=== PATIENT | female | born 1965 | race Caucasian/White ===

== ENCOUNTER → 2017-10-30 14:04 | Day surgery (SDC) | payer OTHER, SELFPAY ==
[2017-10-26] MEDS: SODIUM CHLORIDE 0.9% 1,000 ML 200 ML IV (16:00)
[2017-10-30] VITALS (7 sets, daily range): BP systolic 129–139; BP diastolic 72–90; PULSE 74–87; RESP 2–20; TEMP 35.9–36.3; O2SAT 10–99; BMI 50.0
--- NOTE | 2017-10-30 | PATH_ITS ---
[facility] Accession Number: [id number] . 01 Material submitted: . PART A: SMALL BOWEL BIOPSY PART B: TRANSVERSE COLON POLYP PART C: SIGMOID COLON POLYP . 02 Diagnosis: A. Small Bowel, Biopsy: Small bowel mucosa with no diagnostic abnormality. Negative for active inflammation, granulomata, dysplasia or malignancy. . B. Transverse Colon Polyp: Sessile serrated adenoma. . C. Sigmoid Colon Polyp: Hyperplastic polyp. MRV/11/01/2017 . 02 Electronically signed: . Gonzalez Kaur MD, PhD, Pathologist NPI- [id number] . 01 Gross description: . (A) Received in formalin, labeled small bowel biopsy, are two fragments of alvares tissue (0.5 x 0.1 x 0.1 cm and 0.3 x 0.2 x 0.1 cm). Entirely submitted in cassette A1. (B) Received in formalin, labeled transverse colon polyp, are multiple fragments of rice-white tissue (1.7 x 0.7 x 0.1 cm in aggregate). Filtered and entirely submitted in cassette B1. (C) Received in formalin, labeled sigmoid colon polyp, is a fragment of rice-white tissue (0.3 x 0.2 x 0.1 cm). Entirely submitted in cassette C1. ([id number]) /[facility] . 02 Pathologist provided ICD-10: D12.3, K63.5 . 02 CPT . 601141, 295923, 170817 Performed at: 01 [facility] [address], [place], [place] [id number] MD Cabrera Montelongo MD Phone: [phone] Performed at: 02 [facility] [address] [place] [id number] MD Hardik Lopes MD Phone: [phone]
--- NOTE | 2017-10-30 16:19 | PM.OP.ENDO ---
Operative Date/Time/Diagnoses Date of procedure: 10/30/17 Time of procedure: 16:19 Pre-op diagnosis: See indications Post-op diagnosis: same Procedure & Clinicians Study performed: EGD/enteroscopy and colonoscopy Same procedure as scheduled: Yes Indications: Iron deficiency anemia with right upper quadrant pain. Also need for colorectal cancer screening. Surgeon: Kishan Wilcox Procedure Notes Procedure in detail: After informed consent was obtained patient was placed in left lateral decubitus position. The video colonoscope was introduced to the oropharynx and under direct visualization passed through the esophagus. The esophagus gastric remnant and jejunum were carefully examined. On withdrawal retroflexed view the GE junction was performed. Scope was removed patient tolerated procedure well Patient was then turned and the scope inserted in the rectum. This was easily passed the cecum. Preparation was good. On slow withdrawal mucosa was carefully examined. Scope was removed patient tolerated procedure well Blood loss none Complications none Sedation general per anesthesia EGD 1. Normal esophagus 2. Moderate sized gastric remnant approximately 4-5 cm in length. No anastomotic ulcerations seen 3. Site and the anastomosis was small bowel. The blind loop was an additional 4 cm long. 4. The jejunum was normal to 60-70 cm past the anastomosis. The Lin anastomosis was never found. Small bowel biopsies were taken. Colonoscopy 1. 6 mm polyp in the transverse colon which was snared and removed. This was placed in the same bottle as a couple of random biopsies 2. 3 mm polyp in the sigmoid colon cold biopsied and removed completely 3. Otherwise negative colonoscopy to cecum with no evidence for lesion that might be causing iron deficiency anemia The patient will eventually need to follow up in the office to help pull things together. She may need a capsule endoscopy depending on how her anemia responds.
--- NOTE | 2017-10-30 16:25 | P.HP_ITS ---
History of Present Illness Chief complaint: colonoscopy egd [id number] Patient History Medical History Anxiety (Chronic Unknown) Chronic headaches (Chronic Unknown) Hypothyroidism (Chronic Unknown) Iron deficiency (Chronic ~2000) Bursitis (Resolved ~12/2011) Surgical History History of cataract removal with insertion of prosthetic lens History of gastric bypass (2000) Status post dilation and curettage Status post dilation and curettage (11/23/16) Status post tonsillectomy and adenoidectomy Family & Social History Social History: household members family Tobacco & Substance use: Smoking Status Never smoker Meds Home Medications Medication Instructions Recorded Confirmed Type diphenhydramine HCl 50 mg PO HSP PRN #0 07/02/16 10/30/17 History b complex 1 tab PO DAILY 07/02/17 10/30/17 History calcium citrate 500 mg PO BID 07/02/17 10/30/17 History coq10 200 mg PO DAILY 07/02/17 10/30/17 History magnesium citrate 300 mg PO BID 07/02/17 10/30/17 History milk thistle 1,000 mg PO DAILY 07/02/17 10/30/17 History multivitamin 1 tab PO DAILY 07/02/17 10/30/17 History selenium 200 mg PO DAILY 07/02/17 10/30/17 History vitamin c 1,000 mg PO DAILY 07/02/17 10/30/17 History vitamin a 10,000 units PO DAILY 07/02/17 10/30/17 History vitamin d See Label Instructions .ROUTE 07/02/17 10/30/17 History .COMPLEX vitamin e See Label Instructions .ROUTE 07/02/17 10/30/17 History .COMPLEX zinc 50 mg PO DAILY 07/02/17 10/30/17 History diclofenac sodium 75 mg 75 mg PO BID #60 ect 07/10/17 10/30/17 Rx tablet,delayed release liothyronine 5 mcg tablet 5 mcg PO BID #60 tab 08/05/17 10/30/17 Rx losartan 50 mg tablet 50 mg PO QDAY #30 tab 08/05/17 10/30/17 Rx tizanidine 2 mg tablet 2 mg PO QHS #30 tab 10/23/17 10/30/17 Rx escitalopram oxalate [Lexapro] 10 mg PO QDAY 10/30/17 10/30/17 History ferrous gluconate 100 mg PO DAILY 10/30/17 10/30/17 History levothyroxine [Synthroid] 75 mcg PO/SL QDAY 10/30/17 10/30/17 History Allergies Allergy/AdvReac Type Severity Reaction Status Date / Time pregabalin [PREGABALIN] Allergy Severe facial and Verified 10/30/17 14:48 throat swelling hydrocodone [HYDROCODONE] AdvReac Severe nausea, Unverified 07/02/17 16:19 syncopal episode Exam Vital Signs (past 8 hours): - 10/30/17 14:33 10/30/17 16:16 10/30/17 16:19 Temperature 96.7 F L 97.4 F L Pulse Rate 76 80 78 Respiratory Rate 20 10 L 10 L Blood Pressure 138/85 129/88 139/87 Pulse Oximetry 99 95 10 L Oxygen Delivery Method Room Air Oxygen Flow Rate 2 Narrative Exam Narrative: Chest: Clear to auscultation percussion Cardiac exam: No S3 or murmur Oropharynx: Free of lesions Assessment & Plan Plan: Assessment/Plan Narrative: Iron deficiency anemia with right upper quadrant pain. Need for upper endoscopy to rule out anastomotic ulcer or esophagitis. Also need for small- bowel biopsies. Colonoscopy needed for colorectal cancer screening.
== END | disposition home or self-care (01) ==
PROVIDERS: Family Provider Family Medicine; PCP Family Medicine; Visit Provider Internal Medicine Gastroenterology
PROC: 0DJ08ZZ Inspection of Upper Intestinal Tract, Via Natural or Artificial Opening Endoscopic (ICD-10-PCS; CPT 43235; principal; 2017-10-30 15:00)
PROC: 0DJD8ZZ Inspection of Lower Intestinal Tract, Via Natural or Artificial Opening Endoscopic (ICD-10-PCS; CPT 45378; 2017-10-30 15:00)
DX: Z12.11 Encounter for screening for malignant neoplasm of colon (principal); D12.3 Benign neoplasm of transverse colon; K63.5 Polyp of colon; D50.9 Iron deficiency anemia, unspecified; R10.11 Right upper quadrant pain; E66.9 Obesity, unspecified; I10 Essential (primary) hypertension; Z68.43 Body mass index [BMI] 50.0-59.9, adult; E03.9 Hypothyroidism, unspecified; Z98.84 Bariatric surgery status; Z85.820 Personal history of malignant melanoma of skin; Z79.899 Other long term (current) drug therapy
CPT/HCPCS: 45385; 45380; 43239; J0330; J1100; J2405; J2704; J3010

== ENCOUNTER → 2018-01-29 16:09 | Outpatient (CLI) | payer OTHER, SELFPAY ==
--- NOTE | 2018-01-29 16:10 | DI.MRI.S_ITS ---
PROCEDURE: MR ABDOMEN WO/W CON INDICATIONS: Pancreatic mass TECHNIQUE: Coronal HASTE, axial 2D FLASH in- and [id number]; axial breath-hold T2 FSE with fat saturation from the hepatic dome to the iliac crests. Oblique coronal thin-slice and radial thick slab HASTE through the biliary system. Dynamic axial VIBE during administration of contrast. Post-contrast coronal VIBE or 2D FLASH with fat saturation from the hepatic dome to the iliac crests. Optional diffusion weighted imaging and ADC may be performed. COMPARISON: [facility], CT, ABDOMEN WITH CONTRAST, 10/11/2015, 9:45. Outside Facility, , MRI ABDOMEN W/W/O CONTRAST, 02/09/2016, 9:27. FINDINGS: Image quality: Excellent. Pancreas and biliary system: No biliary distention is seen. No cystic or solid mass lesion involving the pancreatic parenchyma is found. Solid organs: Liver is normal in size and enhancement. Again noted is a stable appearing small right anterior hepatic segment cyst measuring only approximately 9 mm transverse and 6 mm AP. Gallbladder has been previously resected. Spleen is normal in size and enhancement. No adrenal nodules. Kidneys are normal in size and enhancement, without hydronephrosis. Nodes and vessels: No retroperitoneal or mesenteric adenopathy by size criteria. Aorta and inferior vena cava are normal in size. Bowel and peritoneum: Unenhanced bowel loops are normal in caliber throughout. No free fluid. Stable appearance of a small fluid signal rounded cystic structure at the margin of the gastric reduction surgery, previously identified also in January of 2016. A small postoperative lymphocele is the likely cause. Lung bases: No basal pleural effusions. Heart size is normal. Bones and soft tissues: No ventral hernias. Bone marrow is normal in overall signal. IMPRESSION: 1. No evidence of underlying malignancy. 2. Stable appearance of a small postoperative cyst abutting the gastric reduction surgery margin, most likely a small lymphocele as the underlying cause. No followup recommended. 3. Again noted is a small hepatic cyst measuring 6 x 9 mm right anterior hepatic segment at the mid liver level. No specific followup of this particular finding is recommended. 4. Prior cholecystectomy. Dictated by: Candido Arias M.D. on 01/31/2018 at 15:56 Approved by: Candido Arias M.D. on 01/31/2018 at 16:06
== END ==
PROVIDERS: Family Provider Internal Medicine Gastroenterology; PCP Family Medicine; Visit Provider Family Medicine
DX: K86.9 Disease of pancreas, unspecified (principal); K76.89 Other specified diseases of liver; Z90.49 Acquired absence of other specified parts of digestive tract
CPT/HCPCS: 74183; A9579

== ENCOUNTER → 2018-03-07 07:46 | Outpatient (CLI) | payer OTHER, SELFPAY ==
--- NOTE | 2018-03-07 07:47 | DI.MG.S_ITS ---
BILATERAL DIGITAL SCREENING MAMMOGRAM 3D/2D WITH CAD: 03/07/2018 CLINICAL: Routine screening. Family history of breast cancer. Comparison is made to exams dated: 01/26/2017 mammogram, 02/09/2015 mammogram, and 08/20/2012 mammogram - [facility]. There are scattered fibroglandular elements in both breasts. Current study was also evaluated with a Computer Aided Detection (CAD) system. No significant masses, calcifications, or other findings are seen in either breast. There has been no significant interval change. IMPRESSION: NEGATIVE There is no mammographic evidence of malignancy. A 1 year screening mammogram is recommended. This exam was interpreted at Station ID: [id number]. NOTE: For mammograms, a report in lay terms will be sent to the patient. Approximately 15% of breast malignancies will not be visualized mammographically. In the management of a palpable breast mass, a negative mammogram must not discourage biopsy of a clinically suspicious lesion. Electronically Signed By: Ludy paul/yves:03/07/2018 11:20:11 letter sent: Normal Exam ACR BI-RADS Category 1: Negative [id number]
== END ==
PROVIDERS: Family Provider Internal Medicine Gastroenterology; PCP Family Medicine; Visit Provider Family Medicine
DX: Z12.31 Encounter for screening mammogram for malignant neoplasm of breast (principal); Z80.3 Family history of malignant neoplasm of breast
CPT/HCPCS: 77063; 77067

== ENCOUNTER → 2018-05-23 08:59 | Outpatient (CLI) | payer OTHER, SELFPAY ==
[2018-05-23 09:55] LABS: Add Manual Diff / Slide Review NO; Basophils Absolute Auto 0 /uL (0-100); Basophils Percent Auto 0.4 % (0-2); Eosinophils Absolute Auto 100 /uL (0-450); Eosinophils Percent Auto 3.3 % (2-4); Hematocrit 41.6 % (36-46); Hemoglobin 14.1 g/dL (12.0-16.0); Lymphocytes Absolute Auto 900 /uL (1100-4500); Lymphocytes Percent Auto 22.2 % (25-40); Mean Corpuscular Hemoglobin 31.1 PG (26-34); Mean Corpuscular Volume 91.5 fL (80-100); Monocytes Absolute Auto 200 /uL (0-900); Monocytes Percent Auto 4.8 % (3-14); Neutrophils Absolute Auto 2800 /uL (1500-7000); Neutrophils Percent Auto 69.3 % (50-75); Platelet Count 260 X10^3/uL (150-400); Red Blood Cell Count 4.55 X10^6/uL (4.0-5.2); Red Cell Distribution Width 12.4 % (11.6-14.8); White Blood Cell Count 4.1 X10^3/uL (4.5-11.0)
--- NOTE | 2018-05-23 09:57 | DI.CT.S_ITS ---
PROCEDURE: CT LUMBAR SPINE WO CON INDICATIONS: STRAIN OF LOWER BACK. Lower back pain. Sciatica. TECHNIQUE: Noncontrast 3 mm thick sections acquired from the T12 level to the sacrum. Sagittal and coronal reformats were constructed. For radiation dose reduction, the following was used: automated exposure control. COMPARISON: [facility], CR, XR LUMBAR SPINE 2 OR 3 VIEWS, 05/19/2018, 9:27. [facility], MR, L-SPINE W&WO CONTRAST, 03/15/2015, 19:38. FINDINGS: Image quality: Excellent. Bones: There is normal bony alignment. No acute vertebral body compression fractures. No suspicious lytic or blastic bony lesions. Central spinal caliber is of normal overall caliber. No pars defects. Remote posterior lateral johanne and pedicle screw fixation involving the left pedicles of L2-L5. There is no evidence of hardware failure or loosening. There is interbody cage material present at these levels. T12-L1: No canal stenosis or foraminal stenosis. L1-L2: Since the prior MRI, there has been a destructive process that has occurred involving the disc space. The disc space is obliterated with indistinctness of the inferior endplate of L1 and the superior endplate of L2 with interdigitation of the end plates of the vertebral bodies. There is subjacent sclerosis in the vertebral bodies. Findings most likely represent a long time degenerative process. However, cannot exclude discitis/osteomyelitis. No canal stenosis or foraminal stenosis. Unremarkable facet joints. L2-L3: Left posterior lateral fusion and interbody fusion no canal stenosis or foraminal stenosis. Unremarkable facet joints. L3-L4: Left posterior lateral fusion and interbody fusion. No canal stenosis or foraminal stenosis. L4-L5: Left posterior lateral fusion and interbody fusion. Borderline canal stenosis. Mild facet and ligament hypertrophy. L5-S1: A somewhat similar process has occurred at L5-S1 as occurred at L1-L2. There is no severe disc height loss. There is indistinctness of the endplates of L5 and S1 with subcortical cyst formation and sclerosis. No canal stenosis. Mild bilateral foraminal stenosis. Soft tissues: No retroperitoneal masses or hematomas. Visualized aorta is normal in caliber. IMPRESSION: 1. Left posterior lateral fusion and interbody fusion spanning L2-L3 through L5-S1 with no evidence of hardware failure or loosening. 2. A destructive process has occurred at the L1-L2 disc level. This is most likely degenerative in nature. However, cannot exclude L1-L2 discitis/osteomyelitis. Recommend correlation with laboratory values for infection and inflammation. 3. Borderline canal stenosis at L4-L5. Dictated by: Rick Garcia M.D. on 05/23/2018 at 10:35 Approved by: Rick Garcia M.D. on 05/23/2018 at 11:04
[2018-05-23 11:44] LABS: Alanine Aminotransferase 53 IU/L (9-52); Albumin 4.4 g/dL (3.5-5.0); Alkaline Phosphatase 109 U/L (38-126); Aspartate Aminotransferase 41 IU/L (14-36); BUN Creatinine Ratio 21.1 (6-22); Bilirubin Total 0.8 mg/dL (0.2-1.3); Blood Urea Nitrogen 19 mg/dL (7-17); Calcium 9.4 mg/dL (8.4-10.2); Carbon Dioxide 28 mmol/L (22-32); Chloride 102 mmol/L (98-107); Cholesterol 145 mg/dL (140-199); Estimated Glomerular Filt Rate > 60.0 mL/min (>60); Globulin 2.2 g/dL (1.7-4.1); Glucose 97 mg/dL (70-100); HDL Cholesterol 43 mg/dL (40-60); HEMOLYSIS < 15 (0-50); LDL Cholesterol Calculated 71 mg/dL (<100); Sodium 140 mmol/L (137-145); Total Protein 6.6 g/dL (6.3-8.2); Triglycerides 154 mg/dL (35-150)
[2018-05-23 11:55] LABS: Free T3, Triiodothyronine Free 3.52 pg/mL (2.77-5.27); Free T4, Direct Thyroxine 1.27 ng/dL (0.78-2.19)
[2018-05-23 12:08] LABS: Thyroid Stimulating Hormone 0.91 uIU/mL (0.47-4.68)
== END ==
PROVIDERS: Family Provider Internal Medicine Gastroenterology; PCP Family Medicine; Visit Provider Orthopaedic Surgery
DX: S39.012D Strain of muscle, fascia and tendon of lower back, subsequent encounter (principal); E03.9 Hypothyroidism, unspecified; R51 Headache; Z51.81 Encounter for therapeutic drug level monitoring
CPT/HCPCS: 36415; 72131; 80053; 80061; 84439; 84443; 84481; 85025

== ENCOUNTER → 2018-07-29 06:59 | Outpatient (CLI) | payer OTHER, SELFPAY ==
[2018-07-29 08:19] LABS: Add Manual Diff / Slide Review NO; Basophils Absolute Auto 0 /uL (0-100); Basophils Percent Auto 0.4 % (0-2); Eosinophils Absolute Auto 200 /uL (0-450); Eosinophils Percent Auto 3.7 % (2-4); Hematocrit 44.1 % (36-46); Hemoglobin 14.8 g/dL (12.0-16.0); Lymphocytes Absolute Auto 1200 /uL (1100-4500); Lymphocytes Percent Auto 23.6 % (25-40); Mean Corpuscular HGB Conc 33.7 % (30-36); Mean Corpuscular Hemoglobin 30.7 PG (26-34); Mean Corpuscular Volume 91.2 fL (80-100); Monocytes Absolute Auto 300 /uL (0-900); Neutrophils Absolute Auto 3400 /uL (1500-7000); Neutrophils Percent Auto 66.3 % (50-75); Platelet Count 257 X10^3/uL (150-400); Red Blood Cell Count 4.83 X10^6/uL (4.0-5.2); Red Cell Distribution Width 12.5 % (11.6-14.8); White Blood Cell Count 5.1 X10^3/uL (4.5-11.0)
[2018-07-29 08:34] LABS: Alanine Aminotransferase 39 IU/L (9-52); Albumin 4.2 g/dL (3.5-5.0); Albumin Globulin Ratio 1.7 (1.0-2.8); Alkaline Phosphatase 122 U/L (38-126); Aspartate Aminotransferase 38 IU/L (14-36); BUN Creatinine Ratio 18.6 (6-22); Bilirubin Total 0.7 mg/dL (0.2-1.3); Blood Urea Nitrogen 13 mg/dL (7-17); Calcium 9.8 mg/dL (8.4-10.2); Carbon Dioxide 28 mmol/L (22-32); Chloride 104 mmol/L (98-107); Estimated Glomerular Filt Rate > 60.0 mL/min (>60); Globulin 2.5 g/dL (1.7-4.1); Glucose 85 mg/dL (70-100); HEMOLYSIS < 15 (0-50); Potassium 4.6 mmol/L (3.4-5.1); Sodium 141 mmol/L (137-145); Total Protein 6.7 g/dL (6.3-8.2)
== END ==
PROVIDERS: Family Provider Internal Medicine Gastroenterology; PCP Family Medicine; Visit Provider Family Medicine
DX: E03.9 Hypothyroidism, unspecified (principal); E66.9 Obesity, unspecified; I10 Essential (primary) hypertension
CPT/HCPCS: 36415; 80053; 85025

== ENCOUNTER 2018-08-19 06:09 | Day surgery (SDC) | payer OTHER, SELFPAY ==
[2018-08-08 07:58] VITALS: BMI 49.5
[2018-08-19] VITALS (11 sets, daily range): BP systolic 128–159; BP diastolic 65–91; PULSE 64–80; RESP 9–18; TEMP 36.1–36.8; O2SAT 97–100; BMI 49.5
--- NOTE | 2018-08-19 | DI.RAD.S_ITS ---
PROCEDURE: XR LUMBAR SPINE 2-3V INDICATIONS: L5-S1 LAMINECTOMY TECHNIQUE: 2 intraoperative fluoroscopic views of the lumbar spine were acquired. COMPARISON: [facility], , L-SPINE 2-3 VIEWS, 06/23/2013, 16:37. FINDINGS: Intraoperative fluoroscopic images of lower lumbar spine shows prior fusion of lumbar spine a surgical instrument posteriorly at L5-S1 level. IMPRESSION: Fluoroscopy guidance was provided intraoperatively for laminectomy at L5-S1 level. Dictated by: Ted Wilson M.D. on 08/19/2018 at 12:53 Approved by: Ted Wilson M.D. on 08/19/2018 at 12:54
[2018-08-19] MEDS: LACTATED RINGERS 1,000 ML 42 ML IV ×3 (07:16→11:22)
--- NOTE | 2018-08-19 07:22 | PM.PREOP ---
Pre-operative Note Interval Note History & Physical reviewed/Exam performed by Physician: Yes Changes to H&P: No
--- NOTE | 2018-08-19 07:24 | PM.OP.1 ---
Operative Date/Time/Diagnoses Date of procedure: 08/19/18 Time of procedure: 10:11 Pre-op diagnosis: lumbar stenosis with radiculopathy history of lumbar fusion morbid obesity Post-op diagnosis: same Procedure & Clinicians Procedure: L5-S1 laminectomy with left foraminotomy Use of microscope Placement of epidural catheter Same procedure as scheduled: Yes Indications: [age] year old female with intractable pain from stenosis. She had failed conservative management and requested operative intervention. Risks and benefits of surgery were discussed and appropriate consents were obtained. Surgeon: David Alarcon Anesthesia Type: General Operative Notes Findings: none Closure Type: primary Specimen(s): none sent Blood products transfused: none Procedure in detail: Patient was brought to the operating room and intubated on the table. A time-out was performed. There were rolled over the well-padded prone position on the Dinesh table. The back was prepped and draped in standard sterile fashion. Preoperative antibiotics were given. Using fluoroscopy, a 3 cm incision was made to the well-marked left of the midline at the L5-S1 level. We used Bovie to come down to and split the fascia. We then used the Sellaround MaXcess dilators with fluoroscopy and then opened our retractors. We were limited by the previous L5 screw and the tip of the johanne limiting our opening of the retractor. We cleared off more of the scar from her last surgery and went medial to this. However we did not have enough exposure. I want up doing a more shallow blade on the cephalad level so that it could go over the screw head and the remainder of our retractor was deep. The soft tissue was cleared off with Bovie, a marker was placed, an x-ray was taken to confirm positioning. We had the L5-S1 facet, the lateral edge of the lamina, and the screw in the tip of the johanne exposed. Due to the patient's scar tissue and hardware as well as her morbid obesity, this took over an hour to get our exposure. We were having to use 110 mm blades which greatly limited our mobility inside the retractor. This considerably increased the complexity and time of this surgery. We then brought in the microscope. A combination of high-speed bur and Kerrison were used to perform a left-sided laminotomy and facetectomy. We worked out far laterally along the facet joint to remove the overlying bone and opened up the L5 foramen. There was still a thin lateral wall of facet intact underneath the johanne, but we used the curved Kerrisons to undermine this to make sure the foramen was wide open. We could trace the ball probe from the central canal along the pedicle and out laterally and the nerve was freed up. Once everything was adequately decompressed, the wound was copiously irrigated. An epidural catheter was filled with 100 mcg of fentanyl and 8 mL of 0.25% Marcaine. The dura was carefully depressed under the laminotomy site and the catheter was advanced only 2 cm cephalad. We could not advance it further but it seemed to be into the canal. The retractor was removed and the fascia was closed. The epidural catheter was then injected without resistance and removed. Superficial and skin were closed. Sterile dressing was placed. The patient was then rolled over, transferred to the stretcher, and brought to recovery room without complications. Complications: none Condition: stable Disposition: PACU Plan for aftercare: Outpatient. May start physical therapy in 2 weeks
[2018-08-19] MEDS: CEFAZOLIN VIAL 3 GM in SODIUM CHLORIDE 0.9% 100 ML 200 ML IV (07:55)
--- NOTE | 2018-08-19 08:14 | SUR.OPER ---
Prone on spine table, head in foam head support, padded chest and pelvic supports, gel pad at knees, lower legs supported by pillows; nipples, genitalia and toes free of pressure, arms secured on foam padded arm boards at <90 degrees abduction. Tape over blanket at thigh secured to table.
[2018-08-19] MEDS: THROMBIN (RECOMBINANT) 5,000 UNIT VIAL 5000 UNIT TOP (08:30)
[2018-08-19] MEDS: BUPIVACAINE 0.25% (PF) VIAL 30 ML INJ (08:31)
[2018-08-19] MEDS: VANCOMYCIN 1,000 MG VIAL 1000 MG TOP (08:53)
[2018-08-19] MEDS: fentaNYL 100 MCG/2 ML INJ IV ×3 (09:43→10:46)
[2018-08-19] MEDS: SODIUM CHLORIDE 0.9% 1,000 ML, GENTAMICIN 80 MG IRR (09:46)
[2018-08-19] MEDS: BACITRACIN 28 GM OINT 1 APPLIC TOP (10:15)
--- NOTE | 2018-08-19 10:31 | SUR.PHASEI ---
pt has a reddened broken down area under right petty Claire RN from OR stated it happened when pt was transferred from table. Alethea Cruz RN placed bacitracin ointment on it. This RN will monitor the area while in PACU.
[2018-08-19] MEDS: HYDROMORPHONE 2 MG INJ 0.5 MG IV ×2 (11:14→11:23)
--- NOTE | 2018-08-19 11:26 | SUR.PHASEI ---
Report given to Kavitha Blake RN
--- NOTE | 2018-08-19 11:38 | SUR.PHASEI ---
Assumed patient from Lizzeth Begum RN; asked to transfer to OPD. Verbalizes tolerating pain, denies nausea. Skin warm and dry, no grimace, appears comfortable, resp unlabored.
--- NOTE | 2018-08-19 11:53 | SUR.PHASEII ---
Report given to Farooq Rueda RN; pts mother at bedside.
[2018-08-19] MEDS: OXYCODONE/ACETAMINOPHEN 5/325 TABLET 1 TAB PO (12:01)
--- NOTE | 2018-08-19 12:43 | SUR.PHASEII ---
OOB with walker to BR, stable on her feet. Family member assisted with dressing. Escorted to ED entrance by volunteer via [facility]. Pt in stable condition upon D/C to home
== END 2018-08-19 12:43 | disposition home or self-care (01) ==
PROVIDERS: Family Provider Internal Medicine Gastroenterology; PCP Family Medicine; Visit Provider Orthopaedic Surgery
PROC: (CPT 63047; principal; 2018-08-19 07:45)
DX: M48.061 Spinal stenosis, lumbar region without neurogenic claudication (principal); M54.16 Radiculopathy, lumbar region; Z98.1 Arthrodesis status; E66.01 Morbid (severe) obesity due to excess calories; Z68.43 Body mass index [BMI] 50.0-59.9, adult
CPT/HCPCS: 63047; 72100; 76000; C9290; J0690; J1100; J1170; J2405; J2704; J3010

== ENCOUNTER → 2018-10-15 07:14 | Outpatient (CLI) | payer OTHER, SELFPAY ==
--- NOTE | 2018-10-15 07:25 | DI.CT.S_ITS ---
PROCEDURE: CT LUMBAR SPINE WO CON INDICATIONS: Radiculopathy, lumbar region TECHNIQUE: Noncontrast 3 mm thick sections acquired from the T12 level to the sacrum. Sagittal and coronal reformats were constructed. For radiation dose reduction, the following was used: automated exposure control. COMPARISON: [facility], CT, CT LUMBAR SPINE WO CON, 05/23/2018, 9:47. FINDINGS: Image quality: Excellent. Bones: Posterior left fusion with intervertebral spacers is present from L2-L5. There is trace retrolisthesis of L1 on L2, L2 on L3, unchanged. Hardware is intact without visualized patricia are or periprosthetic loosening. There is severe reactive and destructive changes along the inferior endplate of L1, unchanged. There is severe disc space narrowing at L1-L2. Sclerotic reactive endplate changes are also present at L2 as well as L5-S1. They appear slightly more prominent at L5-S1. Minimal disc bulge is present at L1-L2, posterior osteophyte at L3-4. Minimal stenosis at L3-4 mild L4-5, unchanged. Minimal right foraminal narrowing at L1-L2, mild left foraminal narrowing L4-5, moderate bilateral L5-S1, all unchanged. Soft tissues: There is a left posterior subcutaneous fluid collection at the level of L4 measuring 64 mm AP by 41 mm transverse. This is new compared to prior exam.. Visualized aorta is normal in caliber. IMPRESSION: 1. L2-L5 posterior fusion as above. 2. Stable appearance of minimal spinal stenosis at L3-4 and L4-5. 3. Multilevel foraminal narrowing most notable at L5-S1, unchanged. 4. New left posterior subcutaneous fluid collection as above. Recommend correlation to recent surgery or trauma. This could represents seroma. No significant surrounding inflammatory change to suggest abscess. However, this is of concern, contrast study is recommended for further evaluation. Dictated by: Rae Coon M.D. on 10/15/2018 at 11:31 Approved by: Rae Coon M.D. on 10/15/2018 at 11:48
== END ==
PROVIDERS: PCP Family Medicine; Visit Provider Orthopaedic Surgery
DX: M54.16 Radiculopathy, lumbar region (principal); M48.07 Spinal stenosis, lumbosacral region; Z98.1 Arthrodesis status
CPT/HCPCS: 72131

== ENCOUNTER → 2018-11-18 06:55 | Outpatient (CLI) | payer OTHER, SELFPAY ==
[2018-11-18 08:02] LABS: Add Manual Diff / Slide Review NO; Basophils Absolute Auto 0 /uL (0-100); Basophils Percent Auto 0.7 % (0-2); Eosinophils Absolute Auto 200 /uL (0-450); Eosinophils Percent Auto 4.1 % (2-4); Hematocrit 42.9 % (36-46); Hemoglobin 14.4 g/dL (12.0-16.0); Lymphocytes Absolute Auto 1300 /uL (1100-4500); Lymphocytes Percent Auto 25.9 % (25-40); Mean Corpuscular HGB Conc 33.5 % (30-36); Mean Corpuscular Hemoglobin 30.6 PG (26-34); Mean Corpuscular Volume 91.1 fL (80-100); Monocytes Absolute Auto 300 /uL (0-900); Monocytes Percent Auto 5.3 % (3-14); Neutrophils Absolute Auto 3100 /uL (1500-7000); Platelet Count 254 X10^3/uL (150-400); Red Blood Cell Count 4.71 X10^6/uL (4.0-5.2); Red Cell Distribution Width 12.4 % (11.6-14.8); White Blood Cell Count 4.8 X10^3/uL (4.5-11.0)
[2018-11-18 08:11] LABS: BUN Creatinine Ratio 22.5 (6-22); Blood Urea Nitrogen 18 mg/dL (7-17); Calcium 9.8 mg/dL (8.4-10.2); Carbon Dioxide 27 mmol/L (22-32); Chloride 105 mmol/L (98-107); Estimated Glomerular Filt Rate > 60.0 mL/min (>60); Glucose 93 mg/dL (70-100); HEMOLYSIS < 15 (0-50); Sodium 141 mmol/L (137-145)
== END ==
PROVIDERS: Orthopaedic Surgery; PCP Family Medicine; Visit Provider Family Medicine
DX: Z01.818 Encounter for other preprocedural examination (principal); E03.9 Hypothyroidism, unspecified; Z51.81 Encounter for therapeutic drug level monitoring
CPT/HCPCS: 36415; 80048; 85025

== ENCOUNTER → 2018-12-03 06:53 | Outpatient (CLI) | payer OTHER, SELFPAY ==
[2018-12-03 08:32] LABS: Add Manual Diff / Slide Review NO; Basophils Absolute Auto 0 /uL (0-100); Basophils Percent Auto 0.4 % (0-2); Eosinophils Absolute Auto 200 /uL (0-450); Eosinophils Percent Auto 3.3 % (2-4); Hemoglobin 14.6 g/dL (12.0-16.0); Lymphocytes Absolute Auto 1200 /uL (1100-4500); Lymphocytes Percent Auto 23.5 % (25-40); Mean Corpuscular HGB Conc 33.9 % (30-36); Mean Corpuscular Hemoglobin 30.9 PG (26-34); Mean Corpuscular Volume 91.1 fL (80-100); Monocytes Absolute Auto 200 /uL (0-900); Monocytes Percent Auto 4.7 % (3-14); Neutrophils Absolute Auto 3500 /uL (1500-7000); Neutrophils Percent Auto 68.1 % (50-75); Platelet Count 244 X10^3/uL (150-400); Red Blood Cell Count 4.72 X10^6/uL (4.0-5.2); Red Cell Distribution Width 12.5 % (11.6-14.8); White Blood Cell Count 5.1 X10^3/uL (4.5-11.0)
[2018-12-03 08:50] LABS: Cholesterol 175 mg/dL (140-199); HDL Cholesterol 44 mg/dL (40-60); LDL Cholesterol Calculated 95 mg/dL (<100); Triglycerides 180 mg/dL (35-150)
[2018-12-03 08:59] LABS: Iron 107 ug/dL (37-170)
[2018-12-03 09:17] LABS: Free T3, Triiodothyronine Free 2.84 pg/mL (2.77-5.27); Free T4, Direct Thyroxine 1.16 ng/dL (0.78-2.19)
[2018-12-03 09:30] LABS: Thyroid Stimulating Hormone 1.85 uIU/mL (0.47-4.68)
[2018-12-03 17:33] LABS: Bacteria Urine None Seen; RBC Urine None Seen (0-5/HPF)
[2018-12-03 17:44] LABS: Appearance Urine UA CLEAR; Bilirubin Urine UA NEGATIVE (NEGATIVE); Color Urine UA YELLOW; Glucose Urine UA NEGATIVE (Negative); Ketones Urine UA NEGATIVE (NEGATIVE); Leukocyte Esterase Urine UA TRACE (NEGATIVE); Nitrite Urine UA NEGATIVE (Negative); Occult Blood Urine UA NEGATIVE (Negative); Protein Urine UA NEGATIVE (Negative); Specific Gravity Urine UA <=1.005 (1.000-1.035); Urobilinogen Urine UA 0.2 E.U./dL (0.2)
[2018-12-03 18:00] LABS: Squamous Epithelial Cell Urine 5-10 /HPF (0-5/HPF)
[2018-12-03 18:01] LABS: pH Urine UA 5.5 (4.5-8.0)
[2018-12-03 18:02] LABS: WBC Urine 5-10/HPF (0-5/HPF)
[2018-12-03 18:03] LABS: Culture Indicated Urine Specimen Cultured
== END ==
PROVIDERS: PCP Family Medicine; Visit Provider Family Medicine
DX: E03.9 Hypothyroidism, unspecified (principal); E61.1 Iron deficiency; I10 Essential (primary) hypertension
CPT/HCPCS: 36415; 80061; 81001; 83540; 84439; 84443; 84481; 85025; 87077; 87086; 87186

== ENCOUNTER 2018-12-12 06:08 | Day surgery (SDC) | payer OTHER, SELFPAY ==
[2018-12-11 13:56] VITALS: BMI 49.5
[2018-12-12] VITALS (11 sets, daily range): BP systolic 114–144; BP diastolic 63–86; PULSE 71–89; RESP 12–24; TEMP 36.2–36.6; O2SAT 94–100; BMI 49.0
--- NOTE | 2018-12-12 | DI.RAD.S_ITS ---
PROCEDURE: XR LUMBAR SPINE 2-3V INDICATIONS: HARDWARE REMOVAL, LAMINECTOMY AT L5-S1 TECHNIQUE: 2 views of the lumbar spine were acquired. COMPARISON: [facility], , XR LUMBAR SPINE 2-3V, 08/19/2018, 8:13. FINDINGS: Spot fluoroscopic intraoperative images demonstrating removal of previous spinal fixation hardware. On one image, a surgical probe is seen with the tip seen at the level of L5-S1 disc space. Dictated by: Rafael Monsivais M.D. on 12/12/2018 at 15:58 Approved by: Rafael Monsivais M.D. on 12/12/2018 at 15:59
--- NOTE | 2018-12-12 07:28 | PM.PREOP ---
Pre-operative Note Interval Note History & Physical reviewed/Exam performed by Physician: Yes Changes to H&P: Yes H&P completed within 30 days and has changed as indicated here:: will plan on full HWR in back
--- NOTE | 2018-12-12 07:39 | P.OP_ITS ---
Operative Date/Time/Diagnoses Date of procedure: 12/12/18 Time of procedure: 10:37 Pre-op diagnosis: Lumbar stenosis with radiculopathy History of lumbar fusion morbid obesity BMI 49 Post-op diagnosis: same Procedure & Clinicians Procedure: Hardware removal posterior lumbar instrumentation L2 through 5 Revision left-sided laminotomy L5-S1 Same procedure as scheduled: Yes Indications: [age] year old female with intractable pain from lumbar stenosis. They had failed conservative management and requested operative intervention. Risks and benefits of surgery were discussed and appropriate consents were obtained. Surgeon: David Alarcon Advertising Project Manager: Keiko Hager Anesthesia Type: General Operative Notes Findings: None Closure Type: primary Specimen(s): none sent Prosthetic devices, grafts, tissues, transplants, or devices: removed NuVasive Precept screws Estimated Blood Loss (mL): 20 Procedure in detail: Patient was brought to the operating room and intubated on the table. A time-out was performed. There were rolled over the well-padded prone position on the Dinesh table. The back was prepped and draped in standard sterile fashion. Preoperative antibiotics were given. Using fluoroscopy for localization, we revised her old incision on the well- marked left side, we opened this up and split down through the fascia to we came down to the lower screws. There was a 4 cm pocket of seroma fluid collection that was released in the middle of her adipose tissue but nothing tract deeper than that. I realized that we would need to cut above the L4 screw to get adequate access and since we had this cleared above I decided to go ahead and remove all of the old hardware since we were there. The set screws, johanne and pedicle screws from L2 through 5 were all removed. she had extreme amounts of scar tissue around the lower aspect from her previous surgery. We knew we were safe below the point where the old johanne had been as well as out lateral to that. We used Bovie to come down and excised the scar tissue until we came down to the facet we used the L4-5 facet as our guide for depth. We then began having to remove all of the old scar dorsal to the facet with Bovie and curette and pituitary. I realized that she was so deep and scarred in that we would never be able to use the retractors to adequately open. The soft tissue was cleared off with Bovie and a curette medially, being very careful around the junction from her previous surgery. A marker was placed, an x-ray was taken to confirm positioning. We then brought in the microscope. A combination of high-speed bur and Kerrison were used to perform a revision left- sided facetectomy and foraminotomy at L5-S1. We carefully cleared away the scar tissue until we could expose the dura as well as the exiting L5 nerve root. This was traced out all the way through the foramen and we made sure there was no residual bony compression at all. there was scar medially towards the dura but we got rid of all of the bony stenosis and even undermine part of the L5 pedicle and the top of the sacrum to expand the size of the foramen. Once everything was adequately decompressed, the wound was copiously irrigated. An epidural catheter was filled with 100 mcg of fentanyl and 8 mL of 0.25% Marcaine. We were able to run the ball probe up along the L5 nerve root to the canal above and then slid the epidural catheter along this. When an approximately 4 cm. The retractor was removed and the fascia was closed in layers. The epidural catheter was then injected without resistance and removed. We closed some of her deep adipose tissue in layers. Vancomycin powder was placed in the wound. Superficial and skin were closed. Sterile dressing was placed. The patient was then rolled over, transferred to the stretcher, and brought to recovery room without complications. Please note the patient was morbidly obese. We were almost 14 cm deep from her skin in our working area. This was extremely complex and greatly limited amount of mobility that we could use in the deep tissue as well as the maneuverability of our instruments. This greatly increased the time as well as complexity of the case. Complications: none Post-operative Condition: stable Disposition: PACU Plan for aftercare: Outpatient. May begin activity as tolerated in therapy after her sutures are removed.
[2018-12-12] MEDS: CEFAZOLIN 2 GM/100 ML FROZ.PIGGY IV (07:51)
[2018-12-12] MEDS: VANCOMYCIN 1,000 MG VIAL 1000 MG TOP (08:25)
[2018-12-12] MEDS: SODIUM CHLORIDE 0.9% 1,000 ML, GENTAMICIN 80 MG IRR (08:26)
[2018-12-12] MEDS: THROMBIN (RECOMBINANT) 5,000 UNIT VIAL 5000 UNIT TOP (08:26)
[2018-12-12] MEDS: BUPIVACAINE 0.25% (PF) 8 ML, fentaNYL 100 MCG INJ (08:27)
[2018-12-12] MEDS: LACTATED RINGERS 1,000 ML 42 ML IV (09:35)
[2018-12-12] MEDS: MEPERIDINE 50 MG/ML INJ 25 MG IV (11:22)
[2018-12-12] MEDS: hydrOXYzine 50 MG/ML INJ 25 MG IM (11:35)
[2018-12-12] MEDS: fentaNYL 100 MCG/2 ML INJ 50 MCG IV (11:45)
--- NOTE | 2018-12-12 12:49 | SUR.PHASEI ---
Late entry: Pt arrived from OR c/o 8-10/21 pain, Dr. Smith at bedside and gave pt Dilaudid I gave pt fentanyl and vistaril. Pt 's pain after some time came down to 7/10. Pt in between care would be resting comfortably, respirations = and non labored. When awakened and asked about pain it was 8/10. Order for po pain med obtained from Dr. Smith. Pt moved to Phase 2, reported to Anastasiya
[2018-12-12] MEDS: OXYCODONE IR 5 MG TABLET PO (13:01)
--- NOTE | 2018-12-12 13:44 | SUR.PHASEII ---
Patient dressed with assistance from her mother after requesting to discharge. Patient denied tingling or numbness to BLE
--- NOTE | 2018-12-12 13:46 | SUR.PHASEII ---
Green light flashing on jessenia drain
== END 2018-12-12 13:44 | disposition home or self-care (01) ==
PROVIDERS: PCP Family Medicine; Visit Provider Orthopaedic Surgery
PROC: (CPT 63042; principal; 2018-12-12 07:45)
DX: M48.062 Spinal stenosis, lumbar region with neurogenic claudication (principal); E66.01 Morbid (severe) obesity due to excess calories; Z98.1 Arthrodesis status; S39.012D Strain of muscle, fascia and tendon of lower back, subsequent encounter; Z68.42 Body mass index [BMI] 45.0-49.9, adult
CPT/HCPCS: 63042; 22850; 72100; 76000; J0330; J0690; J1100; J1170; J2175; J2250; J2405; J2704; J3010; J3410

== ENCOUNTER → 2019-03-24 16:58 | Outpatient (CLI) | payer OTHER, SELFPAY ==
--- NOTE | 2019-03-24 | DI.MG.S_ITS ---
BILATERAL DIGITAL SCREENING MAMMOGRAM 3D/2D WITH CAD: 03/24/2019 CLINICAL: Routine screening. Family history of breast cancer. Comparison is made to exams dated: 03/07/2018 mammogram, 01/26/2017 mammogram, and 02/09/2015 mammogram - [facility]. There are scattered fibroglandular elements in both breasts. Current study was also evaluated with a Computer Aided Detection (CAD) system. No significant masses, calcifications, or other findings are seen in either breast. There has been no significant interval change. IMPRESSION: NEGATIVE There is no mammographic evidence of malignancy. A 1 year screening mammogram is recommended. This exam was interpreted at Station ID: [id number]. NOTE: For mammograms, a report in lay terms will be sent to the patient. Approximately 15% of breast malignancies will not be visualized mammographically. In the management of a palpable breast mass, a negative mammogram must not discourage biopsy of a clinically suspicious lesion. Electronically Signed By: Ludy paul/yves:03/25/2019 07:16:16 letter sent: Normal Exam ACR BI-RADS Category 1: Negative 3341F
== END ==
PROVIDERS: PCP Family Medicine; Referring Provider Family Medicine; Visit Provider Family Medicine
DX: Z12.31 Encounter for screening mammogram for malignant neoplasm of breast (principal); Z80.3 Family history of malignant neoplasm of breast
CPT/HCPCS: 77063; 77067

== ENCOUNTER → 2019-04-28 14:55 | Outpatient (CLI) | payer OTHER, SELFPAY | PROVIDERS: PCP Family Medicine; Referring Provider Family Medicine Sports Medicine; Visit Provider Family Medicine Sports Medicine | DX: M85.851 Other specified disorders of bone density and structure, right thigh (principal); E21.3 Hyperparathyroidism, unspecified; E07.9 Disorder of thyroid, unspecified | CPT/HCPCS: 77080; 77081 ==

== ENCOUNTER → 2019-08-17 07:12 | Outpatient (CLI) | payer OTHER, SELFPAY ==
--- NOTE | 2019-08-17 | DI.US.S_ITS ---
PROCEDURE: US SOFT TISSUE HEAD AND NECK INDICATIONS: RIGHT NECK LUMP TECHNIQUE: Real-time scanning was performed of the neck region of interest, with image documentation. COMPARISON: None. FINDINGS: In the area of current clinical concern a small benign appearing lymph node measuring 3 x 4 x 7 mm is identified. IMPRESSION: Benign-appearing small lymph node is located at the area of current clinical concern. Dictated by: Candido Arias M.D. on 08/17/2019 at 10:26 Approved by: Candido Arias M.D. on 08/17/2019 at 10:27
== END ==
PROVIDERS: PCP Family Medicine; Referring Provider Family Medicine Sports Medicine; Visit Provider Family Medicine Sports Medicine
DX: R22.1 Localized swelling, mass and lump, neck (principal)
CPT/HCPCS: 76536

== ENCOUNTER → 2020-03-29 17:14 | Outpatient (CLI) | payer OTHER, SELFPAY ==
--- NOTE | 2020-03-29 17:17 | DI.MG.S_ITS ---
BILATERAL DIGITAL SCREENING MAMMOGRAM 3D/2D WITH CAD: 03/29/2020 CLINICAL: Routine screening. Family history of breast cancer. Comparison is made to exams dated: 03/24/2019 mammogram, 03/07/2018 mammogram, 01/26/2017 mammogram, and 02/09/2015 mammogram - [facility]. There are scattered fibroglandular elements in both breasts. Current study was also evaluated with a Computer Aided Detection (CAD) system. No significant masses, calcifications, or other findings are seen in either breast. There has been no significant interval change. IMPRESSION: NEGATIVE There is no mammographic evidence of malignancy. A 1 year screening mammogram is recommended. This exam was interpreted at Station ID: [id number]. NOTE: For mammograms, a report in lay terms will be sent to the patient. Approximately 15% of breast malignancies will not be visualized mammographically. In the management of a palpable breast mass, a negative mammogram must not discourage biopsy of a clinically suspicious lesion. Electronically Signed By: Mykel ambrocio/yves:03/30/2020 07:22:07 letter sent: Normal Exam ACR BI-RADS Category 1: Negative 3341F
== END ==
PROVIDERS: PCP Student in an Organized Health Care Education/Training Program; Referring Provider Student in an Organized Health Care Education/Training Program; Visit Provider Student in an Organized Health Care Education/Training Program
DX: Z12.31 Encounter for screening mammogram for malignant neoplasm of breast (principal); Z80.3 Family history of malignant neoplasm of breast
CPT/HCPCS: 77063; 77067

== ENCOUNTER → 2020-08-13 11:10 | Outpatient (CLI) | payer BC, SELFPAY ==
[2020-08-13 12:34] LABS: BUN Creatinine Ratio 32.7 (6-22); Blood Urea Nitrogen 33 mg/dL (7-17); Estimated Glomerular Filt Rate 56.9 mL/min (>60)
[2020-08-13 13:30] LABS: Collection Time Urine 24 Hours; Total Volume Urine 1500 mL
[2020-08-13 14:20] LABS: Creatinine 24 Hour Urine 1245 mg/day (800-1800)
== END ==
PROVIDERS: PCP Student in an Organized Health Care Education/Training Program; Referring Provider Student in an Organized Health Care Education/Training Program; Visit Provider Student in an Organized Health Care Education/Training Program
DX: R94.4 Abnormal results of kidney function studies (principal)
CPT/HCPCS: 36415; 82565; 82570; 84520

== ENCOUNTER → 2020-08-31 17:16 | Outpatient (CLI) | payer BC, SELFPAY ==
[2020-08-31 19:03] LABS: Carcinoembryonic Antigen 2.5 ng/mL (0.1-3.0)
[2020-08-31 19:08] LABS: TSH w/ Reflex to FT4 1.31 uIU/mL (0.47-4.68)
[2020-09-02 15:45] LABS: Calcitonin <2.0 pg/mL (0.0-5.0)
[2020-09-04 03:38] LABS: Metanephrine,Plasma <10.0 pg/mL (0.0-88.0)
== END ==
PROVIDERS: PCP Student in an Organized Health Care Education/Training Program; Referring Provider Student in an Organized Health Care Education/Training Program; Visit Provider Student in an Organized Health Care Education/Training Program
DX: E03.9 Hypothyroidism, unspecified (principal); E66.9 Obesity, unspecified; R23.2 Flushing
CPT/HCPCS: 36415; 82308; 82378; 83497; 83835; 84443

== ENCOUNTER 2020-09-18 06:06 | Emergency (ER) | payer BC, SELFPAY ==
[2020-09-18] VITALS (7 sets, daily range): BP systolic 132–161; BP diastolic 72–80; PULSE 66–88; RESP 17–22; TEMP 36.8; O2SAT 97–100; BMI 52.4
--- NOTE | 2020-09-18 07:48 | ED.BACK ---
HPI - Back Pain/Injury General Chief Complaint: Back Pain/Injury Stated Complaint: Back and side pain worsening Time Seen by Provider: 09/18/20 06:52 Source: patient Limitations: no limitations History of Present Illness HPI Narrative: Patient is a 55-year-old female who presents with left flank pain starting 2 days ago. It has slowly started wrapping around her abdomen. She denies any injury. She does say that it is definitely worse with movement. She denies any nausea or vomiting. She has not noted any blood in her urine. She has taken Tylenol and ibuprofen for it without any relief. She denies any fever or chills. She has no prior history of kidney stones. Related Data Home Medications Medication Instructions Recorded Confirmed diphenhydramine HCl 50 mg capsule 50 mg PO HSP PRN #0 07/02/16 08/09/20 ascorbic acid (vitamin C) 1,000 mg 1,000 mg PO DAILY 07/02/17 08/09/20 tablet (Vitamin C) calcium citrate 500 mg PO DAILY 07/02/17 08/09/20 coenzyme Q10 200 mg capsule (Co 200 mg PO DAILY 07/02/17 08/09/20 Q-10) milk thistle 500 mg capsule 1,000 mg PO DAILY 07/02/17 08/09/20 multivitamin 1 cap PO DAILY 07/02/17 08/09/20 selenium 200 mcg capsule 200 mcg PO DAILY 07/02/17 08/09/20 vitamin A 10,000 unit capsule 10,000 unit PO DAILY 07/02/17 08/09/20 vitamin B complex (B Complex 1) 1 tab PO DAILY 07/02/17 08/09/20 vitamin d See Rx Instructions .ROUTE .COMPLEX 07/02/17 08/09/20 vitamin e See Rx Instructions .ROUTE .COMPLEX 07/02/17 08/09/20 zinc 50 mg tablet 50 mg PO DAILY 07/02/17 08/09/20 ferrous gluconate 240 mg (27 mg 100 mg PO DAILY 10/30/17 08/09/20 iron) tablet magnesium oxide 400 mg PO BID 01/08/18 08/09/20 Previous Rx's Medication Instructions Recorded diclofenac sodium 75 mg 75 mg PO BID #180 tab 11/10/19 tablet,delayed release escitalopram oxalate 20 mg tablet 20 mg PO DAILY #90 tab 05/20/20 (Lexapro) irbesartan 150 mg tablet 150 mg PO BID #180 tab 05/20/20 tizanidine 2 mg tablet 2 mg PO BID #180 tab 07/22/20 levothyroxine 75 mcg tablet 75 mcg PO DAILY #90 tab 08/04/20 liothyronine 5 mcg tablet (Cytomel) 7.5 mcg PO DAILY #135 tab 08/04/20 oxycodone-acetaminophen 5 mg-325 1 tab PO Q6H PRN #10 tab 09/18/20 mg tablet (Percocet) Allergies Allergy/AdvReac Type Severity Reaction Status Date / Time pregabalin [PREGABALIN] Allergy Severe facial and Verified 08/09/20 14:45 throat swelling hydrocodone [HYDROCODONE] AdvReac Severe nausea, Verified 08/09/20 14:45 syncopal episode Review of Systems Review of Systems Narrative: GENERAL: Denies chills, fatigue, malaise, fever, sweats, travel HEENT: Denies sinus pain, ear pain, sore throat, difficulty swallowing, neck pain RESPIRATORY: Denies dyspnea, cough, wheezing, hemoptysis, sputum. CARDIOVASCULAR: Denies chest pain, palpitations, orthopnea, edema GASTROINTESTINAL: Denies nausea, vomiting, abdominal pain, diarrhea, constipation, melena. : + left flank pain Denies dysuria, frequency, incontinence, hematuria, urinary retention, flank pain. MUSCULOSKELETAL:+ back pain, see HPI SKIN: No rash, no erythema, no pruritus NEUROLOGIC: Denies weakness, dizziness, headache, numbness, change in speech, confusion PSYCHIATRIC: No concerning psychosocial issues. 12 point review of systems is negative except for those stated above and HPI Patient History Medical History (Updated 09/18/20 @ 09:09 by Samantha Cox DO) Anxiety (Unknown) Bursitis (~12/2011) Chronic headaches (Unknown) HTN (hypertension) Hypothyroidism (Unknown) Iron deficiency (~2000) Melanoma Sleep apnea Surgical History H/O Achilles tendon repair History of cataract removal with insertion of prosthetic lens History of gastric bypass (2000) History of sinus surgery History of spinal fusion (06/23/13) History of tonsillectomy Hx of laminectomy (08/19/18) Hx of vein stripping Status post dilation and curettage Status post dilation and curettage (11/23/16) Status post epidural steroid injection Status post tonsillectomy and adenoidectomy Social History household members: family Smoking Status: Never smoker Smoking Status: Never smoker Substance Use Type: does not use Exam Initial Vital Signs Initial Vital Signs: Vital Signs Temperature 98.3 F 09/18/20 06:16 Pulse Rate 88 09/18/20 06:16 Respiratory Rate 22 09/18/20 06:16 Blood Pressure 153/80 H 09/18/20 06:16 Pulse Oximetry 97 09/18/20 06:16 GENERAL: Alert pleasant 55-year-old female BMI 52 HEENT: Head atraumatic,EOMI, pupils reactive, face symmetric, moist mucous membranes CARDIOVASCULAR: Regular rate and rhythm without murmurs, rubs or gallops. RESPIRATORY: Breath sounds equal bilaterally, no wheezes rales or rhonchi. ABDOMEN: Soft, nontender. Normoactive bowel sounds all 4 quadrants. No guarding or rebound. : Mild left CVA tenderness EXTREMITIES: Normal range of motion, no clubbing or edema. Neurovascularly intact NEUROLOGICAL: Alert and oriented x4.Normal gait and speech. SKIN: Warm, dry, no laceration, no petechiae, no rashes or lesions. Course Orders Ordered: Discontinued Medications Ketorolac Tromethamine (Ketorolac 30 Mg/Ml Vial) 30 mg IV NOW ONE Stop: 09/18/20 07:56 Last Admin: 09/18/20 08:26 Dose: Not Given Documented by: JAIRON Ketorolac Tromethamine (Ketorolac 30 Mg/Ml Vial) 30 mg IM NOW ONE Stop: 09/18/20 08:27 Last Admin: 09/18/20 08:52 Dose: 30 mg Documented by: JAIRON Vital Signs Vital signs: Vital Signs - 8 hr 09/18/20 06:16 09/18/20 08:11 09/18/20 08:12 Temperature 98.3 F Pulse Rate 88 74 Respiratory Rate 22 17 Blood Pressure 153/80 H 134/72 Pulse Oximetry 97 100 100 09/18/20 08:42 09/18/20 08:47 09/18/20 09:00 Temperature Pulse Rate 74 75 69 Respiratory Rate Blood Pressure 161/76 H 138/79 Pulse Oximetry 100 99 99 MDM - Back Pain/Injury Lab Data Result diagrams: 09/18/20 08:45 09/18/20 08:45 Labs: Lab Results 09/18/20 09/18/20 Range/Units 08:45 08:45 WBC 10.0 (4.5-11.0) X10^3/uL RBC 4.62 (4.0-5.2) X10^6/uL Hgb 15.0 (12.0-16.0) g/dL Hct 44.9 (36-46) % MCV 97.2 (80-100) fL MCH 32.5 (26-34) PG MCHC 33.4 (30-36) % RDW 13.7 (11.6-14.8) % Plt Count 247 (150-400) X10^3/uL Neut % (Auto) 86.0 H (50-75) % Lymph % (Auto) 9.9 L (25-40) % [place] % (Auto) 3.3 (3-14) % Eos % (Auto) 0.4 L (2-4) % Baso % (Auto) 0.4 (0-2) % Neut # (Auto) 8600 H (3408-0364) /uL Lymph # (Auto) 1000 L (0628-4572) /uL [place] # (Auto) 300 (0-900) /uL Eos # (Auto) 0 (0-450) /uL Baso # (Auto) 0 (0-100) /uL Sodium 138 (137-145) mmol/L Potassium 4.0 (3.4-5.1) mmol/L Chloride 103 (98-107) mmol/L Carbon Dioxide 27 (22-32) mmol/L BUN 30 H (7-17) mg/dL Creatinine 1.04 (0.52-1.04) mg/dL Estimated GFR 55.0 L (>60) mL/min BUN/Creatinine Ratio 28.8 H (6-22) Glucose 108 H (70-100) mg/dL Calcium 9.7 (8.4-10.2) mg/dL Total Bilirubin 1.0 (0.2-1.3) mg/dL AST 45 H (14-36) IU/L ALT 54 H (<35) IU/L Alkaline Phosphatase 113 (38-126) U/L Total Protein 7.0 (6.3-8.2) g/dL Albumin 4.3 (3.5-5.0) g/dL Globulin 2.7 (1.7-4.1) g/dL Albumin/Globulin Ratio 1.6 (1.0-2.8) Lipase 273 (23-300) U/L Urine Dip Bedside Urine Glucose Negative Bedside Urine Bilirubin - Negative Bedside Urine Ketone - Negative Urine Specific [place] 1.015 Bedside Urine Occult Blood - Negative Bedside Urine pH 6 Bedside Urine Protein - Negative Bedside Urine Urobilinogen - Negative Bedside Urine Nitrite - Negative Bedside Urine Leukocytes - Negative Esterase Imaging Data CT scan - abdomen/pelvis: Radiologist's Impression: PROCEDURE: CT KIDNEY URETER BLADDER (KUB) INDICATIONS: left flank pain TECHNIQUE: Axial sections were acquired from the lung bases to the pubic symphysis. Coronal and sagittal reformats were performed. For radiation dose reduction, the following was used: automated exposure control, adjustment of mA and/or kV according to patient size. COMPARISON: [facility], CT, CT LUMBAR SPINE WO CON, 10/15/2018, 7:19. FINDINGS: Image quality: Excellent. Lung bases: Unremarkable. A small hiatal hernia is incidentally noted. Heart: No significant findings. URINARY: Right Kidney: No stones or hydronephrosis. Right Ureter: No hydroureter. Left Kidney: No stones or hydronephrosis. Left Ureter: No hydroureter. Bladder: Normal wall thickness. No stones. ABDOMEN: Liver: Unremarkable. Gallbladder: Removed. Biliary ducts: Unremarkable. Pancreas: Unremarkable. Spleen: Unremarkable. Adrenal Glands: Unremarkable. Stomach and Bowel: Stomach, small bowel loops, and colon are unremarkable. Bariatric surgery can be seen. A normal appendix is incidentally noted. Peritoneum: No abnormal intraperitoneal fluid. No free air. Ventral Wall: No hernia. Abdominal Nodes: No enlarged retroperitoneal or mesenteric lymph nodes. Vessels: Aorta and inferior vena cava are normal in size. PELVIS: Pelvic Organs: Unremarkable. Pelvic Nodes: Unremarkable. Miscellaneous: No inguinal hernias are seen. Bones: Mild levoconvex scoliotic curvature is noted. Relatively prominent lumbar spine degenerative changes are seen. There is fusion change at L1-L2. Disc spacers are seen at L2-L3, L3-L4, and L4-L5. IMPRESSION: No stones or hydronephrosis can be seen on either side. No imaging explanation is found for this patient's presenting symptoms. Incidental note is made of: Small hiatal hernia Bariatric surgery Cholecystectomy Postoperative and degenerative changes of the lumbar spine Dictated by: Cuhn Jacob M.D. on 09/18/2020 at 7:26 MDM Narrative Medical decision making narrative: Patient's pain is worse with movement however it is wrapping from left flank to abdomen. Possible musculoskeletal versus kidney stone. CT does not show any abnormality blood work and urine are negative. At this time it patient has more musculoskeletal. Pain is better after Toradol. I did find out afterwards is that she is a gastric bypass patient. She was previously taking ibuprofen at home as well. They recommended she not take any more NSAIDs. And she is given hydrocodone for pain at home. She states that she has methocarbamol at home for muscle relaxer as well. Discharge Plan Departure Patient Disposition: Home Clinical Impression: Back pain Qualifiers: Back pain location: low back pain Chronicity: acute Back pain laterality: left Sciatica presence: without sciatica Qualified Code(s): M54.5 - Low back pain Instructions: DI for Low Back Pain Activity Restrictions/Additional Instructions: *You have been diagnosed with back pain *What to do: At this time blood work and CT scan do not show any abnormality. Avoid ibuprofen, naproxen and other NSAIDs because you had gastric bypass. Recommend light activity and stretching. *Continue to take medications as directed--> SENT TO [facility] Percocet 1-2 tablets every 6 hours if needed for severe pain *Follow up with your primary care provider in 2-3 days *Return to ER if you should have increasing pain, changes in bowel or bladder habits, fever or any new, worsening or concerning symptoms CONTROLLED SUBSTANCE DISCHARGE (Narcotoic/benzodiazepine/Flexeril/Phenergan) 1. You have been prescribed narcotic medications, it does have acetaminophen/Tylenol/paracetamol in it, DO NOT TAKE MORE THAN 4,00mg in 24 hours of Tylenol. TRAMADOL DOES NOT CONTAIN TYLENOL 2. Please understand that we cannot provide further refills of narcotics, benzodiazepines or controlled substances through the ED and her pain management will need to be through your provider. 3. While on these medications you cannot drive or operate heavy machinery. 4. You cannot sign legal documents or perform any duties such as this. 5. As long as you're taking opiate pain medications he should also be taking a stool softener such as Colace, Dulcolax, MiraLAX or prune juice, to help avoid constipation. Prescriptions: New oxycodone-acetaminophen [Percocet] 5-325 mg tablet 1 tab PO Q6H PRN (Reason: pain) Qty: 10 RF: 0 No Action multivitamin Capsule 1 cap PO DAILY RF: 0 vitamin A 10,000 unit Capsule 10,000 unit PO DAILY RF: 0 ascorbic acid (vitamin C) [Vitamin C] 1,000 mg Tablet 1,000 mg PO DAILY RF: 0 vitamin d See Rx Instructions .ROUTE .COMPLEX RF: 0 vitamin e See Rx Instructions .ROUTE .COMPLEX RF: 0 vitamin B complex [B Complex 1] Tablet 1 tab PO DAILY RF: 0 calcium citrate 250 mg calcium Tablet 500 mg PO DAILY RF: 0 zinc 50 mg Tablet 50 mg PO DAILY RF: 0 milk thistle 500 mg Capsule 1,000 mg PO DAILY RF: 0 selenium 200 mcg Capsule 200 mcg PO DAILY RF: 0 coenzyme Q10 [Co Q-10] 200 mg Capsule 200 mg PO DAILY RF: 0 magnesium oxide 400 mg magnesium Capsule 400 mg PO BID RF: 0 diphenhydramine HCl 50 MG capsule 50 mg PO HSP PRN (Reason: Insomnia) Qty: 0 RF: 0 diclofenac sodium 75 mg tablet,delayed release (DR/EC) 75 mg PO BID Qty: 180 RF: 3 escitalopram oxalate [Lexapro] 20 mg tablet 20 mg PO DAILY Qty: 90 RF: 3 irbesartan 150 mg tablet 150 mg PO BID Qty: 180 RF: 1 tizanidine 2 mg tablet 2 mg PO BID Qty: 180 RF: 1 liothyronine [Cytomel] 5 mcg tablet 7.5 mcg PO DAILY Qty: 135 RF: 0 levothyroxine 75 mcg tablet 75 mcg PO DAILY Qty: 90 RF: 0 ferrous gluconate 240 MG tablet 100 mg PO DAILY RF: 0 Referrals: Moises Rowland MD [Primary Care Provider] -
--- NOTE | 2020-09-18 07:55 | DI.CT.S_ITS ---
PROCEDURE: CT KIDNEY URETER BLADDER (KUB) INDICATIONS: left flank pain TECHNIQUE: Axial sections were acquired from the lung bases to the pubic symphysis. Coronal and sagittal reformats were performed. For radiation dose reduction, the following was used: automated exposure control, adjustment of mA and/or kV according to patient size. COMPARISON: [facility], CT, CT LUMBAR SPINE WO CON, 10/15/2018, 7:19. FINDINGS: Image quality: Excellent. Lung bases: Unremarkable. A small hiatal hernia is incidentally noted. Heart: No significant findings. URINARY: Right Kidney: No stones or hydronephrosis. Right Ureter: No hydroureter. Left Kidney: No stones or hydronephrosis. Left Ureter: No hydroureter. Bladder: Normal wall thickness. No stones. ABDOMEN: Liver: Unremarkable. Gallbladder: Removed. Biliary ducts: Unremarkable. Pancreas: Unremarkable. Spleen: Unremarkable. Adrenal Glands: Unremarkable. Stomach and Bowel: Stomach, small bowel loops, and colon are unremarkable. Bariatric surgery can be seen. A normal appendix is incidentally noted. Peritoneum: No abnormal intraperitoneal fluid. No free air. Ventral Wall: No hernia. Abdominal Nodes: No enlarged retroperitoneal or mesenteric lymph nodes. Vessels: Aorta and inferior vena cava are normal in size. PELVIS: Pelvic Organs: Unremarkable. Pelvic Nodes: Unremarkable. Miscellaneous: No inguinal hernias are seen. Bones: Mild levoconvex scoliotic curvature is noted. Relatively prominent lumbar spine degenerative changes are seen. There is fusion change at L1-L2. Disc spacers are seen at L2-L3, L3-L4, and L4-L5. IMPRESSION: No stones or hydronephrosis can be seen on either side. No imaging explanation is found for this patient's presenting symptoms. Incidental note is made of: Small hiatal hernia Bariatric surgery Cholecystectomy Postoperative and degenerative changes of the lumbar spine Dictated by: Chun Jacob M.D. on 09/18/2020 at 7:26 Approved by: Chun Jacob M.D. on 09/18/2020 at 7:30
[2020-09-18 08:48] LABS: Add Manual Diff / Slide Review NO; Basophils Absolute Auto 0 /uL (0-100); Basophils Percent Auto 0.4 % (0-2); Eosinophils Absolute Auto 0 /uL (0-450); Eosinophils Percent Auto 0.4 % (2-4); Hematocrit 44.9 % (36-46); Lymphocytes Absolute Auto 1000 /uL (1100-4500); Lymphocytes Percent Auto 9.9 % (25-40); Mean Corpuscular HGB Conc 33.4 % (30-36); Mean Corpuscular Hemoglobin 32.5 PG (26-34); Mean Corpuscular Volume 97.2 fL (80-100); Monocytes Absolute Auto 300 /uL (0-900); Monocytes Percent Auto 3.3 % (3-14); Neutrophils Absolute Auto 8600 /uL (1500-7000); Platelet Count 247 X10^3/uL (150-400); Red Blood Cell Count 4.62 X10^6/uL (4.0-5.2); Red Cell Distribution Width 13.7 % (11.6-14.8)
[2020-09-18] MEDS: KETOROLAC 30 MG/ML VIAL IM (08:52)
[2020-09-18 09:01] LABS: Alanine Aminotransferase 54 IU/L (<35); Albumin 4.3 g/dL (3.5-5.0); Albumin Globulin Ratio 1.6 (1.0-2.8); Alkaline Phosphatase 113 U/L (38-126); Aspartate Aminotransferase 45 IU/L (14-36); BUN Creatinine Ratio 28.8 (6-22); Blood Urea Nitrogen 30 mg/dL (7-17); Calcium 9.7 mg/dL (8.4-10.2); Carbon Dioxide 27 mmol/L (22-32); Chloride 103 mmol/L (98-107); Globulin 2.7 g/dL (1.7-4.1); Glucose 108 mg/dL (70-100); HEMOLYSIS 24 (0-50); Lipase 273 U/L (23-300); Sodium 138 mmol/L (137-145)
== END 2020-09-18 09:48 | disposition home or self-care (01) ==
PROVIDERS: Emergency Provider Emergency Medicine; PCP Student in an Organized Health Care Education/Training Program
DX: M54.5 Low back pain (principal); R10.9 Unspecified abdominal pain
CPT/HCPCS: 36415; 74176; 80053; 81003; 83690; 85025; 96372; 99283; 99284; J1885

== ENCOUNTER → 2021-04-27 08:32 | Outpatient (CLI) | payer BC, SELFPAY ==
--- NOTE | 2021-04-27 | DI.MG.S_ITS ---
BILATERAL DIGITAL SCREENING MAMMOGRAM 3D/2D WITH CAD: 04/27/2021 CLINICAL: Family history of breast cancer. Routine screening. Comparison is made to exams dated: 03/29/2020 mammogram, 03/24/2019 mammogram, and 03/07/2018 mammogram - [facility]. There are scattered fibroglandular elements in both breasts. Current study was also evaluated with a Computer Aided Detection (CAD) system. No significant masses, calcifications, or other findings are seen in either breast. There has been no significant interval change. IMPRESSION: NEGATIVE There is no mammographic evidence of malignancy. A 1 year screening mammogram is recommended. This exam was interpreted at Station ID: [id number]. NOTE: For mammograms, a report in lay terms will be sent to the patient. Approximately 15% of breast malignancies will not be visualized mammographically. In the management of a palpable breast mass, a negative mammogram must not discourage biopsy of a clinically suspicious lesion. Electronically Signed By: Rodriguez mcclellan/yves:04/27/2021 09:16:45 letter sent: Normal Exam ACR BI-RADS Category 1: Negative 3341F
== END ==
PROVIDERS: PCP Student in an Organized Health Care Education/Training Program; Referring Provider Student in an Organized Health Care Education/Training Program; Visit Provider Student in an Organized Health Care Education/Training Program
DX: Z12.31 Encounter for screening mammogram for malignant neoplasm of breast (principal)
CPT/HCPCS: 77063; 77067

== ENCOUNTER → 2022-02-23 09:23 | Outpatient (CLI) | payer BC, SELFPAY ==
[2022-02-23 11:27] LABS: COVID19 -Nasal RAPID Negative (Negative)
== END ==
PROVIDERS: PCP Student in an Organized Health Care Education/Training Program; Visit Provider Surgery
DX: Z01.812 Encounter for preprocedural laboratory examination (principal); Z20.822 Contact with and (suspected) exposure to COVID-19
CPT/HCPCS: 87635; C9803

== ENCOUNTER 2022-02-26 13:26 | Day surgery (SDC) | payer BC, SELFPAY ==
--- NOTE | 2022-02-26 | PATH_ITS ---
[facility] Accession Number: [id number] No. of containers..02 Tissue . 01 Material submitted: . PART A: colon - RANDOM COLON BX PART B: colon - SPLENIC FLEXURE . 01 Diagnosis: A. Random Colon, Biopsy: Colonic mucosa with no diagnostic abnormality. Negative for active, chronic, and microscopic colitis. Negative for dysplasia and malignancy. . B. Splenic Flexure, Biopsy: Tubular adenoma. MRV 02/28/2022 1029 Local . 01 Electronically signed: . Marlene Garcia MD, Pathologist NPI- [id number] . 01 Gross description: . Part A: RANDOM COLON BX: Received in formalin are multiple fragment(s) of alvares, soft tissue measuring 1.0 x 0.3 x 0.1 cm in aggregate submitted entirely in 1 cassette(s) Part B: SPLENIC FLEXURE: Received in formalin is 1 fragment(s) of alvares, soft tissue measuring 0.2 x 0.2 x 0.2 cm submitted entirely in 1 cassette(s) /CPE 02/27/2022 0549 Local . 01 Pathologist provided ICD-10: R19.7, D12.3 . 01 CPT . 214799, 018787 Specimen Comment: A courtesy copy of this report has been sent to [phone] Performed at: 01 [facility] [address] [place] [address], [place], [place] [id number] MD Cabrera Montelongo MD Phone: [phone]
[2022-02-26 13:47] VITALS: BP 139/82; PULSE 87; RESP 16; TEMP 36.5; O2SAT 97; BMI 52.4
[2022-02-26] MEDS: LACTATED RINGERS 1,000 ML 84 ML IV (13:54)
--- NOTE | 2022-02-26 14:24 | PM.HP.1 ---
History of Present Illness History of Present Illness Date Patient Seen: 02/26/22 Time Patient Seen: 14:24 Chief complaint: SDC Narrative: History of polyps and diarrhea. I reviewed my recent office note. The diarrhea is a little worse described in the clinic. Patient History Medical History Abnormal creatinine clearance glomerular filtration Anxiety (Unknown) Bursitis (~12/2011) Chronic headaches (Unknown) HTN (hypertension) Hypothyroidism (Unknown) Iron deficiency (~2000) Melanoma Sleep apnea Surgical History H/O Achilles tendon repair History of cataract removal with insertion of prosthetic lens History of gastric bypass (2000) History of sinus surgery History of spinal fusion (06/23/13) History of tonsillectomy Hx of laminectomy (08/19/18) Hx of vein stripping Status post dilation and curettage Status post dilation and curettage (11/23/16) Status post epidural steroid injection Status post tonsillectomy and adenoidectomy Family & Social History Social History: household members none Tobacco & Substance use: Smoking Status Never smoker alcohol intake never Substance Use Type does not use Meds Home Medications and Allergies Home Medications Medication Instructions Recorded Confirmed Type diphenhydramine HCl 50 mg capsule 50 mg PO HSP PRN Insomnia ##0 07/02/16 02/26/22 History ascorbic acid (vitamin C) 1,000 mg 1,000 mg PO DAILY 07/02/17 02/26/22 History tablet (Vitamin C) calcium citrate 500 mg PO DAILY 07/02/17 02/26/22 History coenzyme Q10 200 mg capsule (Co 200 mg PO DAILY 07/02/17 02/26/22 History Q-10) multivitamin 1 cap PO DAILY 07/02/17 02/26/22 History vitamin A 10,000 unit capsule 10,000 unit PO DAILY 07/02/17 02/26/22 History vitamin B complex (B Complex 1 1 tab PO DAILY 07/02/17 02/26/22 History tablet) vitamin d See Rx Instructions .Route .COMPLEX 07/02/17 02/26/22 History vitamin e See Rx Instructions .Route .COMPLEX 07/02/17 02/26/22 History zinc 50 mg tablet 50 mg PO DAILY 07/02/17 02/26/22 History ferrous gluconate 240 mg (27 mg 100 mg PO DAILY 10/30/17 02/26/22 History iron) tablet magnesium oxide 400 mg PO BID 01/08/18 02/26/22 History levothyroxine 75 mcg tablet 75 mcg PO DAILY #90 tabs 08/04/20 02/26/22 Rx acetaminophen 325 mg capsule 325 mg PO ONCE PRN Pain (Scale 04/06/21 02/26/22 History Score 1-3) liothyronine 5 mcg tablet (Cytomel) 10 mcg PO DAILY 04/06/21 02/26/22 History prasterone (dhea) 50 mg capsule 50 mg PO DAILY 04/06/21 02/26/22 History (DHEA) selenium 200 mcg capsule 200 mcg PO DAILY 04/06/21 02/26/22 History tizanidine 2 mg tablet 2 mg PO BID #180 tabs 04/06/21 02/26/22 Rx vitamin K2 100 mcg capsule 100 mcg PO DAILY 04/06/21 02/26/22 History escitalopram oxalate 20 mg tablet 20 mg PO DAILY #90 tabs 05/05/21 02/26/22 Rx (Lexapro) irbesartan 150 mg tablet 150 mg PO BID #180 tabs 05/05/21 02/26/22 Rx diclofenac sodium 75 mg 75 mg PO BID #180 tabs 11/03/21 02/26/22 Rx tablet,delayed release prednisone 20 mg tablet 20 mg PO DAILY #30 tabs 12/12/21 02/26/22 Rx Allergies Allergy/AdvReac Type Severity Reaction Status Date / Time pregabalin [PREGABALIN] Allergy Severe facial and Verified 02/26/22 13:40 throat swelling hydrocodone [HYDROCODONE] AdvReac Severe nausea, Verified 02/26/22 13:40 syncopal episode Review of Systems Review of Systems ROS: Yes All systems reviewed with the patient and are negative except as otherwise documented Exam Vital Signs (past 8 hours): - 02/26/22 13:47 Temperature 97.7 F Pulse Rate 87 Respiratory Rate 16 Blood Pressure 139/82 Pulse Oximetry 97 Oxygen Delivery Method Room Air Oxygen Delivery Method Room Air Const General: cooperative HENMT Head: normal to inspection Eyes General: appearance normal, both eyes and all related structures Neck Neck: normal visual inspection Chest Chest: normal inspection of the chest Resp Effort & Inspection: normal respiratory effort Cardio Rate: regular rate GI Inspection: normal to inspection Skin General: no rashes or lesions noted Neuro General: patient alert and patient awake Extrem General: normal to inspection and no pedal edema Psych Appearance: grossly normal Assessment & Plan Assessment & Plan narrative: 56-year-old female with a personal history of colon polyps the chronic problem with diarrhea. Colonoscopy is pursued today. Time Spent With Patient Critical Care time: I spent a total of [] minutes of critical care time on this patient's care today; this time is exclusive of procedural time.
--- NOTE | 2022-02-26 14:27 | PM.PREOP ---
Pre-operative Note COVID-19 COVID-19 status: Negative Result date/Date tested (Pos, Neg/Pending): 02/23/22 Criteria for continued procedure: Possibility delay results in more complex future surgery or treatment Interval Note History & Physical reviewed/Exam performed by Physician: Yes Changes to H&P: Yes ASA Class (for procedural sedation): IV
--- NOTE | 2022-02-26 14:55 | P.OP.COLON_ITS ---
Operative Date/Time/Diagnoses Date of procedure: 02/26/22 Time of procedure: 14:55 Pre-op diagnosis: Personal history of colon polyps and chronic diarrhea Post-op diagnosis: same Procedure & Clinicians Study performed: Colonoscopy with biopsies Same procedure as scheduled: Yes Indications: Personal history of colon polyps and chronic diarrhea Surgeon: Pj Mcgarry Procedure Notes SCOAP/Timeout: Done Procedure in detail: After the risks and benefits were explained, written and verbal informed consent was obtained. The patient was brought into the procedure room and placed into the left lateral decubitus position. Please see anesthesia note for sedation details. Digital rectal examination was accomplished. The scope was introduced into the patient and advanced under direct visualization to the cecum as fanny ntified by the appendiceal orifice and ileocecal valve. The scope was slowly withdrawn to carefully examine the mucosa for any defects or lesions. Comprehensive imaging was accomplished throughout the rectum including the dentate line. The colon was decompressed, the scope was then removed from the patient who tolerated the procedure well. Adult colonoscope Bowel prep adequate Scope withdrawal time: 11 minutes Sedation minutes: 21 Complications: none Impression: There was no evidence of any overt macroscopic colitis. There was a small focus of erythema in the region of the splenic flexure about 48 cm from the anal verge. This was targeted for biopsy. Otherwise random colon biopsies were acquired for exclusion of microscopic colitis. I did not appreciate any additional significant mucosal pathology throughout. The terminal ileum was interrogated and appeared visually normal. Endoscopic diagnosis 1. Small focus of left colon erythema 2. Otherwise visually unremarkable colonoscopy Post-procedure Plan for aftercare: 1. Await histopathology. 2. Repeat colonoscopy 5 years considering personal history of colon polyps. Disposition: PACU
[2022-02-26 14:58] VITALS: BP 120/77; PULSE 95; RESP 22; TEMP 36.2; O2SAT 98
[2022-02-26 15:03] VITALS: BP 133/82; PULSE 80; RESP 19; O2SAT 98
[2022-02-26 15:08] VITALS: BP 128/79; PULSE 75; RESP 18; O2SAT 98
[2022-02-26 15:17] VITALS: BP 137/80; PULSE 71; RESP 18; TEMP 36.3; O2SAT 98
== END 2022-02-26 15:30 | disposition home or self-care (01) ==
PROVIDERS: PCP Student in an Organized Health Care Education/Training Program; Referring Provider Internal Medicine Gastroenterology; Visit Provider Internal Medicine Gastroenterology
PROC: 0DJD8ZZ Inspection of Lower Intestinal Tract, Via Natural or Artificial Opening Endoscopic (ICD-10-PCS; CPT 45378; principal; 2022-02-26 14:30)
DX: K52.9 Noninfective gastroenteritis and colitis, unspecified (principal); D12.3 Benign neoplasm of transverse colon
CPT/HCPCS: 45380; J2250; J2704; J3010

== ENCOUNTER → 2022-05-05 10:03 | Outpatient (CLI) | payer BC, SELFPAY ==
--- NOTE | 2022-05-05 10:04 | DI.MG.S_ITS ---
BILATERAL DIGITAL SCREENING MAMMOGRAM 3D/2D WITH CAD: 05/05/2022 CLINICAL: Routine screening. Family history of breast cancer. Comparison is made to exams dated: 04/27/2021 mammogram, 03/29/2020 mammogram, and 03/24/2019 mammogram - [facility]. There are scattered areas of fibroglandular density in both breasts (category b / 25%-50% glandular tissue). Current study was also evaluated with a Computer Aided Detection (CAD) system. No significant masses, calcifications, or other findings are seen in either breast. There has been no significant interval change. IMPRESSION: NEGATIVE There is no mammographic evidence of malignancy. A 1 year screening mammogram is recommended. Based on the Tyrer Cuzick model (a risk assessment model) the patient's lifetime risk is 7.7% and her 10 year risk is 2.6%. According to the ACR, ACS, and NCCN guidelines, an annual breast MRI exam along with mammogram is recommended if the patient's lifetime risk is 20% or greater. This exam was interpreted at Station ID: [id number]. NOTE: For mammograms, a report in lay terms will be sent to the patient. Approximately 15% of breast malignancies will not be visualized mammographically. In the management of a palpable breast mass, a negative mammogram must not discourage biopsy of a clinically suspicious lesion. Electronically Signed By: Rodriguez mcclellan/yves:05/07/2022 08:11:01 letter sent: Normal Exam ACR BI-RADS Category 1: Negative 3341F
== END ==
PROVIDERS: PCP Student in an Organized Health Care Education/Training Program; Referring Provider Student in an Organized Health Care Education/Training Program; Visit Provider Student in an Organized Health Care Education/Training Program
DX: Z12.31 Encounter for screening mammogram for malignant neoplasm of breast (principal)
CPT/HCPCS: 77063; 77067

== ENCOUNTER → 2022-09-26 15:48 | Outpatient (CLI) | payer BC, SELFPAY ==
--- NOTE | 2022-09-26 15:50 | DI.RAD.S_ITS ---
PROCEDURE: XR HIP W PEL IF DONE RT 2V INDICATIONS: hip pain, known arthritis, no trauma TECHNIQUE: AP pelvis with lateral view(s) of the right hip(s). COMPARISON: [facility], CR, XR HIP 2 VIEWS LEFT, 10/31/2021, 17:58. [facility], , HIP 2V RIGHT, 01/03/2013, 13:46. [facility], , HIP 2V RIGHT, 05/11/2008, 13:53. FINDINGS: Bones: No fractures or dislocations. Degenerative changes of both hips. Postoperative changes in the lower lumbar spine. A lucency of the inferior ramus medially with adjacent sclerosis possibly a remote non healed fracture. Additional views would be helpful to better evaluate. Pelvic ring appears intact. No suspicious bony lesions. Soft tissues: The visualized bowel gas pattern is normal. No suspicious soft tissue calcifications. IMPRESSION: 1. No acute abnormality. 2. Lucency of the inferior ramus with adjacent sclerosis, possibly a remote fracture but likely superimposed soft tissue fold. Additional views of the left hip or CT would be helpful if clinically indicated. Dictated by: Fred Gloria M.D. on 09/27/2022 at 10:23 Approved by: Fred Gloria M.D. on 09/27/2022 at 10:28
== END ==
PROVIDERS: PCP Pediatrics; Referring Provider Pediatrics; Visit Provider Pediatrics
DX: M25.551 Pain in right hip (principal)
CPT/HCPCS: 73502

== ENCOUNTER → 2022-10-04 13:10 | Outpatient (CLI) | payer BC, SELFPAY ==
--- NOTE | 2022-10-04 13:11 | DI.CT.S_ITS ---
PROCEDURE: CT HIP RIGHT WITHOUT CON INDICATIONS: right hip pain TECHNIQUE: Noncontrast 3 mm axial sections acquired through the bony pelvis. Additional 3 mm axial sections acquired through the symptomatic hip joint, with coronal and sagittal reformats. COMPARISON: [facility], CR, XR HIP W PEL IF DONE RT 2V, 09/26/2022, 15:56. FINDINGS: Image quality: Excellent. Bones: There is a healing minimally displaced fracture of the right inferior pubic ramus anteriorly. There is ill-defined lucency and sclerosis within the right superior pubic ramus at the acetabular junction, suggestive of a healing fracture. There is a healing fracture of the left inferior pubic ramus anteriorly. Healed fracture of the left inferior pubic ramus midportion. Interbody device placement at L4-L5. Soft tissues: There is a small bowel anastomosis within the right hemipelvis anteriorly with associated moderate small bowel dilatation. Appendix is normal. Vasculature within normal limits. No adenopathy. No free fluid. No fluid collections. IMPRESSION: 1. Healing right obturator ring fracture. 2. Healing and healed left inferior pubic ramus fractures. 3. Partial small-bowel obstruction adjacent to a small bowel anastomosis. Dictated by: Tricia Dudley M.D. on 10/05/2022 at 10:22 Approved by: Tricia Dudley M.D. on 10/05/2022 at 10:25
== END ==
PROVIDERS: PCP Pediatrics; Referring Provider Pediatrics; Visit Provider Pediatrics
DX: S32.810D Multiple fractures of pelvis with stable disruption of pelvic ring, subsequent encounter for fracture with routine healing (principal); M25.551 Pain in right hip; K56.600 Partial intestinal obstruction, unspecified as to cause; Z98.0 Intestinal bypass and anastomosis status
CPT/HCPCS: 73700

== ENCOUNTER 2022-11-26 17:19 | Inpatient (IN) | payer BC, SELFPAY ==
[2022-11-26] VITALS (12 sets, daily range): BP systolic 131–164; BP diastolic 66–81; PULSE 82–104; RESP 15–23; TEMP 36.4; O2SAT 96–100; BMI 52.4
--- NOTE | 2022-11-26 17:45 | DI.RAD.S_ITS ---
PROCEDURE: XR CHEST 1V INDICATIONS: chest pain TECHNIQUE: One view of the chest was acquired. COMPARISON: [facility], , CHEST 2 VIEW, 05/09/2017, 7:04. FINDINGS: Surgical changes and devices: None. Lungs and pleura: Lungs are clear. No pleural effusions or pneumothorax. Mediastinum: Mediastinal contours appear normal. Heart size is normal. Bones and chest wall: No suspicious bony lesions. Overlying soft tissues appear unremarkable. IMPRESSION: No acute cardiopulmonary process. Dictated by: Mirza Zapata M.D. on 11/26/2022 at 18:26 Approved by: Mirza Zapata M.D. on 11/26/2022 at 18:26
--- NOTE | 2022-11-26 18:04 | PC.NURSE ---
Pt unable to provide urine sample at this time
[2022-11-26 18:09] LABS: INR 1.2 (0.9-1.3); Prothrombin Time 13.3 SECONDS (10.1-12.7)
[2022-11-26 18:11] LABS: Hematocrit 33.6 % (36-46); Hemoglobin 11.1 g/dL (12.0-16.0); Mean Corpuscular Hemoglobin 30.3 PG (26-34); Mean Corpuscular Volume 91.8 fL (80-100); Platelet Count 295 X10^3/uL (150-400); Red Blood Cell Count 3.66 X10^6/uL (4.0-5.2); Red Cell Distribution Width 16.6 % (11.6-14.8); White Blood Cell Count 14.8 X10^3/uL (4.5-11.0)
[2022-11-26 18:12] LABS: Add Manual Diff / Slide Review YES; PTT Partial Thromboplastin Tim 29 SECONDS (26-36)
[2022-11-26 18:14] LABS: Alanine Aminotransferase 59 IU/L (<35); Albumin 3.2 g/dL (3.5-5.0); Alkaline Phosphatase 302 U/L (38-126); Aspartate Aminotransferase 59 IU/L (14-36); BUN Creatinine Ratio 44.7 (6-22); Bilirubin Total 1.3 mg/dL (0.2-1.3); Blood Urea Nitrogen 55 mg/dL (7-17); Carbon Dioxide 26 mmol/L (22-32); Chloride 104 mmol/L (98-107); Creatine Kinase 168 U/L (30-135); Estimated Glomerular Filt Rate 51 mL/min (>60); Globulin 3.3 g/dL (1.7-4.1); Glucose 106 mg/dL (70-100); Lipase 35 U/L (23-300); Magnesium 3.3 mg/dL (1.6-2.3); Sodium 136 mmol/L (137-145); Total Protein 6.5 g/dL (6.3-8.2)
[2022-11-26 18:16] LABS: HEMOLYSIS 59 (0-50)
[2022-11-26 18:17] LABS: Potassium 5.2 mmol/L (3.4-5.1)
[2022-11-26 18:25] LABS: NT-proBNP (BNP-Adult 18+) 300 pg/mL (<125); Troponin I < 0.012 ng/mL (0.01-0.034)
[2022-11-26 18:40] LABS: Influenza A - CEPHEID Flu A NEGATIVE (NEGATIVE); Influenza B - CEPHEID Flu B NEGATIVE (NEGATIVE); Respiratory Syncytial Virus Negative (Negative)
[2022-11-26 18:41] LABS: COVID-19 CEPHEID 4-PLEX PCR Negative (Negative)
[2022-11-26 18:55] LABS: Neutrophils Absolute Manual 14356 /uL (3000-5900); Total Cells Counted 100; Toxic Granulation Present
[2022-11-26 18:57] LABS: Anisocytosis 1+
[2022-11-26 20:12] LABS: Ictotest Urine Negative (Negative)
[2022-11-26 20:22] LABS: Bacteria Urine Few (2-10); Culture Indicated Urine Cult Not Indicated; Hyaline Casts Urine 1-5/LPF; RBC Urine None Seen (0-5/HPF); Squamous Epithelial Cell Urine 5-10 /HPF (0-5/HPF); WBC Urine 1-5/HPF (0-5/HPF)
--- NOTE | 2022-11-26 22:43 | ED_ITS ---
HPI - General Adult General Chief complaint: Weakness Stated complaint: Fall t-1, Hip inj Time Seen by Provider: 11/26/22 22:42 Source: patient Mode of arrival: Wheelchair History of Present Illness HPI narrative: 57-year-old lady with a history of myotonic dystrophy, morbid obesity, polymyalgia with poly arthralgias hypertension, depression hypothyroidism, chronic prednisone use and recent spontaneous pelvic fractures causing increased pelvic pain presents with profound weakness to the point that she is having difficulty getting off the couch. Symptoms have been progressively worse over the last week in the last 48 hours have been fairly dramatic. She also notes that she is having increasing lower extremity edema and noticed a rash over the medial aspect of the right thigh concurrent with worsening symptoms in the last 48 hours. She is noting some minor tenderness over lower anterior ribs on the right side with no trauma associated. She is not having a cough denies fevers. She does have abdominal pain but notes that she frequently has abdominal pain and it is difficult for her to differentiate between new pain findings. She is currently on oxycodone for the pelvic fracture pain. Since the pelvic fractures in September, she is had significantly more lower extremity edema. She is concerned that nobody has yet addressed the question of osteoporosis given her spontaneous fractures in long-term steroid use. Her primary care doctor, Dr. Flannery last saw her in December of 2021 and apparently the next available primary care appointment in the clinic is May of 2023. She notes no specific fevers but has been having increasing myalgias and muscle spasm. No cough, no dysuria she complains of overall increase in pain Related Data Home Medications Medication Instructions Recorded Confirmed diphenhydramine HCl 50 mg capsule 50 mg PO HSP PRN Insomnia ##0 07/02/16 09/25/22 ascorbic acid (vitamin C) 1,000 mg 1,000 mg PO DAILY 07/02/17 09/25/22 tablet (Vitamin C) calcium citrate 500 mg PO DAILY 07/02/17 09/25/22 coenzyme Q10 200 mg capsule (Co 200 mg PO DAILY 07/02/17 09/25/22 Q-10) multivitamin 1 cap PO DAILY 07/02/17 09/25/22 vitamin A 3,000 mcg (10,000 unit) 10,000 unit PO DAILY 07/02/17 09/25/22 capsule vitamin B complex (B Complex 1 1 tab PO DAILY 07/02/17 09/25/22 tablet) vitamin d See Rx Instructions .Route .COMPLEX 07/02/17 09/25/22 vitamin e See Rx Instructions .Route .COMPLEX 07/02/17 09/25/22 zinc 50 mg tablet 50 mg PO DAILY 07/02/17 09/25/22 ferrous gluconate 240 mg (27 mg 100 mg PO DAILY 10/30/17 09/25/22 iron) tablet magnesium oxide 400 mg PO BID 01/08/18 09/25/22 acetaminophen 325 mg capsule 325 mg PO ONCE PRN Pain (Scale 04/06/21 09/25/22 Score 1-3) liothyronine 5 mcg tablet (Cytomel) 10 mcg PO DAILY 04/06/21 09/25/22 prasterone (dhea) 50 mg capsule 50 mg PO DAILY 04/06/21 09/25/22 (DHEA) vitamin K2 100 mcg capsule 100 mcg PO DAILY 04/06/21 09/25/22 Previous Rx's Medication Instructions Recorded levothyroxine 75 mcg tablet 75 mcg PO DAILY #90 tabs 08/04/20 escitalopram oxalate 20 mg tablet 20 mg PO DAILY #90 tabs 04/23/22 (Lexapro) irbesartan 150 mg tablet 150 mg PO BID #180 tabs 04/23/22 tizanidine 2 mg tablet 2 mg PO BID #180 tabs 04/23/22 DISABLED PARKING PERMIT #1 ea 09/25/22 gabapentin 300 mg capsule 300 mg PO BEDTIME #60 caps 10/19/22 prednisone 20 mg tablet 20 mg PO DAILY #30 tabs 10/19/22 diclofenac sodium 75 mg 75 mg PO BID #180 tabs 11/01/22 tablet,delayed release oxycodone-acetaminophen 5 mg-325 2 tab PO TID PRN pain #120 tabs 11/14/22 mg tablet (Percocet) Allergies Allergy/AdvReac Type Severity Reaction Status Date / Time pregabalin [PREGABALIN] Allergy Severe facial and Verified 11/26/22 17:40 throat swelling hydrocodone [HYDROCODONE] AdvReac Severe nausea, Verified 11/26/22 17:40 syncopal episode Review of Systems Review of Systems Narrative: Pertinent positive and negative findings as per HPI Patient History Medical History Bilateral pubic rami fractures Acute right hip pain Abnormal creatinine clearance glomerular filtration Sleep apnea HTN (hypertension) Melanoma Iron deficiency (~2000) Anxiety (Unknown) Hypothyroidism (Unknown) Bursitis (~12/2011) Chronic headaches (Unknown) Surgical History Hx of laminectomy (08/19/18) Hx of vein stripping Status post epidural steroid injection History of spinal fusion (06/23/13) History of tonsillectomy H/O Achilles tendon repair History of sinus surgery Status post dilation and curettage (11/23/16) Status post dilation and curettage History of cataract removal with insertion of prosthetic lens History of gastric bypass (2000) Status post tonsillectomy and adenoidectomy Social History household members: none Smoking Status: Never smoker alcohol intake: never Smoking Status: Never smoker Substance Use Type: does not use Exam Initial Vital Signs Initial Vital Signs: Vital Signs Temperature 97.6 F 11/26/22 17:33 Pulse Rate 104 H 11/26/22 17:33 Respiratory Rate 16 11/26/22 17:33 Blood Pressure 131/66 11/26/22 17:33 Pulse Oximetry 100 11/26/22 17:33 Oxygen Delivery Method Room Air 11/26/22 17:33 General: Chronically ill-appearing, BMI of 52.5, mildly tremulous, completely alert and appropriate HEENT: Moist mucous membranes, normal sclera with reactive pupils, Neck: No cervical adenopathy, supple Respiratory: Lungs are clear to auscultation, no wheezing no rales no rhonchi. Full and symmetrical air movement Cardiac: Mild tachycardia but otherwise Regular rate and rhythm no murmurs no bruits Abdomen: Soft, obese, she is got some minor tenderness along anterior right ribs 11 and 12 without overlying skin changes. Mild diffuse tenderness throughout the abdomen and exam is limited by body habitus. Skin: Multiple bruises all over her body in various stages of healing consistent with her chronic prednisone use. Lower extremities have chronic venous stasis changes with bilateral erythema to the mid calves. On the right thigh there is a significant area of erythema expect expanding over the medial aspect of the right thigh up toward the groin. She has multiple areas of intertrigo behind the knees in the groin. Neurologic: Globally weak to the point that she needs assistance in rolling over in bed. She is moving all extremities she does have a fine motor tremor. Extremities: Moderate lymphedema bilaterally with skin changes as above Psych: Cooperative, appropriate insight and affect Course Orders Ordered: ED Orders 11/26/22 17:45 XR chest 1V Stat EKG-12 Lead Stat 11/26/22 17:50 Complete Blood Count AUTO DIFF Stat Comprehensive Metabolic Panel Stat Lipase Stat Magnesium Stat NT-proBNP (BNP-Adult 18+) Stat PTT Partial Thromboplastin Constantin Stat Prothrombin Time INR Stat Troponin & CK Cardiac Panel Stat 11/26/22 18:00 Covid-19 + FLU A/B + RSV - PCR Stat 11/26/22 20:01 Ictotest Urine Stat Urine Microscopic Stat 11/26/22 23:03 CT abdomen pelvis w con Stat 11/26/22 23:04 Lactate (Lactic Acid) Stat 11/26/22 23:19 UA Complete [Urinalysis and Microscopic] Stat 11/26/22 23:40 Blood Culture Stat 11/26/22 23:54 Free T4, Direct Thyroxine Stat TSH [Thyroid Stimulating Hormone] Stat Hydromorphone HCl (Hydromorphone 0.5 Mg Inj) 0.5 mg IV Q15MIN PRN PRN Reason: Pain, Last Admin: 11/26/22 23:49 Dose: 0.5 mg Documented By: Vancomycin HCl/Dextrose (Vancomycin) 2,000 mg in 400 mls @ 200 mls/hr IV NOW JENNY Last Admin: 11/27/22 01:48 Dose: 200 mls/hr Documented By: Discontinued Medications Sodium Chloride (Normal Saline 0.9%) 1,000 mls @ 1,000 mls/hr IV BOLUS ONE Stop: 11/27/22 00:02 Last Infusion: 11/27/22 01:16 Dose: Infused Documented By: Admin: 11/26/22 23:17 Dose: 1,000 mls/hr Documented By: ROBERT Cefepime HCl 2 gm/ Sodium (Chloride) 100 mls @ 200 mls/hr IV NOW ONE Stop: 11/26/22 23:04 Last Infusion: 11/27/22 00:42 Dose: Infused Documented By: Admin: 11/26/22 23:42 Dose: 200 mls/hr Documented By: Vancomycin HCl (Vancomycin Per Pharmacy) 1 request MISC NOW ONE Stop: 11/26/22 23:06 Last Admin: 11/27/22 01:54 Dose: Not Given Documented By: ROBERT Vital Signs Vital signs: Vital Signs - 8 hr 11/26/22 19:59 11/26/22 20:00 11/26/22 20:01 Pulse Rate 104 H 103 H Respiratory Rate Blood Pressure 157/81 H Pulse Oximetry 98 100 Oxygen Delivery Method 11/26/22 20:01 11/26/22 20:30 11/26/22 20:30 Pulse Rate 101 H 85 Respiratory Rate 16 Blood Pressure 142/69 H Pulse Oximetry 100 97 Oxygen Delivery Method Room Air Room Air 11/26/22 21:00 11/26/22 21:00 11/26/22 21:30 Pulse Rate 82 Respiratory Rate 19 Blood Pressure 158/66 H 156/75 H Pulse Oximetry 98 Oxygen Delivery Method 11/26/22 21:30 11/26/22 22:00 11/26/22 22:00 Pulse Rate 88 83 Respiratory Rate 16 Blood Pressure 156/71 H Pulse Oximetry 99 99 Oxygen Delivery Method Room Air 11/26/22 22:30 11/26/22 22:30 11/26/22 23:00 Pulse Rate 88 Respiratory Rate 18 Blood Pressure 150/68 H 164/77 H Pulse Oximetry 96 Oxygen Delivery Method 11/26/22 23:00 11/26/22 23:32 11/26/22 23:50 Pulse Rate 98 H 101 H 94 H Respiratory Rate 23 15 Blood Pressure Pulse Oximetry 99 Oxygen Delivery Method 11/26/22 23:50 11/27/22 00:00 11/27/22 00:00 Pulse Rate 95 H Respiratory Rate 17 Blood Pressure 144/66 H 141/69 H Pulse Oximetry 97 Oxygen Delivery Method 11/27/22 00:30 11/27/22 00:30 11/27/22 01:00 Pulse Rate 92 H Respiratory Rate 16 Blood Pressure 128/63 133/67 Pulse Oximetry 96 Oxygen Delivery Method Room Air 11/27/22 01:00 11/27/22 01:30 11/27/22 01:30 Pulse Rate 92 H 91 H Respiratory Rate 16 15 Blood Pressure 126/64 Pulse Oximetry 97 96 Oxygen Delivery Method Room Air Medical Decision Making Lab Data 11/26/22 17:50 11/26/22 17:50 Labs: Lab Results 11/26/22 11/26/22 11/26/22 Range/Units 17:50 18:00 20:01 WBC 14.8 H (4.5-11.0) X10^3/uL RBC 3.66 L (4.0-5.2) X10^6/uL Hgb 11.1 L (12.0-16.0) g/dL Hct 33.6 L (36-46) % MCV 91.8 (80-100) fL MCH 30.3 (26-34) PG MCHC 33.0 (30-36) % RDW 16.6 H (11.6-14.8) % Plt Count 295 (150-400) X10^3/uL Neut % (Auto) Not Reportable Lymph % (Auto) Not Reportable P[place] % (Auto) Not Reportable Eos % (Auto) Not Reportable Baso % (Auto) Not Reportable Lymph # (Auto) Not Reportable [place] # (Auto) Not Reportable Baso # (Auto) Not Reportable Total Counted 100 Seg Neutrophils % 74.0 H (38-70) % Band Neutrophils % 23.0 H (3-7) % Lymphocytes % (Manual) 1.0 L (25-45) % Monocytes % (Manual) 2.0 (2-11) % Neutrophils # (Manual) 23545 H (9057-0268) /uL Toxic Granulation Present H RBC Morphology See below Anisocytosis 1+ H PT 13.3 H (10.1-12.7) SECONDS INR 1.2 (0.9-1.3) APTT 29 (26-36) SECONDS Sodium 136 L (137-145) mmol/L Potassium 5.2 H (3.4-5.1) mmol/L Chloride 104 (98-107) mmol/L Carbon Dioxide 26 (22-32) mmol/L BUN 55 H (7-17) mg/dL Creatinine 1.23 H (0.52-1.04) mg/dL Estimated GFR 51 L (>60) mL/min BUN/Creatinine Ratio 44.7 H (6-22) Glucose 106 H (70-100) mg/dL Lactate (0.7-2.1) mmol/L Calcium 9.0 (8.4-10.2) mg/dL Magnesium 3.3 H (1.6-2.3) mg/dL Total Bilirubin 1.3 (0.2-1.3) mg/dL AST 59 H (14-36) IU/L ALT 59 H (<35) IU/L Alkaline Phosphatase 302 H (38-126) U/L Total Creatine Kinase 168 H (30-135) U/L Troponin I < 0.012 (0.01-0.034) ng/mL NT-Pro-B Natriuret Pep 300 H (<125) pg/mL Total Protein 6.5 (6.3-8.2) g/dL Albumin 3.2 L (3.5-5.0) g/dL Globulin 3.3 (1.7-4.1) g/dL Albumin/Globulin Ratio 1.0 (1.0-2.8) Lipase 35 (23-300) U/L TSH (0.47-4.68) uIU/mL Free T4 (0.78-2.19) ng/dL Urine Color Urine Appearance Urine pH (4.5-8.0) Ur Specific [place] (1.000-1.035) Urine Protein (Negative) Urine Glucose (UA) (Negative) g/dL Urine Ketones (NEGATIVE) Urine Occult Blood (Negative) Urine Nitrate (Negative) Urine Bilirubin (NEGATIVE) Ur Bilirubin Confirm Negative (Negative) Urine Urobilinogen (0.2) E.U./dL Ur Leukocyte Esterase (NEGATIVE) Urine RBC None seen (0-5/HPF) Urine WBC 1-5/hpf (0-5/HPF) Ur Squamous Epith Cells 5-10 /hpf H (0-5/HPF) Urine Bacteria Few (2-10) H (None) Hyaline Casts 1-5/lpf (None) Ur Culture Indicated? Cult not indicated SARS-CoV-2 (PCR) Negative (Negative) Influenza A (RT-PCR) Flu a negative (NEGATIVE) Influenza B (RT-PCR) Flu b negative (NEGATIVE) RSV (PCR) Negative (Negative) 11/26/22 11/26/22 11/26/22 Range/Units 23:04 23:19 23:54 WBC (4.5-11.0) X10^3/uL RBC (4.0-5.2) X10^6/uL Hgb (12.0-16.0) g/dL Hct (36-46) % MCV (80-100) fL MCH (26-34) PG MCHC (30-36) % RDW (11.6-14.8) % Plt Count (150-400) X10^3/uL Neut % (Auto) Lymph % (Auto) P[place] % (Auto) Eos % (Auto) Baso % (Auto) Lymph # (Auto) P[place] # (Auto) Baso # (Auto) Total Counted Seg Neutrophils % (38-70) % Band Neutrophils % (3-7) % Lymphocytes % (Manual) (25-45) % Monocytes % (Manual) (2-11) % Neutrophils # (Manual) (7796-1449) /uL Toxic Granulation RBC Morphology Anisocytosis PT (10.1-12.7) SECONDS INR (0.9-1.3) APTT (26-36) SECONDS Sodium (137-145) mmol/L Potassium (3.4-5.1) mmol/L Chloride (98-107) mmol/L Carbon Dioxide (22-32) mmol/L BUN (7-17) mg/dL Creatinine (0.52-1.04) mg/dL Estimated GFR (>60) mL/min BUN/Creatinine Ratio (6-22) Glucose (70-100) mg/dL Lactate 1.0 (0.7-2.1) mmol/L Calcium (8.4-10.2) mg/dL Magnesium (1.6-2.3) mg/dL Total Bilirubin (0.2-1.3) mg/dL AST (14-36) IU/L ALT (<35) IU/L Alkaline Phosphatase (38-126) U/L Total Creatine Kinase (30-135) U/L Troponin I (0.01-0.034) ng/mL NT-Pro-B Natriuret Pep (<125) pg/mL Total Protein (6.3-8.2) g/dL Albumin (3.5-5.0) g/dL Globulin (1.7-4.1) g/dL Albumin/Globulin Ratio (1.0-2.8) Lipase (23-300) U/L TSH 0.071 L (0.47-4.68) uIU/mL Free T4 1.22 (0.78-2.19) ng/dL Urine Color Yellow Urine Appearance Clear Urine pH 5.5 (4.5-8.0) Ur Specific [place] 1.025 (1.000-1.035) Urine Protein Trace H (Negative) Urine Glucose (UA) Negative (Negative) g/dL Urine Ketones Trace H (NEGATIVE) Urine Occult Blood Trace-intact (Negative) Urine Nitrate Negative (Negative) Urine Bilirubin Negative (NEGATIVE) Ur Bilirubin Confirm (Negative) Urine Urobilinogen 1.0 (0.2) E.U./dL Ur Leukocyte Esterase Negative (NEGATIVE) Urine RBC 0-1/hpf (0-5/HPF) Urine WBC 0-1/hpf (0-5/HPF) Ur Squamous Epith Cells 1-5 /hpf (0-5/HPF) Urine Bacteria Few (2-10) H (None) Hyaline Casts (None) Ur Culture Indicated? Cult not indicated SARS-CoV-2 (PCR) (Negative) Influenza A (RT-PCR) (NEGATIVE) Influenza B (RT-PCR) (NEGATIVE) RSV (PCR) (Negative) Urine Dip Bedside Urine Glucose Negative Bedside Urine Bilirubin + 1 Bedside Urine Ketone +/- 5 Urine Specific [place] 1.020 Bedside Urine Occult Blood +/- Bedside Urine pH 6.0 Bedside Urine Protein +/- 15 Bedside Urine Nitrite - Negative Bedside Urine Leukocytes +/- 15 Esterase Point of care testing: Urine Dip Bedside Urine Glucose Negative Bedside Urine Bilirubin + 1 Bedside Urine Ketone +/- 5 Urine Specific [place] 1.020 Bedside Urine Occult Blood +/- Bedside Urine pH 6.0 Bedside Urine Protein +/- 15 Bedside Urine Nitrite - Negative Bedside Urine Leukocytes +/- 15 Esterase MDM Narrative Medical decision making narrative: CC: Profound weakness Complicating co-morbidities: Morbid obesity, hypothyroidism, arthritis pain, Data collected from: patient, Social determinants of health that may influence the patients condition: Difficulty accessing care, Medical records reviewed: Internal medicine notes from 09/25/2022 is reviewed Differential considered: Sepsis, cellulitis, intra-abdominal infection, viral syndrome Exam documented above, pertinent findings include: Morbidly obese woman with increasing weakness. Pulmonary exam is unremarkable. Abdominal exam has mild diffuse tenderness without localizing symptoms. Lower extremities show a significant cellulitis over the medial aspect of the right thigh. She does have chronic lower extremity edema with bilateral chronic venous stasis changes and mild erythema Lab Test results independently reviewed as above. Pertinent findings: Leukocytosis at 14.8, mild anemia at 11.1 and 33.6. Platelets are appropriate at 295 she has 23% bands and toxic granulation appreciated PT and PTT are unremarkable Chemistries show slight bump to creatinine at 1.23. Potassium is minimally elevated at 5.2. She does appear to be slightly dehydrated. Lactic is 1 Magnesium is elevated at 3.3 ALT AST alk-phos are elevated with normal bilirubin. Troponin is undetectable ProBNP is minimally elevated at 300 TSH is low at 0.071 however free T4 is appropriate at 1.22 Serology is negative for COVID influenza and RSV Urine does not show evidence of urinary tract infection Imaging studies independently reviewed: Chest x-ray shows no acute disease CT scan of the abdomen and pelvis does not show any infectious etiology. Right obturator ring fractures and left parasymphyseal fractures are again noted. Consultations:Dr Polo, hospitalist, accepts admission. Treatments: Fluids, cefepime and vancomycin Re-evaluations: After a L of fluid pain medication and antibiotics her heart rate has come down appropriately. She is much more comfortable understands need for admission Discussion: 57-year-old woman presents with increasing weakness dramatically worse over the last 48 hours with significant left shift and bandemia. Clinical exam suggests a right upper thigh cellulitis as a source of her infection. Chest x-ray is unremarkable does not suggest significant pulmonary disease. No acute bacterial source of infection is appreciated on CT scan of the abdomen. Of note she does have pelvic ring fractures, nontraumatic presumably secondary to osteoporosis related to her 20 mg of prednisone daily dose for an extended period of time. She is been having difficulty dealing with this pain but is working with orthopedic surgeons. At this time she will need hospital admission for the treatment of her right thigh cellulitis and sepsis without evidence of severe sepsis. Severe Sepsis Criteria [ x] bacterial source of infection suspected and documented [ ] 2 SIRS Criteria met [ x ] HR >90 [ ] RR >20 [ ] fever or hypothermia [ x ] leukocytosis/leukopenia/bandemia [ ] Evidence of at least 1 organ system dysfunction [ ] Lactate > 2 [ ] BP < 90 or MAP <65, >40mm decrease from normal baseline [ ] Creat > 2.0 [ ] T. Bili > 2.0 [ ] platelet count < 100k [ ] altered mental status [ ] mechanical ventilation [ ] provider documentation of severe sepsis Severe Sepsis Determination. the patient has been screened and [ ] DOES meet criteria for severe sepsis [ x] DOES NOT meet criteria for severe sepsis Goal directed treatment Within 3 hours [ x ] blood cx drawn prior to abx [ x broad spectrum abx started [ x ] lactic acid level checked [ ] lactic redrawn within 6 hours if >2.0 Septic Shock Criteria [ ] lactic > 4 at any time [ ] SBP ,90 or MAP , 65 [ ] documentation of septic shock Time Septic Shock diagnosed: [ ] Septic Shock Determination. the patient has been screened and [ ] DOES meet criteria for septic shock [ x] DOES NOT meet criteria for septic shock Discharge Plan Departure Patient Disposition: Admitted As Inpatient Clinical Impression: Cellulitis of right lower extremity, Hypermagnesemia, Hyperkalemia, Acute kidney injury, Weakness Closed pelvic ring fracture Qualifiers: Encounter type: sequela Qualified Code(s): S32.810S - Multiple fractures of pelvis with stable disruption of pelvic ring, sequela Osteoporosis Qualifiers: Osteoporosis type: other Presence of current pathological fracture: with current pathological fracture Encounter type: sequela Qualified Code(s): M 80.80XS - Other osteoporosis with current pathological fracture, unspecified site, sequela Sepsis Qualifiers: Sepsis type: sepsis due to unspecified organism Sepsis acute organ dysfunction status: without acute organ dysfunction Qualified Code(s): A41.9 - Sepsis, unspecified organism
--- NOTE | 2022-11-26 23:03 | DI.CT.S_ITS ---
PROCEDURE: CT ABDOMEN PELVIS W CON INDICATIONS: sepsis TECHNIQUE: After the administration of intravenous contrast, axial sections acquired from the lung bases to the pubic symphysis. Coronal and sagittal reformats were performed. For radiation dose reduction, the following was used: automated exposure control, adjustment of mA and/or kV according to patient size. COMPARISON: [facility], CT, CT KIDNEY URETER BLADDER (KUB), 09/18/2020, 8:00. [facility], CT, ABDOMEN/PELVIS WITH CONTRAST, 11/04/2007, 9:22. FINDINGS: Lung bases: No pleural effusion ABDOMEN: Liver: A few scattered small hypodensities are present, too small to characterize Gallbladder: Resected Biliary ducts: Unremarkable. Pancreas: Unremarkable. Spleen: Unremarkable. Adrenal Glands: Unremarkable. Kidneys and Ureters: No hydronephrosis. Possible punctate nonobstructing stones bilaterally versus foci of early contrast excretion. Stomach and Bowel: Gastric bypass. Similar indeterminate rounded structure between the gastric pouch and excluded stomach. No bowel obstruction. No evidence of acute appendicitis. Peritoneum and retroperitoneum: No definite abnormal intraperitoneal fluid. No free air. Minimal nonspecific presacral edema/fluid. Abdominal Nodes: Scattered prominent retroperitoneal lymph nodes, nonspecific, could be reactive Vessels: Aorta and inferior vena cava are normal in size. PELVIS: Pelvic Organs: Possible uterine fibroids. The uterus and ovaries are not well evaluated by CT. Bladder: A Contreras catheter is present. The bladder is decompressed. Pelvic Nodes: No enlarged lymph nodes. Bones: Multilevel degenerative change of the visualized spine. Right inferior pubic ramus and pubic root fractures. Left parasymphyseal fracture. IMPRESSION: 1. Right obturator ring fractures, acute or subacute in appearance. Left parasymphyseal fracture also present, also appears acute or subacute. Correlation with any recent history of trauma may be helpful. 2. Minimal nonspecific presacral edema/fluid, unclear etiology or clinical significance. Dictated by: Rodriguez Nelson M.D. on 11/27/2022 at 0:38 Approved by: Rodriguez Nelson M.D. on 11/27/2022 at 0:47
[2022-11-26] MEDS: SODIUM CHLORIDE 0.9% 1,000 ML 1000 ML IV (23:17)
[2022-11-26 23:31] LABS: Appearance Urine UA CLEAR; Bilirubin Urine UA NEGATIVE (NEGATIVE); Color Urine UA YELLOW; Glucose Urine UA NEGATIVE (Negative); Ketones Urine UA TRACE (NEGATIVE); Leukocyte Esterase Urine UA NEGATIVE (NEGATIVE); Nitrite Urine UA NEGATIVE (Negative); Occult Blood Urine UA TRACE-INTACT (Negative); Protein Urine UA TRACE (Negative); Specific Gravity Urine UA 1.025 (1.000-1.035)
[2022-11-26 23:35] LABS: pH Urine UA 5.5 (4.5-8.0)
[2022-11-26 23:39] LABS: Bacteria Urine Few (2-10); Culture Indicated Urine Cult Not Indicated; RBC Urine 0-1/HPF (0-5/HPF); Squamous Epithelial Cell Urine 1-5 /HPF (0-5/HPF); WBC Urine 0-1/HPF (0-5/HPF)
[2022-11-26] MEDS: CEFEPIME 2 GM in SODIUM CHLORIDE 0.9% 100 ML IV (23:42)
[2022-11-26] MEDS: HYDROMORPHONE 0.5 MG INJ IV (23:49)
[2022-11-27] VITALS (12 sets, daily range): BP systolic 123–151; BP diastolic 63–94; PULSE 84–98; RESP 15–20; TEMP 36–36.6; O2SAT 96–100; BMI 49.8
[2022-11-27 00:54] LABS: Thyroid Stimulating Hormone 0.071 uIU/mL (0.47-4.68)
--- NOTE | 2022-11-27 01:36 | PC.NURSE ---
This RN called pharmacy in regards to [facility]
[2022-11-27] MEDS: VANCOMYCIN 2,000 MG/400 ML PIGGYBACK 200 MG IV (01:48)
[2022-11-27 01:51] LABS: Free T4, Direct Thyroxine 1.22 ng/dL (0.78-2.19)
--- NOTE | 2022-11-27 04:05 | P.HP_ITS ---
History of Present Illness History of Present Illness Chief complaint: Fall t-1, Hip inj Narrative: 57 years old female with history of hypothyroidism, depression, chronic use of prednisone, morbidly obese, polymyalgia, myotonic dystrophy, recent spontaneous pelvic fractures presented to the ER with severe weakness and increased pelvic pain in the last 48 hours. She also noted to have increased lower extremities edema, redness and rash on the medial aspect of the right thigh getting progressively worse in the last 48 hours. Denies any other symptoms. Currently on oxycodone with poor pain control for her pelvic fracture pain. She sustained a pelvic fracture in September and since then being on pain control. Scheduled to have appointment to see orthopedic surgery and physical therapy as follow-up. Denies any fever, shortness of breath, cough, chest pain, palpitations, nausea, vomiting, abdominal pain, diarrhea or dysuria. In the ER she was found to have a right thigh cellulitis and was given Tylenol, fluid bolus, cefepime and vancomycin. Laboratory shows WBC 14.8, sodium 136, potassium 5.2, creatinine 1.23, magnesium 3.3, AST 59, ALT 59, troponin negative BNP 300, UA negative, COVID/influenza negative, chest x-ray negative, abdominal CT scan shows right obturator ring fractures acute or subacute, left parasymphyseal fracture. Vital signs shows temperature 96.8, pulse 98, blood pressure 151/94, oxygen saturation 100% on room air. [facility] Medical History Bilateral pubic rami fractures Acute right hip pain Abnormal creatinine clearance glomerular filtration Sleep apnea HTN (hypertension) Melanoma Iron deficiency (~2000) Anxiety (Unknown) Hypothyroidism (Unknown) Bursitis (~12/2011) Chronic headaches (Unknown) Surgical History Hx of laminectomy (08/19/18) Hx of vein stripping Status post epidural steroid injection History of spinal fusion (06/23/13) History of tonsillectomy H/O Achilles tendon repair History of sinus surgery Status post dilation and curettage (11/23/16) Status post dilation and curettage History of cataract removal with insertion of prosthetic lens History of gastric bypass (2000) Status post tonsillectomy and adenoidectomy Social History household members: none Smoking Status: Never smoker alcohol intake: never Meds Home Medications and Allergies Home Medications Medication Instructions Recorded Confirmed Type diphenhydramine HCl 50 mg capsule 50 mg PO HSP PRN Insomnia ##0 07/02/16 11/27/22 History ascorbic acid (vitamin C) 1,000 mg 1,000 mg PO DAILY 07/02/17 11/27/22 History tablet (Vitamin C) calcium citrate 1,000 mg PO DAILY 07/02/17 11/27/22 History coenzyme Q10 200 mg capsule (Co 200 mg PO DAILY 07/02/17 11/27/22 History Q-10) multivitamin 1 cap PO DAILY 07/02/17 11/27/22 History vitamin A 3,000 mcg (10,000 unit) 10,000 unit PO 07/02/17 09/25/22 History capsule vitamin B complex (B Complex 1 1 tab PO DAILY 07/02/17 11/27/22 History tablet) vitamin d See Rx Instructions .Route .COMPLEX 07/02/17 09/25/22 History vitamin e See Rx Instructions .Route .COMPLEX 07/02/17 11/27/22 History zinc 50 mg tablet 50 mg PO DAILY 07/02/17 11/27/22 History ferrous gluconate 240 mg (27 mg 100 mg PO DAILY 10/30/17 11/27/22 History iron) tablet magnesium oxide 500 mg PO BID 01/08/18 11/27/22 History levothyroxine 75 mcg tablet 75 mcg PO DAILY #90 tabs 08/04/20 11/27/22 Rx acetaminophen 325 mg capsule 500 mg PO ONCE PRN Pain (Scale 04/06/21 11/27/22 History Score 1-3) liothyronine 5 mcg tablet (Cytomel) 10 mcg PO DAILY 04/06/21 11/27/22 History prasterone (dhea) 50 mg capsule 50 mg PO DAILY 04/06/21 11/27/22 History (DHEA) vitamin K2 100 mcg capsule 100 mcg PO DAILY 04/06/21 11/27/22 History escitalopram oxalate 20 mg tablet 20 mg PO DAILY #90 tabs 04/23/22 11/27/22 Rx (Lexapro) irbesartan 150 mg tablet 150 mg PO BID #180 tabs 04/23/22 11/27/22 Rx tizanidine 2 mg tablet 2 mg PO BID #180 tabs 04/23/22 11/27/22 Rx DISABLED PARKING PERMIT #1 ea 09/25/22 11/27/22 Rx gabapentin 300 mg capsule 300 mg PO BEDTIME #60 caps 10/19/22 11/27/22 Rx prednisone 20 mg tablet 20 mg PO DAILY #30 tabs 10/19/22 11/27/22 Rx diclofenac sodium 75 mg 75 mg PO BID #180 tabs 11/01/22 11/27/22 Rx tablet,delayed release oxycodone-acetaminophen 5 mg-325 2 tab PO TID PRN pain #120 tabs 11/14/22 11/27/22 Rx mg tablet (Percocet) Allergies Allergy/AdvReac Type Severity Reaction Status Date / Time pregabalin [PREGABALIN] Allergy Severe facial and Verified 11/26/22 17:40 throat swelling hydrocodone [HYDROCODONE] AdvReac Severe nausea, Verified 11/26/22 17:40 syncopal episode Review of Systems Review of Systems ROS: Yes All systems reviewed with the patient and are negative except as otherwise documented Constitutional Constitutional: Reports as per HPI and Reports system reviewed and no additional complaints, except as documented Eyes Eyes: Reports as per HPI and Reports system reviewed and no additional complaints, except as documented ENT Ears, Nose, Mouth, and Throat: Yes as per HPI and Yes system reviewed and no additional complaints, except as documented Cardiovascular Cardiovascular: Reports system reviewed and no additional complaints, except as documented Respiratory Respiratory: Reports system reviewed and no additional complaints, except as documented Gastrointestinal Gastrointestinal: Reports system reviewed and no additional complaints, except as documented Genitourinary Genitourinary: Reports system reviewed and no additional complaints, except as documented Musculoskeletal Musculoskeletal: Reports system reviewed and no additional complaints, except as documented, Reports abnormal gait and Reports numbness Neurologic Neurologic: Reports system reviewed and no additional complaints, except as documented, Reports abnormal gait, Reports confusion and Reports numbness Psychiatric Psychiatric: Reports system reviewed and no additional complaints, except as documented and Reports confusion Exam Vital Signs (past 8 hours): - 11/26/22 20:30 11/26/22 20:30 11/26/22 21:00 Temperature Pulse Rate 85 82 Respiratory Rate 16 19 Blood Pressure 142/69 H Pulse Oximetry 97 98 Oxygen Delivery Method Room Air Oxygen Flow Rate 11/26/22 21:00 11/26/22 21:30 11/26/22 21:30 Temperature Pulse Rate 88 Respiratory Rate 16 Blood Pressure 158/66 H 156/75 H Pulse Oximetry 99 Oxygen Delivery Method Oxygen Flow Rate 11/26/22 22:00 11/26/22 22:00 11/26/22 22:30 Temperature Pulse Rate 83 Respiratory Rate Blood Pressure 156/71 H 150/68 H Pulse Oximetry 99 Oxygen Delivery Method Room Air Oxygen Flow Rate 11/26/22 22:30 11/26/22 23:00 11/26/22 23:00 Temperature Pulse Rate 88 98 H Respiratory Rate 18 23 Blood Pressure 164/77 H Pulse Oximetry 96 Oxygen Delivery Method Oxygen Flow Rate 11/26/22 23:32 11/26/22 23:50 11/26/22 23:50 Temperature Pulse Rate 101 H 94 H Respiratory Rate 15 Blood Pressure 144/66 H Pulse Oximetry 99 Oxygen Delivery Method Oxygen Flow Rate 11/27/22 00:00 11/27/22 00:00 11/27/22 00:30 Temperature Pulse Rate 95 H Respiratory Rate 17 Blood Pressure 141/69 H 128/63 Pulse Oximetry 97 Oxygen Delivery Method Oxygen Flow Rate 11/27/22 00:30 11/27/22 01:00 11/27/22 01:00 Temperature Pulse Rate 92 H 92 H Respiratory Rate 16 16 Blood Pressure 133/67 Pulse Oximetry 96 97 Oxygen Delivery Method Room Air Room Air Oxygen Flow Rate 11/27/22 01:30 11/27/22 01:30 11/27/22 02:00 Temperature Pulse Rate 91 H Respiratory Rate 15 Blood Pressure 126/64 131/66 Pulse Oximetry 96 Oxygen Delivery Method Oxygen Flow Rate 11/27/22 02:00 11/27/22 02:30 11/27/22 02:30 Temperature Pulse Rate 86 84 Respiratory Rate 17 15 Blood Pressure 127/64 Pulse Oximetry 97 97 Oxygen Delivery Method Room Air Room Air Oxygen Flow Rate 11/27/22 03:10 Temperature 96.8 F L Pulse Rate 98 H Respiratory Rate 20 Blood Pressure 151/94 H Pulse Oximetry 100 Oxygen Delivery Method Oxygen Flow Rate 0 Oxygen Delivery Method Room Air Oxygen Flow Rate 0 Const General: cooperative, comfortable and well developed Orientation: alert and oriented x3 HENMT Head: normal to inspection, normocephalic and atraumatic Face and sinus: normal facial exam Mouth: oral mucosae normal and moist mucous membranes Throat: posterior oropharynx normal Eyes General: appearance normal, both eyes and all related structures Pupils: PERRL EOM: EOM intact bilaterally Neck Neck: normal visual inspection and full ROM Chest Chest: normal inspection of the chest Resp Effort & Inspection: normal respiratory effort and able to speak in complete sentences Auscultation: clear to auscultation bilaterally Cardio Palpation: normal PMI Rate: regular rate Rhythm: regular rhythm Heart Sounds: S1 normal and S2 normal GI Inspection: normal to inspection Palpation: soft and no hepatosplenomegaly Auscultation: normal bowel sounds Skin General: no rashes or lesions noted Lesions: no lesions Rashes: no rashes Trauma: no lacerations or abrasions Neuro General: patient alert, patient awake, patient oriented x3 and no focal motor deficits Cranial Nerves: CN's II-XI intact bilaterally Cognition: normal cognition Speech: speech normal Gait: normal gait Motor: muscle tone normal throughout Sensory Exam: no sensory deficits noted Extrem General: full ROM and no calf tenderness Psych Appearance: grossly normal Mental Status: mental status grossly normal Speech and Movement: speech and movement normal Objective Labs 11/26/22 17:50 11/26/22 17:50 Labs: Laboratory Results - last 24 hr 11/26/22 11/26/22 11/26/22 17:50 18:00 20:01 WBC 14.8 H RBC 3.66 L Hgb 11.1 L Hct 33.6 L MCV 91.8 MCH 30.3 MCHC 33.0 RDW 16.6 H Plt Count 295 Neut % (Auto) Not Reportable Lymph % (Auto) Not Reportable [place] % (Auto) Not Reportable Eos % (Auto) Not Reportable Baso % (Auto) Not Reportable Lymph # (Auto) Not Reportable [place] # (Auto) Not Reportable Baso # (Auto) Not Reportable Total Counted 100 Seg Neutrophils % 74.0 H Band Neutrophils % 23.0 H Lymphocytes % (Manual) 1.0 L Monocytes % (Manual) 2.0 Neutrophils # (Manual) 13215 H Toxic Granulation Present H RBC Morphology See below Anisocytosis 1+ H PT 13.3 H INR 1.2 APTT 29 Sodium 136 L Potassium 5.2 H Chloride 104 Carbon Dioxide 26 BUN 55 H Creatinine 1.23 H Estimated GFR 51 L BUN/Creatinine Ratio 44.7 H Glucose 106 H Lactate Calcium 9.0 Magnesium 3.3 H Total Bilirubin 1.3 AST 59 H ALT 59 H Alkaline Phosphatase 302 H Total Creatine Kinase 168 H Troponin I < 0.012 NT-Pro-B Natriuret Pep 300 H Total Protein 6.5 Albumin 3.2 L Globulin 3.3 Albumin/Globulin Ratio 1.0 Lipase 35 TSH Free T4 Urine Color Urine Appearance Urine pH Ur Specific [place] Urine Protein Urine Glucose (UA) Urine Ketones Urine Occult Blood Urine Nitrate Urine Bilirubin Ur Bilirubin Confirm Negative Urine Urobilinogen Ur Leukocyte Esterase Urine RBC None seen Urine WBC 1-5/hpf Ur Squamous Epith Cells 5-10 /hpf H Urine Bacteria Few (2-10) H Hyaline Casts 1-5/lpf Ur Culture Indicated? Cult not indicated SARS-CoV-2 (PCR) Negative Influenza A (RT-PCR) Flu a negative Influenza B (RT-PCR) Flu b negative RSV (PCR) Negative 11/26/22 11/26/22 11/26/22 23:04 23:19 23:54 WBC RBC Hgb Hct MCV MCH MCHC RDW Plt Count Neut % (Auto) Lymph % (Auto) [place] % (Auto) Eos % (Auto) Baso % (Auto) Lymph # (Auto) [place] # (Auto) Baso # (Auto) Total Counted Seg Neutrophils % Band Neutrophils % Lymphocytes % (Manual) Monocytes % (Manual) Neutrophils # (Manual) Toxic Granulation RBC Morphology Anisocytosis PT INR APTT Sodium Potassium Chloride Carbon Dioxide BUN Creatinine Estimated GFR BUN/Creatinine Ratio Glucose Lactate 1.0 Calcium Magnesium Total Bilirubin AST ALT Alkaline Phosphatase Total Creatine Kinase Troponin I NT-Pro-B Natriuret Pep Total Protein Albumin Globulin Albumin/Globulin Ratio Lipase TSH 0.071 L Free T4 1.22 Urine Color Yellow Urine Appearance Clear Urine pH 5.5 Ur Specific [place] 1.025 Urine Protein Trace H Urine Glucose (UA) Negative Urine Ketones Trace H Urine Occult Blood Trace-intact Urine Nitrate Negative Urine Bilirubin Negative Ur Bilirubin Confirm Urine Urobilinogen 1.0 Ur Leukocyte Esterase Negative Urine RBC 0-1/hpf Urine WBC 0-1/hpf Ur Squamous Epith Cells 1-5 /hpf Urine Bacteria Few (2-10) H Hyaline Casts Ur Culture Indicated? Cult not indicated SARS-CoV-2 (PCR) Influenza A (RT-PCR) Influenza B (RT-PCR) RSV (PCR) Assessment & Plan Assessment and plan (1) Cellulitis of right lower extremity: Status: Acute Plan: -Antibiotics of Vancomycin, Cefepime -Blood cultures. -Elevate the affected area/limb -If septic, begin aggressive hydration -Pain medications when necessary, -check for MRSA and if negative, can DC vancomycin -In patients with significant swelling/edema get venous duplex to rule out DVT (2) Sepsis: Qualifiers: Sepsis acute organ dysfunction status: without acute organ dysfunction Sepsis type: sepsis due to unspecified organism Qualified Code(s): A41.9 - Sepsis, unspecified organism Status: Acute Plan: Restart fluids (3) Acute kidney injury: Status: Acute Plan: -continue with IV fluid hydration. -hold diuretics/ACEI/ARB -monitor UOP. -daily BMP -Avoid any nephrotoxic agents, including NSAIDs -Continue to monitor BP. Avoid drastic lowering of blood pressure in order to maintain a good renal perfusion -Dose all medications according pt's current eGFR (4) Hyperkalemia: Status: Acute Plan: Most likely acute kidney failure related Continue with fluids and monitor (5) Hypermagnesemia: Status: Acute Plan: Most likely acute kidney failure related Continue with fluids and monitor (6) HTN (hypertension): Qualifiers: Hypertension type: unspecified Qualified Code(s): I10 - Essential (primary) hypertension Status: Acute Plan: Continue medications (7) Hypothyroid: Status: Chronic Plan: Hold levothyroxine for now. TSH low. Follow-up as outpatient (8) Anxiety: Status: Chronic Plan: Ativan as needed Time Spent With Patient Time with patient: 50 to 69 minutes with 50% spent counseling/coordinating care Quality VTE Deep Vein Thrombosis/Pulmonary Embolism Present on Admission: No MIPS - Admit I confirm the patient?s Advance Care Plan is present, Code status is documented, Surrogate decision maker is in patient?s record [If Yes, STOP here]: Yes MIPS - Meds 'Current medications' to include all prescriptions, [id number] products, herbals, cannabis/cannabidiol products, and vitamin/mineral/dietary (nutritional) supplements. I have utilized all available resources to obtain, update, or review the patient?s current medications. [If Yes, STOP here]: Yes
[2022-11-27] MEDS: OXYCODONE/ACETAMINOPHEN 5/325 TABLET 2 TAB PO ×3 (04:10→18:08)
[2022-11-27] MEDS: SODIUM CHLORIDE 0.9% 1,000 ML 125 ML IV (04:16)
--- NOTE | 2022-11-27 05:43 | PC.WOUNDPHOT ---
Addendum entered by Velvet Gonzalez R.N. 11/27/22 05:45: Picture #3 is right elbow. Picture #4 is area behind left knee. Original Note:
--- NOTE | 2022-11-27 06:03 | PC.ADMIT ---
Addendum entered by Velvet Gonzalez R.N. 11/27/22 06:05: NS running at 125/hr. Original Note: [email or web address] Aj Bernstein Admission Note: Patient admitted to ACU at 0310, transferred by stretcher and slide board used to transfer into bed. Patient is alert and oriented x 4 and able to make needs known. Oriented to room and call light. Bed low and locked, bed alarm on and call light within reach. The patient,Nini Zuñiga,57 y/o, was given written information regarding hospital policies, unit procedures and contact persons. Patient's smoking status: Never smoker. Vital Signs - 8 hr 11/26/22 22:30 11/26/22 22:30 11/26/22 23:00 Temperature Pulse Rate 88 Respiratory Rate 18 Blood Pressure 150/68 H 164/77 H Pulse Oximetry 96 Oxygen Delivery Method Oxygen Flow Rate 11/26/22 23:00 11/26/22 23:32 11/26/22 23:50 Temperature Pulse Rate 98 H 101 H 94 H Respiratory Rate 23 15 Blood Pressure Pulse Oximetry 99 Oxygen Delivery Method Oxygen Flow Rate 11/26/22 23:50 11/27/22 00:00 11/27/22 00:00 Temperature Pulse Rate 95 H Respiratory Rate 17 Blood Pressure 144/66 H 141/69 H Pulse Oximetry 97 Oxygen Delivery Method Oxygen Flow Rate 11/27/22 00:30 11/27/22 00:30 11/27/22 01:00 Temperature Pulse Rate 92 H Respiratory Rate 16 Blood Pressure 128/63 133/67 Pulse Oximetry 96 Oxygen Delivery Method Room Air Oxygen Flow Rate 11/27/22 01:00 11/27/22 01:30 11/27/22 01:30 Temperature Pulse Rate 92 H 91 H Respiratory Rate 16 15 Blood Pressure 126/64 Pulse Oximetry 97 96 Oxygen Delivery Method Room Air Oxygen Flow Rate 11/27/22 02:00 11/27/22 02:00 11/27/22 02:30 Temperature Pulse Rate 86 Respiratory Rate 17 Blood Pressure 131/66 127/64 Pulse Oximetry 97 Oxygen Delivery Method Room Air Oxygen Flow Rate 11/27/22 02:30 11/27/22 02:54 11/27/22 03:10 Temperature 96.8 F L Pulse Rate 84 98 H Respiratory Rate 15 20 Blood Pressure 151/94 H Pulse Oximetry 97 100 Oxygen Delivery Method Room Air Room Air Oxygen Flow Rate 0
[2022-11-27 06:30] LABS: MRSA (Nasal) PCR Not Detected (Not Detect)
[2022-11-27] MEDS: FERROUS SULFATE 325 MG TABLET PO (08:10)
[2022-11-27] MEDS: ENOXAPARIN 40 MG/0.4 ML SYRINGE SUBCUT ×2 (08:10→21:28)
[2022-11-27] MEDS: LOSARTAN 50 MG TABLET PO ×2 (08:11→21:27)
[2022-11-27] MEDS: HYDROMORPHONE 0.5 MG INJ IV (08:12)
[2022-11-27] MEDS: ESCITALOPRAM 10 MG TABLET 20 MG PO (08:12)
[2022-11-27] MEDS: predniSONE 20 MG TABLET PO (08:15)
[2022-11-27 08:44] LABS: Add Manual Diff / Slide Review NO; Basophils Absolute Auto 0 /uL (0-100); Basophils Percent Auto 0.2 % (0-2); Eosinophils Absolute Auto 100 /uL (0-450); Eosinophils Percent Auto 0.6 % (2-4); Hematocrit 31.5 % (36-46); Hemoglobin 10.2 g/dL (12.0-16.0); Lymphocytes Absolute Auto 700 /uL (1100-4500); Lymphocytes Percent Auto 5.9 % (25-40); Mean Corpuscular HGB Conc 32.5 % (30-36); Mean Corpuscular Hemoglobin 30.1 PG (26-34); Mean Corpuscular Volume 92.8 fL (80-100); Monocytes Absolute Auto 500 /uL (0-900); Monocytes Percent Auto 4.7 % (3-14); Neutrophils Absolute Auto 10400 /uL (1500-7000); Neutrophils Percent Auto 88.6 % (50-75); Platelet Count 291 X10^3/uL (150-400); Red Cell Distribution Width 16.9 % (11.6-14.8); White Blood Cell Count 11.7 X10^3/uL (4.5-11.0)
[2022-11-27 08:57] LABS: Magnesium 2.8 mg/dL (1.6-2.3); Phosphorous 3.6 mg/dL (2.5-4.5)
[2022-11-27 09:40] LABS: BUN Creatinine Ratio 47.1 (6-22); Blood Urea Nitrogen 41 mg/dL (7-17); Calcium 8.5 mg/dL (8.4-10.2); Carbon Dioxide 24 mmol/L (22-32); Chloride 107 mmol/L (98-107); Estimated Glomerular Filt Rate > 60 mL/min (>60); Glucose 79 mg/dL (70-100); HEMOLYSIS 27 (0-50); Potassium 4.4 mmol/L (3.4-5.1); Sodium 138 mmol/L (137-145)
[2022-11-27] MEDS: CEFEPIME 2 GM in SODIUM CHLORIDE 0.9% 100 ML IV ×2 (10:48→22:36)
[2022-11-27] MEDS: VANCOMYCIN 1,000 MG/200 ML PIGGYBACK 150 MG IV ×2 (11:34→23:18)
--- NOTE | 2022-11-27 11:37 | CM.DANOTE ---
DCP Assessment Note: Patient is a 57yo F here for a hip injury/fall/weakness./cellulites PCP Was [facility] but he left. Appt with PA at [facility] next week. Payer BS out of state and self pay INSURANCE CLAIMS REPRESENTATIVE reviewed EMR. PT/OT pending at this time. Per RN, patient is currently super weak. Blood cultures pending for cellulites. INSURANCE CLAIMS REPRESENTATIVE entered room and introduced self and role. patient accompanied by mom Geraldine ([phone] cell or [phone] home) at bedside. 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 Patient works and lives alone but it's getting more difficult to be independent. Patient drives. Patient reports she's been considering hiring a cleaning services but has yet to fully commit. Patient denies need for resource information for private pay caregivers at this time. Patient reports being open to HH/home infusion if blood cultures indicate IV antibiotics are needed. Pending blood culture results. Plan: d/c plan pending PT/OT needs and home antibiotic needs. CM team will continue to follow closely. Sister to transport. CM team will continue to follow closely. EDWIGE Cruz Discharge Planning/Care Management Advanced directive, confirm from FAMILY Start: 11/27/22 03:36 Freq: Q24H Status: Active Protocol: Document 11/27/22 03:36 (Rec: 11/27/22 05:00 [id number]) Advance Directive, confirm on record Time 03:15 Person contacted pt Copy received No CM Discharge Assessment Start: 11/27/22 11:31 Freq: Status: Active Protocol: Document 11/27/22 11:32 (Rec: 11/27/22 11:37 [email or web address]) Discharge Planning Assessment Assigned Strategic Planning Manager EDWIGE Watts DPOA/Assigned Designee Name Geraldine Zuñiga (mother) Contact Information [phone] Advance Directives? Yes: dpoa Advance Directives on File Yes History Provided By Patient,Family Member,Medical Record Prior Living Arrangements Apartment/Condo Household Members none Type of transporation used prior to Drives own vehicle admit Independent with ADL's Yes Is patient alert and oriented? Yes Comment patient has reported due to unknown muscle condition it's getting harder and harder for her to complete her ADLs. Comment open to HH if blood cultures indicate that she needs home IV antibiotics or if she needs HH for PT/OT. Discharge Plan Home Transportation Arrangement cabrera sister to transport Whiteboard Updated in Patient Room with Yes name and ext. # of Strategic Planning Manager Review Status In Process Next Review Type Continued Stay Review
[2022-11-27 15:21] LABS: Acinetobacter calcoa-baumannii Not Detected (Not Detect); Bacteroides fragilis Not Detected (Not Detect); Candida albicans Not Detected (Not Detect); Candida auris Not Detected (Not Detect); Candida glabrata Not Detected (Not Detect); Candida krusei Not Detected (Not Detect); Candida parapsilosis Not Detected (Not Detect); Candida tropicalis Not Detected (Not Detect); Cryptococcus neoformans/gatti Not Detected (Not Detect); Enterobacter cloacae complex Not Detected (Not Detect); Enterobacterales Not Detected (Not Detect); Enterococcus faecalis Detected (Not Detect); Enterococcus faecium Not Detected (Not Detect); Haemophilus influenzae Not Detected (Not Detect); Klebsiella aerogenes Not Detected (Not Detect); Listeria monocytogenes Not Detected (Not Detect); Neisseria meningitidis Not Detected (Not Detect); Proteus species Not Detected (Not Detect); Pseudomonas aeruginosa Not Detected (Not Detect); Salmonella species Not Detected (Not Detect); Serratia marcescens Not Detected (Not Detect); Staphylococcus epidermidis Not Detected (Not Detect); Staphylococcus lugdunensis Not Detected (Not Detect); Staphylococcus species Not Detected (Not Detect); Stenotrophomonas maltophilia Not Detected (Not Detect); Streptococcus agalactiae (Gr B Not Detected (Not Detect); Streptococcus pneumonia Not Detected (Not Detect); Streptococcus pyogenes (Gr A) Not Detected (Not Detect); Streptococcus species Not Detected (Not Detect); Vancomycin-rest genes A/B Not Detected (Not Detect)
--- NOTE | 2022-11-27 15:47 | OT.IP.EVAL ---
Current Diagnoses Sepsis, unspecified organism (11/27/22) Hypothyroidism, unspecified (11/27/22) Hypermagnesemia (11/27/22) Hyperkalemia (11/27/22) Anxiety disorder, unspecified (11/27/22) Essential (primary) hypertension (11/27/22) Cellulitis of right lower limb (11/27/22) Acute kidney failure, unspecified (11/27/22) Past Medical History (Last Reviewed 11/26/22 @ 23:06 by Karie Steward MD) Abnormal creatinine clearance glomerular filtration Acute right hip pain Anxiety (Unknown) Bilateral pubic rami fractures Bursitis (~12/2011) Chronic headaches (Unknown) HTN (hypertension) Hypothyroidism (Unknown) Iron deficiency (~2000) Melanoma Sleep apnea Surgical History (Last Reviewed 11/26/22 @ 23:06 by Karie Steward MD) H/O Achilles tendon repair History of cataract removal with insertion of prosthetic lens History of gastric bypass (2000) History of sinus surgery History of spinal fusion (06/23/13) History of tonsillectomy Hx of laminectomy (08/19/18) Hx of vein stripping Status post dilation and curettage Status post dilation and curettage (11/23/16) Status post epidural steroid injection Status post tonsillectomy and adenoidectomy Occupational Therapy Inpatient Evaluation/Re-Eval M1 PT/OT-IP Prior Functional Status Start: 11/27/22 16:36 Freq: NEEDED Status: Active Protocol: Document 11/27/22 14:30 [facility] (Rec: 11/27/22 16:55 [facility] [id number]) Medical Review Prior Functional Status Medical History Reviewed Yes Diet/Fluid Consistency Regular Communication WNLs Mobility and Gait Increased trouble with mobility over the past week, use of rollator for gait Activities of Daily Living and IADL's Increased trouble with mobility over the past week and since September: she has not been able to get into her bed but has been sleeping in chair with ottoman support for her legs or on the couch Pt states has not showered this past week do to having more difficulty with her ADL's. Prior Functional Level (Other details) Pt works and she drives to [facility] and then she uses her rollator to ambulate into the work building and then in the office and then back to the car, she has had a decline in home care/cleaning and her sister and mom will help her clean her house at d/c. Pt states that she has 3 cats and that she did have her cat scratch her right thigh recently Social History Household Members none Living Arrangements Apartment/Condo Number of Floors (Floors) One Floor Number of Stairs To Enter/Railing? 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 Pt sleep in a chair with foot ottoman or on the couch at this time. M2 OT-IP Current Condition Start: 11/27/22 16:36 Freq: Status: Active Protocol: Document 11/27/22 14:30 [facility] (Rec: 11/27/22 16:55 [facility] [id number]) Occupational Therapy Current Condition Current Condition Evaluation Date 11/27/22 Treatment Diagnosis Cellulitis/Sepsis, pubic rami fx, weakness Diagnosis Onset Date 11/27/22 M3 OT- IP Subjective and Pain Start: 11/27/22 16:36 Freq: Status: Active Protocol: Document 11/27/22 14:30 [facility] (Rec: 11/27/22 16:55 [facility] [id number]) OT- Subjective Occupational Therapy Visit Type Type Initial Evaluation Visit Start Time 14:30 Visit Stop Time 15:47 Total Visit Minutes 77 Occupational Therapy Visit Comments Patient Comments Pt not wanting to get out of bed at this time due to pain, but agreeable to try to move her extremities and answer questions of prior level of care. Patient/Caregiver Goals To go home. OT Pain Assessment Pain When Pain Assessed At Rest Pain Present Pain Present Pain Reported Location Generalized Intensity 8 Scale Used Monsivais-Mcallister (Faces) M4 OT- IP ADL's Start: 11/27/22 16:36 Freq: Status: Active Protocol: Document 11/27/22 14:30 [facility] (Rec: 11/27/22 16:55 [facility] [id number]) OT [id number] Comments OT Self-Feeding Comments Not at meal time. Pt will need at least set-up assist. OT ADL-Grooming Comments OT Grooming Comments Pt able to wipe her face with left hand with tissue. OT ADL-Oral Care Comments Oral Care Comments NOt performed. OT ADL-Dressing General Eval Lower Body Dressing Ability Total Assistance. Pt states in the past week has had to use the solid waste division supervisor to assist with her needs. Comments OT Dressing Comments LB total assist at this time as unable to lift her legs off the bed at this time. Per pt recently also using the leg appliance fixer to get her left leg off the couch. OT ADL-Toileting General Evaluation Toileting Ability Total Assistance Comments OT Toileting Comments Contreras in place. OT ADL-Bathing Comments OT Bathing Comments Sponge bathing more appropriate at this time. M5 OT- IP IADL's Start: 11/27/22 16:36 Freq: Status: Active Protocol: Document 11/27/22 14:30 [facility] (Rec: 11/27/22 16:55 [facility] [id number]) OT-Instrumental Activities of Daily Living Deficits IADL Deficits Identified Deficits Home Safety Awareness Home Safety Comments At this time pt realizes that she can not take care of herself but is insistent on going home when able. Medication Management Medication Management Comments Pt does her own. Money Management Money Management Comments Pt does her own. Meal Preparation Meal Preparation Comments At this time, pt would require assist. Ocean Export Account Manager Ocean Export Account Manager Comments At this time pt will need assist. M6 OT- IP Functional Cognition Start: 11/27/22 16:36 Freq: Status: Active Protocol: Document 11/27/22 14:30 [facility] (Rec: 11/27/22 16:55 [facility] [id number]) Cognitive Factors Limiting Selfcare Function Cognitive Ability Level of Alertness Alert Patient Orientation Name,Age,Birthday,Month,Date, Year,Day of Week,Place, Situation Attention Span Ability Capable of Focused Attention, Capable of Sustained Attention Ability to Follow Commands Able to Follow One Step Commands Cognitive Comments Cognitive Assessment Comments Pt very talkative and able to follow directions but is easily distracted. OT- Vision and Hearing OT- Hearing Assessment OT- Hearing Assessment WFL OT- Vision Assessment Visual Acuity Glasses All The Time Visual Attentiveness WFL Occular Pursuits WFL M7 OT- IP Mobility and Balance Start: 11/27/22 16:36 Freq: Status: Active Protocol: Document 11/27/22 14:30 [facility] (Rec: 11/27/22 16:55 [facility] [id number]) OT-Transfer Assessment Comments Mobility Comments Pt only able to move her feet up and down at this time from the bed and not able to assist with any other mobility needs at this time and is total assist for all mobility needs at this time. OT- Balance Assessment Comments Other Balance Tests/Deviations/Treatment Unable to do at this time due : to pain and decreased ability to move at this time due to pain and swelling per pt. M8 OT- IP Objective Assessments Start: 11/27/22 16:36 Freq: Status: Active Protocol: Document 11/27/22 14:30 [facility] (Rec: 11/27/22 16:55 [facility] [id number]) OT Gross Range of Motion Upper Extremity Range of Motion Assessment Right Impaired ROM Impairments Pt having difficulty to move her RUE against gravity at this time. OT Strength Comments Strength Comments LUE 4/5 , RUE 3-/5 OT- Coordination Assessment Upper Extremity Finger to Nose Test Right UE Impaired Comments Coordination Comments RUE decreased due to weakness. M9 OT- IP Assessment and Plan Start: 11/27/22 16:36 Freq: Status: Active Protocol: Document 11/27/22 14:30 [facility] (Rec: 11/27/22 16:55 [facility] [id number]) OT Summary Assessment and Plan Potential Rehabilitation Potential Good Analytic Complexity at Evaluation High Summary OT Impairments Pain,Range of Motion,Strength, Balance,Functional Mobility, Self-Feeding,Grooming,Dressing ,Toileting,Bathing,Toilet Transfers,Shower Transfers, Activity Tolerance Progress Towards Goals Slow Progress due to Pain,Slow Progress due to Medical Issues,Slow Progress due to Activity Tolerance Assessment Summary Pt high complexity and main barriers are pain, decreased functional mobility due to weakness, swelling, and pain, and now at this time would need use of Tal lift to get out of bed at this time. Pt only able to move her feet up and down in bed at this time. Educated pt to try to move her legs in the bed as much as she can in bed - ankle pumps, buttock squeezes, etc.. in addition to her arms at this time. Pt insistent on going home. At this time pt would benefit from skilled rehab. Goals Self-Feeding Goal Independent Grooming Goal Independent Dressing Goal Independent Toileting Goal Independent Bathing Goal Independent Toilet Transfer Goal Independent Shower Transfer Goal Independent Days to Meet Goals 30 Frequency of Treatment Frequency Of Treatment Once a Day Treatment Plan OT Treatment Plan ADL Training,Functional Mobility,Patient/Family Education,Discharge Planning Other Treatment Recommendations and Next Bed mobility with MAXA X 2. Treatment Focus Discharge Recommendations OT Discharge Recommendations SNF Rehab Transportation Needs at Discharge Stretcher/Ambulance
--- NOTE | 2022-11-27 16:31 | PT.IIE ---
Current Diagnoses Sepsis, unspecified organism (11/27/22) Hypothyroidism, unspecified (11/27/22) Hypermagnesemia (11/27/22) Hyperkalemia (11/27/22) Anxiety disorder, unspecified (11/27/22) Essential (primary) hypertension (11/27/22) Cellulitis of right lower limb (11/27/22) Acute kidney failure, unspecified (11/27/22) Surgical History (Last Reviewed 11/26/22 @ 23:06 by Karie Steward MD) H/O Achilles tendon repair History of cataract removal with insertion of prosthetic lens History of gastric bypass (2000) History of sinus surgery History of spinal fusion (06/23/13) History of tonsillectomy Hx of laminectomy (08/19/18) Hx of vein stripping Status post dilation and curettage Status post dilation and curettage (11/23/16) Status post epidural steroid injection Status post tonsillectomy and adenoidectomy Medical History (Last Reviewed 11/26/22 @ 23:06 by Karie Steward MD) Abnormal creatinine clearance glomerular filtration Acute right hip pain Anxiety (Unknown) Bilateral pubic rami fractures Bursitis (~12/2011) Chronic headaches (Unknown) HTN (hypertension) Hypothyroidism (Unknown) Iron deficiency (~2000) Melanoma Sleep apnea Physical Therapy Inpatient Evaluation/Re-Eval M1 PT/OT-IP Prior Functional Status Start: 11/27/22 16:08 Freq: NEEDED Status: Active Protocol: Document 11/27/22 15:00 [facility] (Rec: 11/27/22 16:30 [facility] [id number]) Medical Review Prior Functional Status Medical History Reviewed Yes Diet/Fluid Consistency Regular Communication WNLs Mobility and Gait Increased trouble with mobility over the past week, use of rollator for gait Activities of Daily Living and IADL's Increased trouble with mobility over the past week and since September: she has not been able to get into her bed but has been sleeping in chair with ottoman support for her legs or on the couch Prior Functional Level (Other details) Pt works and she drives to [facility] and then she uses her rollator to ambulate into the work building and then in the office and then back to the car, she has had a decline in home care/cleaning and her sister and mom will help her clean her house at d/c. Pt states that she has 3 cats and that she did have her cat scratch her right thigh recently Social History Household Members none Living Arrangements Apartment/Condo Number of Floors (Floors) One Floor Number of Stairs To Enter/Railing? 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 Additional Social History Comment Pt has a mechanical bed but she has not been able to get into it M2 PT-IP Current Condition Start: 11/27/22 16:08 Freq: NEEDED Status: Active Protocol: Document 11/27/22 15:00 [facility] (Rec: 11/27/22 16:30 [id number]) Physical Therapy Current Condition Current Condition Evaluation Date 11/27/22 Treatment Diagnosis Recent pelvic fractures, LE edema, increased pain, infection Onset Date Pelvic fractures since September, increased edema a week or so M3 PT-IP Subjective Start: 11/27/22 16:08 Freq: NEEDED Status: Active Protocol: Document 11/27/22 15:00 [facility] (Rec: 11/27/22 16:30 [facility] [id number]) Subjective Physical Therapy Visit Type Type Initial Evaluation Visit Start Time 15:00 Visit Stop Time 15:40 Total Visit Minutes 40 Number of TRANSCRIBING MACHINE OPERATOR Visits 0 Physical Therapy Visit Comments Patient Comments To decrease pain Therapy Pain Assessment Pain When Pain Assessed At Rest Pain Present Pain Present Pain Reported Location Generalized Intensity 8 Scale Used Numeric (0 - 10) Description Aching,Acute,Chronic,Pressure, Radiating,Sharp Pain Behaviors Facial Grimacing,Guarding Pain Management Techniques Distraction,Modification of Treatment,Re-positioning, Timing of Activity with Medications M4 PT-IP Mobility and Gait Start: 11/27/22 16:08 Freq: NEEDED Status: Active Protocol: Document 11/27/22 15:00 [facility] (Rec: 11/27/22 16:30 [id number]) PT-Bed Mobility Assessment Supine to Sit Supine to Sit Total Assistance Sit to Supine Sit to Supine Total Assistance Scooting Scooting to Edge of Bed Dependent Scooting Up and Down in Bed Dependent PT-Transfer Assessment Comments Mobility Comments PT and OT attempt to encourage gentle bed mobility and pt currently requires dependent assistance for all bed mobility and transfers with use of bed controls, HOB, use of rails. Pt moves minimally today d/t c/o pain and fluids just stopped, right thigh weeping and infection results just being read. Pt cannot tolerate PT and OT physically moving her dependently this afternoon and so provided encouragement about self- mobility and pt starts with very small movements. Pt is currently dependent and mechanical lift level of mobility. PT-Balance Assessment Comments Other Balance Tests/Deviations/Treatment Pt cannot tolerate sitting EOB : today. Recommend using the bed to help move pt to sitting and dangling legs and then pt can work on sitting more forward, moving legs from that position in the bed. M5 PT-IP Objective Assessments Start: 11/27/22 16:08 Freq: NEEDED Status: Active Protocol: Document 11/27/22 15:00 [facility] (Rec: 11/27/22 16:30 [id number]) Orientation Orientation/Cognition Level of Alertness Alert Orientation Name,Age,Birthday,Month,Date, Year,Day of Week,Place, Situation Language Function Ability No Deficits Noted Safety Awareness Understands Safety Issues Memory Description No Deficits Noted Gross Range of Motion Upper Extremity ROM Assessment Right Impaired Impairments Defer to OT, pt is right handed and does not move right arm much Lower Extremity ROM Assessment Bilaterally Impaired Impairments B ankle pump only 50% normal range, pt cannot tolerate HS to improve knee and hip flexion and she is able to perform glute set Strength Comments Strength Comments Pt does not tolerate MMT any joint in UEs or LEs Sensation Assessment Sensation Gross Sensation WNL Muscle Tone Muscle Tone WNL Yes Other Assessments Other Other Assessments Pt does appear to be hypermobile all joints as PT observes LE joints M6 PT-IP Treatment Start: 11/27/22 16:08 Freq: NEEDED Status: Active Protocol: Document 11/27/22 15:00 [facility] (Rec: 11/27/22 16:30 [id number]) Physical Therapy Treatment Exercises Exercises Ankle Pumps,Gluteal Sets Other Treatments Other Treatment Performed PT encourages pt to move her limbs as much as possible to help prepare for bed mobility and transfers M7 PT-IP Assessment and Plan Start: 11/27/22 16:08 Freq: NEEDED Status: Active Protocol: Document 11/27/22 15:00 [facility] (Rec: 11/27/22 16:30 [id number]) PT Summary Assessment and Plan Potential Rehabilitation Potential Fair Status of Condition at Evaluation Unstable Summary Impairments Pain,ROM,Strength,Balance,Bed Mobility,Transfers,Gait, Activity Tolerance Progress Towards Goals Slow Progress due to Pain,Slow Progress due to Activity Tolerance Assessment Summary Pt is a 57 y/o female who provides extensive history to PT and OT on interview and who tolerates minimal mobility today. Since pt is likely to only tolerate minimal mobility over the next few days, PT initiated evaluation with pt's current ability today. Pt performs limited ankle movement, no HS and she is able to perform glute set. She declines PT and OT assistance to reposition her in the bed and PT reviews use of bed controls to help with positioning and the benefits of as much self mobility of limbs as possible to prepare for further bed mobility, sitting and transfers. Pt with B LE edema with more erythema in the right LE, weeping right LE, decreased right arm/ shoulder movement compared to the left and reports of pain in many places: LEs, pelvic area, shoulder blades and right shoulder. Pt's IV fluids are stopped before therapy and nsg is given report about infection. It is possible when edema is improved and infection is treated that she will start to feel better. Will try to coordinate PT treatments to pain medication: pt requires 1 hour after receiving Percocet. Goals Bed Mobility Goal Standby Assistance Transfer Goal Standby Assistance,Front Wheeled Walker Gait Goal Standby Assistance,Front Wheel Walker Gait Distance 75 Days to Meet Goals 10 Frequency of Treatment Frequency Of Treatment Once a Day Treatment Plan Physical Therapy Treatment Plan Bed Mobility Training,Transfer Training,Gait Training, Therapeutic Exercise,Balance Retraining,Hot or Cold Pack, Neuromuscular Re-ed Weight Bearing Status Weight Bearing Status Weight Bear as Tolerated Recommendations To Nursing Amount of Assist Needed Mechanical Lift Discharge Recommendations PT Discharge Recommendations SNF Rehab Transportation Needs at Discharge Wheelchair/Cabulance
--- NOTE | 2022-11-27 19:26 | PM.PN.1 ---
Subjective Subjective Date Patient Seen: 11/27/22 Time Patient Seen: 08:00 Interval history: She says she feels weak and couldnt work with PT today. She says her legs feel pain all over. Exam Vital Signs (past 8 hours): - 11/27/22 17:00 Temperature 97.8 F Pulse Rate 94 H Respiratory Rate 16 Blood Pressure 135/67 Pulse Oximetry 99 Oxygen Flow Rate 0 Oxygen Delivery Method Room Air Oxygen Flow Rate 0 Narrative Exam Narrative: GEN: no acute distress CV: regular rate and rhythm PULM: clear bilaterally ABD: soft, nontender, nondistended EXT: warm and well perfused with no edema Objective Labs 11/27/22 08:16 11/27/22 08:16 Labs: Laboratory Results - last 24 hr 11/26/22 11/26/22 11/26/22 20:01 23:04 23:19 WBC RBC Hgb Hct MCV MCH MCHC RDW Plt Count Neut % (Auto) Lymph % (Auto) [place] % (Auto) Eos % (Auto) Baso % (Auto) Neut # (Auto) Lymph # (Auto) [place] # (Auto) Eos # (Auto) Baso # (Auto) Sodium Potassium Chloride Carbon Dioxide BUN Creatinine Estimated GFR BUN/Creatinine Ratio Glucose Lactate 1.0 Calcium Phosphorus Magnesium TSH Free T4 Urine Color Yellow Urine Appearance Clear Urine pH 5.5 Ur Specific [place] 1.025 Urine Protein Trace H Urine Glucose (UA) Negative Urine Ketones Trace H Urine Occult Blood Trace-intact Urine Nitrate Negative Urine Bilirubin Negative Ur Bilirubin Confirm Negative Urine Urobilinogen 1.0 Ur Leukocyte Esterase Negative Urine RBC None seen 0-1/hpf Urine WBC 1-5/hpf 0-1/hpf Ur Squamous Epith Cells 5-10 /hpf H 1-5 /hpf Urine Bacteria Few (2-10) H Few (2-10) H Hyaline Casts 1-5/lpf Ur Culture Indicated? Cult not indicated Cult not indicated Nasal Screen MRSA (PCR) A.calcoaceticus-baumannii cmplx PCR Not detected Bacteroides fragilis Not detected My albicans (PCR) Not detected My auris (PCR) Not detected C. glabrata (PCR) Not detected C. krusei (PCR) Not detected C. parapsilosis (PCR) Not detected C. tropicalis (PCR) Not detected C. neoform/gattii (PCR) Not detected Enterobacterales (PCR) Not detected E. cloacae complex PCR Not detected Enterococc faecalis PCR Detected Enterococc faecium PCR Not detected E. coli (PCR) Not detected H. influenzae (PCR) Not detected Klebsiella aerogenes (PCR) Not detected Klebsiella oxytoca PCR Not detected Klebsiella pneumoniae Not detected List. monocytogenes PCR Not detected N. meningitidis (PCR) Not detected Proteus species (PCR) Not detected Salmonella spp. (PCR) Not detected Serratia marcescens PCR Not detected Staphylococcus sp PCR Not detected Staph aureus (PCR) Not detected mecA/C & MREJ Resist Gene Not applicable mecA/C-Methicil Resis Gene Not applicable mcr-1 Colistin Res Gene PCR Not applicable Staph epidermidis (PCR) Not detected Staph lugdunensis PCR Not detected S. maltophilia (PCR) Not detected Streptococcus sp PCR Not detected Group A Strep (PCR) Not detected Strep agalactiae (PCR) Not detected Strep pneumoniae (PCR) Not detected P. aeruginosa (PCR) Not detected Daren/B-Vanco Res Genes Not detected blaIMP Car res Gene PCR Not applicable KPC-Carbap Res Gene PCR Not applicable blaNDM Car Res Gene PCR Not applicable OXA-48 Carbapenem Resis Gene (PCR) Not applicable blaVIM Car Res Gene PCR Not applicable CTX-M Gene Resistance (PCR) Not applicable 11/26/22 11/27/22 11/27/22 23:54 04:40 08:16 WBC 11.7 H RBC 3.40 L Hgb 10.2 L Hct 31.5 L MCV 92.8 MCH 30.1 MCHC 32.5 RDW 16.9 H Plt Count 291 Neut % (Auto) 88.6 H Lymph % (Auto) 5.9 L [place] % (Auto) 4.7 Eos % (Auto) 0.6 L Baso % (Auto) 0.2 Neut # (Auto) 22805 H Lymph # (Auto) 700 L [place] # (Auto) 500 Eos # (Auto) 100 Baso # (Auto) 0 Sodium 138 Potassium 4.4 Chloride 107 Carbon Dioxide 24 BUN 41 H Creatinine 0.87 Estimated GFR > 60 BUN/Creatinine Ratio 47.1 H Glucose 79 Lactate Calcium 8.5 Phosphorus 3.6 Magnesium 2.8 H TSH 0.071 L Free T4 1.22 Urine Color Urine Appearance Urine pH Ur Specific [place] Urine Protein Urine Glucose (UA) Urine Ketones Urine Occult Blood Urine Nitrate Urine Bilirubin Ur Bilirubin Confirm Urine Urobilinogen Ur Leukocyte Esterase Urine RBC Urine WBC Ur Squamous Epith Cells Urine Bacteria Hyaline Casts Ur Culture Indicated? Nasal Screen MRSA (PCR) Not detected A.calcoaceticus-baumannii cmplx PCR Bacteroides fragilis My albicans (PCR) My auris (PCR) C. glabrata (PCR) C. krusei (PCR) C. parapsilosis (PCR) C. tropicalis (PCR) C. neoform/gattii (PCR) Enterobacterales (PCR) E. cloacae complex PCR Enterococc faecalis PCR Enterococc faecium PCR E. coli (PCR) H. influenzae (PCR) Klebsiella aerogenes (PCR) Klebsiella oxytoca PCR Klebsiella pneumoniae List. monocytogenes PCR N. meningitidis (PCR) Proteus species (PCR) Salmonella spp. (PCR) Serratia marcescens PCR Staphylococcus sp PCR Staph aureus (PCR) mecA/C & MREJ Resist Gene mecA/C-Methicil Resis Gene mcr-1 Colistin Res Gene PCR Staph epidermidis (PCR) Staph lugdunensis PCR S. maltophilia (PCR) Streptococcus sp PCR Group A Strep (PCR) Strep agalactiae (PCR) Strep pneumoniae (PCR) P. aeruginosa (PCR) Daren/B-Vanco Res Genes blaIMP Car res Gene PCR KPC-Carbap Res Gene PCR blaNDM Car Res Gene PCR OXA-48 Carbapenem Resis Gene (PCR) blaVIM Car Res Gene PCR CTX-M Gene Resistance (PCR) PFSH Medical History Bilateral pubic rami fractures Acute right hip pain Abnormal creatinine clearance glomerular filtration Sleep apnea HTN (hypertension) Melanoma Iron deficiency (~2000) Anxiety (Unknown) Hypothyroidism (Unknown) Bursitis (~12/2011) Chronic headaches (Unknown) Surgical History Hx of laminectomy (08/19/18) Hx of vein stripping Status post epidural steroid injection History of spinal fusion (06/23/13) History of tonsillectomy H/O Achilles tendon repair History of sinus surgery Status post dilation and curettage (11/23/16) Status post dilation and curettage History of cataract removal with insertion of prosthetic lens History of gastric bypass (2000) Status post tonsillectomy and adenoidectomy Social History household members: none Smoking Status: Never smoker alcohol intake: never Assessment & Plan Assessment and plan (1) Cellulitis of right lower extremity: Status: Acute Plan: -Antibiotics of Vancomycin, Cefepime -Blood cultures preliminary positive with enterococcus -ordered tte to eval for endocarditis -Elevate the affected area/limb -If septic, begin aggressive hydration -Pain medications when necessary, (2) Sepsis: Qualifiers: Sepsis acute organ dysfunction status: without acute organ dysfunction Sepsis type: sepsis due to unspecified organism Qualified Code(s): A41.9 - Sepsis, unspecified organism Status: Acute Plan: Restart fluids (3) Acute kidney injury: Status: Acute Plan: -continue with IV fluid hydration. -hold diuretics/ACEI/ARB -monitor UOP. -daily BMP -Avoid any nephrotoxic agents, including NSAIDs -Continue to monitor BP. Avoid drastic lowering of blood pressure in order to maintain a good renal perfusion -Dose all medications according pt's current eGFR (4) Hyperkalemia: Status: Acute Plan: Most likely acute kidney failure related Continue with fluids and monitor (5) Hypermagnesemia: Status: Acute Plan: Most likely acute kidney failure related Continue with fluids and monitor (6) HTN (hypertension): Qualifiers: Hypertension type: unspecified Qualified Code(s): I10 - Essential (primary) hypertension Status: Acute Plan: Continue medications (7) Hypothyroid: Status: Chronic Plan: Hold levothyroxine for now. TSH low. Follow-up as outpatient (8) Anxiety: Status: Chronic Plan: Ativan as needed Time Spent With Patient Time with patient: 50 to 69 minutes with 50% spent counseling/coordinating care Quality VTE Deep Vein Thrombosis/Pulmonary Embolism Present on Admission: No
--- NOTE | 2022-11-27 19:30 | DI.ECHO.S_ITS ---
[facility] +---------+ : : [address] [place] : : : : [id number] : : : : Phone: [phone] Echocardiogram Report + + :Name: REGIS BOSCH Study Date: 11/28/2022 Height: 66 in : :[facility] ReadingLocation: Weight: 308 lb : : Gender: Female BSA: 2.4 m2 : :: 1965 Age: 57 yrs BP: 148/85 mmHg: :Reason For Study: BACTEREMIA : :Ordering Physician: ANNE, : :LUCHO Performed By: Romi Snyder : :Referring: LUCHO RODRÍGUEZ : + + Interpretation Summary 1) Normal left ventricular thickness, size, wall motion, and systolic function (EF 60-65%). 2) Normal right ventricular size and function. 3) No significant valvular abnormalities. 4) No prior Echo available for comparison. Procedure: A two-dimensional transthoracic echocardiogram with color flow and Doppler was performed. The study quality was technically adequate. There is no prior echocardiogram noted for this patient. The patient was in sinus rhythm with heart rates between 76-91 bpm during the exam. Left Ventricle: The left ventricle is normal in size and wall thickness. The ejection fraction is estimated to be 60-65%. Left ventricular systolic function appears normal without focal wall motion abnormalities. Diastolic parameters suggest probable normal left ventricular diastolic function and normal filling pressures. Right Ventricle: The right ventricle is normal in size and function. Atria: The left atrial size is normal. Right atrial size is normal. There is no Doppler evidence for an interatrial shunt. Mitral Valve: The mitral valve is normal in structure and function. There is mild mitral regurgitation. Aortic Valve: The aortic valve is trileaflet. The aortic valve opens well. There is no aortic valve stenosis. No aortic regurgitation is present. Tricuspid Valve: The tricuspid valve is normal in structure and function. There is trace tricuspid regurgitation. Pulmonary artery pressures cannot be estimated because of the lack of a measurable TR jet velocity. Pulmonic Valve: The pulmonic valve leaflets are thin and pliable; valve motion is normal. There is trace pulmonic regurgitation. Great Vessels: The aortic root is normal size. The dimensions of the ascending aorta are normal. The IVC is of normal diameter and collapses greater than 50% with a sniff. This suggests a low right atrial pressure of 3 mm Hg. Pericardium/ Pleura There is no pericardial effusion. There is no pleural effusion. MMode/2D Measurements & Calculations LVIDd: 5.3 cm LVOT diam: 2.0 cm LVIDs: 3.8 cm Ao root diam: 2.7 cm FS: 29.5 % asc Aorta Diam: 3.6 cm IVSd: 0.79 cm Ao Arch Diam (Prox Trans): 2.8 cm LVPWd: 0.90 cm LV tovar. diameter/BSA (cm/m^2): 2.2 LV sys. diameter/BSA (cm/m^2): 1.6 LA A2 area: 15.5 cm2 RA long axis: 4.7 cm LA A4 area: 18.7 cm2 RA area: 14.4 cm2 LA length (vol): 5.4 cm RA vol: 37.5 ml LA vol: 46.0 ml RA : 15.6 ml/m2 LA vol index: 19.2 ml/m2 IVC diam: 1.1 cm RVD1 (basal): 3.5 cm RVD2 (mid): 2.4 cm TAPSE: 2.1 cm Doppler Measurements & Calculations Ao V2 max: 181.7 cm/sec LVOT Max Segun: 126.2 cm/sec Ao V2 mean: 122.4 cm/sec LV V1 max P.4 mmHg Ao max P.2 mmHg LV V1 VTI: 26.8 cm Ao mean P.6 mmHg WILBUR(I,D): 2.4 cm2 Ao V2 VTI: 33.5 cm WILBUR(V,D): 2.1 cm2 sev ratio: 0.80 WILBUR indexed to BSA (cm^2/m^2): 1.0 MV E max segun: 100.0 cm/sec PA V2 max: 120.6 cm/sec MV A max segun: 99.6 cm/sec PA V2 mean: 79.5 cm/sec MV E/A: 1.0 PA mean P.9 mmHg Med Peak E' Segun: 11.2 cm/sec PA pr(Accel): 44.7 mmHg E/E' med: 8.9 Lat Peak E' Segun: 10.9 cm/sec E/E' lat: 9.1 E/e' average: 9.0 MV dec time: 0.19 sec SV(LVOT): 81.9 ml Reading Physician:04:12 PM
[2022-11-27] MEDS: GABAPENTIN 300 MG CAPSULE PO (21:27)
[2022-11-27] MEDS: TIZANIDINE 4 MG TABLET 2 MG PO (21:28)
[2022-11-27] MEDS: SODIUM CHLORIDE 0.9% FLUSH 10 ML IV (21:28)
[2022-11-28] VITALS (8 sets, daily range): BP systolic 112–150; BP diastolic 60–85; PULSE 85–94; RESP 18–22; TEMP 36–37.4; O2SAT 94–99
--- NOTE | 2022-11-28 00:37 | PC.NURSE ---
Patient is alert and oriented. Breath sounds CTA with RA sat of 98%. HRR w/BP of 145/72. Denied nausea. BT present and is passing flatus. Indwelling catheter is patent; urine is clear yellow. Is assisted to reposition q2h as she will allow. Erythema of right anterior upper thigh and bilateral LE; within drawn markings except for right LE with pinkness extending to approx 1 above markings. Edema present in bilateral LE. Declines use of SCD's so reminded to ankle wave. Has limited mobility in bilateral LE; gait not assessed at this time. Stated pain is tolerable at 4-5/10 and is currently asleep. Fall risk score is moderate and bed alarm is activated. Placed on contact precautions as blood culture is positive for gram + cocci on gram stain.
[2022-11-28] MEDS: OXYCODONE/ACETAMINOPHEN 5/325 TABLET 2 TAB PO ×4 (05:27→23:53)
[2022-11-28 07:02] LABS: Add Manual Diff / Slide Review YES; Hematocrit 31.5 % (36-46); Hemoglobin 10.4 g/dL (12.0-16.0); Mean Corpuscular HGB Conc 32.9 % (30-36); Mean Corpuscular Hemoglobin 30.5 PG (26-34); Mean Corpuscular Volume 92.7 fL (80-100); Platelet Count 323 X10^3/uL (150-400); Red Blood Cell Count 3.39 X10^6/uL (4.0-5.2); Red Cell Distribution Width 16.6 % (11.6-14.8); White Blood Cell Count 10.9 X10^3/uL (4.5-11.0)
[2022-11-28 07:15] LABS: Magnesium 2.4 mg/dL (1.6-2.3)
[2022-11-28 07:51] LABS: Neutrophils Absolute Manual 8720 /uL (3000-5900); RBC Morphology Normal Morphology; Total Cells Counted 100
[2022-11-28] MEDS: predniSONE 20 MG TABLET PO (09:00)
[2022-11-28] MEDS: FERROUS SULFATE 325 MG TABLET PO (09:00)
[2022-11-28] MEDS: ENOXAPARIN 40 MG/0.4 ML SYRINGE SUBCUT ×2 (09:00→21:30)
[2022-11-28] MEDS: LOSARTAN 50 MG TABLET PO ×2 (09:02→21:30)
[2022-11-28] MEDS: SODIUM CHLORIDE 0.9% FLUSH 10 ML IV ×2 (09:03→21:30)
[2022-11-28] MEDS: ESCITALOPRAM 10 MG TABLET 20 MG PO (09:06)
[2022-11-28] MEDS: CEFEPIME 2 GM in SODIUM CHLORIDE 0.9% 100 ML IV ×2 (10:40→23:00)
[2022-11-28] MEDS: VANCOMYCIN 1,000 MG/200 ML PIGGYBACK 200 MG IV (11:38)
--- NOTE | 2022-11-28 12:07 | OT.IP.TRT ---
Current Diagnoses Sepsis, unspecified organism (11/27/22) Hypothyroidism, unspecified (11/27/22) Hypermagnesemia (11/27/22) Hyperkalemia (11/27/22) Anxiety disorder, unspecified (11/27/22) Essential (primary) hypertension (11/27/22) Cellulitis of right lower limb (11/27/22) Acute kidney failure, unspecified (11/27/22) Occupational Therapy Treatment Note M2 OT-IP Current Condition Start: 11/27/22 16:36 Freq: Status: Active Protocol: Document 11/27/22 14:30 [facility] (Rec: 11/27/22 16:55 [facility] [id number]) Occupational Therapy Current Condition Current Condition Evaluation Date 11/27/22 Treatment Diagnosis Cellulitis/Sepsis, pubic rami fx, weakness Diagnosis Onset Date 11/27/22 M3 OT- IP Subjective and Pain Start: 11/27/22 16:36 Freq: Status: Active Protocol: Document 11/28/22 14:06 [facility] (Rec: 11/28/22 14:08 [facility] [id number]) OT- Subjective Occupational Therapy Visit Type Visit Start Time 12:07 Visit Stop Time 13:07 Total Visit Minutes 30 Notes Split as seen with POTATO INSPECTOR Occupational Therapy Visit Comments Patient Comments Pt agreed to get up. Patient/Caregiver Goals To go home. OT Pain Assessment Pain When Pain Assessed During Mobility Pain Present Pain Present Pain Reported Location Generalized Intensity 7 Scale Used Numeric (0 - 10) M4 OT- IP ADL's Start: 11/27/22 16:36 Freq: Status: Active Protocol: Document 11/28/22 14:06 [facility] (Rec: 11/28/22 14:08 [facility] [id number]) OT [id number] Comments OT Self-Feeding Comments Pt able to sip on her water and protein shake on her own. OT ADL-Grooming Comments OT Grooming Comments Not performed. OT ADL-Oral Care Comments Oral Care Comments Nor performed. OT ADL-Dressing General Eval Lower Body Dressing Ability Total Assistance Areas Needing Assistance Socks Comments OT Dressing Comments Total assist for all LB dressing needs at this time. OT ADL-Toileting General Evaluation Toileting Ability Total Assistance Comments OT Toileting Comments Contreras in place. OT ADL-Bathing Comments OT Bathing Comments Sponge bathing more appropriate at this time. M5 OT- IP IADL's Start: 11/27/22 16:36 Freq: Status: Active Protocol: Document 11/27/22 14:30 [facility] (Rec: 11/27/22 16:55 [facility] [id number]) OT-Instrumental Activities of Daily Living Deficits IADL Deficits Identified Deficits Home Safety Awareness Home Safety Comments At this time pt realizes that she can not take care of herself but is insistent on going home when able. Medication Management Medication Management Comments Pt does her own. Money Management Money Management Comments Pt does her own. Meal Preparation Meal Preparation Comments At this time, pt would require assist. Oracle Database Manager Oracle Database Manager Comments At this time pt will need assist. M6 OT- IP Functional Cognition Start: 11/27/22 16:36 Freq: Status: Active Protocol: Document 11/28/22 14:06 [facility] (Rec: 11/28/22 14:08 [facility] [id number]) Cognitive Factors Limiting Selfcare Function Cognitive Ability Level of Alertness Alert Patient Orientation Name,Age,Birthday,Month,Date, Year,Day of Week,Place, Situation Attention Span Ability Capable of Focused Attention, Capable of Sustained Attention Ability to Follow Commands Able to Follow One Step Commands Cognitive Comments Cognitive Assessment Comments Pt needing lots of encouragement and increased time to be able to move as pt having pain from her pelvic fxs. M7 OT- IP Mobility and Balance Start: 11/27/22 16:36 Freq: Status: Active Protocol: Document 11/28/22 14:06 [facility] (Rec: 11/28/22 15:36 [facility] [id number]) OT- Bed Mobility Assessment Supine to Sit Supine to Sit Assist Total Assistance,2 Person Assistance Sit to Supine Sit to Supine Assist Total Assistance,2 Person Assistance Scooting Scooting to Edge of Bed Total Assistance,2 Person Assistance OT-Transfer Assessment Sit to and From Stand Sit to and from Stand Maximum Assistance,2 Person Assistance Transfers Transfer Ability Total Assistance Technique Transfer Destination Bed Transfer Technique Mechanical Lift Comments Mobility Comments Pt needing assist to help lift and move her legs to the edge of the bed with HOB up. Pt needing Total assist to move her hips to the edge of the bed and heavy assist with green pad and max/total A x2 to get her trunk upright. Attempted to stand with FWW and MAX AX 3 and pt unable to stand all the way up. Pt not able to use her RUE to help support the weight as not able to grasp the handle of the FWW. Use of mechanical lift to help get her back to bed. OT- Balance Assessment Sitting Balance and Reactions Static Sitting Balance Ability Fair Dynamic Sitting Balance Ability Poor Standing Balance and Reactions Static Standing Balance Ability Poor Dynamic Standing Balance Ability Poor Comments Other Balance Tests/Deviations/Treatment Pt heavily leans to the right : to unweight her left hip due to pain. M8 OT- IP Objective Assessments Start: 11/27/22 16:36 Freq: Status: Active Protocol: Document 11/28/22 14:06 [facility] (Rec: 11/28/22 15:36 [facility] [id number]) OT Gross Range of Motion Upper Extremity Range of Motion Assessment Right Impaired ROM Impairments Intact for right hand and wrist , still not able to lift arm up from the bed at this time. OT Strength Comments Strength Comments RUE from proximal to distal 3- /5 to 4-/5. M9 OT- IP Assessment and Plan Start: 11/27/22 16:36 Freq: Status: Active Protocol: Document 11/28/22 14:06 [facility] (Rec: 11/28/22 15:36 [facility] [id number]) OT Summary Assessment and Plan Potential Rehabilitation Potential Good Analytic Complexity at Evaluation High Summary OT Impairments Pain,Range of Motion,Strength, Balance,Functional Mobility, Self-Feeding,Grooming,Dressing ,Toileting,Bathing,Toilet Transfers,Shower Transfers, Activity Tolerance Progress Towards Goals Slow Progress due to Pain,Slow Progress due to Medical Issues,Slow Progress due to Activity Tolerance Assessment Summary Pt able to participate to get to the edge of the bed with MAX/Total A x2 and attempted to stand with MAX AX 3 to the FWW but not able to stand all the way as her RUE not able to hold onto the FWW. Pt will benefit from skilled rehab prior to going home. Goals Self-Feeding Goal Independent Grooming Goal Independent Dressing Goal Independent Toileting Goal Independent Bathing Goal Independent Toilet Transfer Goal Independent Shower Transfer Goal Independent Days to Meet Goals 30 Frequency of Treatment Frequency Of Treatment Once a Day Treatment Plan OT Treatment Plan ADL Training,Functional Mobility,Patient/Family Education,Discharge Planning Other Treatment Recommendations and Next Bed mobility with MAXA X 2. Treatment Focus Discharge Recommendations OT Discharge Recommendations SNF Rehab Transportation Needs at Discharge Stretcher/Ambulance
--- NOTE | 2022-11-28 12:30 | PT.IPTN ---
Current Diagnoses Sepsis, unspecified organism (11/27/22) Hypothyroidism, unspecified (11/27/22) Hypermagnesemia (11/27/22) Hyperkalemia (11/27/22) Anxiety disorder, unspecified (11/27/22) Essential (primary) hypertension (11/27/22) Cellulitis of right lower limb (11/27/22) Acute kidney failure, unspecified (11/27/22) Physical Therapy Treatment Note M2 PT-IP Current Condition Start: 11/27/22 16:08 Freq: NEEDED Status: Active Protocol: Document 11/27/22 15:00 MB (Rec: 11/27/22 16:30 MB [id number]) Physical Therapy Current Condition Current Condition Evaluation Date 11/27/22 Treatment Diagnosis Recent pelvic fractures, LE edema, increased pain, infection Onset Date Pelvic fractures since September, increased edema a week or so M3 PT-IP Subjective Start: 11/27/22 16:08 Freq: NEEDED Status: Active Protocol: Document 11/28/22 13:21 TS (Rec: 11/28/22 13:43 TS [id number]) Subjective Physical Therapy Visit Type Type Treatment Note Visit Start Time 12:30 Visit Stop Time 13:00 Total Visit Minutes 30 Notes Split treat with OT. Number of SENIOR PRODUCT ANALYST Visits 1 Physical Therapy Visit Comments Patient Comments Pt reports pelvic pain with mobility, L>R and low back pain. She is agreeable to PT. Therapy Pain Assessment Pain When Pain Assessed During Mobility Pain Present Pain Present Pain Reported Location Generalized Description Aching,Chronic,Radiating,Sharp ,Spasm,With Movement Pain Behaviors Calling Out,Crying,Facial Grimacing,Moaning,Restlessness ,Wincing Pain Management Techniques Distraction,Modification of Treatment,Re-positioning, Timing of Activity with Medications M4 PT-IP Mobility and Gait Start: 11/27/22 16:08 Freq: NEEDED Status: Active Protocol: Document 11/28/22 13:21 TS (Rec: 11/28/22 13:43 TS [id number]) PT-Bed Mobility Assessment Supine to Sit Supine to Sit Total Assistance Sit to Supine Sit to Supine Total Assistance Scooting Scooting to Edge of Bed Dependent Scooting Up and Down in Bed Dependent PT-Transfer Assessment Sit to and From Stand Sit to and from Stand Maximum Assistance,2 Person Assistance,Use of Upper Extremities Comments Mobility Comments Pt found resting in bed, agreeable to PT. Supine to sit total assist x2 for LEs over EOB and for uprighting, pt was cued for BUE support, she has difficulty with use of RUE due to pain. She was scooted to EOB dependently with use of transfer pad x2. Sitting EOB pt reported pain in low back and pelvis, pt is crying and very restless. She tends to lean to R side in sitting due pain on L side of pelvis. Sit to stand MaxA x3 to come into standing with holding down of FWW. Pt could not fully come into standing due to weakness and pain in RUE. Pt was brought back into bed supine with use of toan lift x3PA. She was left back in bed with all needs met. Gait Assessment Comments Gait Comments Unable at this time. PT-Balance Assessment Sitting Balance and Reactions Static Sitting Balance Ability Fair Dynamic Sitting Balance Ability Poor M5 PT-IP Objective Assessments Start: 11/27/22 16:08 Freq: NEEDED Status: Active Protocol: Document 11/27/22 15:00 MB (Rec: 11/27/22 16:30 MB [id number]) Orientation Orientation/Cognition Level of Alertness Alert Orientation Name,Age,Birthday,Month,Date, Year,Day of Week,Place, Situation Language Function Ability No Deficits Noted Safety Awareness Understands Safety Issues Memory Description No Deficits Noted Gross Range of Motion Upper Extremity ROM Assessment Right Impaired Impairments Defer to OT, pt is right handed and does not move right arm much Lower Extremity ROM Assessment Bilaterally Impaired Impairments B ankle pump only 50% normal range, pt cannot tolerate HS to improve knee and hip flexion and she is able to perform glute set Strength Comments Strength Comments Pt does not tolerate MMT any joint in UEs or LEs Sensation Assessment Sensation Gross Sensation WNL Muscle Tone Muscle Tone WNL Yes Other Assessments Other Other Assessments Pt does appear to be hypermobile all joints as PT observes LE joints M6 PT-IP Treatment Start: 11/27/22 16:08 Freq: NEEDED Status: Active Protocol: Document 11/28/22 13:21 TS (Rec: 11/28/22 13:43 TS [id number]) Physical Therapy Treatment Other Treatments Other Treatment Performed Continued to educate pt on bed ex while in here in hospital. M7 PT-IP Assessment and Plan Start: 11/27/22 16:08 Freq: NEEDED Status: Active Protocol: Document 11/28/22 13:21 TS (Rec: 11/28/22 13:43 TS [id number]) PT Summary Assessment and Plan Potential Rehabilitation Potential Fair Summary Impairments Pain,ROM,Strength,Balance,Bed Mobility,Transfers,Gait, Activity Tolerance Progress Towards Goals Slow Progress due to Pain,Slow Progress due to Activity Tolerance Assessment Summary Nini is making slow progress with her mobility this sesssion. She is total assist for supine to sit to EOB. Sitting EOB she leans heavily to R side to due pain on L side of pelvis and has difficulty supporting trunk due to RUE pain. She attempted to come into standing with FWW and x3PA but could not fully come up upright due to RUE pain. PT continues to recommend SNF at this time. Goals Bed Mobility Goal Standby Assistance Transfer Goal Standby Assistance,Front Wheeled Walker Gait Goal Standby Assistance,Front Wheel Walker Gait Distance 75 Days to Meet Goals 10 Frequency of Treatment Frequency Of Treatment Once a Day Treatment Plan Physical Therapy Treatment Plan Bed Mobility Training,Transfer Training,Gait Training, Therapeutic Exercise,Balance Retraining,Hot or Cold Pack, Neuromuscular Re-ed Weight Bearing Status Weight Bearing Status Weight Bear as Tolerated Recommendations To Nursing Amount of Assist Needed Mechanical Lift Discharge Recommendations PT Discharge Recommendations SNF Rehab Transportation Needs at Discharge Wheelchair/Cabulance
[2022-11-28] MEDS: TIZANIDINE 4 MG TABLET 2 MG PO ×2 (13:13→21:31)
--- NOTE | 2022-11-28 15:35 | CM.DPC ---
DCP Continued: GROUP MARKETING VP reviewed EMR. Per PT/OT, unable to get up. super weak. Per provider, cultures still pending for IV antibiotic needs. GROUP MARKETING VP entered room and reintroduced self and role. Patient resting in bed. Patient reports wanting home but open to CM team sending out SNF referrals just in case it is needed. SNF search with local [facility] contracted agencies is as follows [facility]- full until next week [facility] full until next week [facility]. [facility] reviewing now. Not sure if they are contracted with [facility] out of state but attempting. Plan: pending patient prognosis and SNF search. Pending antibiotic needs upon d/c. Patient continues to prefer home at this time. CM team will continue to follow closely. EDWIGE Cruz
[2022-11-28 15:42] LABS: Vancomycin Peak 19.4 ug/mL (20-40)
--- NOTE | 2022-11-28 17:12 | PM.PN.1 ---
Subjective Subjective Date Patient Seen: 11/28/22 Time Patient Seen: 08:00 Interval history: She feels her pain is still significant. She was quite weak with working with PT Exam Vital Signs (past 8 hours): - 11/28/22 12:00 Temperature 99.4 F Pulse Rate 91 H Respiratory Rate 20 Blood Pressure 137/75 Pulse Oximetry 94 Oxygen Flow Rate 0 Oxygen Delivery Method Room Air Oxygen Flow Rate 0 Narrative Exam Narrative: GEN: no acute distress CV: regular rate and rhythm PULM: clear bilaterally ABD: soft, nontender, nondistended EXT: warm and well perfused with no edema Objective Labs 11/28/22 06:50 11/27/22 08:16 Labs: Laboratory Results - last 24 hr 11/26/22 11/28/22 11/28/22 23:04 06:50 10:36 WBC 10.9 RBC 3.39 L Hgb 10.4 L Hct 31.5 L MCV 92.7 MCH 30.5 MCHC 32.9 RDW 16.6 H Plt Count 323 Neut % (Auto) Not Reportable Lymph % (Auto) Not Reportable Burnet % (Auto) Not Reportable Eos % (Auto) Not Reportable Baso % (Auto) Not Reportable Lymph # (Auto) Not Reportable Burnet # (Auto) Not Reportable Baso # (Auto) Not Reportable Total Counted 100 Seg Neutrophils % 78.0 H Band Neutrophils % 2.0 L Lymphocytes % (Manual) 11.0 L D Atypical Lymphs % 6.0 H Monocytes % (Manual) 3.0 Neutrophils # (Manual) 8720 H RBC Morphology Normal morphology Magnesium 2.4 H Vancomycin Peak Vancomycin Trough 13.0 A.calcoaceticus-baumannii cmplx PCR Not detected Bacteroides fragilis Not detected My albicans (PCR) Not detected My auris (PCR) Not detected C. glabrata (PCR) Not detected C. krusei (PCR) Not detected C. parapsilosis (PCR) Not detected C. tropicalis (PCR) Not detected C. neoform/gattii (PCR) Not detected Enterobacterales (PCR) Not detected E. cloacae complex PCR Not detected Enterococc faecalis PCR Detected Enterococc faecium PCR Not detected E. coli (PCR) Not detected H. influenzae (PCR) Not detected Klebsiella aerogenes (PCR) Not detected Klebsiella oxytoca PCR Not detected Klebsiella pneumoniae Not detected List. monocytogenes PCR Not detected N. meningitidis (PCR) Not detected Proteus species (PCR) Not detected Salmonella spp. (PCR) Not detected Serratia marcescens PCR Not detected Staphylococcus sp PCR Not detected Staph aureus (PCR) Not detected mecA/C & MREJ Resist Gene Not applicable mecA/C-Methicil Resis Gene Not applicable mcr-1 Colistin Res Gene PCR Not applicable Staph epidermidis (PCR) Not detected Staph lugdunensis PCR Not detected S. maltophilia (PCR) Not detected Streptococcus sp PCR Not detected Group A Strep (PCR) Not detected Strep agalactiae (PCR) Not detected Strep pneumoniae (PCR) Not detected P. aeruginosa (PCR) Not detected Daren/B-Vanco Res Genes Not detected blaIMP Car res Gene PCR Not applicable KPC-Carbap Res Gene PCR Not applicable blaNDM Car Res Gene PCR Not applicable OXA-48 Carbapenem Resis Gene (PCR) Not applicable blaVIM Car Res Gene PCR Not applicable CTX-M Gene Resistance (PCR) Not applicable 11/28/22 15:02 WBC RBC Hgb Hct MCV MCH MCHC RDW Plt Count Neut % (Auto) Lymph % (Auto) Burnet % (Auto) Eos % (Auto) Baso % (Auto) Lymph # (Auto) Burnet # (Auto) Baso # (Auto) Total Counted Seg Neutrophils % Band Neutrophils % Lymphocytes % (Manual) Atypical Lymphs % Monocytes % (Manual) Neutrophils # (Manual) RBC Morphology Magnesium Vancomycin Peak 19.4 L Vancomycin Trough A.calcoaceticus-baumannii cmplx PCR Bacteroides fragilis My albicans (PCR) My auris (PCR) C. glabrata (PCR) C. krusei (PCR) C. parapsilosis (PCR) C. tropicalis (PCR) C. neoform/gattii (PCR) Enterobacterales (PCR) E. cloacae complex PCR Enterococc faecalis PCR Enterococc faecium PCR E. coli (PCR) H. influenzae (PCR) Klebsiella aerogenes (PCR) Klebsiella oxytoca PCR Klebsiella pneumoniae List. monocytogenes PCR N. meningitidis (PCR) Proteus species (PCR) Salmonella spp. (PCR) Serratia marcescens PCR Staphylococcus sp PCR Staph aureus (PCR) mecA/C & MREJ Resist Gene mecA/C-Methicil Resis Gene mcr-1 Colistin Res Gene PCR Staph epidermidis (PCR) Staph lugdunensis PCR S. maltophilia (PCR) Streptococcus sp PCR Group A Strep (PCR) Strep agalactiae (PCR) Strep pneumoniae (PCR) P. aeruginosa (PCR) Daren/B-Vanco Res Genes blaIMP Car res Gene PCR KPC-Carbap Res Gene PCR blaNDM Car Res Gene PCR OXA-48 Carbapenem Resis Gene (PCR) blaVIM Car Res Gene PCR CTX-M Gene Resistance (PCR) [facility] Medical History Bilateral pubic rami fractures Acute right hip pain Abnormal creatinine clearance glomerular filtration Sleep apnea HTN (hypertension) Melanoma Iron deficiency (~2000) Anxiety (Unknown) Hypothyroidism (Unknown) Bursitis (~12/2011) Chronic headaches (Unknown) Surgical History Hx of laminectomy (08/19/18) Hx of vein stripping Status post epidural steroid injection History of spinal fusion (06/23/13) History of tonsillectomy H/O Achilles tendon repair History of sinus surgery Status post dilation and curettage (11/23/16) Status post dilation and curettage History of cataract removal with insertion of prosthetic lens History of gastric bypass (2000) Status post tonsillectomy and adenoidectomy Social History household members: none Smoking Status: Never smoker alcohol intake: never Assessment & Plan Assessment and plan (1) Cellulitis of right lower extremity: Status: Acute Plan: -Antibiotics of Vancomycin, Cefepime -Blood cultures preliminary positive with enterococcus -ordered tte to eval for endocarditis which showed no evidence of vegetation -Elevate the affected area/limb -suspect severity is related to chronic steroids -Pain medications when necessary -suspect will need two weeks of antibiotics IV and PICC line (2) Sepsis: Qualifiers: Sepsis acute organ dysfunction status: without acute organ dysfunction Sepsis type: sepsis due to unspecified organism Qualified Code(s): A41.9 - Sepsis, unspecified organism Status: Acute Plan: resolved (3) Acute kidney injury: Status: Acute Plan: -now resolved -stop IVF -continue arb (4) Hyperkalemia: Status: Acute Plan: Most likely acute kidney failure related now resolved (5) Hypermagnesemia: Status: Acute Plan: Most likely acute kidney failure related Continue with fluids and monitor (6) HTN (hypertension): Qualifiers: Hypertension type: unspecified Qualified Code(s): I10 - Essential (primary) hypertension Status: Acute Plan: Continue medications (7) Hypothyroid: Status: Chronic Plan: Hold levothyroxine for now. TSH low. Follow-up as outpatient (8) Anxiety: Status: Chronic Plan: Ativan as needed Time Spent With Patient Time with patient: 50 to 69 minutes with 50% spent counseling/coordinating care Quality VTE Deep Vein Thrombosis/Pulmonary Embolism Present on Admission: No
[2022-11-28] MEDS: GABAPENTIN 300 MG CAPSULE PO (21:30)
[2022-11-28] MEDS: VANCOMYCIN 1,250 MG/250 ML PIGGYBACK 250 MG IV (21:32)
[2022-11-28] MEDS: NYSTATIN POWDER 15GM 1 APPLIC TOP (21:32)
--- NOTE | 2022-11-28 23:20 | PC.NURSE ---
Patient is alert and oriented. Breath sounds diminished at bases but CTA with RA sat of 96%. HRR. Denied nausea. BT present and is passing flatus; refused colace again tonight. Indwelling catheter is patent; urine is clear, yellow. Assisted to reposition q2h using bed tilt function as has great difficulty with moving in bed. Gait not assessed but report from day RNRhonda indicated patient only able to tolerate 3-4 seconds and then had to be assisted back to bed using Tal. Abdominal folds/groins red and moist so cleansed and Nystatin powder applied; denied itching. Continues to have 2-3+ bilateral LE/foot edema. Refusing SCD's so reminded to ankle wave. Complained of constant 4-5/10 pain in neck and mid/upper back as well as right shoulder pain and has been using Tizanidine as well as prn vicodin for pain. On contact isolation for gm + cocci in blood. Fall risk score is moderate and bed alarm is activated.
[2022-11-29 05:52] VITALS: BP 151/79; PULSE 78; RESP 20; TEMP 36.2; O2SAT 98
[2022-11-29] MEDS: OXYCODONE/ACETAMINOPHEN 5/325 TABLET 2 TAB PO ×3 (06:01→17:21)
[2022-11-29] MEDS: LEVOTHYROXINE 75 MCG TABLET PO (06:01)
[2022-11-29 06:25] LABS: Blood Urea Nitrogen 18 mg/dL (7-17); Calcium 9.1 mg/dL (8.4-10.2); Carbon Dioxide 29 mmol/L (22-32); Chloride 104 mmol/L (98-107); Estimated Glomerular Filt Rate > 60 mL/min (>60); Glucose 79 mg/dL (70-100); HEMOLYSIS < 15 (0-50); Potassium 4.9 mmol/L (3.4-5.1); Sodium 137 mmol/L (137-145)
[2022-11-29 07:00] VITALS: BP 145/81; PULSE 87; RESP 16; TEMP 36.2; O2SAT 97
[2022-11-29] MEDS: ENOXAPARIN 40 MG/0.4 ML SYRINGE SUBCUT ×2 (09:29→20:28)
[2022-11-29] MEDS: DOCUSATE 100 MG CAPSULE PO ×2 (09:29→20:28)
[2022-11-29] MEDS: ESCITALOPRAM 10 MG TABLET 20 MG PO (09:30)
[2022-11-29] MEDS: FERROUS SULFATE 325 MG TABLET PO (09:31)
[2022-11-29 09:32] VITALS: BP 162/82; PULSE 86
[2022-11-29] MEDS: LIOTHYRONINE 5 MCG TABLET 10 MCG PO (09:32)
[2022-11-29] MEDS: LOSARTAN 50 MG TABLET PO ×2 (09:32→20:28)
[2022-11-29] MEDS: TIZANIDINE 4 MG TABLET 2 MG PO ×2 (09:34→20:27)
[2022-11-29] MEDS: predniSONE 20 MG TABLET PO (09:36)
[2022-11-29] MEDS: AMPICILLIN 2,000 MG in SODIUM CHLORIDE 0.9% 100 ML 200 MG IV ×4 (09:47→21:08)
[2022-11-29] MEDS: SODIUM CHLORIDE 0.9% FLUSH 10 ML IV ×4 (09:48→20:29)
--- NOTE | 2022-11-29 10:24 | PM.PN.1 ---
Subjective Subjective Interval history: Weak, can not really walk. Minimal leg pain. No dyspnea. Exam Vital Signs (past 8 hours): - 11/29/22 05:52 11/29/22 07:00 11/29/22 09:32 Temperature 97.1 F L 97.2 F L Pulse Rate 78 87 86 Respiratory Rate 20 16 Blood Pressure 151/79 H 145/81 H 162/82 H Pulse Oximetry 98 97 Oxygen Flow Rate 0 0 Oxygen Delivery Method Room Air Oxygen Flow Rate 0 Narrative Exam Narrative: NAD, flat affect Lungs clear with normal effort CV RRR without M/G/R Abdomen Soft, NT/ND No rash 2+ bilateral pedal edema. Some pre-tibial pink bilaterally Objective Labs 11/28/22 06:50 11/29/22 06:04 Labs: Laboratory Results - last 24 hr 11/26/22 11/28/22 11/28/22 23:04 10:36 15:02 Sodium Potassium Chloride Carbon Dioxide BUN Creatinine Estimated GFR BUN/Creatinine Ratio Glucose Calcium Vancomycin Peak 19.4 L Vancomycin Trough 13.0 A.calcoaceticus-baumannii cmplx PCR Not detected Bacteroides fragilis Not detected My albicans (PCR) Not detected My auris (PCR) Not detected C. glabrata (PCR) Not detected C. krusei (PCR) Not detected C. parapsilosis (PCR) Not detected C. tropicalis (PCR) Not detected C. neoform/gattii (PCR) Not detected Enterobacterales (PCR) Not detected E. cloacae complex PCR Not detected Enterococc faecalis PCR Detected Enterococc faecium PCR Not detected E. coli (PCR) Not detected H. influenzae (PCR) Not detected Klebsiella aerogenes (PCR) Not detected Klebsiella oxytoca PCR Not detected Klebsiella pneumoniae Not detected List. monocytogenes PCR Not detected N. meningitidis (PCR) Not detected Proteus species (PCR) Not detected Salmonella spp. (PCR) Not detected Serratia marcescens PCR Not detected Staphylococcus sp PCR Not detected Staph aureus (PCR) Not detected mecA/C & MREJ Resist Gene Not applicable mecA/C-Methicil Resis Gene Not applicable mcr-1 Colistin Res Gene PCR Not applicable Staph epidermidis (PCR) Not detected Staph lugdunensis PCR Not detected S. maltophilia (PCR) Not detected Streptococcus sp PCR Not detected Group A Strep (PCR) Not detected Strep agalactiae (PCR) Not detected Strep pneumoniae (PCR) Not detected P. aeruginosa (PCR) Not detected Daren/B-Vanco Res Genes Not detected blaIMP Car res Gene PCR Not applicable KPC-Carbap Res Gene PCR Not applicable blaNDM Car Res Gene PCR Not applicable OXA-48 Carbapenem Resis Gene (PCR) Not applicable blaVIM Car Res Gene PCR Not applicable CTX-M Gene Resistance (PCR) Not applicable 11/29/22 06:04 Sodium 137 Potassium 4.9 Chloride 104 Carbon Dioxide 29 BUN 18 H Creatinine 0.82 Estimated GFR > 60 BUN/Creatinine Ratio 22.0 Glucose 79 Calcium 9.1 Vancomycin Peak Vancomycin Trough A.calcoaceticus-baumannii cmplx PCR Bacteroides fragilis My albicans (PCR) My auris (PCR) C. glabrata (PCR) C. krusei (PCR) C. parapsilosis (PCR) C. tropicalis (PCR) C. neoform/gattii (PCR) Enterobacterales (PCR) E. cloacae complex PCR Enterococc faecalis PCR Enterococc faecium PCR E. coli (PCR) H. influenzae (PCR) Klebsiella aerogenes (PCR) Klebsiella oxytoca PCR Klebsiella pneumoniae List. monocytogenes PCR N. meningitidis (PCR) Proteus species (PCR) Salmonella spp. (PCR) Serratia marcescens PCR Staphylococcus sp PCR Staph aureus (PCR) mecA/C & MREJ Resist Gene mecA/C-Methicil Resis Gene mcr-1 Colistin Res Gene PCR Staph epidermidis (PCR) Staph lugdunensis PCR S. maltophilia (PCR) Streptococcus sp PCR Group A Strep (PCR) Strep agalactiae (PCR) Strep pneumoniae (PCR) P. aeruginosa (PCR) Daren/B-Vanco Res Genes blaIMP Car res Gene PCR KPC-Carbap Res Gene PCR blaNDM Car Res Gene PCR OXA-48 Carbapenem Resis Gene (PCR) blaVIM Car Res Gene PCR CTX-M Gene Resistance (PCR) [facility] Medical History Bilateral pubic rami fractures Acute right hip pain Abnormal creatinine clearance glomerular filtration Sleep apnea HTN (hypertension) Melanoma Iron deficiency (~2000) Anxiety (Unknown) Hypothyroidism (Unknown) Bursitis (~12/2011) Chronic headaches (Unknown) Surgical History Hx of laminectomy (08/19/18) Hx of vein stripping Status post epidural steroid injection History of spinal fusion (06/23/13) History of tonsillectomy H/O Achilles tendon repair History of sinus surgery Status post dilation and curettage (11/23/16) Status post dilation and curettage History of cataract removal with insertion of prosthetic lens History of gastric bypass (2000) Status post tonsillectomy and adenoidectomy Social History household members: none Smoking Status: Never smoker alcohol intake: never Assessment & Plan Assessment & Plan narrative: (1) Cellulitis of right lower extremity, POA and improving. Status: Acute Plan: -Antibiotics: dc Vancomycin, dc Cefepime, start ampicillin. -Blood cultures preliminary positive with enterococcus faecalis. Last cx (02/11) on 11/28 negative. -ordered tte to eval for endocarditis which showed no evidence of vegetation, normal EF. -Elevate the affected area/limb -suspect severity is related to chronic steroids -Pain medications when necessary -suspect will need two weeks of antibiotics IV and PICC line (Saturday). (2) Sepsis, POA and improved: Qualifiers: Sepsis acute organ dysfunction status: without acute organ dysfunction Sepsis type: sepsis due to unspecified organism Qualified Code(s): A41.9 - Sepsis, unspecified organism Status: Acute Plan: resolved (3) Acute kidney injury, POA and resolved: Status: Acute Plan: -now resolved (4) Hyperkalemia, POA and resolved: Status: Acute Plan: Most likely acute kidney failure related now resolved (5) Hypermagnesemia, POA: Status: Acute Plan: Most likely acute kidney failure related Continue with fluids and monitor (6) HTN (hypertension), POA: Qualifiers: Hypertension type: unspecified Qualified Code(s): I10 - Essential (primary) hypertension Status: Acute Plan: cont irbesartan 1650 BID and monitor. Continue medications (7) Hypothyroid, POA.: Status: Chronic Plan: Hold levothyroxine for now. TSH low. Follow-up as outpatient (8) Anxiety: Status: Chronic Plan: Ativan as needed (9). Leg edema, POA -gentle diuresis and follow renal function. Time Spent With Patient Time with patient: 30 to 49 minutes with 50% spent counseling/coordinating care Quality VTE Deep Vein Thrombosis/Pulmonary Embolism Present on Admission: No
[2022-11-29] MEDS: FUROSEMIDE 20 MG/2 ML VIAL IV (11:29)
--- NOTE | 2022-11-29 13:13 | CM.DPC ---
DCP Cont. Reviewed EMR and team rounds for status updates. Pt probable d/c on 12/01. No referrlas made yet, plan is still pending. Once ABO choice is ordered, will probably need OP IV infusion w/HH as well. Left message for [facility] to clarify if they take her [employer] insurance, pending response. Cont. to assist as the plan remains in development. PICC ordered for placement today.
--- NOTE | 2022-11-29 13:46 | PT.IPTN ---
Current Diagnoses Sepsis, unspecified organism (11/27/22) Hypothyroidism, unspecified (11/27/22) Hypermagnesemia (11/27/22) Hyperkalemia (11/27/22) Anxiety disorder, unspecified (11/27/22) Essential (primary) hypertension (11/27/22) Cellulitis of right lower limb (11/27/22) Acute kidney failure, unspecified (11/27/22) Physical Therapy Treatment Note M2 PT-IP Current Condition Start: 11/27/22 16:08 Freq: NEEDED Status: Active Protocol: Document 11/27/22 15:00 MB (Rec: 11/27/22 16:30 MB [id number]) Physical Therapy Current Condition Current Condition Evaluation Date 11/27/22 Treatment Diagnosis Recent pelvic fractures, LE edema, increased pain, infection Onset Date Pelvic fractures since September, increased edema a week or so M3 PT-IP Subjective Start: 11/27/22 16:08 Freq: NEEDED Status: Active Protocol: Document 11/29/22 14:09 TS (Rec: 11/29/22 14:24 TS [id number]) Subjective Physical Therapy Visit Type Type Treatment Note Visit Start Time 13:46 Visit Stop Time 14:07 Total Visit Minutes 21 Number of CORN PICKER Visits 2 Physical Therapy Visit Comments Patient Comments Pt would like to perform bed ex this session and not attempt OOB mobility today due to pain. Pt is agreeable to PT. Therapy Pain Assessment Pain When Pain Assessed During Mobility Pain Present Pain Present Pain Reported M4 PT-IP Mobility and Gait Start: 11/27/22 16:08 Freq: NEEDED Status: Active Protocol: Document 11/29/22 14:09 TS (Rec: 11/29/22 14:24 TS [id number]) PT-Transfer Assessment Comments Mobility Comments Pt was agreeable to bed ex this session. She performed heel slides AAROM, ankle pumps , quad sets, SLR AAROM and Hip ABD AAROM. She reports some discomfort with ex but is tolerable. Pt was left in bed with all needs met. Gait Assessment Comments Gait Comments Unable at this time. M5 PT-IP Objective Assessments Start: 11/27/22 16:08 Freq: NEEDED Status: Active Protocol: Document 11/27/22 15:00 MB (Rec: 11/27/22 16:30 MB [id number]) Orientation Orientation/Cognition Level of Alertness Alert Orientation Name,Age,Birthday,Month,Date, Year,Day of Week,Place, Situation Language Function Ability No Deficits Noted Safety Awareness Understands Safety Issues Memory Description No Deficits Noted Gross Range of Motion Upper Extremity ROM Assessment Right Impaired Impairments Defer to OT, pt is right handed and does not move right arm much Lower Extremity ROM Assessment Bilaterally Impaired Impairments B ankle pump only 50% normal range, pt cannot tolerate HS to improve knee and hip flexion and she is able to perform glute set Strength Comments Strength Comments Pt does not tolerate MMT any joint in UEs or LEs Sensation Assessment Sensation Gross Sensation WNL Muscle Tone Muscle Tone WNL Yes Other Assessments Other Other Assessments Pt does appear to be hypermobile all joints as PT observes LE joints M6 PT-IP Treatment Start: 11/27/22 16:08 Freq: NEEDED Status: Active Protocol: Document 11/29/22 14:09 TS (Rec: 11/29/22 14:24 TS [id number]) Physical Therapy Treatment Exercises Exercises Ankle Pumps,Quad Sets,Heel Slides,Straight Leg Raises, Supine Hip Abduction M7 PT-IP Assessment and Plan Start: 11/27/22 16:08 Freq: NEEDED Status: Active Protocol: Document 11/29/22 14:09 TS (Rec: 11/29/22 14:24 TS [id number]) PT Summary Assessment and Plan Potential Rehabilitation Potential Fair Summary Impairments Pain,ROM,Strength,Balance,Bed Mobility,Transfers,Gait, Activity Tolerance Progress Towards Goals Slow Progress due to Pain,Slow Progress due to Activity Tolerance Assessment Summary Nini is making slow progress with her mobility this session . She refused OOB mobility this session due pain and was agreeable to bed ex. She performed ankle pumps, heel slides, SLR, Hip ABD and quad sets. She has some discomfort in pelvis with ex but is tolerable. PT continues to recommend SNF rehab at this time. Goals Bed Mobility Goal Standby Assistance Transfer Goal Standby Assistance,Front Wheeled Walker Gait Goal Standby Assistance,Front Wheel Walker Gait Distance 75 Days to Meet Goals 10 Frequency of Treatment Frequency Of Treatment Once a Day Treatment Plan Physical Therapy Treatment Plan Bed Mobility Training,Transfer Training,Gait Training, Therapeutic Exercise,Balance Retraining,Hot or Cold Pack, Neuromuscular Re-ed Weight Bearing Status Weight Bearing Status Weight Bear as Tolerated Recommendations To Nursing Amount of Assist Needed PT/OT Assist Only,Total Assistance,Mechanical Lift Discharge Recommendations PT Discharge Recommendations SNF Rehab Transportation Needs at Discharge Wheelchair/Cabulance
--- NOTE | 2022-11-29 13:46 | OT.IP.TRT ---
Current Diagnoses Sepsis, unspecified organism (11/27/22) Hypothyroidism, unspecified (11/27/22) Hypermagnesemia (11/27/22) Hyperkalemia (11/27/22) Anxiety disorder, unspecified (11/27/22) Essential (primary) hypertension (11/27/22) Cellulitis of right lower limb (11/27/22) Acute kidney failure, unspecified (11/27/22) Occupational Therapy Treatment Note M2 OT-IP Current Condition Start: 11/27/22 16:36 Freq: Status: Active Protocol: Document 11/27/22 14:30 [facility] (Rec: 11/27/22 16:55 [facility] [id number]) Occupational Therapy Current Condition Current Condition Evaluation Date 11/27/22 Treatment Diagnosis Cellulitis/Sepsis, pubic rami fx, weakness Diagnosis Onset Date 11/27/22 M3 OT- IP Subjective and Pain Start: 11/27/22 16:36 Freq: Status: Active Protocol: Document 11/29/22 13:45 [facility] (Rec: 11/29/22 15:59 [facility] [id number]) OT- Subjective Occupational Therapy Visit Type Type Treatment Note Visit Start Time 13:30 Visit Stop Time 13:46 Total Visit Minutes 16 Occupational Therapy Visit Comments Patient Comments Pt agreed to do OT but not wanting to try to get out of bed as yesterday's session per pt too taxing on her and the right IV site swelled up yesterday. Pt states just realized yesterday when trying to get up with therapy that she will be needing skilled rehab. OT Pain Assessment Pain When Pain Assessed During Mobility Pain Present Pain Present Pain Reported M5 OT- IP IADL's Start: 11/27/22 16:36 Freq: Status: Active Protocol: Document 11/27/22 14:30 [facility] (Rec: 11/27/22 16:55 [facility] [id number]) OT-Instrumental Activities of Daily Living Deficits IADL Deficits Identified Deficits Home Safety Awareness Home Safety Comments At this time pt realizes that she can not take careof herself but is insistent on going home when able. Medication Management Medication Management Comments Pt does her own. Money Management Money Management Comments Pt does her own. Meal Preparation Meal Preparation Comments At this time, pt would require assist. Wharf Tally Clerk Wharf Tally Clerk Comments At this time pt will need assist. M6 OT- IP Functional Cognition Start: 11/27/22 16:36 Freq: Status: Active Protocol: Document 11/29/22 13:45 [facility] (Rec: 11/29/22 15:59 [facility] [id number]) Cognitive Factors Limiting Selfcare Function Cognitive Comments Cognitive Assessment Comments Pt having increased insight today after having extreme difficulty to get up and realizes will need to go to skilled rehab. Pt states wanting to try again tomorrow after getting a PICC line in which will increase her ease to use her right arm to assist. In addition pt is having lots of fluids taken off of her and hopefully have less swelling so able to move better as well. M7 OT- IP Mobility and Balance Start: 11/27/22 16:36 Freq: Status: Active Protocol: Document 11/28/22 14:06 [facility] (Rec: 11/28/22 15:36 [facility] [id number]) M9 OT- IP Assessment and Plan Start: 11/27/22 16:36 Freq: Status: Active Protocol: Document 11/29/22 13:45 [facility] (Rec: 11/29/22 15:59 [facility] [id number]) OT Summary Assessment and Plan Potential Rehabilitation Potential Good Analytic Complexity at Evaluation High Summary OT Impairments Pain,Range of Motion,Strength, Balance,Functional Mobility, Self-Feeding,Grooming,Dressing ,Toileting,Bathing,Toilet Transfers,Shower Transfers, Activity Tolerance Progress Towards Goals Slow Progress due to Pain,Slow Progress due to Medical Issues,Slow Progress due to Activity Tolerance Assessment Summary Pt now getting fluids off of her and to have a PICC line placed. Pt wanting to hold off on bed mobility today in hopes of being in a better mental space tomorrow as to have a PICC line placed in and hopefully be able to hazardous waste remover better after fluids taken off her. Pt will benefit from skilled rehab. Pt's is very swollen in her extremities and encouraged pt to keep her arms and legs up on a pillow and move in bed. Self-Feeding Goal Independent Grooming Goal Independent Dressing Goal Independent Toileting Goal Independent Bathing Goal Independent Toilet Transfer Goal Independent Shower Transfer Goal Independent Days to Meet Goals 30 Frequency of Treatment Frequency Of Treatment Once a Day Treatment Plan OT Treatment Plan ADL Training,Functional Mobility,Patient/Family Education,Discharge Planning Other Treatment Recommendations and Next Bed mobility with MAXA X 2. Treatment Focus Discharge Recommendations OT Discharge Recommendations SNF Rehab Transportation Needs at Discharge Stretcher/Ambulance
[2022-11-29 19:00] VITALS: BP 116/70; PULSE 72; RESP 20; TEMP 36.2; O2SAT 97
[2022-11-29] MEDS: GABAPENTIN 300 MG CAPSULE PO (20:28)
[2022-11-29 23:56] VITALS: BP 137/79; PULSE 75; RESP 19; TEMP 36.4; O2SAT 96
[2022-11-30] MEDS: OXYCODONE/ACETAMINOPHEN 5/325 TABLET 2 TAB PO ×3 (00:46→13:26)
[2022-11-30] MEDS: AMPICILLIN 2,000 MG in SODIUM CHLORIDE 0.9% 100 ML 200 MG IV ×4 (02:15→14:41)
[2022-11-30] MEDS: LEVOTHYROXINE 75 MCG TABLET PO (05:50)
[2022-11-30 06:00] VITALS: BP 133/64; PULSE 88; RESP 17; TEMP 36.3; O2SAT 97
--- NOTE | 2022-11-30 10:07 | OT.IPNOTE ---
Per hospitalist looking to be transferred out to higher care, therefore discharge form OT services.
[2022-11-30 10:08] VITALS: BP 133/74; PULSE 91
[2022-11-30] MEDS: LOSARTAN 50 MG TABLET PO (10:08)
--- NOTE | 2022-11-30 10:10 | CM.DPC ---
DCP Cont. Reviewed EMR and team rounds for updates. Pt will be transferred today to [facility] for further eval/tx. No further d/c needs indicated at this time.
[2022-11-30] MEDS: TIZANIDINE 4 MG TABLET 2 MG PO (10:11)
[2022-11-30] MEDS: FERROUS SULFATE 325 MG TABLET PO (10:11)
[2022-11-30] MEDS: ENOXAPARIN 40 MG/0.4 ML SYRINGE SUBCUT (10:12)
[2022-11-30] MEDS: DOCUSATE 100 MG CAPSULE PO (10:12)
[2022-11-30] MEDS: ESCITALOPRAM 10 MG TABLET 20 MG PO (10:13)
[2022-11-30] MEDS: predniSONE 20 MG TABLET PO (10:15)
[2022-11-30] MEDS: SODIUM CHLORIDE 0.9% FLUSH 10 ML IV ×3 (10:19→14:40)
[2022-11-30] MEDS: LIOTHYRONINE 5 MCG TABLET 10 MCG PO (11:47)
[2022-11-30 12:00] VITALS: BP 139/62; PULSE 92; RESP 18; TEMP 36.7; O2SAT 94
--- NOTE | 2022-11-30 14:03 | PT.IPTN ---
Current Diagnoses Sepsis, unspecified organism (11/27/22) Hypothyroidism, unspecified (11/27/22) Hypermagnesemia (11/27/22) Hyperkalemia (11/27/22) Anxiety disorder, unspecified (11/27/22) Essential (primary) hypertension (11/27/22) Cellulitis of right lower limb (11/27/22) Acute kidney failure, unspecified (11/27/22) Physical Therapy Treatment Note Document 11/30/22 14:02 AB (Rec: 11/30/22 14:03 AB [id number]) Subjective Physical Therapy Visit Type Type Administrative Note Notes Per hospitalist during rounds meeting: pt will be transferred to a higher level of care and to dc pt from PT. M7 PT-IP Assessment and Plan Start: 11/27/22 16:08 Freq: NEEDED Status: Active Protocol: Document 11/30/22 14:02 AB (Rec: 11/30/22 14:03 AB [id number]) PT Summary Assessment and Plan Frequency of Treatment Frequency Of Treatment Discharge
[2022-11-30] MEDS: SODIUM CHLORIDE 0.9% 250 ML 21 ML IV (14:40)
--- NOTE | 2022-11-30 16:06 | PC.NURSE ---
Pt resting at intervals. IV ABO infusing as per orders. HL intact/patent. Contreras cath patent clear yellow urine. Lower legs reddened, 3+ edema to feet & lower calf. Awaiting possible transfer to [facility] Call light w/in reach, Bed alarm on for pt safety. Continue w/plan of care.
--- NOTE | 2022-11-30 16:26 | PM.PN.1 ---
Subjective Subjective Interval history: She feels weak today. No specific new pain. She denies nausea. No fevers overnight. Exam Vital Signs (past 8 hours): - 11/30/22 10:08 11/30/22 12:00 Temperature 98.1 F Pulse Rate 91 H 92 H Respiratory Rate 18 Blood Pressure 133/74 139/62 Pulse Oximetry 94 Oxygen Flow Rate 0 Oxygen Delivery Method Room Air Oxygen Flow Rate 0 Narrative Exam Narrative: No acute distress. Anicteric sclerae. Lungs are clear, normal effort. Heart is regular, no murmur. Abdomen is soft, nontender. Extremities are notable for trace edema and slight erythema both pretibial areas. Objective Labs 11/28/22 06:50 11/29/22 06:04 [facility] Medical History Bilateral pubic rami fractures Acute right hip pain Abnormal creatinine clearance glomerular filtration Sleep apnea HTN (hypertension) Melanoma Iron deficiency (~2000) Anxiety (Unknown) Hypothyroidism (Unknown) Bursitis (~12/2011) Chronic headaches (Unknown) Surgical History Hx of laminectomy (08/19/18) Hx of vein stripping Status post epidural steroid injection History of spinal fusion (06/23/13) History of tonsillectomy H/O Achilles tendon repair History of sinus surgery Status post dilation and curettage (11/23/16) Status post dilation and curettage History of cataract removal with insertion of prosthetic lens History of gastric bypass (2000) Status post tonsillectomy and adenoidectomy Social History household members: none Smoking Status: Never smoker alcohol intake: never Assessment & Plan Assessment & Plan narrative: 1. Enterococcal bacteremia, present on admission and active. 2. Sepsis, with acute kidney injury, present on admission and improved. 3. Acute kidney injury, present on admission and improving. 4. Hyperkalemia, present on admission and resolved. 5. Hypertension, present on admission and stable. 6. Morbid obesity with BMI 49, present on admission and active. 7. Chronic corticosteroids with cushingoid features, present on admission and active. She is been taking steroids for several years for an undefined possible rheumatologic condition. She is seen multiple rheumatologists over the years with no specific diagnosis. She improved with a trial of steroids from her primary care doctor, she has since been on these chronically and is now on 20 mg a day. She is not been on less than 20 mg a day for the last several years. Initially there was a presumptive diagnosis of cellulitis, she has very light erythema of both pretibial regions. She has had a declining course since pelvic fractures in September of this year. These were not associated with trauma or fall. Since that time she is had general malaise. This case was discussed in detail with Dr. Rodriguez of infectious Disease. Her concern is for subacute endocarditis. The current plan is to continue antibiotics, a 3rd set of 2 cultures was obtained on the and is pending. No midline or PICC access at this point. We are attempting a transfer to [facility] for a transesophageal echo to rule out endocarditis. The surface echo was negative. The patient understands this plan. Time Spent With Patient Time with patient: 30 to 49 minutes with 50% spent counseling/coordinating care Quality VTE Deep Vein Thrombosis/Pulmonary Embolism Present on Admission: No
--- NOTE | 2022-11-30 16:32 | P.DS_ITS ---
History of Present Illness History of Present Illness Date Patient Seen: 11/30/22 Time Patient Seen: 16:32 Chief complaint: Fall t-1, Hip inj Narrative: From HPI: 57 years old female with history of hypothyroidism, depression, chronic use of prednisone, morbidly obese, polymyalgia, myotonic dystrophy, recent spontaneous pelvic fractures presented to the ER with severe weakness and increased pelvic pain in the last 48 hours. She also noted to have increased lower extremities edema, redness and rash on the medial aspect of the right thigh getting progressively worse in the last 48 hours. Denies any other symptoms. Currently on oxycodone with poor pain control for her pelvic fracture pain. She sustained a pelvic fracture in September and since then being on pain control. Scheduled to have appointment to see orthopedic surgery and physical therapy as follow-up. Denies any fever, shortness of breath, cough, chest pain, palpitations, nausea, vomiting, abdominal pain, diarrhea or dysuria. In the ER she was found to have a right thigh cellulitis and was given Tylenol, fluid bolus, cefepime and vancomycin. Laboratory shows WBC 14.8, sodium 136, potassium 5.2, creatinine 1.23, magnesium 3.3, AST 59, ALT 59, troponin negative BNP 300, UA negative, COVID/influenza negative, chest x-ray negative, abdominal CT scan shows right obturator ring fractures acute or subacute, left parasymphyseal fracture. Vital signs shows temperature 96.8, pulse 98, blood pressure 151/94, oxygen saturation 100% on room air. Discharge Providers Provider Date of admission: 11/27/22 02:35 Discharge Date: 11/30/22 Primary care physician: Isaac Watters MD Consults: 11/27/22 03:22 Consult to Discharge Planning Routine Comment: Consult to Occupational Therapy Evaluate & Treat Comment: Physician Instructions: Evaluate and treat Consult to Physical Therapy Evaluate & Treat Comment: Physician Instructions: Evaluate and Treat Discharge provider: Murray Carey MD Summary Hospital Course Discharge Diagnosis: 1. Enterococcal bacteremia, present on admission and active. 2. Sepsis, with acute kidney injury, present on admission and improved. 3. Acute kidney injury, present on admission and improving. 4. Hyperkalemia, present on admission and resolved. 5. Hypertension, present on admission and stable. 6. Morbid obesity with BMI 49, present on admission and active. 7. Chronic corticosteroids with cushingoid features, present on admission and active. She is been taking steroids for several years for an undefined possible rheumatologic condition. She is seen multiple rheumatologists over the years with no specific diagnosis. She improved with a trial of steroids from her primary care doctor, she has since been on these chronically and is now on 20 mg a day. She is not been on less than 20 mg a day for the last several years. Hospital Course: Initially there was a presumptive diagnosis of cellulitis, she has very light erythema of both pretibial regions. She has had a declining course since pelvic fractures in September of this year. These were not associated with trauma or fall. Since that time she is had general malaise. This case was discussed in detail with Dr. Rodriguez of infectious Disease. Her concern is for subacute endocarditis. The current plan is to continue antibiotics, a 3rd set of 2 cultures was obtained on the and is pending. No midline or PICC access at this point. We are attempting a transfer to [facility] for a transesophageal echo to rule out endocarditis. The surface echo was negative. The patient understands this plan. She was transitioned from broad-spectrum antibiotics to ampicillin Q 4 on November 29. This case has been discussed with Dr. Cruz. Status at Discharge Cognitive/behavioral status at discharge: oriented Functional status at discharge: uses cane/walker Overall status at discharge: patient is progressing back to baseline Time Spent with Patient Time spent: Greater than 30 minutes Exam Vital Signs (past 8 hours): - 11/30/22 10:08 11/30/22 12:00 Temperature 98.1 F Pulse Rate 91 H 92 H Respiratory Rate 18 Blood Pressure 133/74 139/62 Pulse Oximetry 94 Oxygen Flow Rate 0 Oxygen Delivery Method Room Air Oxygen Flow Rate 0 Narrative Exam Narrative: No acute distress. Anicteric sclerae. Lungs are clear, normal effort. Heart is regular, no murmur. Abdomen is soft, nontender. Extremities are notable for trace edema and slight erythema both pretibial areas. Objective Labs 11/28/22 06:50 11/29/22 06:04 [facility] Medical History Bilateral pubic rami fractures Acute right hip pain Abnormal creatinine clearance glomerular filtration Sleep apnea HTN (hypertension) Melanoma Iron deficiency (~2000) Anxiety (Unknown) Hypothyroidism (Unknown) Bursitis (~12/2011) Chronic headaches (Unknown) Surgical History Hx of laminectomy (08/19/18) Hx of vein stripping Status post epidural steroid injection History of spinal fusion (06/23/13) History of tonsillectomy H/O Achilles tendon repair History of sinus surgery Status post dilation and curettage (11/23/16) Status post dilation and curettage History of cataract removal with insertion of prosthetic lens History of gastric bypass (2000) Status post tonsillectomy and adenoidectomy Social History household members: none Smoking Status: Never smoker alcohol intake: never Discharge Assessment & Plan Assessment and Plan Assessment: 1. Enterococcal bacteremia, present on admission and active. 2. Sepsis, with acute kidney injury, present on admission and improved. 3. Acute kidney injury, present on admission and improving. 4. Hyperkalemia, present on admission and resolved. 5. Hypertension, present on admission and stable. 6. Morbid obesity with BMI 49, present on admission and active. 7. Chronic corticosteroids with cushingoid features, present on admission and active. Plan of Treatment: Transferred to [facility] for ongoing care including transesophageal echo to rule out subacute bacterial endocarditis. Discharge Plan Discharge Plan Patient Disposition: [facility] Other facility: [facility] Discharge orders & Medications Medication counseling provided by Pharmacist: No Discharge Health Status Multidrug resistant organism: No MDRO Diet/Activity/Treatments Diet: Regular Discharge Data Primary Care Provider: Isaac Watters VTE Deep Vein Thrombosis/Pulmonary Embolism Present on Admission: No MIPS - DC The patient has a history of heart transplant or Left Ventricular Assist Device (LVAD). If yes, STOP here.: No The patient has current or prior documentation of left ventricular ejection fraction (LVEF) less than or equal to 40%, or moderate or severely depressed left ventricular systolic function.: No
[2022-11-30 18:00] VITALS: BP 154/72; PULSE 91; RESP 18; TEMP 36.2; O2SAT 98
[2022-11-30] MEDS: HYDROMORPHONE 0.5 MG INJ IV (18:57)
== END 2022-11-30 19:00 | disposition short-term general hospital (02) | DRG 872 ==
LOC: ED 11-27 02:11 → AC 11-27 02:36
PROVIDERS: Emergency Medicine; Internal Medicine; Admitting Provider Internal Medicine; Emergency Provider Emergency Medicine; PCP Pediatrics; Referring Provider Emergency Medicine; Visit Provider Internal Medicine
DX: A41.9 Sepsis, unspecified organism (principal); L03.115 Cellulitis of right lower limb; N17.9 Acute kidney failure, unspecified; E24.2 Drug-induced Cushing's syndrome; E87.5 Hyperkalemia; E83.41 Hypermagnesemia; I10 Essential (primary) hypertension; E03.9 Hypothyroidism, unspecified; F41.9 Anxiety disorder, unspecified; B95.2 Enterococcus as the cause of diseases classified elsewhere; R65.20 Severe sepsis without septic shock; Z79.52 Long term (current) use of systemic steroids
CPT/HCPCS: 0241U; 36415; 71045; 74177; 80048; 80053; 80202; 81001; 81003; 81015; 82550; 83605; 83690; 83735; 83880; 84100; 84439; 84443; 84484; 85007; 85025; 85610; 85730; 87040; 87077; 87154; 87186; 87797; 93005; 93010; 93306; 96365; 96367; 97110; 97162; 97167; 97530; 99284; 99285; J0290; J0692; J1170; J1650; J1940; Q9967

== ENCOUNTER → 2022-12-25 12:56 | Outpatient (ROUT) | payer BC, SELFPAY ==
[2022-11-27 02:54] VITALS: BMI 49.8
== END ==
PROVIDERS: PCP Pediatrics; Visit Provider Internal Medicine Infectious Disease
DX: R78.81 Bacteremia (principal)
CPT/HCPCS: 87040

== ENCOUNTER → 2023-01-01 12:01 | Outpatient (ROUT) | payer BC, SELFPAY ==
[2022-11-27 02:54] VITALS: BMI 49.8
== END ==
PROVIDERS: PCP Pediatrics; Visit Provider Internal Medicine Infectious Disease
DX: R78.81 Bacteremia (principal); B95.2 Enterococcus as the cause of diseases classified elsewhere
CPT/HCPCS: 87040

== ENCOUNTER → 2023-01-22 13:19 | Outpatient (CLI) | payer BC, SELFPAY ==
[2022-11-27 02:54] VITALS: BMI 49.8
== END ==
PROVIDERS: PCP Family Medicine; Referring Provider Family Medicine; Visit Provider Family Medicine
DX: E03.9 Hypothyroidism, unspecified (principal)
CPT/HCPCS: 36415; 84443

== ENCOUNTER → 2023-03-11 15:22 | Outpatient (CLI) | payer BC, SELFPAY ==
[2022-11-27 02:54] VITALS: BMI 49.8
[2023-03-11 16:27] LABS: Add Manual Diff / Slide Review NO; Basophils Absolute Auto 0 /uL (0-100); Basophils Percent Auto 0.3 % (0-2); Eosinophils Absolute Auto 0 /uL (0-450); Eosinophils Percent Auto 0.1 % (2-4); Hematocrit 34.6 % (36-46); Hemoglobin 10.8 g/dL (12.0-16.0); Lymphocytes Absolute Auto 600 /uL (1100-4500); Lymphocytes Percent Auto 5.4 % (25-40); Mean Corpuscular HGB Conc 31.2 % (30-36); Mean Corpuscular Hemoglobin 24.9 PG (26-34); Mean Corpuscular Volume 79.8 fL (80-100); Monocytes Absolute Auto 300 /uL (0-900); Monocytes Percent Auto 2.4 % (3-14); Neutrophils Absolute Auto 10500 /uL (1500-7000); Neutrophils Percent Auto 91.8 % (50-75); Platelet Count 552 X10^3/uL (150-400); Red Blood Cell Count 4.34 X10^6/uL (4.0-5.2); Red Cell Distribution Width 17.9 % (11.6-14.8); White Blood Cell Count 11.4 X10^3/uL (4.5-11.0)
[2023-03-11 16:52] LABS: Alanine Aminotransferase 26 IU/L (<35); Albumin 3.7 g/dL (3.5-5.0); Albumin Globulin Ratio 1.2 (1.0-2.8); Alkaline Phosphatase 138 U/L (38-126); Aspartate Aminotransferase 28 IU/L (14-36); BUN Creatinine Ratio 29.3 (6-22); Bilirubin Total 0.7 mg/dL (0.2-1.3); Blood Urea Nitrogen 27 mg/dL (7-17); Calcium 9.3 mg/dL (8.4-10.2); Carbon Dioxide 26 mmol/L (22-32); Chloride 105 mmol/L (98-107); Estimated Glomerular Filt Rate > 60 mL/min (>60); Glucose 106 mg/dL (70-100); HEMOLYSIS 31 (0-50); Potassium 4.4 mmol/L (3.4-5.1); Sodium 138 mmol/L (137-145); Total Protein 6.7 g/dL (6.3-8.2)
[2023-03-11 17:19] LABS: Appearance Urine UA CLEAR; Bilirubin Urine UA NEGATIVE (NEGATIVE); Color Urine UA YELLOW; Glucose Urine UA NEGATIVE (Negative); Ketones Urine UA TRACE (NEGATIVE); Leukocyte Esterase Urine UA NEGATIVE (NEGATIVE); Nitrite Urine UA POSITIVE (Negative); Occult Blood Urine UA NEGATIVE (Negative); Protein Urine UA TRACE (Negative); Specific Gravity Urine UA >=1.030 (1.000-1.035)
[2023-03-11 17:28] LABS: RBC Urine 0-1/HPF (0-5/HPF); Urine Volume 10mL (spun); WBC Urine 0-1/HPF (0-5/HPF)
[2023-03-11 17:29] LABS: Bacteria Urine Many (>30); Culture Indicated Urine Specimen Cultured; Hyaline Casts Urine 0-1/LPF; Mucus Urine 1+ (Negative); Squamous Epithelial Cell Urine 0-1 /HPF (0-5/HPF)
== END ==
LOC: LAB 15:23
PROVIDERS: PCP Family Medicine; Referring Provider Family Medicine; Visit Provider Family Medicine
DX: R63.4 Abnormal weight loss (principal)
CPT/HCPCS: 36415; 80053; 81001; 85025; 87077; 87086; 87186

== ENCOUNTER 2023-03-23 15:51 | Inpatient (IN) | payer BC, SELFPAY ==
[2022-11-27 02:54] VITALS: BMI 49.8
[2023-03-23] VITALS (19 sets, daily range): BP systolic 98–192; BP diastolic 57–92; PULSE 62–111; RESP 15–28; TEMP 36.4–36.8; O2SAT 93–100; BMI 40.8
--- NOTE | 2023-03-23 16:10 | ED_ITS ---
HPI - Back Pain/Injury General Chief Complaint: Back Pain/Injury Stated Complaint: NECK AND BACK PAIN Time Seen by Provider: 03/23/23 16:04 History of Present Illness HPI Narrative: 57-year-old female with history of gastric bypass, polymyalgia on regular prednisone presents by private vehicle for severe bilateral back pain. Patient has been being treated for urinary tract infection, initially with Bactrim and then subsequently with ciprofloxacin, however she feels generally weak and like she has not been completely treated. Her pain is diffuse across her back, worse in the upper quadrants. She has been taking multiple doses of her home oxycodone without relief. Of note, patient reports unintentional weight loss of 60 lb in the last 4-5 months. She states that her primary care doctor ordered a CT of the chest abdomen and pelvis to assess for possible cancerous process. Related Data Home Medications Medication Instructions Recorded Confirmed diphenhydramine HCl 50 mg capsule 50 mg PO HSP PRN Insomnia ##0 07/02/16 03/23/23 ascorbic acid (vitamin C) 1,000 mg 1,000 mg PO DAILY 07/02/17 03/23/23 tablet (Vitamin C) calcium citrate 1,000 mg PO DAILY 07/02/17 03/23/23 coenzyme Q10 200 mg capsule (Co 200 mg PO DAILY 07/02/17 03/23/23 Q-10) multivitamin 1 cap PO DAILY 07/02/17 03/23/23 vitamin A 3,000 mcg (10,000 unit) 10,000 unit PO 2XW 07/02/17 03/23/23 capsule vitamin B complex (B Complex 1 1 tab PO DAILY 07/02/17 03/23/23 tablet) vitamin d See Rx Instructions .Route .COMPLEX 07/02/17 03/23/23 vitamin e See Rx Instructions .Route .COMPLEX 07/02/17 03/23/23 zinc 50 mg tablet 50 mg PO DAILY 07/02/17 03/23/23 ferrous gluconate 240 mg (27 mg 100 mg PO DAILY 10/30/17 03/23/23 iron) tablet magnesium oxide 500 mg PO BID 01/08/18 03/23/23 acetaminophen 325 mg capsule 500 mg PO ONCE PRN Pain (Scale 04/06/21 03/23/23 Score 1-3) liothyronine 5 mcg tablet (Cytomel) 10 mcg PO DAILY 04/06/21 03/23/23 prasterone (dhea) 50 mg capsule 50 mg PO DAILY 04/06/21 03/23/23 (DHEA) vitamin K2 100 mcg capsule 100 mcg PO DAILY 04/06/21 03/23/23 Previous Rx's Medication Instructions Recorded levothyroxine 75 mcg tablet 75 mcg PO DAILY #90 tabs 08/04/20 tizanidine 2 mg tablet 2 mg PO BID #180 tabs 04/23/22 DISABLED PARKING PERMIT #1 ea 09/25/22 prednisone 20 mg tablet 20 mg PO DAILY #30 tabs 10/19/22 diclofenac sodium 75 mg 75 mg PO BID #180 tabs 11/01/22 tablet,delayed release escitalopram oxalate 20 mg tablet 20 mg PO DAILY #90 tabs 01/21/23 (Lexapro) irbesartan 150 mg tablet 150 mg PO BID #180 tabs 01/21/23 gabapentin 600 mg tablet 600 mg PO BEDTIME #90 tabs 03/05/23 oxycodone-acetaminophen 5 mg-325 2 tab PO TID PRN pain #120 tabs 03/13/23 mg tablet (Percocet) ciprofloxacin HCl 500 mg tablet 500 mg PO BID #14 tabs 03/22/23 Allergies Allergy/AdvReac Type Severity Reaction Status Date / Time pregabalin [PREGABALIN] Allergy Severe facial and Verified 03/23/23 16:30 throat swelling hydrocodone [HYDROCODONE] AdvReac Severe nausea, Verified 03/23/23 16:30 syncopal episode Review of Systems Review of Systems Narrative: Negative except as noted above Patient History Medical History Bilateral pubic rami fractures Acute right hip pain Abnormal creatinine clearance glomerular filtration Sleep apnea HTN (hypertension) Melanoma Iron deficiency (~2000) Anxiety (Unknown) Hypothyroidism (Unknown) Bursitis (~12/2011) Chronic headaches (Unknown) Surgical History Hx of laminectomy (08/19/18) Hx of vein stripping Status post epidural steroid injection History of spinal fusion (06/23/13) History of tonsillectomy H/O Achilles tendon repair History of sinus surgery Status post dilation and curettage (11/23/16) Status post dilation and curettage History of cataract removal with insertion of prosthetic lens History of gastric bypass (2000) Status post tonsillectomy and adenoidectomy Social History household members: none Smoking Status: Never smoker alcohol intake: never Smoking Status: Never smoker Substance Use Type: does not use Exam Initial Vital Signs Initial Vital Signs: Vital Signs Temperature 98.2 F 03/23/23 15:55 Pulse Rate 111 H 03/23/23 15:55 Respiratory Rate 28 H 03/23/23 15:55 Blood Pressure 167/91 H 03/23/23 15:55 Pulse Oximetry 97 03/23/23 15:55 Oxygen Delivery Method Room Air 03/23/23 15:55 Const: Awake, alert, in pain, uncomfortable Cardiac: regular rate, regular rhythm RESP: unlabored, clear bilaterally, no wheezing GI: Atraumatic, soft, nontender, nondistended, no rebound, no guarding MSK: Diffuse tenderness to palpation, no focality Skin: Warm, Dry, intact, no rashes Neuro: AO x3, CN II-XII grossly intact, moves all extremities Psych: affect normal, mood normal, not suicidal, not homicidal Course Orders Ordered: Discontinued Medications Acetaminophen (Acetaminophen 325 Mg Tablet) 650 mg PO Q6H PRN PRN Reason: Fever/Mild Pain (1-3) Albuterol (Albuterol 2.5 Mg/3 Ml Neb (Adult)) 2.5 mg INH [id number] PRN PRN Reason: Dyspnea Ascorbic Acid (Ascorbic Acid 500 Mg Tablet) 1,000 mg PO DAILY [facility] Last Admin: 03/25/23 09:53 Dose: 1,000 mg Documented By: Admin: 03/24/23 08:21 Dose: 1,000 mg Documented By: CONCEPCION Bisacodyl (Bisacodyl 10 Mg Supp) 10 mg NC DAILY PRN PRN Reason: Constipation Dexamethasone (Dexamethasone 10 Mg/Ml Vial) 10 mg IV NOW ONE Stop: 03/23/23 16:09 Last Admin: 03/23/23 16:31 Dose: 10 mg Documented By: SAVANAH Diphenhydramine HCl (Diphenhydramine 25 Mg Tablet) 50 mg PO BEDTIME PRN PRN Reason: Insomnia Escitalopram Oxalate (Escitalopram 10 Mg Tablet) 20 mg PO DAILY [facility] Last Admin: 03/25/23 09:52 Dose: 20 mg Documented By: Admin: 03/24/23 08:17 Dose: 20 mg Documented By: CONCEPCION Gabapentin (Gabapentin 600 Mg Tablet) 600 mg PO BEDTIME JENNY Last Admin: 03/24/23 20:41 Dose: 600 mg Documented By: Admin: 03/23/23 21:30 Dose: 600 mg Documented By: Hydromorphone HCl (Hydromorphone 0.5 Mg Inj) 0.5 mg IV Q2H PRN PRN Reason: Pain, Severe (7-10) Last Admin: 03/24/23 13:17 Dose: 0.5 mg Documented By: Admin: 03/23/23 20:28 Dose: 0.5 mg Documented By: Hydromorphone HCl (Hydromorphone 0.5 Mg Inj) 1.5 mg IV Q2H PRN PRN Reason: Pain, Severe (7-10) Last Admin: 03/25/23 19:14 Dose: 1.5 mg Documented By: Admin: 03/25/23 09:55 Dose: 1.5 mg Documented By: DRE Sodium Chloride (Normal Saline 0.9%) 1,000 mls @ 1,000 mls/hr IV BOLUS ONE Stop: 03/23/23 17:45 Last Infusion: 03/23/23 18:15 Dose: Infused Documented By: Admin: 03/23/23 17:06 Dose: 1,000 mls/hr Documented By: AMANDO Sodium Chloride (Normal Saline 0.9%) 1,000 mls @ 1,000 mls/hr IV BOLUS ONE Stop: 03/23/23 17:46 Last Infusion: 03/23/23 19:27 Dose: Infused Documented By: Admin: 03/23/23 18:15 Dose: 1,000 mls/hr Documented By: AMANDO Ceftriaxone Sodium 2,000 mg/ (Sodium Chloride) 100 mls @ 200 mls/hr IV NOW ONE Stop: 03/23/23 16:48 Last Infusion: 03/23/23 18:11 Dose: Infused Documented By: Admin: 03/23/23 17:35 Dose: 200 mls/hr Documented By: AMANDO Sodium Chloride (Normal Saline 0.9%) 1,000 mls @ 100 mls/hr IV CONT JENNY Last Admin: 03/24/23 06:06 Dose: 100 mls/hr Documented By: Infusion: 03/24/23 06:06 Dose: Infused Documented By: Admin: 03/23/23 20:28 Dose: 100 mls/hr Documented By: Ceftriaxone Sodium 2,000 mg/ (Sodium Chloride) 100 mls @ 200 mls/hr IV Q24H JENNY Last Admin: 03/24/23 17:26 Dose: 200 mls/hr Documented By: CONCEPCION Vancomycin HCl/Dextrose (Vancomycin) 2,000 mg in 400 mls @ 200 mls/hr IV NOW ONE Stop: 03/24/23 16:44 Last Admin: 03/24/23 15:12 Dose: 200 mls/hr Documented By: CONCEPCION Vancomycin HCl/Dextrose (Vancomycin) 1,500 mg in 300 mls @ 200 mls/hr IV Q12H [facility] Last Admin: 03/25/23 02:59 Dose: 200 mls/hr Documented By: Sodium Chloride (Normal Saline 0.9%) 250 mls @ 21 mls/hr IV Q24H PRN PRN Reason: Flush Ceftriaxone Sodium 2,000 mg/ (Sodium Chloride) 100 mls @ 200 mls/hr IV Q12H [facility] Last Infusion: 03/25/23 15:23 Dose: Infused Documented By: Admin: 03/25/23 13:22 Dose: 200 mls/hr Documented By: KARL Ampicillin Sodium 2,000 mg/ (Sodium Chloride) 100 mls @ 200 mls/hr IV Q4H [facility] Last Admin: 03/25/23 18:16 Dose: 200 mls/hr Documented By: Infusion: 03/25/23 15:23 Dose: Infused Documented By: Admin: 03/25/23 14:28 Dose: 200 mls/hr Documented By: TLS Levothyroxine Sodium (Levothyroxine 75 Mcg Tablet) 75 mcg PO 0600 JENNY Last Admin: 03/25/23 06:47 Dose: 75 mcg Documented By: Admin: 03/24/23 06:07 Dose: 75 mcg Documented By: Lidocaine (Lidocaine 5% Patch) 1 each TOP DAILY [facility] Last Admin: 03/25/23 09:55 Dose: 1 each Documented By: Admin: 03/24/23 14:28 Dose: 1 each Documented By: CONCEPCION Liothyronine Sodium (Liothyronine 5 Mcg Tablet) 10 mcg PO DAILY [facility] Last Admin: 03/25/23 10:59 Dose: 10 mcg Documented By: DRE Lorazepam (Lorazepam 1 Mg Tablet) 1 mg PO Q4HR PRN PRN Reason: Anxiety Last Admin: 03/25/23 09:51 Dose: 1 mg Documented By: Admin: 03/24/23 15:12 Dose: 1 mg Documented By: CONCEPCION Losartan Potassium (Losartan 50 Mg Tablet) 50 mg PO BID [facility] Last Admin: 03/25/23 09:54 Dose: 50 mg Documented By: Admin: 03/24/23 20:48 Dose: 50 mg Documented By: Admin: 03/24/23 08:16 Dose: 50 mg Documented By: Admin: 03/23/23 21:30 Dose: 50 mg Documented By: Magnesium Oxide (Magnesium Oxide 400 Mg Tablet) 500 mg PO BID [facility] Last Admin: 03/25/23 09:53 Dose: 500 mg Documented By: Admin: 03/24/23 20:41 Dose: 500 mg Documented By: Admin: 03/24/23 08:19 Dose: 500 mg Documented By: Admin: 03/23/23 21:30 Dose: 500 mg Documented By: Methocarbamol (Methocarbamol 500 Mg Tablet) 750 mg PO TID PRN PRN Reason: Muscle Spasm Last Admin: 03/24/23 14:29 Dose: 750 mg Documented By: CONCEPCION Morphine Sulfate (Morphine 4 Mg/Ml Inj) 4 mg IV NOW ONE Stop: 03/23/23 16:09 Last Admin: 03/23/23 16:31 Dose: 4 mg Documented By: SAVANAH Morphine Sulfate (Morphine 4 Mg/Ml Inj) 4 mg IV NOW ONE Stop: 03/23/23 16:57 Last Admin: 03/23/23 17:03 Dose: 4 mg Documented By: AMANDO Multivitamins (Multivitamin 1 Tablet) 1 tab PO DAILY [facility] Last Admin: 03/25/23 09:52 Dose: 1 tab Documented By: Admin: 03/24/23 08:17 Dose: 1 tab Documented By: CONCEPCION Naloxone HCl (Naloxone 0.4 Mg/Ml Vial) 0.2 mg IV Q2MIN PRN PRN Reason: Opiate Reversal Non-Formulary Medication (Calcium Citrate) 1,000 mg PO DAILY [facility] Last Admin: 03/24/23 08:48 Dose: Not Given Documented By: CONCEPCION Non-Formulary Medication (Coenzyme Q10 [Co Q-10]) 200 mg PO DAILY [facility] Last Admin: 03/24/23 08:48 Dose: Not Given Documented By: CONCEPCION Non-Formulary Medication (Multivitamin) 1 cap PO DAILY [facility] Non-Formulary Medication (Diphenhydramine Hcl) 50 mg PO HSP PRN PRN Reason: Insomnia Non-Formulary Medication (Ferrous Gluconate) 100 mg PO DAILY [facility] Last Admin: 03/24/23 08:49 Dose: Not Given Documented By: CONCEPCION Non-Formulary Medication (Zinc) 50 mg PO DAILY [facility] Last Admin: 03/24/23 08:50 Dose: Not Given Documented By: CONCEPCION Non-Formulary Medication (Vitamin K2) 100 mcg PO DAILY [facility] Last Admin: 03/24/23 08:50 Dose: Not Given Documented By: CONCEPCION Non-Formulary Medication (Vitamin B Complex [B Complex 1]) 1 tab PO DAILY [facility] Last Admin: 03/24/23 08:50 Dose: Not Given Documented By: CONCEPCION Non-Formulary Medication (Prasterone (Dhea) [Dhea]) 50 mg PO DAILY [facility] Last Admin: 03/24/23 08:49 Dose: Not Given Documented By: CONCEPCION Non-Formulary Medication (Irbesartan) 150 mg PO BID [facility] Diclofenac Sodium 75 Mg Tablet, Delayed Release 75 mg PO BID [facility] Last Admin: 03/25/23 10:58 Dose: 75 mg Documented By: Admin: 03/24/23 20:42 Dose: 75 mg Documented By: Admin: 03/24/23 10:50 Dose: Not Given Documented By: CONCEPCION Ondansetron HCl (Ondansetron 4 Mg/2 Ml Inj) 4 mg IV Q8HR PRN PRN Reason: Nausea And Vomiting Oxycodone/Acetaminophen (Oxycodone/Acetaminophen 5/325 Tablet) 2 tab PO TID PRN PRN Reason: pain Last Admin: 03/25/23 18:22 Dose: 2 tab Documented By: Admin: 03/25/23 13:21 Dose: 2 tab Documented By: Admin: 03/24/23 20:48 Dose: 2 tab Documented By: Admin: 03/24/23 14:28 Dose: 2 tab Documented By: Admin: 03/24/23 08:15 Dose: 2 tab Documented By: Admin: 03/23/23 21:30 Dose: 2 tab Documented By: Prednisone (Prednisone 20 Mg Tablet) 20 mg PO DAILY [facility] Last Admin: 03/25/23 09:54 Dose: 20 mg Documented By: Admin: 03/24/23 08:17 Dose: 20 mg Documented By: CONCEPCION Sodium Chloride (Sodium Chloride 0.9% Flush) 10 ml IV PRN PRN PRN Reason: Flush Last Admin: 03/25/23 19:14 Dose: 10 ml Documented By: Admin: 03/24/23 18:17 Dose: 10 ml Documented By: CONCEPCION Sodium Chloride (Sodium Chloride 0.9% Flush) 10 ml IV BID [facility] Last Admin: 03/25/23 09:56 Dose: 10 ml Documented By: Admin: 03/24/23 20:41 Dose: 10 ml Documented By: Tizanidine HCl (Tizanidine 4 Mg Tablet) 2 mg PO BID [facility] Last Admin: 03/25/23 09:52 Dose: 2 mg Documented By: Admin: 03/24/23 20:41 Dose: 2 mg Documented By: Admin: 03/24/23 08:17 Dose: 2 mg Documented By: Admin: 03/23/23 21:30 Dose: 2 mg Documented By: Vancomycin HCl (Vancomycin Per Pharmacy) 1 request MISC NOW PRN PRN Reason: Pain, Moderate (4-6) Vancomycin HCl (Vancomycin Trough) 1 request MISC NOW ONE Stop: 03/26/23 14:31 Vancomycin HCl (Vancomycin Peak) 1 request MISC NOW ONE Stop: 03/26/23 17:31 Vital Signs Vital signs: Vital Signs - 8 hr 03/23/23 15:55 03/23/23 16:11 03/23/23 16:13 Temperature 98.2 F Pulse Rate 111 H 111 H Respiratory Rate 28 H 24 Blood Pressure 167/91 H 144/75 H Pulse Oximetry 97 99 Oxygen Delivery Method Room Air Room Air 03/23/23 16:13 03/23/23 16:30 03/23/23 16:32 Temperature Pulse Rate 107 H 91 H 91 H Respiratory Rate 22 Blood Pressure Pulse Oximetry 99 100 100 Oxygen Delivery Method Room Air 03/23/23 16:32 03/23/23 17:00 03/23/23 17:00 Temperature Pulse Rate 86 Respiratory Rate 24 Blood Pressure 135/84 143/74 H Pulse Oximetry 97 Oxygen Delivery Method 03/23/23 17:30 03/23/23 18:00 Temperature Pulse Rate 90 82 Respiratory Rate 16 Blood Pressure 140/75 Pulse Oximetry 98 97 Oxygen Delivery Method MDM - Back Pain/Injury Differential Diagnosis Differential diagnosis: Likely lumbar radiculopathy, sciatica and strain of lumbar region Lab Data 03/25/23 04:07 03/25/23 04:07 Labs: Lab Results 03/23/23 03/23/23 03/23/23 Range/Units 04:00 16:25 17:05 WBC 24.6 H (4.5-11.0) X10^3/uL RBC 4.41 (4.0-5.2) X10^6/uL Hgb 10.8 L (12.0-16.0) g/dL Hct 34.5 L (36-46) % MCV 78.2 L (80-100) fL MCH 24.6 L (26-34) PG MCHC 31.4 (30-36) % RDW 17.8 H (11.6-14.8) % Plt Count 687 H (150-400) X10^3/uL Neut % (Auto) 92.5 H (50-75) % Lymph % (Auto) 4.3 L (25-40) % Ellis % (Auto) 2.7 L (3-14) % Eos % (Auto) 0.2 L (2-4) % Baso % (Auto) 0.3 (0-2) % Neut # (Auto) 45504 H (8870-3695) /uL Lymph # (Auto) 1100 (4127-5459) /uL Ellis # (Auto) 700 (0-900) /uL Eos # (Auto) 0 (0-450) /uL Baso # (Auto) 100 (0-100) /uL ESR 70 H (0-20) MM/HR Sodium 138 (137-145) mmol/L Potassium 5.1 (3.4-5.1) mmol/L Chloride 105 (98-107) mmol/L Carbon Dioxide 21 L (22-32) mmol/L BUN 21 H (7-17) mg/dL Creatinine 0.93 (0.52-1.04) mg/dL Estimated GFR > 60 (>60) mL/min BUN/Creatinine Ratio 22.6 H (6-22) Glucose 146 H (70-100) mg/dL Lactate 2.5 H (0.7-2.1) mmol/L Calcium 9.3 (8.4-10.2) mg/dL Total Bilirubin 0.8 (0.2-1.3) mg/dL AST 33 (14-36) IU/L ALT 23 (<35) IU/L Alkaline Phosphatase 160 H (38-126) U/L C-Reactive Protein 15.9 H (<1.0) mg/dL Total Protein 7.1 (6.3-8.2) g/dL Albumin 3.7 (3.5-5.0) g/dL Globulin 3.4 (1.7-4.1) g/dL Albumin/Globulin Ratio 1.1 (1.0-2.8) Procalcitonin 0.20 (<0.5) ng/mL TSH 1.43 D (0.47-4.68) uIU/mL Urine Color Yellow Urine Appearance Clear Urine pH 5.5 (4.5-8.0) Ur Specific Devol 1.020 (1.000-1.035) Urine Protein Negative (Negative) Urine Glucose (UA) Negative (Negative) g/dL Urine Ketones Negative (NEGATIVE) Urine Occult Blood Negative (Negative) Urine Nitrate Negative (Negative) Urine Bilirubin Negative (NEGATIVE) Urine Urobilinogen 0.2 (0.2) E.U./dL Ur Leukocyte Esterase Negative (NEGATIVE) Urine RBC None seen (0-5/HPF) Urine WBC None seen (0-5/HPF) Ur Squamous Epith Cells 0-1 /hpf (0-5/HPF) Urine Bacteria None seen (None) Ur Culture Indicated? Cult not indicated Vol Urine Centrifuged 10ml (spun) A.calcoaceticus-baumannii cmplx PCR Not detected (Not Detect) Bacteroides fragilis Not detected (Not Detect) My albicans (PCR) Not detected (Not Detect) My auris (PCR) Not detected (Not Detect) C. glabrata (PCR) Not detected (Not Detect) C. krusei (PCR) Not detected (Not Detect) C. parapsilosis (PCR) Not detected (Not Detect) C. tropicalis (PCR) Not detected (Not Detect) C. neoform/gattii (PCR) Not detected (Not Detect) Enterobacterales (PCR) Not detected (Not Detect) E. cloacae complex PCR Not detected (Not Detect) Enterococc faecalis PCR Detected (Not Detect) Enterococc faecium PCR Not detected (Not Detect) E. coli (PCR) Not detected (Not Detect) H. influenzae (PCR) Not detected (Not Detect) Klebsiella aerogenes (PCR) Not detected (Not Detect) Klebsiella oxytoca PCR Not detected (Not Detect) Klebsiella pneumoniae Not detected (Not Detect) List. monocytogenes PCR Not detected (Not Detect) N. meningitidis (PCR) Not detected (Not Detect) Proteus species (PCR) Not detected (Not Detect) Salmonella spp. (PCR) Not detected (Not Detect) Serratia marcescens PCR Not detected (Not Detect) Staphylococcus sp PCR Not detected (Not Detect) Staph aureus (PCR) Not detected (Not Detect) mecA/C & MREJ Resist Gene Not applicable (Not Detect) mecA/C-Methicil Resis Gene Not applicable (Not Detect) mcr-1 Colistin Res Gene PCR Not applicable (Not Detect) Staph epidermidis (PCR) Not detected (Not Detect) Staph lugdunensis PCR Not detected (Not Detect) S. maltophilia (PCR) Not detected (Not Detect) Streptococcus sp PCR Not detected (Not Detect) Group A Strep (PCR) Not detected (Not Detect) Strep agalactiae (PCR) Not detected (Not Detect) Strep pneumoniae (PCR) Not detected (Not Detect) P. aeruginosa (PCR) Not detected (Not Detect) Daren/B-Vanco Res Genes Not detected (Not Detect) blaIMP Car res Gene PCR Not applicable (Not Detect) KPC-Carbap Res Gene PCR Not applicable (Not Detect) blaNDM Car Res Gene PCR Not applicable (Not Detect) OXA-48 Carbapenem Resis Gene (PCR) Not applicable (Not Detect) blaVIM Car Res Gene PCR Not applicable (Not Detect) CTX-M Gene Resistance (PCR) Not applicable (Not Detect) 03/23/23 Range/Units 19:04 WBC (4.5-11.0) X10^3/uL RBC (4.0-5.2) X10^6/uL Hgb (12.0-16.0) g/dL Hct (36-46) % MCV (80-100) fL MCH (26-34) PG MCHC (30-36) % RDW (11.6-14.8) % Plt Count (150-400) X10^3/uL Neut % (Auto) (50-75) % Lymph % (Auto) (25-40) % Ellis % (Auto) (3-14) % Eos % (Auto) (2-4) % Baso % (Auto) (0-2) % Neut # (Auto) (9956-7499) /uL Lymph # (Auto) (2727-2249) /uL Ellis # (Auto) (0-900) /uL Eos # (Auto) (0-450) /uL Baso # (Auto) (0-100) /uL ESR (0-20) MM/HR Sodium (137-145) mmol/L Potassium (3.4-5.1) mmol/L Chloride (98-107) mmol/L Carbon Dioxide (22-32) mmol/L BUN (7-17) mg/dL Creatinine (0.52-1.04) mg/dL Estimated GFR (>60) mL/min BUN/Creatinine Ratio (6-22) Glucose (70-100) mg/dL Lactate 1.2 (0.7-2.1) mmol/L Calcium (8.4-10.2) mg/dL Total Bilirubin (0.2-1.3) mg/dL AST (14-36) IU/L ALT (<35) IU/L Alkaline Phosphatase (38-126) U/L C-Reactive Protein (<1.0) mg/dL Total Protein (6.3-8.2) g/dL Albumin (3.5-5.0) g/dL Globulin (1.7-4.1) g/dL Albumin/Globulin Ratio (1.0-2.8) Procalcitonin (<0.5) ng/mL TSH (0.47-4.68) uIU/mL Urine Color Urine Appearance Urine pH (4.5-8.0) Ur Specific Devol (1.000-1.035) Urine Protein (Negative) Urine Glucose (UA) (Negative) g/dL Urine Ketones (NEGATIVE) Urine Occult Blood (Negative) Urine Nitrate (Negative) Urine Bilirubin (NEGATIVE) Urine Urobilinogen (0.2) E.U./dL Ur Leukocyte Esterase (NEGATIVE) Urine RBC (0-5/HPF) Urine WBC (0-5/HPF) Ur Squamous Epith Cells (0-5/HPF) Urine Bacteria (None) Ur Culture Indicated? Vol Urine Centrifuged A.calcoaceticus-baumannii cmplx PCR (Not Detect) Bacteroides fragilis (Not Detect) My albicans (PCR) (Not Detect) My auris (PCR) (Not Detect) C. glabrata (PCR) (Not Detect) C. krusei (PCR) (Not Detect) C. parapsilosis (PCR) (Not Detect) C. tropicalis (PCR) (Not Detect) C. neoform/gattii (PCR) (Not Detect) Enterobacterales (PCR) (Not Detect) E. cloacae complex PCR (Not Detect) Enterococc faecalis PCR (Not Detect) Enterococc faecium PCR (Not Detect) E. coli (PCR) (Not Detect) H. influenzae (PCR) (Not Detect) Klebsiella aerogenes (PCR) (Not Detect) Klebsiella oxytoca PCR (Not Detect) Klebsiella pneumoniae (Not Detect) List. monocytogenes PCR (Not Detect) N. meningitidis (PCR) (Not Detect) Proteus species (PCR) (Not Detect) Salmonella spp. (PCR) (Not Detect) Serratia marcescens PCR (Not Detect) Staphylococcus sp PCR (Not Detect) Staph aureus (PCR) (Not Detect) mecA/C & MREJ Resist Gene (Not Detect) mecA/C-Methicil Resis Gene (Not Detect) mcr-1 Colistin Res Gene PCR (Not Detect) Staph epidermidis (PCR) (Not Detect) Staph lugdunensis PCR (Not Detect) S. maltophilia (PCR) (Not Detect) Streptococcus sp PCR (Not Detect) Group A Strep (PCR) (Not Detect) Strep agalactiae (PCR) (Not Detect) Strep pneumoniae (PCR) (Not Detect) P. aeruginosa (PCR) (Not Detect) Daren/B-Vanco Res Genes (Not Detect) blaIMP Car res Gene PCR (Not Detect) KPC-Carbap Res Gene PCR (Not Detect) blaNDM Car Res Gene PCR (Not Detect) OXA-48 Carbapenem Resis Gene (PCR) (Not Detect) blaVIM Car Res Gene PCR (Not Detect) CTX-M Gene Resistance (PCR) (Not Detect) MDM Narrative Medical decision making narrative: Chronically unwell appearing patient presenting for back pain in setting of recent urinary tract infection. After receiving pain medications vital signs normalized, however laboratory work is significant for marked increasing leukocytosis over the last several days. Yesterday when patient received blood work her white blood cell count was 17, today it is 24.5. Sed rate and CRP are also elevated. In light of lab work results blood cultures were drawn and lactic acid sent to lab. We will empirically order Rocephin for treatment. Since primary care doctor was already going to order a contrast CT we will order it here, which will also assess for intra-abdominal findings. CT of the chest abdomen and pelvis do not show any acute findings, no evidence of cancerous process. Still pending urinalysis, patient did not provide urine sample and unable to tolerate straight catheterization. She was received IV antibiotics and plan to admit for further treatment. Discharge Plan Departure Patient Disposition: Admitted As Inpatient Clinical Impression: Sepsis Admit Date/Time: 03/23/23 19:06 Admit Provider: Vicente Polo
--- NOTE | 2023-03-23 16:13 | PC.NURSE ---
This ENVIRONMENTAL LAW PROFESSOR and ENVIRONMENTAL LAW PROFESSOR Sandy positioned pt in bed and placed pillow under pt's knees to support back. pt says pillow under knees helps. provided warm blanket and given call light.
[2023-03-23] MEDS: DEXAMETHASONE 10 MG/ML VIAL IV (16:31)
[2023-03-23] MEDS: MORPHINE 4 MG/ML INJ IV ×2 (16:31→17:03)
[2023-03-23 16:33] LABS: Add Manual Diff / Slide Review NO; Basophils Absolute Auto 100 /uL (0-100); Basophils Percent Auto 0.3 % (0-2); Eosinophils Absolute Auto 0 /uL (0-450); Eosinophils Percent Auto 0.2 % (2-4); Hematocrit 34.5 % (36-46); Hemoglobin 10.8 g/dL (12.0-16.0); Lymphocytes Absolute Auto 1100 /uL (1100-4500); Lymphocytes Percent Auto 4.3 % (25-40); Mean Corpuscular HGB Conc 31.4 % (30-36); Mean Corpuscular Hemoglobin 24.6 PG (26-34); Mean Corpuscular Volume 78.2 fL (80-100); Monocytes Absolute Auto 700 /uL (0-900); Monocytes Percent Auto 2.7 % (3-14); Neutrophils Absolute Auto 22800 /uL (1500-7000); Neutrophils Percent Auto 92.5 % (50-75); Platelet Count 687 X10^3/uL (150-400); Red Blood Cell Count 4.41 X10^6/uL (4.0-5.2); Red Cell Distribution Width 17.8 % (11.6-14.8); White Blood Cell Count 24.6 X10^3/uL (4.5-11.0)
[2023-03-23 16:43] LABS: Alanine Aminotransferase 23 IU/L (<35); Albumin 3.7 g/dL (3.5-5.0); Albumin Globulin Ratio 1.1 (1.0-2.8); Alkaline Phosphatase 160 U/L (38-126); Aspartate Aminotransferase 33 IU/L (14-36); BUN Creatinine Ratio 22.6 (6-22); Bilirubin Total 0.8 mg/dL (0.2-1.3); Blood Urea Nitrogen 21 mg/dL (7-17); Calcium 9.3 mg/dL (8.4-10.2); Carbon Dioxide 21 mmol/L (22-32); Chloride 105 mmol/L (98-107); Estimated Glomerular Filt Rate > 60 mL/min (>60); Globulin 3.4 g/dL (1.7-4.1); Glucose 146 mg/dL (70-100); HEMOLYSIS 47 (0-50); Potassium 5.1 mmol/L (3.4-5.1); Sodium 138 mmol/L (137-145); Total Protein 7.1 g/dL (6.3-8.2)
--- NOTE | 2023-03-23 16:48 | DI.CT.S_ITS ---
PROCEDURE: CT CHEST ABD PEL W CON INDICATIONS: BACK PAIN/DRAMATIC WEIGHT LOSS TECHNIQUE: After the administration of intravenous contrast, 5 mm thick sections acquired from the lung apices to the symphysis. 5 mm coronal and sagittal reformats were performed, with additional 7 mm MIP reformats through the lungs. For radiation dose reduction, the following was used: automated exposure control, adjustment of mA and/or kV according to patient size. COMPARISON: [facility], CR, XR LUMBAR SPINE 2 OR 3 VIEWS, 11/13/2022, 16:47. FINDINGS: Chest: Cardiovascular: Heart size is normal. No evidence of pulmonary embolism, aortic aneurysm or dissection. Lungs and pleural spaces: The lung [place] are clear without nodule, infiltrate or interstitial prominence. Pleural spaces show no effusion or pneumothorax. Lymph nodes: No mediastinal, hilar or axillary adenopathy. Mediastinum: Unremarkable. No hiatal hernia. Thyroid within normal limits. Chest Wall and Bones: Unremarkable. No acute fracture. Old healed bilateral rib fractures noted. Abdomen and Pelvis: Liver: Normal in size and attenuation. No contour deformity present. Biliary system: Cholecystectomy. No intra or extrahepatic bile duct dilation. Pancreas: Unremarkable without mass or inflammation evident. Spleen: Normal in size and density. Adrenals: Normal morphology and density. Reproductive system: Unremarkable as visualized. Urinary system: Normal renal size and attenuation. No renal calculi, hydronephrosis, or solid mass present. Urinary bladder unremarkable. Gastrointestinal system: Prior gastric surgery noted. No bowel obstruction. Appendix: No findings to suggest acute appendicitis. Lymph nodes: Multiple nonenlarged retroperitoneal periaortic lymph nodes Peritoneal spaces: No free air. No free fluid. Vasculature: The IVC, aorta and iliac vasculature are unremarkable. Abdominal wall: Abdominal wall intact without evidence of ventral or inguinal hernias. Musculoskeletal: Normal bone mineralization. Degenerative disc disease and arthropathy noted in lower lumbar spine. Lower lumbar spine interbody fusion without instrumentation. Old healed L1 compression fracture. T9 compression fracture noted as well. No acute fractures. Healing right superior and inferior pubic rami fractures IMPRESSION: 1. No acute CT findings in the chest abdomen and pelvis. 2. Multiple retroperitoneal lymph nodes are nonenlarged possibly reactive. Consider 1 year follow-up to reassess. 3. Old rib and right pelvic fractures. No evidence of acute fracture or lytic lesion. Non instrumented lumbar spine fusion with L1 compression fracture, chronic. Approved by: Xander Giraldo M.D. on 03/23/2023 at 17:37
[2023-03-23 16:52] LABS: Erythrocyte Sedimentation Rate 70 MM/HR (0-20)
[2023-03-23 17:01] LABS: C-Reactive Protein Quant 15.9 mg/dL (<1.0)
[2023-03-23 17:03] LABS: Lactate (Lactic Acid) 2.5 mmol/L (0.7-2.1)
[2023-03-23] MEDS: SODIUM CHLORIDE 0.9% 1,000 ML 1000 ML IV ×2 (17:06→18:15)
[2023-03-23] MEDS: cefTRIAXone 2,000 MG in SODIUM CHLORIDE 0.9% 100 ML 200 MG IV (17:35)
[2023-03-23 18:34] LABS: Reflexed Lactate in 2 Hours Y
--- NOTE | 2023-03-23 19:18 | PC.NURSE ---
pt was unable to tolerate fem cath to get a urine specimen. Dr. Triplett aware. Place a pur wick catheter without incident. pt arrived to Er with bruising over body. pt is on steroids.
[2023-03-23 19:21] LABS: Lactate 2HR (Lactic Acid Rflx) 1.2 mmol/L (0.7-2.1)
[2023-03-23] MEDS: HYDROMORPHONE 0.5 MG INJ IV (20:28)
[2023-03-23] MEDS: SODIUM CHLORIDE 0.9% 1,000 ML 100 ML IV (20:28)
[2023-03-23 20:35] LABS: Thyroid Stimulating Hormone 1.43 uIU/mL (0.47-4.68)
[2023-03-23] MEDS: GABAPENTIN 600 MG TABLET PO (21:30)
[2023-03-23] MEDS: LOSARTAN 50 MG TABLET PO (21:30)
[2023-03-23] MEDS: MAGNESIUM OXIDE 400 MG TABLET 500 MG PO (21:30)
[2023-03-23] MEDS: TIZANIDINE 4 MG TABLET 2 MG PO (21:30)
[2023-03-23] MEDS: OXYCODONE/ACETAMINOPHEN 5/325 TABLET 2 TAB PO (21:30)
--- NOTE | 2023-03-23 22:46 | PM.HP.1 ---
History of Present Illness History of Present Illness Chief complaint: NECK AND BACK PAIN Narrative: 57 years old female with history of hypertension, hyperlipidemia, iron deficiency anemia, polymyalgia rheumatica chronically on prednisone, myotonic dystrophy, morbidly obesity presented to the ER with back pain, fatigue and muscle twitching. She was recently diagnosed with UTI and was on Bactrim. Yesterday she went back to clinic and was given Cipro but has not improved. Today she is coming back with the same symptoms to the ED. Denies any fever, shortness of breath, cough, chest pain, palpitations, nausea, vomiting, abdominal pain, diarrhea or dysuria. She also reports unintentional lost around 60 pounds in the last 5-6 months and her primary doctor was concerned for malignancy. She was scheduled to have full body CT for rule out any tumor and was sent extensive laboratory workup. Laboratory from the ED shows WBC 24. 6, H&H 10.8/34.5, creatinine 0.93, glucose 146, lactate 1.2, C-reactive protein 15.9, procalcitonin 0.2, TSH 1.43, UA from yesterday shows urine ketones, leukoesterase positive. CT of the chest/abdomen/pelvis was unremarkable. She was given ceftriaxone 2 g IV, dexamethasone 10 mg IV, fluid bolus and morphine. [facility] Medical History Bilateral pubic rami fractures Acute right hip pain Abnormal creatinine clearance glomerular filtration Sleep apnea HTN (hypertension) Melanoma Iron deficiency (~2000) Anxiety (Unknown) Hypothyroidism (Unknown) Bursitis (~12/2011) Chronic headaches (Unknown) Surgical History Hx of laminectomy (08/19/18) Hx of vein stripping Status post epidural steroid injection History of spinal fusion (06/23/13) History of tonsillectomy H/O Achilles tendon repair History of sinus surgery Status post dilation and curettage (11/23/16) Status post dilation and curettage History of cataract removal with insertion of prosthetic lens History of gastric bypass (2000) Status post tonsillectomy and adenoidectomy Social History household members: none Smoking Status: Never smoker alcohol intake: never Meds Home Medications and Allergies Home Medications Medication Instructions Recorded Confirmed Type diphenhydramine HCl 50 mg capsule 50 mg PO HSP PRN Insomnia ##0 07/02/16 03/23/23 History ascorbic acid (vitamin C) 1,000 mg 1,000 mg PO DAILY 07/02/17 03/23/23 History tablet (Vitamin C) calcium citrate 1,000 mg PO DAILY 07/02/17 03/23/23 History coenzyme Q10 200 mg capsule (Co 200 mg PO DAILY 07/02/17 03/23/23 History Q-10) multivitamin 1 cap PO DAILY 07/02/17 03/23/23 History vitamin A 3,000 mcg (10,000 unit) 10,000 unit PO 2XW 07/02/17 03/23/23 History capsule vitamin B complex (B Complex 1 1 tab PO DAILY 07/02/17 03/23/23 History tablet) vitamin d See Rx Instructions .Route .COMPLEX 07/02/17 03/23/23 History vitamin e See Rx Instructions .Route .COMPLEX 07/02/17 03/23/23 History zinc 50 mg tablet 50 mg PO DAILY 07/02/17 03/23/23 History ferrous gluconate 240 mg (27 mg 100 mg PO DAILY 10/30/17 03/23/23 History iron) tablet magnesium oxide 500 mg PO BID 01/08/18 03/23/23 History levothyroxine 75 mcg tablet 75 mcg PO DAILY #90 tabs 08/04/20 03/23/23 Rx acetaminophen 325 mg capsule 500 mg PO ONCE PRN Pain (Scale 04/06/21 03/23/23 History Score 1-3) liothyronine 5 mcg tablet (Cytomel) 10 mcg PO DAILY 04/06/21 03/23/23 History prasterone (dhea) 50 mg capsule 50 mg PO DAILY 04/06/21 03/23/23 History (DHEA) vitamin K2 100 mcg capsule 100 mcg PO DAILY 04/06/21 03/23/23 History tizanidine 2 mg tablet 2 mg PO BID #180 tabs 04/23/22 03/23/23 Rx DISABLED [place] #1 ea 09/25/22 03/22/23 Rx prednisone 20 mg tablet 20 mg PO DAILY #30 tabs 10/19/22 03/23/23 Rx diclofenac sodium 75 mg 75 mg PO BID #180 tabs 11/01/22 03/23/23 Rx tablet,delayed release escitalopram oxalate 20 mg tablet 20 mg PO DAILY #90 tabs 01/21/23 03/23/23 Rx (Lexapro) irbesartan 150 mg tablet 150 mg PO BID #180 tabs 01/21/23 03/23/23 Rx gabapentin 600 mg tablet 600 mg PO BEDTIME #90 tabs 03/05/23 03/23/23 Rx oxycodone-acetaminophen 5 mg-325 2 tab PO TID PRN pain #120 tabs 03/13/23 03/23/23 Rx mg tablet (Percocet) ciprofloxacin HCl 500 mg tablet 500 mg PO BID #14 tabs 03/22/23 03/23/23 Rx Allergies Allergy/AdvReac Type Severity Reaction Status Date / Time pregabalin [PREGABALIN] Allergy Severe facial and Verified 03/23/23 16:30 throat swelling hydrocodone [HYDROCODONE] AdvReac Severe nausea, Verified 03/23/23 16:30 syncopal episode Review of Systems Review of Systems ROS: Yes All systems reviewed with the patient and are negative except as otherwise documented Constitutional Constitutional: Reports as per HPI and Reports system reviewed and no additional complaints, except as documented Eyes Eyes: Reports as per HPI and Reports system reviewed and no additional complaints, except as documented ENT Ears, Nose, Mouth, and Throat: Yes as per HPI and Yes system reviewed and no additional complaints, except as documented Cardiovascular Cardiovascular: Reports system reviewed and no additional complaints, except as documented Respiratory Respiratory: Reports system reviewed and no additional complaints, except as documented Gastrointestinal Gastrointestinal: Reports system reviewed and no additional complaints, except as documented Genitourinary Genitourinary: Reports system reviewed and no additional complaints, except as documented Musculoskeletal Musculoskeletal: Reports system reviewed and no additional complaints, except as documented, Reports abnormal gait and Reports numbness Neurologic Neurologic: Reports system reviewed and no additional complaints, except as documented, Reports abnormal gait, Reports confusion and Reports numbness Psychiatric Psychiatric: Reports system reviewed and no additional complaints, except as documented and Reports confusion Exam Vital Signs (past 8 hours): - 03/23/23 15:55 03/23/23 16:11 03/23/23 16:13 Temperature 98.2 F Pulse Rate 111 H 111 H Respiratory Rate 28 H 24 Blood Pressure 167/91 H 144/75 H Pulse Oximetry 97 99 Oxygen Delivery Method Room Air Room Air Oxygen Flow Rate 03/23/23 16:13 03/23/23 16:30 03/23/23 16:32 Temperature Pulse Rate 107 H 91 H 91 H Respiratory Rate 22 Blood Pressure Pulse Oximetry 99 100 100 Oxygen Delivery Method Room Air Oxygen Flow Rate 03/23/23 16:32 03/23/23 17:00 03/23/23 17:00 Temperature Pulse Rate 86 Respiratory Rate 24 Blood Pressure 135/84 143/74 H Pulse Oximetry 97 Oxygen Delivery Method Oxygen Flow Rate 03/23/23 17:30 03/23/23 18:00 03/23/23 18:06 Temperature Pulse Rate 90 82 Respiratory Rate 16 Blood Pressure 140/75 140/75 Pulse Oximetry 98 97 Oxygen Delivery Method Oxygen Flow Rate 03/23/23 18:06 03/23/23 18:30 03/23/23 18:30 Temperature Pulse Rate 78 81 Respiratory Rate Blood Pressure 142/73 H Pulse Oximetry 96 94 Oxygen Delivery Method Oxygen Flow Rate 03/23/23 19:00 03/23/23 19:01 03/23/23 19:01 Temperature Pulse Rate 79 83 Respiratory Rate Blood Pressure 175/80 H Pulse Oximetry 98 99 Oxygen Delivery Method Room Air Oxygen Flow Rate 03/23/23 19:30 03/23/23 19:30 03/23/23 20:00 Temperature Pulse Rate 78 Respiratory Rate Blood Pressure 152/76 H 148/72 H Pulse Oximetry 98 Oxygen Delivery Method Oxygen Flow Rate 03/23/23 20:00 03/23/23 20:00 03/23/23 20:17 Temperature 97.5 F L Pulse Rate 79 73 Respiratory Rate 19 15 Blood Pressure 192/92 H Pulse Oximetry 96 94 Oxygen Delivery Method Room Air Room Air Oxygen Flow Rate 94 Oxygen Delivery Method Room Air Oxygen Flow Rate 94 Const General: cooperative, comfortable and well developed Orientation: alert and oriented x3 HENMT Head: normal to inspection, normocephalic and atraumatic Face and sinus: normal facial exam Mouth: oral mucosae normal and moist mucous membranes Throat: posterior oropharynx normal Eyes General: appearance normal, both eyes and all related structures Pupils: PERRL EOM: EOM intact bilaterally Neck Neck: normal visual inspection and full ROM Chest Chest: normal inspection of the chest Resp Effort & Inspection: normal respiratory effort and able to speak in complete sentences Auscultation: clear to auscultation bilaterally Cardio Palpation: normal PMI Rate: regular rate Rhythm: regular rhythm Heart Sounds: S1 normal and S2 normal GI Inspection: normal to inspection Palpation: soft and no hepatosplenomegaly Auscultation: normal bowel sounds Skin General: no rashes or lesions noted Lesions: no lesions Rashes: no rashes Trauma: no lacerations or abrasions Neuro General: patient alert, patient awake, patient oriented x3 and no focal motor deficits Cranial Nerves: CN's II-XI intact bilaterally Cognition: normal cognition Speech: speech normal Gait: normal gait Motor: muscle tone normal throughout Sensory Exam: no sensory deficits noted Extrem General: full ROM and no calf tenderness Psych Appearance: grossly normal Mental Status: mental status grossly normal Speech and Movement: speech and movement normal Objective Labs 03/23/23 16:25 03/23/23 16:25 Labs: Laboratory Results - last 24 hr 03/23/23 03/23/23 16:25 19:04 WBC 24.6 H RBC 4.41 Hgb 10.8 L Hct 34.5 L MCV 78.2 L MCH 24.6 L MCHC 31.4 RDW 17.8 H Plt Count 687 H Neut % (Auto) 92.5 H Lymph % (Auto) 4.3 L [place] % (Auto) 2.7 L Eos % (Auto) 0.2 L Baso % (Auto) 0.3 Neut # (Auto) 70134 H Lymph # (Auto) 1100 [place] # (Auto) 700 Eos # (Auto) 0 Baso # (Auto) 100 ESR 70 H Sodium 138 Potassium 5.1 Chloride 105 Carbon Dioxide 21 L BUN 21 H Creatinine 0.93 Estimated GFR > 60 BUN/Creatinine Ratio 22.6 H Glucose 146 H Lactate 2.5 H 1.2 Calcium 9.3 Total Bilirubin 0.8 AST 33 ALT 23 Alkaline Phosphatase 160 H C-Reactive Protein 15.9 H Total Protein 7.1 Albumin 3.7 Globulin 3.4 Albumin/Globulin Ratio 1.1 Procalcitonin 0.20 TSH 1.43 D Assessment & Plan Assessment & Plan narrative: Sepsis Pyelonephritis. Failed outpatient treatment. Last urine culture on 03/11/2023 show E. coli. -Blood culture, urine culture, -Antibiotics, ceftriaxone, -Monitor for urine retention, check post void residuals. -IV fluids Pain medications and antiemetics as needed Hypothyroidism. Restart levothyroxine. Recheck TSH. Polymyalgia rheumatica. Restart prednisone 20 mg p.o. Hypertension. Restart irbesartan Significant weight loss the last 6 months. The patient has a history of gastric bypass surgery and chronic diarrhea. Full body scan was unremarkable. She also had extensive laboratory sent by her PCP and still pending. Defer the further workup to her PCP. Time Spent With Patient Time with patient: 50 to 69 minutes with 50% spent counseling/coordinating care Quality VTE Deep Vein Thrombosis/Pulmonary Embolism Present on Admission: No MIPS - Admit I confirm the patient?s Advance Care Plan is present, Code status is documented, Surrogate decision maker is in patient?s record [If Yes, STOP here]: Yes MIPS - Meds 'Current medications' to include all prescriptions, [id number] products, herbals, cannabis/cannabidiol products, and vitamin/mineral/dietary (nutritional) supplements. I have utilized all available resources to obtain, update, or review the patient?s current medications. [If Yes, STOP here]: Yes
[2023-03-24] VITALS (54 sets, daily range): BP systolic 111–160; BP diastolic 55–74; PULSE 56–79; RESP 15; TEMP 36.1–36.8; O2SAT 94–100
[2023-03-24 05:04] LABS: Appearance Urine UA CLEAR; Bilirubin Urine UA NEGATIVE (NEGATIVE); Color Urine UA YELLOW; Glucose Urine UA NEGATIVE (Negative); Ketones Urine UA NEGATIVE (NEGATIVE); Leukocyte Esterase Urine UA NEGATIVE (NEGATIVE); Nitrite Urine UA NEGATIVE (Negative); Occult Blood Urine UA NEGATIVE (Negative); Protein Urine UA NEGATIVE (Negative); Urobilinogen Urine UA 0.2 E.U./dL (0.2)
[2023-03-24 05:07] LABS: pH Urine UA 5.5 (4.5-8.0)
[2023-03-24 05:11] LABS: Bacteria Urine None Seen; Culture Indicated Urine Cult Not Indicated; RBC Urine None Seen (0-5/HPF); Squamous Epithelial Cell Urine 0-1 /HPF (0-5/HPF); Urine Volume 10mL (spun); WBC Urine None Seen (0-5/HPF)
[2023-03-24] MEDS: SODIUM CHLORIDE 0.9% 1,000 ML 100 ML IV (06:06)
[2023-03-24] MEDS: LEVOTHYROXINE 75 MCG TABLET PO (06:07)
--- NOTE | 2023-03-24 06:49 | PC.NURSE ---
shift coordinator RN note pt arrived from ER via stretcher, A&Ox4, c/o pain to back, prn analgesics given with effect, slow to transfer to bed from stretcher with assist due to pain, VSS, afebrile, PPPx4, mild ankle edema, HR regular, lungs clear, denies SOB, O2 sats >92% on RA when awake, pt desats to mid 80s when asleep, states hx of sleep apnea, abd round soft with BS, states last BM day prior, purwick in place for mod amt yellow urine, skin warm and dry, scattered bruises noted bilat lower legs which pt states is from bumping into her walker at home, periph IV site patent with IV fluids infusing, meds and labs as ordered, call vogel within reach, continue to monitor
[2023-03-24] MEDS: OXYCODONE/ACETAMINOPHEN 5/325 TABLET 2 TAB PO ×3 (08:15→20:48)
[2023-03-24] MEDS: LOSARTAN 50 MG TABLET PO ×2 (08:16→20:48)
[2023-03-24] MEDS: ESCITALOPRAM 10 MG TABLET 20 MG PO (08:17)
[2023-03-24] MEDS: MULTIVITAMIN 1 TABLET 1 TAB PO (08:17)
[2023-03-24] MEDS: TIZANIDINE 4 MG TABLET 2 MG PO ×2 (08:17→20:41)
[2023-03-24] MEDS: predniSONE 20 MG TABLET PO (08:17)
[2023-03-24] MEDS: MAGNESIUM OXIDE 400 MG TABLET 500 MG PO ×2 (08:19→20:41)
[2023-03-24] MEDS: ASCORBIC ACID 500 MG TABLET 1000 MG PO (08:21)
[2023-03-24 09:17] LABS: Alanine Aminotransferase 20 IU/L (<35); Albumin 2.9 g/dL (3.5-5.0); Alkaline Phosphatase 132 U/L (38-126); Aspartate Aminotransferase 28 IU/L (14-36); BUN Creatinine Ratio 20.6 (6-22); Bilirubin Total 0.4 mg/dL (0.2-1.3); Blood Urea Nitrogen 13 mg/dL (7-17); Calcium 8.8 mg/dL (8.4-10.2); Carbon Dioxide 26 mmol/L (22-32); Chloride 106 mmol/L (98-107); Estimated Glomerular Filt Rate > 60 mL/min (>60); Globulin 2.9 g/dL (1.7-4.1); Glucose 117 mg/dL (70-100); HEMOLYSIS < 15 (0-50); Potassium 4.1 mmol/L (3.4-5.1); Sodium 137 mmol/L (137-145); Total Protein 5.8 g/dL (6.3-8.2)
[2023-03-24 10:31] LABS: MRSA (Nasal) PCR Not Detected (Not Detect)
--- NOTE | 2023-03-24 13:00 | CM.DANOTE ---
Patient is a 57 yo female who was admitted on 03/23/23 for likely Pyelonephritis and r/o Sepsis. Pt has [facility] for insurance and her PCP is Pina Decker at [facility]. EMR was reviewed. Per MD, pt with hx of myotonic dystrophy, hx of gastric bypass and recent UTI and failed outpt abx and admitted for IV-Abx and treatment. SW met bedside with pt and explained role and she confirms she lives in [place] [facility] that has no steps to enter and pt uses a FWW at baseline for mobility and still works and drives. 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 Pt lives alone but has local supportive mother but she is in her 80's. Pt also has supportive sister who lives in [place] and still works also. Pt states her DPOA is her mom and she thought a copy was scanned into her EMR. Pt states she was last admitted in Nov 2022 a few months ago and had to transfer to [facility] for higher level of care and ID MD for IV-Abx and pt was admitted to [facility] for about 3 weeks while ID MD attempted to find source of her infection with no determinations found. [facility] had attempted SNF placement due to pt's IV-Abx needs and also her 2PA needs at the time but no SNFs would accept the IV-Abx she was on and by the time pt discharged from [facility] she was mobilizing too far for insurance auth for SNF. Pt discharged home with (cannot remember which agency). Since mid Dec last year, pt has improved in her strength and mobility and had returned to work and driving until recently when she started having similar infection symptoms and was admitted. Pt denies any hx of SNF or home infusion and her preference is to improve medically and discharge home with family support as needed. Pt has chronic back pain and hx of surgeries and has also been working with [facility] on steroid use for pain management. Pt declines PT needs at this time and is hopeful nursing staff can assist with ambulation in the room. Plan: SW to follow closely for pt progress to confirm safe d/c home alone with local family support and any further identified discharge planning needs. EDWIGE Barrera Discharge Planning/Care Management CM Discharge Assessment Start: 03/24/23 12:57 Freq: Status: Active Protocol: Document 03/24/23 12:59 BF (Rec: 03/24/23 13:00 BF [id number]) Discharge Planning Assessment Assigned Customs Agent EDWIGE Gonzalez DPRALPH/Assigned Designee Name mother francesco Contact Information [phone] Advance Directives? Yes: dpralph Advance Directives on File Yes History Provided By Patient,Medical Record Has Patient been admitted in last 30 No days? Prior Living Arrangements Apartment/Condo Household Members none Type of transporation used prior to Drives own vehicle admit Independent with ADL's Yes Is patient alert and oriented? Yes Caregiver for Another No DME Already Rented / Owned FWW / Walker Barriers to Discharge No Discharge Plan Home Transportation Arrangement cabrera sister to transport Referrals Initiated None needed Whiteboard Updated in Patient Room with Yes name and ext. # of Customs Agent Review Status In Process Please Provide Date Initial DC 03/24/23 Assessment Was Performed Next Review Type Continued Stay Review
[2023-03-24] MEDS: HYDROMORPHONE 0.5 MG INJ IV (13:17)
--- NOTE | 2023-03-24 14:01 | P.PN_ITS ---
Subjective Subjective Interval history: 57 years old female with history of hypertension, hyperlipidemia, iron deficiency anemia, polymyalgia rheumatica chronically on prednisone, myotonic dystrophy, morbidly obesity presented to the ER with back pain, fatigue and muscle twitching. She was recently diagnosed with UTI and was on Bactrim. Yesterday she went back to clinic and was given Cipro but has not improved. She came back with the same symptoms to the ED. She has a history of E. faecalis bacteremia back in [facility], was transferred to [facility] for LAURA which was negative. Today, gram positive cocci are seen in her blood cultures. She has diffuse back pain on palpation, no complaints of focal neurological deficits. Exam Vital Signs (past 8 hours): - 03/24/23 06:30 03/24/23 07:00 03/24/23 07:00 Temperature Pulse Rate 61 62 Respiratory Rate Blood Pressure Pulse Oximetry 96 97 Oxygen Delivery Method Room Air 03/24/23 07:30 03/24/23 07:39 03/24/23 07:39 Temperature 97.1 F L Pulse Rate 63 71 Respiratory Rate Blood Pressure 149/74 H Pulse Oximetry 97 100 Oxygen Delivery Method 03/24/23 08:00 03/24/23 08:16 03/24/23 08:30 Temperature Pulse Rate 72 69 78 Respiratory Rate Blood Pressure 149/74 H Pulse Oximetry 99 99 Oxygen Delivery Method 03/24/23 09:00 03/24/23 09:30 03/24/23 10:00 Temperature Pulse Rate 62 74 68 Respiratory Rate Blood Pressure Pulse Oximetry 96 98 99 Oxygen Delivery Method 03/24/23 10:30 03/24/23 11:00 03/24/23 11:30 Temperature Pulse Rate 67 66 64 Respiratory Rate Blood Pressure Pulse Oximetry 98 99 94 Oxygen Delivery Method 03/24/23 12:00 03/24/23 12:30 03/24/23 13:00 Temperature Pulse Rate 60 64 79 Respiratory Rate Blood Pressure Pulse Oximetry 97 97 98 Oxygen Delivery Method 03/24/23 13:21 03/24/23 13:21 Temperature 97.8 F Pulse Rate 77 Respiratory Rate 15 Blood Pressure 137/65 Pulse Oximetry 97 Oxygen Delivery Method Oxygen Delivery Method Room Air Oxygen Flow Rate 94 Narrative Exam Narrative: No acute distress. Anicteric sclerae. Lungs are clear, normal effort. Heart is regular, no murmur. Abdomen is soft, nontender. Extremities are notable for trace edema and slight erythema both pretibial areas. Back is extremely tender, unable to adequate determine midline vs paraspinal due to discomfort. Objective Labs 03/23/23 16:25 03/24/23 08:40 Labs: Laboratory Results - last 24 hr 03/23/23 03/23/23 03/23/23 04:00 16:25 19:04 WBC 24.6 H RBC 4.41 Hgb 10.8 L Hct 34.5 L MCV 78.2 L MCH 24.6 L MCHC 31.4 RDW 17.8 H Plt Count 687 H Neut % (Auto) 92.5 H Lymph % (Auto) 4.3 L [place] % (Auto) 2.7 L Eos % (Auto) 0.2 L Baso % (Auto) 0.3 Neut # (Auto) 30287 H Lymph # (Auto) 1100 [place] # (Auto) 700 Eos # (Auto) 0 Baso # (Auto) 100 ESR 70 H Sodium 138 Potassium 5.1 Chloride 105 Carbon Dioxide 21 L BUN 21 H Creatinine 0.93 Estimated GFR > 60 BUN/Creatinine Ratio 22.6 H Glucose 146 H Lactate 2.5 H 1.2 Calcium 9.3 Magnesium Total Bilirubin 0.8 AST 33 ALT 23 Alkaline Phosphatase 160 H C-Reactive Protein 15.9 H Total Protein 7.1 Albumin 3.7 Globulin 3.4 Albumin/Globulin Ratio 1.1 Procalcitonin 0.20 TSH 1.43 D Urine Color Yellow Urine Appearance Clear Urine pH 5.5 Ur Specific [place] 1.020 Urine Protein Negative Urine Glucose (UA) Negative Urine Ketones Negative Urine Occult Blood Negative Urine Nitrate Negative Urine Bilirubin Negative Urine Urobilinogen 0.2 Ur Leukocyte Esterase Negative Urine RBC None seen Urine WBC None seen Ur Squamous Epith Cells 0-1 /hpf Urine Bacteria None seen Ur Culture Indicated? Cult not indicated Vol Urine Centrifuged 10ml (spun) Nasal Screen MRSA (PCR) 03/24/23 03/24/23 08:40 09:00 WBC RBC Hgb Hct MCV MCH MCHC RDW Plt Count Neut % (Auto) Lymph % (Auto) [place] % (Auto) Eos % (Auto) Baso % (Auto) Neut # (Auto) Lymph # (Auto) [place] # (Auto) Eos # (Auto) Baso # (Auto) ESR Sodium 137 Potassium 4.1 Chloride 106 Carbon Dioxide 26 BUN 13 Creatinine 0.63 Estimated GFR > 60 BUN/Creatinine Ratio 20.6 Glucose 117 H Lactate Calcium 8.8 Magnesium 2.0 Total Bilirubin 0.4 AST 28 ALT 20 Alkaline Phosphatase 132 H C-Reactive Protein Total Protein 5.8 L Albumin 2.9 L Globulin 2.9 Albumin/Globulin Ratio 1.0 Procalcitonin TSH Urine Color Urine Appearance Urine pH Ur Specific [place] Urine Protein Urine Glucose (UA) Urine Ketones Urine Occult Blood Urine Nitrate Urine Bilirubin Urine Urobilinogen Ur Leukocyte Esterase Urine RBC Urine WBC Ur Squamous Epith Cells Urine Bacteria Ur Culture Indicated? Vol Urine Centrifuged Nasal Screen MRSA (PCR) Not detected [facility] Medical History Bilateral pubic rami fractures Acute right hip pain Abnormal creatinine clearance glomerular filtration Sleep apnea HTN (hypertension) Melanoma Iron deficiency (~2000) Anxiety (Unknown) Hypothyroidism (Unknown) Bursitis (~12/2011) Chronic headaches (Unknown) Surgical History Hx of laminectomy (08/19/18) Hx of vein stripping Status post epidural steroid injection History of spinal fusion (06/23/13) History of tonsillectomy H/O Achilles tendon repair History of sinus surgery Status post dilation and curettage (11/23/16) Status post dilation and curettage History of cataract removal with insertion of prosthetic lens History of gastric bypass (2000) Status post tonsillectomy and adenoidectomy Social History household members: none Smoking Status: Never smoker alcohol intake: never Assessment & Plan Assessment & Plan narrative: This is a 57 year old female with PMH of E. faecalis bacteremia in Dec 2022, presented with diffuse symptoms and worsening back pain. Blood cultures positive today with GPC. 1. Sepsis ruled out, gram positive bacteremia - positive blood cultures with gram + bacteria, has a history of E. faecalis with prior lumbar fluid collection. - CT without evidence of fluid collection or possible source, outside records show unable to previously get MRI - MRI ordered to evaluate for discitis / spinal osteo. Reviewed records from [facility] extensively. Prior TTE, and LAURA negative for endocarditis. - discuss with ID Dr. Rodriguez once cultures finalized and MR results available. followed up with Dr. Rodriguez after recent discharge - CRP 15.9, ESR 70 on admission. - continue ceftriaxone and add vancomycin today, pending above cultures. Previous completed 2w of IV ampicillin for E. faecalis bacteremia. - unclear if colonoscopy performed as outpatient. 2. Possible acute cystitis - continue ceftriaxone, possible chronic colonization - no current symptoms, with positive blood cultures and recent E. coli urine culture do not suspect this to be leading to her presenting symptoms. 3. history of PMR - continue chronic steroids, prednisone 20 mg daily. 4. HTN, chronic - replace home irbesartan with losartan. Continue dosing today. 5. hypothyroidism, chronic - continue home levothyroxine. 6. depression, chronic. - continue home escitalopram. Code: Full. Dispo: pending above evaluation, possible transfer depending on MRI findings, discussion with ID, etc. Likely multiple days in the hospital with probable SNF for IV antibiotics. DVT: Lovenox Quality VTE Deep Vein Thrombosis/Pulmonary Embolism Present on Admission: No
[2023-03-24] MEDS: LIDOCAINE 5% PATCH 1 EACH TOP (14:28)
[2023-03-24] MEDS: methocarbamoL 500 MG TABLET 750 MG PO (14:29)
[2023-03-24] MEDS: LORazepam 1 MG TABLET PO (15:12)
[2023-03-24] MEDS: VANCOMYCIN 2,000 MG/400 ML PIGGYBACK 200 MG IV (15:12)
[2023-03-24 15:15] LABS: Acinetobacter calcoa-baumannii Not Detected (Not Detect); Bacteroides fragilis Not Detected (Not Detect); Candida albicans Not Detected (Not Detect); Candida auris Not Detected (Not Detect); Candida glabrata Not Detected (Not Detect); Candida krusei Not Detected (Not Detect); Candida parapsilosis Not Detected (Not Detect); Candida tropicalis Not Detected (Not Detect); Cryptococcus neoformans/gatti Not Detected (Not Detect); Enterobacter cloacae complex Not Detected (Not Detect); Enterobacterales Not Detected (Not Detect); Enterococcus faecalis Detected (Not Detect); Enterococcus faecium Not Detected (Not Detect); Haemophilus influenzae Not Detected (Not Detect); Klebsiella aerogenes Not Detected (Not Detect); Listeria monocytogenes Not Detected (Not Detect); Neisseria meningitidis Not Detected (Not Detect); Proteus species Not Detected (Not Detect); Pseudomonas aeruginosa Not Detected (Not Detect); Salmonella species Not Detected (Not Detect); Serratia marcescens Not Detected (Not Detect); Staphylococcus epidermidis Not Detected (Not Detect); Staphylococcus lugdunensis Not Detected (Not Detect); Staphylococcus species Not Detected (Not Detect); Stenotrophomonas maltophilia Not Detected (Not Detect); Streptococcus agalactiae (Gr B Not Detected (Not Detect); Streptococcus pneumonia Not Detected (Not Detect); Streptococcus pyogenes (Gr A) Not Detected (Not Detect); Streptococcus species Not Detected (Not Detect); Vancomycin-rest genes A/B Not Detected (Not Detect)
[2023-03-24] MEDS: cefTRIAXone 2,000 MG in SODIUM CHLORIDE 0.9% 100 ML 200 MG IV (17:26)
[2023-03-24] MEDS: SODIUM CHLORIDE 0.9% FLUSH 10 ML IV ×2 (18:17→20:41)
[2023-03-24] MEDS: GABAPENTIN 600 MG TABLET PO (20:41)
[2023-03-24] MEDS: DICLOFENAC SODIUM 75 MG 75 EACH PO (20:42)
[2023-03-25] VITALS (15 sets, daily range): BP systolic 130–140; BP diastolic 65–67; PULSE 59–92; RESP 16–18; TEMP 36.3–36.9; O2SAT 86–98
[2023-03-25] MEDS: VANCOMYCIN 1,500 MG/300 ML PIGGYBACK 200 MG IV (02:59)
[2023-03-25 04:29] LABS: Add Manual Diff / Slide Review NO; Basophils Absolute Auto 100 /uL (0-100); Basophils Percent Auto 0.3 % (0-2); Eosinophils Absolute Auto 0 /uL (0-450); Eosinophils Percent Auto 0.3 % (2-4); Hematocrit 28.1 % (36-46); Hemoglobin 8.9 g/dL (12.0-16.0); Lymphocytes Absolute Auto 1100 /uL (1100-4500); Lymphocytes Percent Auto 5.7 % (25-40); Mean Corpuscular HGB Conc 31.6 % (30-36); Mean Corpuscular Hemoglobin 24.8 PG (26-34); Mean Corpuscular Volume 78.6 fL (80-100); Monocytes Absolute Auto 500 /uL (0-900); Monocytes Percent Auto 2.7 % (3-14); Neutrophils Absolute Auto 17400 /uL (1500-7000); Platelet Count 536 X10^3/uL (150-400); Red Blood Cell Count 3.58 X10^6/uL (4.0-5.2); Red Cell Distribution Width 17.7 % (11.6-14.8); White Blood Cell Count 19.1 X10^3/uL (4.5-11.0)
[2023-03-25 04:41] LABS: Alanine Aminotransferase 18 IU/L (<35); Albumin 2.5 g/dL (3.5-5.0); Albumin Globulin Ratio 0.9 (1.0-2.8); Alkaline Phosphatase 112 U/L (38-126); Aspartate Aminotransferase 20 IU/L (14-36); BUN Creatinine Ratio 19.7 (6-22); Bilirubin Total 0.4 mg/dL (0.2-1.3); Blood Urea Nitrogen 14 mg/dL (7-17); Calcium 8.4 mg/dL (8.4-10.2); Carbon Dioxide 26 mmol/L (22-32); Chloride 109 mmol/L (98-107); Estimated Glomerular Filt Rate > 60 mL/min (>60); Globulin 2.7 g/dL (1.7-4.1); Glucose 91 mg/dL (70-100); HEMOLYSIS < 15 (0-50); Magnesium 2.3 mg/dL (1.6-2.3); Potassium 3.9 mmol/L (3.4-5.1); Sodium 137 mmol/L (137-145); Total Protein 5.2 g/dL (6.3-8.2)
[2023-03-25] MEDS: LEVOTHYROXINE 75 MCG TABLET PO (06:47)
[2023-03-25] MEDS: LORazepam 1 MG TABLET PO (09:51)
[2023-03-25] MEDS: MULTIVITAMIN 1 TABLET 1 TAB PO (09:52)
[2023-03-25] MEDS: TIZANIDINE 4 MG TABLET 2 MG PO (09:52)
[2023-03-25] MEDS: ESCITALOPRAM 10 MG TABLET 20 MG PO (09:52)
[2023-03-25] MEDS: MAGNESIUM OXIDE 400 MG TABLET 500 MG PO (09:53)
[2023-03-25] MEDS: ASCORBIC ACID 500 MG TABLET 1000 MG PO (09:53)
[2023-03-25] MEDS: LOSARTAN 50 MG TABLET PO (09:54)
[2023-03-25] MEDS: predniSONE 20 MG TABLET PO (09:54)
[2023-03-25] MEDS: LIDOCAINE 5% PATCH 1 EACH TOP (09:55)
[2023-03-25] MEDS: HYDROMORPHONE 0.5 MG INJ 1.5 MG IV ×2 (09:55→19:14)
[2023-03-25] MEDS: SODIUM CHLORIDE 0.9% FLUSH 10 ML IV ×2 (09:56→19:14)
--- NOTE | 2023-03-25 10:21 | DI.MRI.S_ITS ---
PROCEDURE: MR LUMBAR SPINE WO/W CON INDICATIONS: recurrent bacteremia, prior lumbar fluid brown. ? discitis TECHNIQUE: Noncontrast sagittal T1 spin echo and T2 fast spin echo, sagittal STIR, axial T1 and T2 fast spin echo through the lumbar spine. In cases with scoliosis, additional coronal T2 fast spin echo may be performed. After the administration of contrast, sagittal and axial T1 spin echo with fat saturation through the lumbar spine. COMPARISON: [facility], MR, L-SPINE WITHOUT CONTRAST, 01/20/2013, 18:59. [facility], CT, CT CHEST ABD PEL W CON, 03/23/2023, 16:56. [facility], MR, L-SPINE WITHOUT CONTRAST, 06/02/2014, 10:46. [facility], MR, L-SPINE W&WO CONTRAST, 03/15/2015, 19:38. [facility], CT, CT LUMBAR SPINE WITH CONTRAST, 12/07/2022, 16:00. FINDINGS: Image quality: Excellent. Alignment and curvature: There is accentuated kyphosis, centered at the L1-L2 level. Marrow: Marrow is of normal overall signal. No acute vertebral body compression fractures. No suspicious marrow enhancement. Spinal cord: Conus medullaris terminates at the L1-L2 level. Visualized spinal cord demonstrates normal signal, without suspicious enhancement. Paraspinous soft tissues: No paravertebral masses or abnormal enhancement. The previously seen posterior hardware has been removed. Disc spacers are seen at L2-L3, L3-L4, and L4-L5. T12-L1: There is a degree of vertebral body fusion seen at this level. There is increased STIR signal seen along this disc level. There is endplate edema and enhancement seen along this disc level. No epidural abscess is seen at this level. Mild to moderate disc bulge is seen. There is a mild disc extrusion seen, with superior migration of the disc material. There is [id number] left-sided and no right-sided neural foraminal narrowing. Mild central canal narrowing is seen. These degenerative changes are clearly worse than in 2016. L1-L2: There is a degree of fusion seen at this level. Moderate loss of disc height is seen. Loss of disc signal is seen. Reactive marrow endplate changes are seen, which are hyperintense on T1-weighted and T2-weighted imaging and most consistent with fatty metaplasia (Modic type II changes). Moderate disc bulge is seen, which is eccentric to the right. Mild to moderate facet hypertrophy is seen. There is moderate right-sided and no left-sided neural foraminal narrowing. Mild central canal narrowing is seen. These imaging findings have progressed compared to the prior study. L2-L3: A disc spacer is seen at this level. Mild generalized disc bulge is seen. Mild facet joint hypertrophy is seen. Mild bilateral neural foraminal narrowing is seen. Minimal to mild central canal narrowing is seen. When comparison is made with the prior images, these findings are similar. L3-L4: A disc spacer is seen at this level. Moderate disc bulge is seen, which is eccentric to the right. Mild facet joint hypertrophy is seen. There is mild right-sided and no left-sided neural foraminal narrowing. Minimal central canal narrowing is seen. When comparison is made with the prior images, these findings are similar. L4-L5: There is a disc spacer seen at this level. Mild to moderate disc bulge is seen. Mild to moderate facet hypertrophy can be seen. No significant neural foraminal or central canal narrowing can be seen. When comparison is made with the prior images, these findings are similar. L5-S1: Increased T2 weighted signal can be seen at this level. No abnormal enhancement can be seen involving the disc itself or the endplates. The disc height is well preserved. Mild to moderate disc bulge is seen. There is moderate right-sided and [id number] left-sided facet hypertrophy. There is moderate to severe bilateral neural foraminal narrowing seen, with an associated a degree of compression seen upon the exiting nerve roots. Mild central canal narrowing is seen. These degenerative changes are worse than on the prior examination. IMPRESSION: There is high suspicion for discitis/osteomyelitis at the T12-L1 level. No associated epidural abscess is seen. Worsening of degenerative change seen at L1-L2 and L5-S1 compared to 2016. Since the 2016 MRI, the posterior pedicle screws have been removed. Dictated by: Chun Jacob M.D. on 03/25/2023 at 10:36 Approved by: Chun Jacob M.D. on 03/25/2023 at 10:45
[2023-03-25] MEDS: DICLOFENAC SODIUM 75 MG 75 EACH PO (10:58)
[2023-03-25] MEDS: LIOTHYRONINE 5 MCG TABLET 10 MCG PO (10:59)
[2023-03-25] MEDS: OXYCODONE/ACETAMINOPHEN 5/325 TABLET 2 TAB PO ×2 (13:21→18:22)
[2023-03-25] MEDS: cefTRIAXone 2,000 MG in SODIUM CHLORIDE 0.9% 100 ML 200 MG IV (13:22)
--- NOTE | 2023-03-25 13:59 | CM.DPC ---
DCP Hospital Transfer: Per MD, pt had MRI spine this morning which shows likelihood of osteomyelitis of the spine and ID MD feels pt should transfer for higher level of care and Cardio Consult recommends transfer to [facility] for higher level of care needs due to risk of endocarditis and possible need of LAURA. Per non destructive evaluation technician, faxed [facility] and awaiting confirmation they have a bed available. SW met bedside with pt and she confirms she is aware of recommendation of hospital transfer for higher care needs and remains positive. Pt confirms she ambulated to bathroom and is trying to keep up the strength she has while managing her back pain. Plan: SW to follow for plan of hospital transfer to [facility] for Cardiology and ID when bed available. EDWIGE Barrera
[2023-03-25] MEDS: AMPICILLIN 2,000 MG in SODIUM CHLORIDE 0.9% 100 ML 200 MG IV ×2 (14:28→18:16)
--- NOTE | 2023-03-25 15:06 | P.PN_ITS ---
Subjective Subjective Interval history: 57 years old female with history of hypertension, hyperlipidemia, iron deficiency anemia, polymyalgia rheumatica chronically on prednisone, myotonic dystrophy, morbidly obesity presented to the ER with back pain, fatigue and muscle twitching. She was recently diagnosed with UTI and was on Bactrim. She went back to clinic and was given Cipro but has not improved. She came back with the same symptoms to the ED. She has a history of E. faecalis bacteremia back in [facility], was transferred to [facility] for LAURA which was negative. Blood cultures are again positive for E. faecalis. MRI today showed probable osteo/discitis at T12/L1 level. Discussed with Dr. Rodriguez at [facility]. She cannot definitively rule out endocarditis either. Recommended continuing ceftriaxone, stopping vanc and changing to ampicillin. TTE ordered but recommended transfer to [facility] for LAURA, possible orthopedics consultation. Exam Vital Signs (past 8 hours): - 03/25/23 07:30 03/25/23 08:00 03/25/23 12:00 Temperature 97.4 F L Pulse Rate 77 63 92 H Respiratory Rate 16 Blood Pressure 130/65 Pulse Oximetry 86 L 97 95 Oxygen Delivery Method Room Air Oxygen Flow Rate 94 Narrative Exam Narrative: No acute distress. Anicteric sclerae. Lungs are clear, normal effort. Heart is regular, no murmur. Abdomen is soft, nontender. Extremities are notable for trace edema and slight erythema both pretibial areas. Back is extremely tender, unable to adequate determine midline vs paraspinal due to discomfort. Objective Labs 03/25/23 04:07 03/25/23 04:07 Labs: Laboratory Results - last 24 hr 03/23/23 03/25/23 17:05 04:07 WBC 19.1 H RBC 3.58 L Hgb 8.9 L Hct 28.1 L MCV 78.6 L MCH 24.8 L MCHC 31.6 RDW 17.7 H Plt Count 536 H Neut % (Auto) 91.0 H Lymph % (Auto) 5.7 L [place] % (Auto) 2.7 L Eos % (Auto) 0.3 L Baso % (Auto) 0.3 Neut # (Auto) 90168 H Lymph # (Auto) 1100 [place] # (Auto) 500 Eos # (Auto) 0 Baso # (Auto) 100 Sodium 137 Potassium 3.9 Chloride 109 H Carbon Dioxide 26 BUN 14 Creatinine 0.71 Estimated GFR > 60 BUN/Creatinine Ratio 19.7 Glucose 91 Calcium 8.4 Magnesium 2.3 Total Bilirubin 0.4 AST 20 ALT 18 Alkaline Phosphatase 112 Total Protein 5.2 L Albumin 2.5 L Globulin 2.7 Albumin/Globulin Ratio 0.9 L A.calcoaceticus-baumannii cmplx PCR Not detected Bacteroides fragilis Not detected My albicans (PCR) Not detected My auris (PCR) Not detected C. glabrata (PCR) Not detected C. krusei (PCR) Not detected C. parapsilosis (PCR) Not detected C. tropicalis (PCR) Not detected C. neoform/gattii (PCR) Not detected Enterobacterales (PCR) Not detected E. cloacae complex PCR Not detected Enterococc faecalis PCR Detected Enterococc faecium PCR Not detected E. coli (PCR) Not detected H. influenzae (PCR) Not detected Klebsiella aerogenes (PCR) Not detected Klebsiella oxytoca PCR Not detected Klebsiella pneumoniae Not detected List. monocytogenes PCR Not detected N. meningitidis (PCR) Not detected Proteus species (PCR) Not detected Salmonella spp. (PCR) Not detected Serratia marcescens PCR Not detected Staphylococcus sp PCR Not detected Staph aureus (PCR) Not detected mecA/C & MREJ Resist Gene Not applicable mecA/C-Methicil Resis Gene Not applicable mcr-1 Colistin Res Gene PCR Not applicable Staph epidermidis (PCR) Not detected Staph lugdunensis PCR Not detected S. maltophilia (PCR) Not detected Streptococcus sp PCR Not detected Group A Strep (PCR) Not detected Strep agalactiae (PCR) Not detected Strep pneumoniae (PCR) Not detected P. aeruginosa (PCR) Not detected Daren/B-Vanco Res Genes Not detected blaIMP Car res Gene PCR Not applicable KPC-Carbap Res Gene PCR Not applicable blaNDM Car Res Gene PCR Not applicable OXA-48 Carbapenem Resis Gene (PCR) Not applicable blaVIM Car Res Gene PCR Not applicable CTX-M Gene Resistance (PCR) Not applicable [facility] Medical History Bilateral pubic rami fractures Acute right hip pain Abnormal creatinine clearance glomerular filtration Sleep apnea HTN (hypertension) Melanoma Iron deficiency (~2000) Anxiety (Unknown) Hypothyroidism (Unknown) Bursitis (~12/2011) Chronic headaches (Unknown) Surgical History Hx of laminectomy (08/19/18) Hx of vein stripping Status post epidural steroid injection History of spinal fusion (06/23/13) History of tonsillectomy H/O Achilles tendon repair History of sinus surgery Status post dilation and curettage (11/23/16) Status post dilation and curettage History of cataract removal with insertion of prosthetic lens History of gastric bypass (2000) Status post tonsillectomy and adenoidectomy Social History household members: none Smoking Status: Never smoker alcohol intake: never Assessment & Plan Assessment & Plan narrative: This is a 57 year old female with PMH of E. faecalis bacteremia in Dec 2022, presented with diffuse symptoms and worsening back pain. Blood cultures positive today with GPC. 1. Sepsis ruled out, gram positive bacteremia - positive blood cultures with gram + bacteria, has a history of E. faecalis with prior lumbar fluid collection. PCR positive for E. faecalis again, pending formal speciation and sensitivities. - CT without evidence of fluid collection or possible source, outside records show unable to previously get MRI - MRI ordered to evaluate for discitis / spinal osteo. Reviewed records from [facility] extensively. Prior TTE, and LAURA negative for endocarditis. - discussed with ID Dr. Rodriguez. Recommended ampicillin 2g q4, ceftriaxone 2g q12 for now. Recommended TTE, transfer for LAURA to [facility] and ID consultation. TTE ordered and CK ordered for tomorrow AM. Unclear current bed status at [facility]. - CRP 15.9, ESR 70 on admission. - will need at least 6 weeks of antibiotics - prior C-scope was recommended to be repeated due to surprise adenoma found. Has not had repeat yet. 2. Possible acute cystitis - continue ceftriaxone, possible chronic colonization - no current symptoms, with positive blood cultures and recent E. coli urine culture do not suspect this to be leading to her presenting symptoms. 3. history of PMR - continue chronic steroids, prednisone 20 mg daily. 4. HTN, chronic - replace home irbesartan with losartan. Continue dosing today. 5. hypothyroidism, chronic - continue home levothyroxine. 6. depression, chronic. - continue home escitalopram. Code: Full. Dispo: plan for transfer to [facility] once bed available. DVT: Lovenox Quality VTE Deep Vein Thrombosis/Pulmonary Embolism Present on Admission: No
--- NOTE | 2023-03-25 18:25 | P.DS_ITS ---
History of Present Illness History of Present Illness Date Patient Seen: 03/25/23 Time Patient Seen: 18:26 Chief complaint: NECK AND BACK PAIN Narrative: 57 years old female with history of hypertension, hyperlipidemia, iron deficiency anemia, polymyalgia rheumatica chronically on prednisone, myotonic dystrophy, morbidly obesity presented to the ER with back pain, fatigue and muscle twitching. She was recently diagnosed with UTI and was on Bactrim. Yesterday she went back to clinic and was given Cipro but has not improved. Today she is coming back with the same symptoms to the ED. Denies any fever, shortness of breath, cough, chest pain, palpitations, nausea, vomiting, abdominal pain, diarrhea or dysuria. She also reports unintentional lost around 60 pounds in the last 5-6 months and her primary doctor was concerned for malignancy. She was scheduled to have full body CT for rule out any tumor and was sent extensive laboratory workup. Laboratory from the ED shows WBC 24. 6, H&H 10.8/34.5, creatinine 0.93, glucose 146, lactate 1.2, C-reactive protein 15.9, procalcitonin 0.2, TSH 1.43, UA from yesterday shows urine ketones, leukoesterase positive. CT of the chest/abdomen/pelvis was unremarkable. She was given ceftriaxone 2 g IV, dexamethasone 10 mg IV, fluid bolus and morphine. Discharge Providers Provider Date of admission: 03/23/23 19:06 Discharge Date: 03/25/23 Primary care physician: Pina Decker DO Consults: 03/23/23 20:57 Consult to Dietitian, Adult Routine Comment: Reason For Exam: recent 60lb weight loss, unknown cause Discharge provider: Thompson Manzo DO Summary Hospital Course Discharge Diagnosis: Please see below Hospital Course: 57 years old female with history of hypertension, hyperlipidemia, iron deficiency anemia, polymyalgia rheumatica chronically on prednisone, myotonic dystrophy, morbidly obesity presented to the ER with back pain, fatigue and muscle twitching. She was recently diagnosed with UTI and was on Bactrim. She went back to clinic and was given Cipro but has not improved. She came back with the same symptoms to the ED. She has a history of E. faecalis bacteremia back in , was transferred to [facility] for LAURA which was negative. Blood cultures are again positive for E. faecalis. MRI today showed probable osteo/discitis at T12/L1 level. Discussed with Dr. Rodriguez at [facility]. She cannot definitively rule out endocarditis either. Recommended continuing ceftriaxone, stopping vanc and changing to ampicillin. TTE ordered but recommended transfer to [facility] for LAURA, possible orthopedics consultation. This is a 57 year old female with PMH of E. faecalis bacteremia in Dec 2022, presented with diffuse symptoms and worsening back pain. Blood cultures positive today with GPC. 1. Sepsis ruled out, gram positive bacteremia, PCR positive for E. faecalis. - positive blood cultures with gram + bacteria in 4/4 bottles, has a history of E. faecalis with prior lumbar fluid collection. PCR positive for E. faecalis again, pending formal speciation and sensitivities. - CT without evidence of fluid collection or possible source, outside records showed unable to previously get MRI - MRI ordered to evaluate for discitis / spinal osteo which showed findings consistent with Discitis / osteo at T12-L1 region. Reviewed records from [facility] extensively. Prior TTE, and LAURA were negative for endocarditis. - discussed with ID Dr. Rodriguez. Recommended ampicillin 2g q4, ceftriaxone 2g q12 for now. Recommended TTE, transfer for repeat LAURA to [facility] and ID consultation over concern for possible endocarditis. TTE ordered and CK ordered for tomorrow AM but not able to be performed prior to transfer. Accepting physician Dr. Allen - CRP 15.9, ESR 70 on admission. - will need at least 6 weeks of antibiotics - prior C-scope was recommended to be repeated due to surprise adenoma found. Has not had repeat yet. 2. Possible acute cystitis - continue ceftriaxone, possible chronic colonization - no current symptoms, with positive blood cultures and recent E. coli urine culture do not suspect this to be leading to her presenting symptoms. 3. history of PMR - continue chronic steroids, prednisone 20 mg daily. 4. HTN, chronic - replaced home irbesartan with losartan. Continued dosing today. 5. hypothyroidism, chronic - continue home levothyroxine. 6. depression, chronic. - continue home escitalopram. Code: Full. Dispo: transfer to [facility] as noted above. DVT: Lovenox Time Spent with Patient Time spent: Greater than 30 minutes Exam Vital Signs (past 8 hours): - 03/25/23 12:00 03/25/23 17:00 Temperature 97.4 F L 98.4 F Pulse Rate 92 H 75 Respiratory Rate 16 18 Blood Pressure 130/65 140/67 Pulse Oximetry 95 98 Oxygen Flow Rate 0 Oxygen Delivery Method Room Air Oxygen Flow Rate 0 Narrative Exam Narrative: No acute distress. Anicteric sclerae. Lungs are clear, normal effort. Heart is regular, no murmur. Abdomen is soft, nontender. Extremities are notable for trace edema and slight erythema both pretibial areas. Back is extremely tender, unable to adequate determine midline vs paraspinal due to discomfort. Objective Labs 03/25/23 04:07 03/25/23 04:07 Labs: Laboratory Results - last 24 hr 03/25/23 04:07 WBC 19.1 H RBC 3.58 L Hgb 8.9 L Hct 28.1 L MCV 78.6 L MCH 24.8 L MCHC 31.6 RDW 17.7 H Plt Count 536 H Neut % (Auto) 91.0 H Lymph % (Auto) 5.7 L Conway % (Auto) 2.7 L Eos % (Auto) 0.3 L Baso % (Auto) 0.3 Neut # (Auto) 91534 H Lymph # (Auto) 1100 Conway # (Auto) 500 Eos # (Auto) 0 Baso # (Auto) 100 Sodium 137 Potassium 3.9 Chloride 109 H Carbon Dioxide 26 BUN 14 Creatinine 0.71 Estimated GFR > 60 BUN/Creatinine Ratio 19.7 Glucose 91 Calcium 8.4 Magnesium 2.3 Total Bilirubin 0.4 AST 20 ALT 18 Alkaline Phosphatase 112 Total Protein 5.2 L Albumin 2.5 L Globulin 2.7 Albumin/Globulin Ratio 0.9 L [facility] Medical History Bilateral pubic rami fractures Acute right hip pain Abnormal creatinine clearance glomerular filtration Sleep apnea HTN (hypertension) Melanoma Iron deficiency (~2000) Anxiety (Unknown) Hypothyroidism (Unknown) Bursitis (~12/2011) Chronic headaches (Unknown) Surgical History Hx of laminectomy (08/19/18) Hx of vein stripping Status post epidural steroid injection History of spinal fusion (06/23/13) History of tonsillectomy H/O Achilles tendon repair History of sinus surgery Status post dilation and curettage (10/13/17) Status post dilation and curettage History of cataract removal with insertion of prosthetic lens History of gastric bypass (2000) Status post tonsillectomy and adenoidectomy Social History household members: none Smoking Status: Never smoker alcohol intake: never Discharge Plan Discharge Plan Patient Disposition: [facility] Under care of provider: Dr. Allen accepting physician Provider Discharge Comment: Please see discharge / transfer summary. Discharge Health Status Multidrug resistant organism: No MDRO Precautions: Dora Diet/Activity/Treatments Diet: Diet as Tolerated and Regular Liquid consistency: Normal/Thin Food texture: Regular Activity: As tolerated no restrictions Discharge Data Primary Care Provider: Pina Decker VTE Deep Vein Thrombosis/Pulmonary Embolism Present on Admission: No
--- NOTE | 2023-03-25 19:43 | PC.NURSE ---
EMS picked pt up at 1920. Patient belongings packed up. Called report to ALLYSON Palmer. All questions answered.
== END 2023-03-25 19:30 | disposition short-term general hospital (02) | DRG 690 ==
LOC: ED 19:06 → AC 19:07 → ICU 19:58
PROVIDERS: Internal Medicine; Admitting Provider Internal Medicine; Emergency Provider Emergency Medicine; PCP Family Medicine; Referring Provider Emergency Medicine; Visit Provider Internal Medicine
DX: N30.00 Acute cystitis without hematuria (principal); Z68.41 Body mass index [BMI] 40.0-44.9, adult; R78.81 Bacteremia; E66.01 Morbid (severe) obesity due to excess calories; E03.9 Hypothyroidism, unspecified; M35.3 Polymyalgia rheumatica; I10 Essential (primary) hypertension; F32.A Depression, unspecified; B95.2 Enterococcus as the cause of diseases classified elsewhere; Z79.52 Long term (current) use of systemic steroids
CPT/HCPCS: 36415; 71260; 72158; 74177; 80053; 81001; 82378; 83605; 83735; 84145; 84436; 84443; 84481; 85007; 85025; 85651; 86140; 87040; 87077; 87154; 87186; 87797; 96365; 96375; 96376; 99284; 99285; A9579; J0290; J0696; J1100; J1170; J2270; Q9967

== ENCOUNTER → 2023-04-05 18:14 | Outpatient (ROUT) | payer BC, SELFPAY ==
[2023-03-23 19:35] VITALS: BMI 40.8
[2023-04-05 18:46] LABS: Add Manual Diff / Slide Review NO; Basophils Absolute Auto 100 /uL (0-100); Basophils Percent Auto 0.8 % (0-2); Eosinophils Absolute Auto 200 /uL (0-450); Eosinophils Percent Auto 1.7 % (2-4); Hematocrit 32.8 % (36-46); Hemoglobin 9.9 g/dL (12.0-16.0); Lymphocytes Absolute Auto 1700 /uL (1100-4500); Lymphocytes Percent Auto 16.3 % (25-40); Mean Corpuscular HGB Conc 30.1 % (30-36); Mean Corpuscular Hemoglobin 24.5 PG (26-34); Mean Corpuscular Volume 81.4 fL (80-100); Monocytes Absolute Auto 300 /uL (0-900); Monocytes Percent Auto 3.2 % (3-14); Neutrophils Absolute Auto 8200 /uL (1500-7000); Platelet Count 524 X10^3/uL (150-400); Red Blood Cell Count 4.04 X10^6/uL (4.0-5.2); Red Cell Distribution Width 18.7 % (11.6-14.8); White Blood Cell Count 10.5 X10^3/uL (4.5-11.0)
[2023-04-05 18:50] LABS: Alanine Aminotransferase 32 IU/L (<35); Albumin 3.4 g/dL (3.5-5.0); Albumin Globulin Ratio 1.3 (1.0-2.8); Alkaline Phosphatase 148 U/L (38-126); Aspartate Aminotransferase 37 IU/L (14-36); Bilirubin Total 0.6 mg/dL (0.2-1.3); Bilirubin Unconjugated 0.2 mg/dL (0.0-1.1); Blood Urea Nitrogen 19 mg/dL (7-17); C-Reactive Protein Quant 3.3 mg/dL (<1.0); Estimated Glomerular Filt Rate > 60 mL/min (>60); Globulin 2.7 g/dL (1.7-4.1); HEMOLYSIS < 15 (0-50); Total Protein 6.1 g/dL (6.3-8.2)
[2023-04-05 19:11] LABS: Erythrocyte Sedimentation Rate 40 MM/HR (0-20)
== END ==
PROVIDERS: PCP Family Medicine; Visit Provider Family Medicine
DX: R78.81 Bacteremia (principal); M46.20 Osteomyelitis of vertebra, site unspecified
CPT/HCPCS: 80076; 82565; 84520; 85025; 85651; 86140

== ENCOUNTER → 2023-04-12 11:16 | Outpatient (ROUT) | payer BC, SELFPAY ==
[2023-03-23 19:35] VITALS: BMI 40.8
[2023-04-12 11:23] LABS: Add Manual Diff / Slide Review NO; Basophils Absolute Auto 0 /uL (0-100); Basophils Percent Auto 0.2 % (0-2); Eosinophils Absolute Auto 100 /uL (0-450); Eosinophils Percent Auto 0.4 % (2-4); Hematocrit 30.8 % (36-46); Hemoglobin 9.4 g/dL (12.0-16.0); Lymphocytes Absolute Auto 500 /uL (1100-4500); Lymphocytes Percent Auto 3.7 % (25-40); Mean Corpuscular HGB Conc 30.4 % (30-36); Mean Corpuscular Hemoglobin 24.4 PG (26-34); Mean Corpuscular Volume 80.2 fL (80-100); Monocytes Absolute Auto 300 /uL (0-900); Monocytes Percent Auto 1.7 % (3-14); Neutrophils Absolute Auto 13600 /uL (1500-7000); Platelet Count 472 X10^3/uL (150-400); Red Blood Cell Count 3.84 X10^6/uL (4.0-5.2); Red Cell Distribution Width 19.2 % (11.6-14.8); White Blood Cell Count 14.4 X10^3/uL (4.5-11.0)
[2023-04-12 11:44] LABS: Erythrocyte Sedimentation Rate 53 MM/HR (0-20)
[2023-04-12 11:47] LABS: BUN Creatinine Ratio 22.1 (6-22); Blood Urea Nitrogen 17 mg/dL (7-17); C-Reactive Protein Quant 3.3 mg/dL (<1.0); Estimated Glomerular Filt Rate > 60 mL/min (>60)
[2023-04-15 13:42] LABS: Alanine Aminotransferase 22 IU/L (<35); Albumin 3.4 g/dL (3.5-5.0); Albumin Globulin Ratio 1.3 (1.0-2.8); Alkaline Phosphatase 117 U/L (38-126); Aspartate Aminotransferase 26 IU/L (14-36); Bilirubin Total 0.6 mg/dL (0.2-1.3); Bilirubin Unconjugated 0.2 mg/dL (0.0-1.1); Globulin 2.7 g/dL (1.7-4.1); HEMOLYSIS < 15 (0-50); Total Protein 6.1 g/dL (6.3-8.2)
== END ==
PROVIDERS: PCP Family Medicine; Visit Provider Internal Medicine Infectious Disease
DX: R78.81 Bacteremia (principal); M46.20 Osteomyelitis of vertebra, site unspecified
CPT/HCPCS: 80076; 82565; 84520; 85025; 85651; 86140

== ENCOUNTER 2023-04-22 08:35 | Day surgery (SDC) | payer BC, SELFPAY ==
[2023-03-23 19:35] VITALS: BMI 40.8
[2023-04-22 09:17] VITALS: BP 180/100; PULSE 116; RESP 16; TEMP 36.2; O2SAT 97
[2023-04-22] MEDS: LACTATED RINGERS 1,000 ML 42 ML IV (09:25)
--- NOTE | 2023-04-22 09:44 | PM.HP.1 ---
History of Present Illness History of Present Illness Date Patient Seen: 04/22/23 Time Patient Seen: 09:44 Chief complaint: [facility] [place] Narrative: History of a surprise adenoma at the splenic flexure. Follow-up colonoscopy is pursued today. She has additionally had recurrent bacteremia of uncertain etiology and there is a question as to whether this could be related to some form of colonic pathology. Her diarrhea symptoms have much improved. Occasionally she has a little bit of bleeding that she believes is related to her hemorrhoids. [facility] Medical History Bilateral pubic rami fractures Acute right hip pain Abnormal creatinine clearance glomerular filtration Sleep apnea HTN (hypertension) Melanoma Iron deficiency (~2000) Anxiety (Unknown) Hypothyroidism (Unknown) Bursitis (~12/2011) Chronic headaches (Unknown) Surgical History Hx of laminectomy (08/19/18) Hx of vein stripping Status post epidural steroid injection History of spinal fusion (06/23/13) History of tonsillectomy H/O Achilles tendon repair History of sinus surgery Status post dilation and curettage (11/23/16) Status post dilation and curettage History of cataract removal with insertion of prosthetic lens History of gastric bypass (2000) Status post tonsillectomy and adenoidectomy Social History household members: none Smoking Status: Never smoker alcohol intake: never Meds Home Medications and Allergies Home Medications Medication Instructions Recorded Confirmed Type diphenhydramine HCl 50 mg capsule 50 mg PO HSP PRN Insomnia ##0 07/02/16 04/22/23 History ascorbic acid (vitamin C) 1,000 mg 1,000 mg PO DAILY 07/02/17 04/22/23 History tablet (Vitamin C) calcium citrate 1,000 mg PO DAILY 07/02/17 04/22/23 History coenzyme Q10 200 mg capsule (Co 200 mg PO DAILY 07/02/17 04/22/23 History Q-10) multivitamin 1 cap PO DAILY 07/02/17 04/22/23 History vitamin A 3,000 mcg (10,000 unit) 10,000 unit PO 2XW 07/02/17 04/05/23 History capsule vitamin B complex (B Complex 1 1 tab PO DAILY 07/02/17 04/05/23 History tablet) vitamin d See Rx Instructions .Route .COMPLEX 07/02/17 04/05/23 History vitamin e See Rx Instructions .Route .COMPLEX 07/02/17 04/05/23 History zinc 50 mg tablet 50 mg PO DAILY 07/02/17 04/05/23 History ferrous gluconate 240 mg (27 mg 100 mg PO DAILY 10/30/17 04/22/23 History iron) tablet magnesium oxide 500 mg PO BID 01/08/18 04/22/23 History levothyroxine 75 mcg tablet 75 mcg PO DAILY #90 tabs 08/04/20 04/22/23 Rx acetaminophen 325 mg capsule 500 mg PO ONCE PRN Pain (Scale 04/06/21 04/22/23 History Score 1-3) liothyronine 5 mcg tablet (Cytomel) 10 mcg PO DAILY 04/06/21 04/22/23 History prasterone (dhea) 50 mg capsule 50 mg PO DAILY 04/06/21 04/22/23 History (DHEA) vitamin K2 100 mcg capsule 100 mcg PO DAILY 04/06/21 04/05/23 History DISABLED PARKING PERMIT #1 ea 09/25/22 04/05/23 Rx diclofenac sodium 75 mg 75 mg PO BID #180 tabs 11/01/22 04/22/23 Rx tablet,delayed release escitalopram oxalate 20 mg tablet 20 mg PO DAILY #90 tabs 01/21/23 04/22/23 Rx (Lexapro) irbesartan 150 mg tablet 150 mg PO BID #180 tabs 01/21/23 04/22/23 Rx gabapentin 600 mg tablet 600 mg PO BEDTIME #90 tabs 03/05/23 04/22/23 Rx ampicillin sodium 2 gram 12 g IV DAILY 04/05/23 04/22/23 History intravenous solution cyclobenzaprine 5 mg tablet 5 - 10 mg (1 - 2 x 5 mg) PO TID 04/05/23 04/22/23 Rx PRN muscle spasm #90 tabs oxycodone-acetaminophen 5 mg-325 2 tab PO Q4-6H PRN pain #180 tabs 04/05/23 04/22/23 Rx mg tablet (Percocet) prednisone 20 mg tablet 20 mg PO DAILY #30 tabs 04/18/23 04/22/23 Rx Allergies Allergy/AdvReac Type Severity Reaction Status Date / Time pregabalin [PREGABALIN] Allergy Severe facial and Verified 04/22/23 09:10 throat swelling hydrocodone [HYDROCODONE] AdvReac Severe nausea, Verified 04/22/23 09:10 syncopal episode Review of Systems Review of Systems ROS: Yes All systems reviewed with the patient and are negative except as otherwise documented Exam Vital Signs (past 8 hours): - 04/22/23 09:17 Temperature 97.2 F L Pulse Rate 116 H Respiratory Rate 16 Blood Pressure 180/100 H Pulse Oximetry 97 Oxygen Delivery Method Room Air Oxygen Delivery Method Room Air Const General: cooperative HENMT Head: normal to inspection Eyes General: appearance normal, both eyes and all related structures Neck Neck: normal visual inspection Chest Chest: normal inspection of the chest Resp Effort & Inspection: normal respiratory effort Cardio Rate: regular rate GI Inspection: normal to inspection Skin General: no rashes or lesions noted Neuro General: patient alert and patient awake Extrem General: normal to inspection and no pedal edema Psych Appearance: grossly normal Assessment & Plan Assessment & Plan narrative: 57-year-old female with a history of colon adenoma deserving of early surveillance colonoscopy. Colonoscopy is pursued today.
--- NOTE | 2023-04-22 09:47 | PM.PREOP ---
Pre-operative Note Interval Note History & Physical reviewed/Exam performed by Physician: Yes Changes to H&P: Yes ASA Class (for procedural sedation): III
--- NOTE | 2023-04-22 10:55 | PM.OP.COLON ---
Operative Date/Time/Diagnoses Date of procedure: 04/22/23 Time of procedure: 10:55 Pre-op diagnosis: History of adenomatous colon polyp Post-op diagnosis: same Procedure & Clinicians Study performed: Colonoscopy Same procedure as scheduled: Yes Indications: History of adenomatous colon polyp Surgeon: Pj Mcgarry Procedure Notes SCOAP/Timeout: Done Scope withdrawal time: 16 minutes Sedation minutes: 27 Specimen(s): none sent Complications: none Impression: A very careful look all throughout the left colon with particular attention directed towards the splenic flexure region was accomplished. I did not identify any evidence of a residual or recurrent polyp. No sign of inflammation anywhere. Grade 1 internal hemorrhoids. No fissure. The terminal ileum was interrogated and appeared normal. Endoscopic diagnosis 1. Grade 1 internal hemorrhoids 2. Otherwise visually normal exam Post-procedure Plan for aftercare: Repeat colonoscopy 5 years considering personal history of adenomatous colon polyps. Disposition: PACU
[2023-04-22 10:58] VITALS: BP 141/83; PULSE 92; RESP 20; TEMP 36.8; O2SAT 99
[2023-04-22 11:03] VITALS: BP 146/90; PULSE 80; RESP 16; O2SAT 99
[2023-04-22 11:08] VITALS: BP 148/88; PULSE 80; RESP 15; O2SAT 100
[2023-04-22 11:13] VITALS: BP 152/90; PULSE 79; RESP 12; TEMP 36.6; O2SAT 99
== END 2023-04-22 10:34 | disposition home or self-care (01) ==
PROVIDERS: PCP Family Medicine; Referring Provider Internal Medicine Gastroenterology; Visit Provider Internal Medicine Gastroenterology
PROC: 0DJD8ZZ Inspection of Lower Intestinal Tract, Via Natural or Artificial Opening Endoscopic (ICD-10-PCS; CPT 45378; principal; 2023-04-22 09:30)
DX: Z12.11 Encounter for screening for malignant neoplasm of colon (principal); Z86.010 Personal history of colon polyps; K64.0 First degree hemorrhoids
CPT/HCPCS: 45378; J2704

== ENCOUNTER 2023-04-24 15:18 | Emergency (ER) | payer BC, SELFPAY ==
[2023-03-23 19:35] VITALS: BMI 40.8
[2023-04-24] VITALS (8 sets, daily range): BP systolic 144–173; BP diastolic 64–92; PULSE 73–95; RESP 18–29; TEMP 36.9; O2SAT 93–99; BMI 43.2
--- NOTE | 2023-04-24 17:33 | ED_ITS ---
HPI - Wound/Laceration <Renetta Shaikh PA-C - Last Filed: 04/24/23 17:43> General Chief Complaint: Wound/Laceration Stated Complaint: laceration on leg, sent by PCP Time Seen by Provider: 04/24/23 16:49 Source: patient Mode of arrival: Ambulatory History of Present Illness HPI narrative: Patient is a 57-year-old female with history of gastric bypass, myotonic dystrophy, polymyalgia on chronic prednisone, morbid obesity, and depression presents with left lower extremity laceration. She was seen her primary care provider in the clinic this afternoon, she tripped and her walker punctured her left medial ankle. She reports bleeding profusely in the clinic and being brought to the emergency room. She does not take any blood thinner medications including no aspirin. She is accompanied by her daughter. Last tetanus unclear, maybe 8 years ago. Related Data Home Medications Medication Instructions Recorded Confirmed diphenhydramine HCl 50 mg capsule 50 mg PO HSP PRN Insomnia ##0 07/02/16 04/24/23 ascorbic acid (vitamin C) 1,000 mg 1,000 mg PO DAILY 07/02/17 04/24/23 tablet (Vitamin C) calcium citrate 1,000 mg PO DAILY 07/02/17 04/24/23 coenzyme Q10 200 mg capsule (Co 200 mg PO DAILY 07/02/17 04/24/23 Q-10) multivitamin 1 cap PO DAILY 07/02/17 04/24/23 vitamin A 3,000 mcg (10,000 unit) 10,000 unit PO 2XW 07/02/17 04/24/23 capsule vitamin B complex (B Complex 1 1 tab PO DAILY 07/02/17 04/24/23 tablet) vitamin d See Rx Instructions .Route .COMPLEX 07/02/17 04/24/23 vitamin e See Rx Instructions .Route .COMPLEX 07/02/17 04/24/23 zinc 50 mg tablet 50 mg PO DAILY 07/02/17 04/24/23 ferrous gluconate 240 mg (27 mg 100 mg PO DAILY 10/30/17 04/24/23 iron) tablet magnesium oxide 500 mg PO BID 01/08/18 04/24/23 acetaminophen 325 mg capsule 500 mg PO ONCE PRN Pain (Scale 04/06/21 04/24/23 Score 1-3) liothyronine 5 mcg tablet (Cytomel) 10 mcg PO DAILY 04/06/21 04/24/23 prasterone (dhea) 50 mg capsule 50 mg PO DAILY 04/06/21 04/24/23 (DHEA) vitamin K2 100 mcg capsule 100 mcg PO DAILY 04/06/21 04/24/23 ampicillin sodium 2 gram 12 g IV DAILY 04/05/23 04/24/23 intravenous solution Previous Rx's Medication Instructions Recorded levothyroxine 75 mcg tablet 75 mcg PO DAILY #90 tabs 08/04/20 DISABLED PARKING PERMIT #1 ea 09/25/22 diclofenac sodium 75 mg 75 mg PO BID #180 tabs 11/01/22 tablet,delayed release escitalopram oxalate 20 mg tablet 20 mg PO DAILY #90 tabs 01/21/23 (Lexapro) irbesartan 150 mg tablet 150 mg PO BID #180 tabs 01/21/23 gabapentin 600 mg tablet 600 mg PO BEDTIME #90 tabs 03/05/23 cyclobenzaprine 5 mg tablet 5 - 10 mg (1 - 2 x 5 mg) PO TID 04/05/23 PRN muscle spasm #90 tabs oxycodone-acetaminophen 5 mg-325 2 tab PO Q4-6H PRN pain #180 tabs 04/05/23 mg tablet (Percocet) hydrocortisone 10 mg tablet 35 mg (3.5 x 10 mg) PO DAILY #100 04/25/23 tabs Allergies Allergy/AdvReac Type Severity Reaction Status Date / Time pregabalin [PREGABALIN] Allergy Severe facial and Verified 04/24/23 14:35 throat swelling hydrocodone [HYDROCODONE] AdvReac Severe nausea, Verified 04/24/23 14:35 syncopal episode Review of Systems <Renetta Shaikh PA-C - Last Filed: 04/24/23 17:43> Review of Systems ROS Unobtainable: All systems reviewed & are unremarkable except as noted in HPI and below Patient History <Renetta Shaikh PA-C - Last Filed: 04/24/23 17:43> Medical History Bilateral pubic rami fractures Acute right hip pain Abnormal creatinine clearance glomerular filtration Sleep apnea HTN (hypertension) Melanoma Iron deficiency (~2000) Anxiety (Unknown) Hypothyroidism (Unknown) Bursitis (~12/2011) Chronic headaches (Unknown) Surgical History Hx of laminectomy (08/19/18) Hx of vein stripping Status post epidural steroid injection History of spinal fusion (06/23/13) History of tonsillectomy H/O Achilles tendon repair History of sinus surgery Status post dilation and curettage (11/23/16) Status post dilation and curettage History of cataract removal with insertion of prosthetic lens History of gastric bypass (2000) Status post tonsillectomy and adenoidectomy Social History household members: none Smoking Status: Never smoker alcohol intake: never Smoking Status: Never smoker Substance Use Type: does not use Exam <Renetta Shaikh PA-C - Last Filed: 04/24/23 17:43> Narrative Exam Narrative: GENERAL: 57 year old patient appears stated age. In no visible distress. Lying on gurney. NEURO: AOx3. HEAD: Atraumatic. Normocephalic. EYES: Pupils equal round and reactive. Extraocular motions intact. No scleral icterus. No injection or drainage. ENT: Nose without bleeding or purulent drainage. Airway patent. RESPIRATORY: No increased work of breathing or distress SKIN: Laceration superior to left ankle on the medial aspect. See procedures for details. Distal neurovascular exam is intact. Initial Vital Signs Initial Vital Signs: Vital Signs Temperature 98.4 F 04/24/23 15:23 Pulse Rate 95 H 04/24/23 15:23 Respiratory Rate 29 H 04/24/23 15:23 Blood Pressure 168/92 H 04/24/23 15:23 Pulse Oximetry 97 04/24/23 15:23 Oxygen Delivery Method Room Air 04/24/23 15:23 <Kaci Saldana DO - Last Filed: 04/29/23 07:27> Initial Vital Signs Initial Vital Signs: Vital Signs Temperature 98.4 F 04/24/23 15:23 Pulse Rate 95 H 04/24/23 15:23 Respiratory Rate 29 H 04/24/23 15:23 Blood Pressure 168/92 H 04/24/23 15:23 Pulse Oximetry 97 04/24/23 15:23 Oxygen Delivery Method Room Air 04/24/23 15:23 Procedures <Renetta Shaikh PA-C - Last Filed: 04/24/23 17:43> Laceration Repair Laceration 1: Description: stellate and clean (1.5 cm) Depth: simple, single layer Pre-repair: wound explored and irrigated extensively Skin layer closed with: dermabond (Reinforced with Steri-Strips, covered with an absorbent dressing) Course <Renetta Shaikh PA-C - Last Filed: 04/24/23 17:43> Orders Ordered: Discontinued Medications Diphtheria/Tetanus/Acell Pertussis (Tet,Diph,Pertuss(Acell),Vac/Pf 0.5 Ml Syringe) 0.5 ml IM .ONCE ONE Stop: 04/24/23 17:24 Last Admin: 04/24/23 17:46 Dose: 0.5 ml Documented By: SB Vital Signs Vital signs: Vital Signs - 8 hr 04/24/23 15:23 04/24/23 16:24 04/24/23 16:25 Temperature 98.4 F Pulse Rate 95 H 81 Respiratory Rate 29 H Blood Pressure 168/92 H Pulse Oximetry 97 96 96 Oxygen Delivery Method Room Air 04/24/23 16:25 04/24/23 16:30 04/24/23 16:30 Temperature Pulse Rate 78 Respiratory Rate Blood Pressure 173/78 H 149/64 H Pulse Oximetry 93 Oxygen Delivery Method 04/24/23 17:00 04/24/23 17:00 Temperature Pulse Rate 73 Respiratory Rate Blood Pressure 144/70 H Pulse Oximetry 93 Oxygen Delivery Method <Kaci Saldana DO - Last Filed: 04/29/23 07:27> Orders Ordered: Discontinued Medications Diphtheria/Tetanus/Acell Pertussis (Tet,Diph,Pertuss(Acell),Vac/Pf 0.5 Ml Syringe) 0.5 ml IM .ONCE ONE Stop: 04/24/23 17:24 Last Admin: 04/24/23 17:46 Dose: 0.5 ml Documented By: SB Vital Signs Vital signs: Vital Signs - 8 hr 04/24/23 15:23 04/24/23 16:24 04/24/23 16:25 Temperature 98.4 F Pulse Rate 95 H 81 Respiratory Rate 29 H Blood Pressure 168/92 H Pulse Oximetry 97 96 96 Oxygen Delivery Method Room Air 04/24/23 16:25 04/24/23 16:30 04/24/23 16:30 Temperature Pulse Rate 78 Respiratory Rate Blood Pressure 173/78 H 149/64 H Pulse Oximetry 93 Oxygen Delivery Method 04/24/23 17:00 04/24/23 17:00 Temperature Pulse Rate 73 Respiratory Rate Blood Pressure 144/70 H Pulse Oximetry 93 Oxygen Delivery Method MDM - Wound/Laceration <Renetta Shaikh PA-C - Last Filed: 04/24/23 17:43> [facility] [place] Narrative Medical decision making narrative: Patient presents with a laceration to her left lower extremity from her walker. Wound is clean. Irrigated extensively, discussed options with the patient to include closing with sutures versus Dermabond and Steri-Strips. She is agreeable to Dermabond and Steri-Strips and these were placed with good approximation of the wound edges. Wound covered with an absorptive dressing and loosely wrapped in an Azar bandage to provide gentle compression and decrease edema. Tdap updated. Patient tolerated the procedure well and understands return precautions. Patient's symptoms improved over duration of stay with above-stated therapies. Findings and discharge diagnosis discussed with patient/family followed by verbalization of understanding Return precautions discussed with patient/family whom verbalize understanding of diagnosis and plan Discharge Plan Departure Patient Disposition: Home Clinical Impression: Laceration Laceration of left lower extremity Qualifiers: Encounter type: initial encounter Qualified Code(s): S81.812A - Laceration without foreign body, left lower leg, initial encounter Instructions: How to Care for a Laceration After Repair Activity Restrictions/Additional Instructions: *You have been diagnosed with laceration to the left medial ankle area. Laceration was irrigated and closed with Dermabond and Steri-Strips. It was covered with a bandage and a loose Azar wrap was placed over it to help prevent swelling. You can continue walking and showering as normal. I would encourage you to use the Azar wrap when walking to prevent swelling. Take the dressing off in 2 days and observe for signs of infection. Severe pain, redness, fever or drainage with pus are signs of infection and you should come back to the emergency room. The Dermabond and Steri-Strips will fall off in a few days as the healing takes place. There is no need for prophylactic antibiotics. Your tetanus booster was updated. *What to do: *Please continue to take your regular medications as directed. [ ] New medication prescriptions sent to your pharmacy: [ ] [ ] New medication written as a paper prescription [x] No new medications given *Please follow up with your primary care provider in 2-3 days, call for an appointment. Let them know you were seen in the Emergency Department and that we ask that you be seen in follow up. We will electronically transmit a record of today's note if your PCP is in our system *If you do not have a primary care provider please contact the [facility] Resource line at [phone]. They will ask some questions about your medical history and help get you set up with a doctor in the community. *Return to Emergency Department if you should have any new, worsening or concerning symptoms, such as [fever greater than 101 F, shaking chills, worsening pain, persistent vomiting or other concerning symptoms]. Prescriptions: No Action multivitamin Capsule 1 cap PO DAILY vitamin A 10,000 unit Capsule 10,000 unit PO 2XW Rx Instructions: 2 x week ascorbic acid (vitamin C) [Vitamin C] 1,000 mg Tablet 1,000 mg PO DAILY vitamin d See Rx Instructions .ROUTE .COMPLEX Patient Comments: Twice weekly Rx Instructions: 50,000 units orally twice weekly vitamin e See Rx Instructions .ROUTE .COMPLEX Rx Instructions: 400 mg orally two to three times per week vitamin B complex [B Complex 1] Tablet 1 tab PO DAILY calcium citrate 250 mg calcium Tablet 1,000 mg PO DAILY zinc 50 mg Tablet 50 mg PO DAILY coenzyme Q10 [Co Q-10] 200 mg Capsule 200 mg PO DAILY magnesium oxide 400 mg magnesium Capsule 500 mg PO BID diphenhydramine HCl 50 MG capsule 50 mg PO HSP PRN (Reason: Insomnia) Qty: 0 levothyroxine 75 mcg tablet 75 mcg PO DAILY Qty: 90 0RF diclofenac sodium 75 mg tablet,delayed release (DR/EC) 75 mg PO BID Qty: 180 1RF irbesartan 150 mg tablet 150 mg PO BID Qty: 180 2RF escitalopram oxalate [Lexapro] 20 mg tablet 20 mg PO DAILY Qty: 90 2RF gabapentin 600 mg tablet 600 mg PO BEDTIME Qty: 90 0RF liothyronine [Cytomel] 5 mcg tablet 10 mcg PO DAILY acetaminophen 325 mg capsule 500 mg PO ONCE PRN (Reason: Pain (Scale Score 1-3)) vitamin K2 100 mcg capsule 100 mcg PO DAILY DHEA 50 mg capsule 50 mg PO DAILY (DME) DISABLED PARKING PERMIT See Rx Instructions .ROUTE .MEDSUPPLY Qty: 1 0RF Rx Instructions: I FIND THIS PATIENT TO BE MEDICALLY DISABLED AND QUALIFIED FOR DISABLE PARKING INDICATED, AND SIGNED ON THE ACCOMPANYING DISABLED PARK APPLICATION FOR INDIVIDUALS ampicillin sodium 2 gram recon soln 12 g IV DAILY Patient Comments: continous Rx Instructions: 12 grams per 600ml given over a 24 hour period, to be done for 6 weeks cyclobenzaprine 5 mg tablet 5 - 10 mg PO TID PRN (Reason: muscle spasm) Qty: 90 3RF oxycodone-acetaminophen [Percocet] 5-325 mg tablet 2 tab PO Q4-6H PRN (Reason: pain) Qty: 180 0RF Rx Instructions: Additional script given acute pelvic fractures. Watch for sedation. Stagger with other potentially sedating medicines. Call for refills if and when needed. Max 3000mg acetaminophen daily from all sources. hydrocortisone 10 mg tablet 35 mg PO DAILY Qty: 100 3RF ferrous gluconate 240 MG tablet 100 mg PO DAILY Referrals: Pina Decker DO [Primary Care Provider] - Stand Alone Forms: Patient Portal/API ED Sign-out <Kaci Saldana DO - Last Filed: 04/29/23 07:27> Cosign ED Attending Cosignature Attestation: Mid-level
[2023-04-24] MEDS: TET,DIPH,PERTUSS(ACELL),VAC/PF 0.5 ML SYRINGE IM (17:46)
== END 2023-04-24 17:57 | disposition home or self-care (01) ==
PROVIDERS: Emergency Provider Physician Assistant; PCP Family Medicine
DX: S81.812A Laceration without foreign body, left lower leg, initial encounter (principal); W01.198A Fall on same level from slipping, tripping and stumbling with subsequent striking against other object, initial encounter; Z23 Encounter for immunization
CPT/HCPCS: 12001; 90471; 99283; 90715

== ENCOUNTER → 2023-04-26 14:32 | Outpatient (ROUT) | payer BC, SELFPAY ==
[2023-03-23 19:35] VITALS: BMI 40.8
[2023-04-26 14:48] LABS: Add Manual Diff / Slide Review NO; Basophils Absolute Auto 0 /uL (0-100); Basophils Percent Auto 0.3 % (0-2); Eosinophils Absolute Auto 200 /uL (0-450); Eosinophils Percent Auto 1.3 % (2-4); Hematocrit 32.6 % (36-46); Hemoglobin 9.8 g/dL (12.0-16.0); Lymphocytes Absolute Auto 800 /uL (1100-4500); Lymphocytes Percent Auto 6.2 % (25-40); Mean Corpuscular Hemoglobin 24.2 PG (26-34); Mean Corpuscular Volume 80.7 fL (80-100); Monocytes Absolute Auto 300 /uL (0-900); Monocytes Percent Auto 2.7 % (3-14); Neutrophils Absolute Auto 11500 /uL (1500-7000); Neutrophils Percent Auto 89.5 % (50-75); Platelet Count 486 X10^3/uL (150-400); Red Blood Cell Count 4.04 X10^6/uL (4.0-5.2); Red Cell Distribution Width 18.9 % (11.6-14.8); White Blood Cell Count 12.9 X10^3/uL (4.5-11.0)
[2023-04-26 15:21] LABS: Erythrocyte Sedimentation Rate 28 MM/HR (0-20)
[2023-04-26 15:26] LABS: BUN Creatinine Ratio 19.3 (6-22); Blood Urea Nitrogen 16 mg/dL (7-17); C-Reactive Protein Quant 2.8 mg/dL (<1.0); Estimated Glomerular Filt Rate > 60 mL/min (>60)
== END ==
PROVIDERS: PCP Family Medicine; Visit Provider Internal Medicine Infectious Disease
DX: R78.81 Bacteremia (principal); M46.20 Osteomyelitis of vertebra, site unspecified
CPT/HCPCS: 82565; 84520; 85025; 85651; 86140

== ENCOUNTER 2023-05-01 09:00 | Inpatient (IN) | payer BC, SELFPAY ==
[2023-03-23 19:35] VITALS: BMI 40.8
[2023-05-01] VITALS (161 sets, daily range): BP systolic 50–169; BP diastolic 27–89; PULSE 72–106; RESP 7–34; TEMP 36.1–37.1; O2SAT 91–100; BMI 44.4
--- NOTE | 2023-05-01 09:11 | DI.RAD.S_ITS ---
PROCEDURE: XR CHEST 1V INDICATIONS: dyspnea TECHNIQUE: One view of the chest was acquired. COMPARISON: [facility], CR, XR CHEST 1V, 11/26/2022, 17:50. FINDINGS: Surgical changes and devices: Right arm PICC line projects to SVC right atrial junction. Lungs and pleura: Lungs are clear. No pleural effusions or pneumothorax. Mediastinum: Mediastinal contours appear normal. Heart size is normal. Bones and chest wall: No suspicious bony lesions. Overlying soft tissues appear unremarkable. IMPRESSION: No evidence acute pulmonary process. Dictated by: Rick Garcia M.D. on 05/01/2023 at 11:09 Approved by: Rick Garcia M.D. on 05/01/2023 at 11:10
--- NOTE | 2023-05-01 09:12 | ED_ITS ---
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 She was admitted to the hospital on December 03 with right thigh cellulitis and bacteremia and again March 23 through with possible T12- L1 diskitis with Enterococcus faecalis and as of yesterday completed 6 weeks of IV ampicillin via PICC line. She had a routine screening colonoscopy on April 21 that was unremarkable. She comes in today after having large amount of melena. She has no history of prior GI bleeding. She has not vomiting or complaining of abdominal pain. She thought she was simply going to have diarrhea and has had large volumes of melena, based on pictures and blood currently present I estimate 2-3 L of blood have come out. She was significantly orthostatic and doing better lying flat. Risk factors include continuous prednisone (with severe osteoporosis, spontaneous pelvic fracture in September of 2022) and diclofenac. She does not take aspirin or other nonsteroidals. She describes no recent fevers, cough, chills, abdominal pain. She does have a PICC line in her right upper extremity. Related Data Home Medications Medication Instructions Recorded Confirmed diphenhydramine HCl 50 mg capsule 50 mg PO HSP PRN Insomnia ##0 07/02/16 05/01/23 ascorbic acid (vitamin C) 1,000 mg 1,000 mg PO DAILY 07/02/17 05/01/23 tablet (Vitamin C) calcium citrate 1,000 mg PO DAILY 07/02/17 05/01/23 coenzyme Q10 200 mg capsule (Co 200 mg PO DAILY 07/02/17 05/01/23 Q-10) multivitamin 1 cap PO DAILY 07/02/17 05/01/23 vitamin A 3,000 mcg (10,000 unit) 10,000 unit PO 2XW 07/02/17 05/01/23 capsule vitamin B complex (B Complex 1 1 tab PO DAILY 07/02/17 05/01/23 tablet) vitamin d See Rx Instructions .Route .COMPLEX 07/02/17 05/01/23 vitamin e See Rx Instructions .Route .COMPLEX 07/02/17 05/01/23 zinc 50 mg tablet 50 mg PO DAILY 07/02/17 05/01/23 ferrous gluconate 240 mg (27 mg 100 mg PO DAILY 10/30/17 05/01/23 iron) tablet magnesium oxide 500 mg PO BID 01/08/18 05/01/23 acetaminophen 325 mg capsule 500 mg PO ONCE PRN Pain (Scale 04/06/21 05/01/23 Score 1-3) liothyronine 5 mcg tablet (Cytomel) 10 mcg PO DAILY 04/06/21 05/01/23 prasterone (dhea) 50 mg capsule 50 mg PO DAILY 04/06/21 05/01/23 (DHEA) vitamin K2 100 mcg capsule 100 mcg PO DAILY 04/06/21 05/01/23 ampicillin sodium 2 gram 12 g IV DAILY 04/05/23 05/01/23 intravenous solution Previous Rx's Medication Instructions Recorded levothyroxine 75 mcg tablet 75 mcg PO DAILY #90 tabs 08/04/20 DISABLED PARKING PERMIT #1 ea 09/25/22 diclofenac sodium 75 mg 75 mg PO BID #180 tabs 11/01/22 tablet,delayed release escitalopram oxalate 20 mg tablet 20 mg PO DAILY #90 tabs 01/21/23 (Lexapro) irbesartan 150 mg tablet 150 mg PO BID #180 tabs 01/21/23 gabapentin 600 mg tablet 600 mg PO BEDTIME #90 tabs 03/05/23 cyclobenzaprine 5 mg tablet 5 - 10 mg (1 - 2 x 5 mg) PO TID 04/05/23 PRN muscle spasm #90 tabs oxycodone-acetaminophen 5 mg-325 2 tab PO Q4-6H PRN pain #180 tabs 04/05/23 mg tablet (Percocet) hydrocortisone 10 mg tablet 35 mg (3.5 x 10 mg) PO DAILY #100 04/25/23 tabs Allergies Allergy/AdvReac Type Severity Reaction Status Date / Time pregabalin [PREGABALIN] Allergy Severe facial and Verified 04/24/23 14:35 throat swelling hydrocodone [HYDROCODONE] AdvReac Severe nausea, Verified 04/24/23 14:35 syncopal episode Review of Systems Review of Systems Narrative: Pertinent positive and negative findings as per HPI Patient History Medical History Bilateral pubic rami fractures Acute right hip pain Abnormal creatinine clearance glomerular filtration Sleep apnea HTN (hypertension) Melanoma Iron deficiency (~2000) Anxiety (Unknown) Hypothyroidism (Unknown) Bursitis (~12/2011) Chronic headaches (Unknown) Surgical History Hx of laminectomy (08/19/18) Hx of vein stripping Status post epidural steroid injection History of spinal fusion (06/23/13) History of tonsillectomy H/O Achilles tendon repair History of sinus surgery Status post dilation and curettage (11/23/16) Status post dilation and curettage History of cataract removal with insertion of prosthetic lens History of gastric bypass (2000) Status post tonsillectomy and adenoidectomy Social History household members: none Smoking Status: Never smoker alcohol intake: never Smoking Status: Never smoker Substance Use Type: does not use Exam Initial Vital Signs Initial Vital Signs: Vital Signs Temperature 97.7 F 05/01/23 09:00 Pulse Rate 83 05/01/23 09:00 Respiratory Rate 14 05/01/23 09:00 Blood Pressure 115/66 05/01/23 09:00 Pulse Oximetry 92 05/01/23 09:00 Oxygen Delivery Method Room Air 05/01/23 09:00 General: Chronically ill-appearing, extraordinarily pale, lying flat alert and able to give a complete and coherent history. She is covered in blood from the melena at home HEENT: Very dry and mucous membranes, normal sclera with reactive pupils, Respiratory: Lungs are clear to auscultation, no wheezing no rales no rhonchi. Full and symmetrical air movement Cardiac: Regular rate and rhythm no murmurs no bruits Abdomen: Soft, nontender, hyperactive bowel tones, no flank pain Skin: Very pale. Multiple bruises in various stages of healing, she is a Band- Aid over an abrasion on her right elbow. PICC line in the right upper extremity Neurologic: Globally weak but she is moving all extremities Extremities: No specific trauma, peripheries are cool to the touch with delayed perfusion Psych: Cooperative, appropriate insight and affect Course Orders Ordered: ED Orders 05/01/23 11:23 Urinalysis and Microscopic Stat 05/01/23 11:59 Consult to Tele-crm analyst Routine Cyclobenzaprine HCl (Cyclobenzaprine 10 Mg Tablet) 5 mg PO Q8HR PRN PRN Reason: Muscle Spasm Last Admin: 05/01/23 16:59 Dose: 5 mg Documented By: Escitalopram Oxalate (Escitalopram 10 Mg Tablet) 20 mg PO DAILY JENNY Gabapentin (Gabapentin 600 Mg Tablet) 600 mg PO BEDTIME JENNY Hydrocortisone (Hydrocortisone 10 Mg Tablet) 35 mg PO DAILY JENNY Levothyroxine Sodium (Levothyroxine 75 Mcg Tablet) 75 mcg PO DAILY@0600 JENNY Liothyronine Sodium (Liothyronine 5 Mcg Tablet) 10 mcg PO DAILY@0600 JENNY Morphine Sulfate (Morphine 4 Mg/Ml Inj) 2 mg IV Q2HR PRN PRN Reason: Pain, Mild (1-3) Last Admin: 05/01/23 15:39 Dose: 2 mg Documented By: Naloxone HCl (Naloxone 0.4 Mg/Ml Vial) 0.2 mg IV Q2MIN PRN PRN Reason: Opiate Reversal Ondansetron HCl (Ondansetron 4 Mg/2 Ml Inj) 4 mg IV NOW PRN PRN Reason: Nausea And Vomiting Oxycodone/Acetaminophen (Oxycodone/Acetaminophen 5/325 Tablet) 2 tab PO Q4H PRN PRN Reason: pain Last Admin: 05/01/23 16:18 Dose: 2 tab Documented By: Pantoprazole Sodium (Pantoprazole 40 Mg Vial) 40 mg IV BID [facility] Discontinued Medications Fentanyl (Fentanyl 100 Mcg/2 Ml Inj) 50 mcg IV NOW ONE Stop: 05/01/23 15:19 Last Admin: 05/01/23 15:27 Dose: 50 mcg Documented By: ALMITA Hydromorphone HCl (Hydromorphone 0.5 Mg Inj) 1 mg IV NOW ONE Stop: 05/01/23 11:28 Last Admin: 05/01/23 11:39 Dose: 1 mg Documented By: XENIA Sodium Chloride (Normal Saline 0.9%) 1,000 mls @ 150 mls/hr IV CONT JENNY Last Infusion: 05/01/23 11:40 Dose: Infused Documented By: Admin: 05/01/23 09:40 Dose: 150 mls/hr Documented By: XENIA Ondansetron HCl (Ondansetron 4 Mg/2 Ml Inj) 4 mg IV NOW ONE Stop: 05/01/23 09:11 Last Admin: 05/01/23 09:40 Dose: 4 mg Documented By: XENIA Oxycodone HCl (Oxycodone Ir 5 Mg Tablet) 5 mg PO PAC[place]OW PRN PRN Reason: Mild or moderate pain Pantoprazole Sodium (Pantoprazole 40 Mg Vial) 80 mg IV NOW ONE Stop: 05/01/23 09:13 Last Admin: 05/01/23 09:40 Dose: 80 mg Documented By: XENIA Vital Signs Vital signs: Vital Signs - 8 hr 05/01/23 10:44 05/01/23 10:45 05/01/23 10:45 Pulse Rate 84 82 Respiratory Rate 16 16 Blood Pressure 101/55 L Pulse Oximetry 100 99 05/01/23 10:46 05/01/23 10:48 05/01/23 10:48 Pulse Rate 82 81 Respiratory Rate 14 15 Blood Pressure 102/56 L Pulse Oximetry 99 99 05/01/23 10:50 05/01/23 10:51 05/01/23 10:51 Pulse Rate 80 80 Respiratory Rate 15 20 Blood Pressure 105/52 L Pulse Oximetry 100 100 05/01/23 10:54 05/01/23 10:54 05/01/23 10:55 Pulse Rate 80 80 Respiratory Rate 26 H 15 Blood Pressure 105/54 L Pulse Oximetry 100 100 Medical Decision Making Lab Data 05/01/23 17:10 05/01/23 09:12 Labs: Lab Results 05/01/23 05/01/23 05/01/23 Range/Units 09:12 09:35 09:35 WBC 15.4 H (4.5-11.0) X10^3/uL RBC 2.72 L (4.0-5.2) X10^6/uL Hgb 6.8 L* (12.0-16.0) g/dL Hct 22.2 L (36-46) % MCV 81.5 (80-100) fL MCH 25.0 L (26-34) PG MCHC 30.7 (30-36) % RDW 18.0 H (11.6-14.8) % Plt Count 483 H (150-400) X10^3/uL Neut % (Auto) 80.2 H (50-75) % Lymph % (Auto) 13.4 L (25-40) % [place] % (Auto) 5.2 (3-14) % Eos % (Auto) 0.9 L (2-4) % Baso % (Auto) 0.3 (0-2) % Neut # (Auto) 07873 H (4900-6341) /uL Lymph # (Auto) 2100 (8895-6775) /uL [place] # (Auto) 800 (0-900) /uL Eos # (Auto) 100 (0-450) /uL Baso # (Auto) 0 (0-100) /uL PT 12.2 (9.4-12.5) SECONDS INR 1.1 (0.9-1.3) APTT (25.1-36.5) SECONDS Fibrinogen (238-498) mg/dL Sodium 141 (137-145) mmol/L Potassium 4.1 (3.4-5.1) mmol/L Chloride 110 H (98-107) mmol/L Carbon Dioxide 23 (22-32) mmol/L BUN 22 H (7-17) mg/dL Creatinine 1.08 H (0.52-1.04) mg/dL Estimated GFR 60 (>60) mL/min BUN/Creatinine Ratio 20.4 (6-22) Glucose 205 H (70-100) mg/dL Calcium 8.0 L (8.4-10.2) mg/dL Magnesium 2.3 (1.6-2.3) mg/dL Total Bilirubin 0.5 (0.2-1.3) mg/dL AST 113 H (14-36) IU/L ALT 37 H (<35) IU/L Alkaline Phosphatase 110 (38-126) U/L Total Protein 5.0 L (6.3-8.2) g/dL Albumin 2.8 L (3.5-5.0) g/dL Globulin 2.2 (1.7-4.1) g/dL Albumin/Globulin Ratio 1.3 (1.0-2.8) Blood Type Cancelled B Positive Rho(D) Type Cancelled Antibody Screen Cancelled Crossmatch 05/01/23 05/01/23 Range/Units 09:35 10:23 WBC (4.5-11.0) X10^3/uL RBC (4.0-5.2) X10^6/uL Hgb 9.8 L (12.0-16.0) g/dL Hct 30.6 L (36-46) % MCV (80-100) fL MCH (26-34) PG MCHC (30-36) % RDW (11.6-14.8) % Plt Count 329 (150-400) X10^3/uL Neut % (Auto) (50-75) % Lymph % (Auto) (25-40) % [place] % (Auto) (3-14) % Eos % (Auto) (2-4) % Baso % (Auto) (0-2) % Neut # (Auto) (3467-9380) /uL Lymph # (Auto) (9542-8215) /uL [place] # (Auto) (0-900) /uL Eos # (Auto) (0-450) /uL Baso # (Auto) (0-100) /uL PT 12.5 (9.4-12.5) SECONDS INR 1.1 (0.9-1.3) APTT 23 L (25.1-36.5) SECONDS Fibrinogen 241 (238-498) mg/dL Sodium (137-145) mmol/L Potassium (3.4-5.1) mmol/L Chloride (98-107) mmol/L Carbon Dioxide (22-32) mmol/L BUN (7-17) mg/dL Creatinine (0.52-1.04) mg/dL Estimated GFR (>60) mL/min BUN/Creatinine Ratio (6-22) Glucose (70-100) mg/dL Calcium (8.4-10.2) mg/dL Magnesium (1.6-2.3) mg/dL Total Bilirubin (0.2-1.3) mg/dL AST (14-36) IU/L ALT (<35) IU/L Alkaline Phosphatase (38-126) U/L Total Protein (6.3-8.2) g/dL Albumin (3.5-5.0) g/dL Globulin (1.7-4.1) g/dL Albumin/Globulin Ratio (1.0-2.8) Blood Type Rho(D) Type Antibody Screen Negative Crossmatch See Detail MDM Narrative Medical decision making narrative: CC: Large amount of melena with significant symptomatic volume depletion Complicating co-morbidities: Chronic prednisone, chronic diclofenac, recent 6 week ampicillin course via PICC line, chronic pain secondary to multiple factors exacerbated by diskitis for which she was on the ampicillin. Data collected from: patient Medical records reviewed: Primary care note from April 05, 2023 is reviewed, colonoscopy note from April 22, 2023 is reviewed Discharge summary from March 25 is reviewed Differential considered: Brisk upper GI bleed, doubt diverticular bleed given the color and smell of the blood Exam documented above, pertinent findings include: Pale, hypotensive, poorly perfused peripherally, covered in dried blood from the waist down secondary to episode of melena at home Lab Test results independently reviewed as above. Pertinent findings: CBC shows leukocytosis at 15.4 an initial hemoglobin of 6.8 with hematocrit 22.2. This is before any volume resuscitation. Platelets are elevated at 483 Chemistries are notable for a slight increase in creatinine from her baseline of 0.8-1.0. Slight elevation of AST and ALT with normal bilirubin and alkaline phosphatase. Independently reviewed EKG: Sinus rhythm at a rate of 82, no acute ischemic changes. Normal intervals normal axis Imaging studies independently reviewed: Chest x-ray is unremarkable, no significant cardiomegaly or infiltrates appreciated no pneumothorax or pleural effusions. Consultations: 945 Dr Schroeder, gen surg. Aware of patient and ongoing resucitation. Will see if GI doc may be in house for consultation. 952 Massive transfusion protocol activated. Pressure 52 systolic. 2 more uncrossed units/platelets/FFP ordered. Discussed with lab specifically 1009 Dr Schroeder in the room. Blood transfusing. Pressure up to 72 systolic. 3rd large bore peripheral IV started. 1030 Dr Manzo, Dr Schroeder and Dr Stevenson all involved. Dr Stevenson will plan on scope around 1 pm 11am systolic up to 100. 5 units blood transfused. RRP running, platelets coming. Treatments: Due to obvious large GI source with symptomatic findings, based on score caller pictures from clots and blood in the bathroom at home, as well as blood currently in the emergency department estimate minimum of 3 L have come out and likely more in her GI tract. We will transfuse 2 units of packed red cells immediately, non cross-matched Re-evaluations: 940am blood available, getting rapid transfuser Discussion: 57-year-old woman with no prior history of upper GI bleeding presents with significant melena, hypotensive and signs of continued active GI bleeding. Aggressive fluid resuscitation begin with blood replacement, massive transfusion protocol was initiated, after 5 units of blood, FFP pressure was stable with systolics above 100. Likely reason for the upright upper GI bleed is her chronic prednisone as well as diclofenac. Care is reviewed with consulting surgical service, Gastroenterology as well as admitting hospitalist service. Patient tolerated the resuscitation well and is actually doing relatively well at time of transfer to the intensive care unit with anticipation of endoscopy to happen within the next number of hours. Critical Care Time Critical Care Time Critical Care Time: Yes Total Critical Care Time: 49 Attestation: Critical care time is separate from other billable procedures. There is a high probability of a significant, sudden or life-threatening deterioration that requires my full and direct attention, intervention and personal management. This critical care time includes consultation with family and other consulting doctors, review of records, and interpretation of data from labs, EKGs and imaging as well as managements of severe blood loss anemia with massive transfusion protocol activated for upper GI bleed Discharge Plan Departure Patient Disposition: Admitted As Inpatient Clinical Impression: Acute upper gastrointestinal bleeding, Acute blood loss anemia Admit Date/Time: 05/01/23 10:56 Admit Provider: Thompson Manzo
[2023-05-01] MEDS: SODIUM CHLORIDE 0.9% 1,000 ML 150 ML IV (09:40)
[2023-05-01] MEDS: PANTOPRAZOLE 40 MG VIAL 80 MG IV (09:40)
[2023-05-01] MEDS: ONDANSETRON 4 MG/2 ML INJ IV (09:40)
[2023-05-01 09:42] LABS: Add Manual Diff / Slide Review NO; Basophils Absolute Auto 0 /uL (0-100); Basophils Percent Auto 0.3 % (0-2); Eosinophils Absolute Auto 100 /uL (0-450); Eosinophils Percent Auto 0.9 % (2-4); Hematocrit 22.2 % (36-46); Lymphocytes Absolute Auto 2100 /uL (1100-4500); Lymphocytes Percent Auto 13.4 % (25-40); Mean Corpuscular HGB Conc 30.7 % (30-36); Mean Corpuscular Volume 81.5 fL (80-100); Monocytes Absolute Auto 800 /uL (0-900); Monocytes Percent Auto 5.2 % (3-14); Neutrophils Absolute Auto 12400 /uL (1500-7000); Neutrophils Percent Auto 80.2 % (50-75); Platelet Count 483 X10^3/uL (150-400); Red Blood Cell Count 2.72 X10^6/uL (4.0-5.2); White Blood Cell Count 15.4 X10^3/uL (4.5-11.0)
[2023-05-01 09:43] LABS: Hemoglobin 6.8 g/dL (12.0-16.0); INR 1.1 (0.9-1.3); Prothrombin Time 12.2 SECONDS (9.4-12.5)
--- NOTE | 2023-05-01 09:43 | PC.NURSE ---
Critical HGB 6.[address] called from the lab. Dr Steward notified.
[2023-05-01 09:47] LABS: Alanine Aminotransferase 37 IU/L (<35); Albumin 2.8 g/dL (3.5-5.0); Albumin Globulin Ratio 1.3 (1.0-2.8); Alkaline Phosphatase 110 U/L (38-126); Aspartate Aminotransferase 113 IU/L (14-36); BUN Creatinine Ratio 20.4 (6-22); Bilirubin Total 0.5 mg/dL (0.2-1.3); Blood Urea Nitrogen 22 mg/dL (7-17); Carbon Dioxide 23 mmol/L (22-32); Chloride 110 mmol/L (98-107); Estimated Glomerular Filt Rate 60 mL/min (>60); Globulin 2.2 g/dL (1.7-4.1); Glucose 205 mg/dL (70-100); HEMOLYSIS < 15 (0-50); Magnesium 2.3 mg/dL (1.6-2.3); Potassium 4.1 mmol/L (3.4-5.1); Sodium 141 mmol/L (137-145)
--- NOTE | 2023-05-01 10:16 | PC.NURSE ---
Addendum entered by Kizzy Loomis, RZeferino 05/01/23 10:40: Original note entered by Kizzy Loomis RN Original Note: Pt received 2 units PRBC Emergency release. Code MTP initiated thereafter. Lab aware. Pt AAOx3 and resting in trendelenburg position. O2 applied at 6L NC. [place] rapid infuser being used through 20G R PIV.
--- NOTE | 2023-05-01 10:25 | PC.NURSE ---
Addendum entered by Kizzy Loomis R.N. 05/01/23 10:39: Original note entered by Kizzy Loomis RN Original Note: HR 78 BP 84/51. Awaiting 3 units of FFP from Lab. Awaiting platelets.
[2023-05-01 10:34] LABS: Hematocrit 30.6 % (36-46); Hemoglobin 9.8 g/dL (12.0-16.0); Platelet Count 329 X10^3/uL (150-400)
--- NOTE | 2023-05-01 10:40 | PC.NURSE ---
2nd release of MTP cancelled at [address] Schroeder at bedside. Plan is for admission and consultation with hospitalist for EGD later today. Lungs auscultated after 5 units PRBCs and 3 units FFP. Clear and RR even and unlabored.
[2023-05-01 10:41] LABS: INR 1.1 (0.9-1.3); Prothrombin Time 12.5 SECONDS (9.4-12.5)
[2023-05-01 10:42] LABS: Fibrinogen 241 mg/dL (238-498)
[2023-05-01 10:44] LABS: PTT Partial Thromboplastin Tim 23 SECONDS (25.1-36.5)
--- NOTE | 2023-05-01 11:02 | P.CONS_ITS ---
History of Present Illness Consult details Date Patient Seen: 05/01/23 Time Patient Seen: 11:02 Chief complaint: GI Bleed Narrative: Nini is a 57-year-old woman who presented to the ER this morning with significant melena. She has not had any abdominal pain. She did have a colonoscopy by Dr. Mcgarry within the past 2 weeks that was normal. No biopsies were taken. She does take prednisone and diclofenac. She was quite hypotensive and anemic on arrival to the ER and a rapid transfusion was initiated. After about 4 units of packed cells and 1 unit of FFP her vital signs were normal. Her hemoglobin came up appropriately. She feels better and has more mental clarity following the rapid transfusion. Meds Home Medications and Allergies Home Medications Medication Instructions Recorded Confirmed Type diphenhydramine HCl 50 mg capsule 50 mg PO HSP PRN Insomnia ##0 07/02/16 05/01/23 History ascorbic acid (vitamin C) 1,000 mg 1,000 mg PO DAILY 07/02/17 05/01/23 History tablet (Vitamin C) calcium citrate 1,000 mg PO DAILY 07/02/17 05/01/23 History coenzyme Q10 200 mg capsule (Co 200 mg PO DAILY 07/02/17 05/01/23 History Q-10) multivitamin 1 cap PO DAILY 07/02/17 05/01/23 History vitamin A 3,000 mcg (10,000 unit) 10,000 unit PO 2XW 07/02/17 05/01/23 History capsule vitamin B complex (B Complex 1 1 tab PO DAILY 07/02/17 05/01/23 History tablet) vitamin d See Rx Instructions .Route .COMPLEX 07/02/17 05/01/23 History vitamin e See Rx Instructions .Route .COMPLEX 07/02/17 05/01/23 History zinc 50 mg tablet 50 mg PO DAILY 07/02/17 05/01/23 History ferrous gluconate 240 mg (27 mg 100 mg PO DAILY 10/30/17 05/01/23 History iron) tablet magnesium oxide 500 mg PO BID 01/08/18 05/01/23 History levothyroxine 75 mcg tablet 75 mcg PO DAILY #90 tabs 08/04/20 05/01/23 Rx acetaminophen 325 mg capsule 500 mg PO ONCE PRN Pain (Scale 04/06/21 05/01/23 History Score 1-3) liothyronine 5 mcg tablet (Cytomel) 10 mcg PO DAILY 04/06/21 05/01/23 History prasterone (dhea) 50 mg capsule 50 mg PO DAILY 04/06/21 05/01/23 History (DHEA) vitamin K2 100 mcg capsule 100 mcg PO DAILY 04/06/21 05/01/23 History DISABLED PARKING PERMIT #1 ea 09/25/22 05/01/23 Rx diclofenac sodium 75 mg 75 mg PO BID #180 tabs 11/01/22 05/01/23 Rx tablet,delayed release escitalopram oxalate 20 mg tablet 20 mg PO DAILY #90 tabs 01/21/23 05/01/23 Rx (Lexapro) irbesartan 150 mg tablet 150 mg PO BID #180 tabs 01/21/23 05/01/23 Rx gabapentin 600 mg tablet 600 mg PO BEDTIME #90 tabs 03/05/23 05/01/23 Rx ampicillin sodium 2 gram 12 g IV DAILY 04/05/23 05/01/23 History intravenous solution cyclobenzaprine 5 mg tablet 5 - 10 mg (1 - 2 x 5 mg) PO TID 04/05/23 05/01/23 Rx PRN muscle spasm #90 tabs oxycodone-acetaminophen 5 mg-325 2 tab PO Q4-6H PRN pain #180 tabs 04/05/23 05/01/23 Rx mg tablet (Percocet) hydrocortisone 10 mg tablet 35 mg (3.5 x 10 mg) PO DAILY #100 04/25/23 05/01/23 Rx tabs Allergies Allergy/AdvReac Type Severity Reaction Status Date / Time pregabalin [PREGABALIN] Allergy Severe facial and Verified 04/24/23 14:35 throat swelling hydrocodone [HYDROCODONE] AdvReac Severe nausea, Verified 04/24/23 14:35 syncopal episode Exam Vital Signs (past 8 hours): - 05/01/23 09:00 05/01/23 09:11 05/01/23 09:15 Temperature 97.7 F Pulse Rate 83 102 H 100 H Respiratory Rate 14 29 H 15 Blood Pressure 115/66 Blood Pressure [Left Arm] Pulse Oximetry 92 97 96 Oxygen Delivery Method Room Air Oxygen Flow Rate 05/01/23 09:20 05/01/23 09:25 05/01/23 09:30 Temperature Pulse Rate 101 H 106 H 78 Respiratory Rate 16 19 14 Blood Pressure Blood Pressure [Left Arm] 91/54 L Pulse Oximetry 94 97 92 Oxygen Delivery Method Room Air Oxygen Flow Rate 05/01/23 09:30 05/01/23 09:35 05/01/23 09:37 Temperature Pulse Rate 98 H 99 H 96 H Respiratory Rate 15 16 10 L Blood Pressure Blood Pressure [Left Arm] Pulse Oximetry 95 94 96 Oxygen Delivery Method Oxygen Flow Rate 05/01/23 09:37 05/01/23 09:40 05/01/23 09:45 Temperature 97.9 F Pulse Rate 96 H 94 H Respiratory Rate 18 16 Blood Pressure 65/38 L 53/32 L Blood Pressure [Left Arm] Pulse Oximetry 94 Oxygen Delivery Method Oxygen Flow Rate 05/01/23 09:45 05/01/23 09:45 05/01/23 09:50 Temperature Pulse Rate 93 H 95 H Respiratory Rate 14 16 Blood Pressure 53/32 L Blood Pressure [Left Arm] Pulse Oximetry 93 95 Oxygen Delivery Method Oxygen Flow Rate 05/01/23 09:51 05/01/23 09:51 05/01/23 09:54 Temperature Pulse Rate 94 H Respiratory Rate 17 Blood Pressure 53/29 L 50/29 L Blood Pressure [Left Arm] Pulse Oximetry 97 Oxygen Delivery Method Oxygen Flow Rate 05/01/23 09:54 05/01/23 09:55 05/01/23 09:55 Temperature Pulse Rate 93 H 93 H Respiratory Rate 16 16 Blood Pressure 51/27 L Blood Pressure [Left Arm] Pulse Oximetry 92 93 Oxygen Delivery Method Oxygen Flow Rate 05/01/23 09:56 05/01/23 09:58 05/01/23 09:58 Temperature 98.4 F Pulse Rate 93 H 92 H Respiratory Rate 16 19 Blood Pressure 51/29 L 69/42 L Blood Pressure [Left Arm] Pulse Oximetry 97 Oxygen Delivery Method Oxygen Flow Rate 05/01/23 10:00 05/01/23 10:01 05/01/23 10:01 Temperature Pulse Rate 97 H 94 H Respiratory Rate 14 17 Blood Pressure 86/47 L Blood Pressure [Left Arm] Pulse Oximetry 98 96 Oxygen Delivery Method Oxygen Flow Rate 05/01/23 10:03 05/01/23 10:03 05/01/23 10:05 Temperature 98.4 F Pulse Rate 91 H 94 H Respiratory Rate 18 14 Blood Pressure 76/49 L 76/40 L Blood Pressure [Left Arm] Pulse Oximetry 96 Oxygen Delivery Method Oxygen Flow Rate 05/01/23 10:05 05/01/23 10:06 05/01/23 10:06 Temperature Pulse Rate 91 H 90 Respiratory Rate 17 18 Blood Pressure 76/50 L Blood Pressure [Left Arm] Pulse Oximetry 93 96 Oxygen Delivery Method Oxygen Flow Rate 05/01/23 10:09 05/01/23 10:09 05/01/23 10:10 Temperature 97.5 F L Pulse Rate 88 78 Respiratory Rate 20 16 Blood Pressure 79/48 L 87/52 L Blood Pressure [Left Arm] Pulse Oximetry 94 Oxygen Delivery Method Oxygen Flow Rate 05/01/23 10:10 05/01/23 10:12 05/01/23 10:12 Temperature Pulse Rate 86 84 Respiratory Rate 19 19 Blood Pressure 83/50 L Blood Pressure [Left Arm] Pulse Oximetry 91 Oxygen Delivery Method Oxygen Flow Rate 05/01/23 10:15 05/01/23 10:15 05/01/23 10:18 Temperature Pulse Rate 80 Respiratory Rate 14 Blood Pressure 83/50 L 85/51 L Blood Pressure [Left Arm] Pulse Oximetry 100 Oxygen Delivery Method Oxygen Flow Rate 05/01/23 10:18 05/01/23 10:20 05/01/23 10:21 Temperature 97.9 F Pulse Rate 82 84 93 H Respiratory Rate 18 20 14 Blood Pressure 51/27 L Blood Pressure [Left Arm] Pulse Oximetry 99 100 Oxygen Delivery Method Nasal Cannula Oxygen Flow Rate 2 05/01/23 10:21 05/01/23 10:21 05/01/23 10:24 Temperature Pulse Rate 82 78 Respiratory Rate 17 17 Blood Pressure 85/48 L Blood Pressure [Left Arm] Pulse Oximetry 99 100 Oxygen Delivery Method Nasal Cannula Nasal Cannula Oxygen Flow Rate 2 2 05/01/23 10:24 05/01/23 10:25 05/01/23 10:26 Temperature 97.5 F L Pulse Rate 80 82 Respiratory Rate 22 16 Blood Pressure 84/51 L 84/51 L Blood Pressure [Left Arm] Pulse Oximetry 100 Oxygen Delivery Method Nasal Cannula Oxygen Flow Rate 2 05/01/23 10:27 05/01/23 10:27 05/01/23 10:30 Temperature 97.5 F L Pulse Rate 78 78 Respiratory Rate 13 16 Blood Pressure 87/52 L 91/54 L Blood Pressure [Left Arm] Pulse Oximetry 99 Oxygen Delivery Method Nasal Cannula Oxygen Flow Rate 2 05/01/23 10:30 05/01/23 10:30 05/01/23 10:33 Temperature Pulse Rate 78 Respiratory Rate 15 Blood Pressure 91/54 L 89/55 L Blood Pressure [Left Arm] Pulse Oximetry 95 Oxygen Delivery Method Nasal Cannula Oxygen Flow Rate 2 05/01/23 10:33 05/01/23 10:34 05/01/23 10:36 Temperature Pulse Rate 84 84 86 Respiratory Rate 27 H 22 23 Blood Pressure Blood Pressure [Left Arm] Pulse Oximetry 98 98 97 Oxygen Delivery Method Nasal Cannula Oxygen Flow Rate 2 05/01/23 10:37 05/01/23 10:37 05/01/23 10:38 Temperature 97.5 F L Pulse Rate 82 82 Respiratory Rate 15 14 Blood Pressure 101/55 L 101/55 L Blood Pressure [Left Arm] Pulse Oximetry 96 Oxygen Delivery Method Oxygen Flow Rate 05/01/23 10:38 05/01/23 10:39 05/01/23 10:39 Temperature Pulse Rate 82 81 Respiratory Rate 14 16 Blood Pressure 97/55 L Blood Pressure [Left Arm] Pulse Oximetry 94 96 Oxygen Delivery Method Oxygen Flow Rate 05/01/23 10:40 05/01/23 10:42 05/01/23 10:42 Temperature Pulse Rate 85 85 Respiratory Rate 17 17 Blood Pressure 97/57 L Blood Pressure [Left Arm] Pulse Oximetry 98 99 Oxygen Delivery Method Oxygen Flow Rate 05/01/23 10:44 05/01/23 10:45 05/01/23 10:45 Temperature Pulse Rate 84 82 Respiratory Rate 16 16 Blood Pressure 101/55 L Blood Pressure [Left Arm] Pulse Oximetry 100 99 Oxygen Delivery Method Oxygen Flow Rate 05/01/23 10:46 05/01/23 10:48 05/01/23 10:48 Temperature Pulse Rate 82 81 Respiratory Rate 14 15 Blood Pressure 102/56 L Blood Pressure [Left Arm] Pulse Oximetry 99 99 Oxygen Delivery Method Oxygen Flow Rate Oxygen Delivery Method Nasal Cannula Oxygen Flow Rate 2 Const General: No acute distress Nutritional Appearance: obese Orientation: alert and awake Resp Effort & Inspection: normal respiratory effort GI Palpation: soft and No tender Objective Labs 05/01/23 10:23 05/01/23 09:12 Labs: Laboratory Results - last 24 hr 05/01/23 05/01/23 05/01/23 09:12 09:35 09:35 WBC 15.4 H RBC 2.72 L Hgb 6.8 L* Hct 22.2 L MCV 81.5 MCH 25.0 L MCHC 30.7 RDW 18.0 H Plt Count 483 H Neut % (Auto) 80.2 H Lymph % (Auto) 13.4 L [place] % (Auto) 5.2 Eos % (Auto) 0.9 L Baso % (Auto) 0.3 Neut # (Auto) 41471 H Lymph # (Auto) 2100 [place] # (Auto) 800 Eos # (Auto) 100 Baso # (Auto) 0 PT 12.2 INR 1.1 APTT Fibrinogen Sodium 141 Potassium 4.1 Chloride 110 H Carbon Dioxide 23 BUN 22 H Creatinine 1.08 H Estimated GFR 60 BUN/Creatinine Ratio 20.4 Glucose 205 H Calcium 8.0 L Magnesium 2.3 Total Bilirubin 0.5 AST 113 H ALT 37 H Alkaline Phosphatase 110 Total Protein 5.0 L Albumin 2.8 L Globulin 2.2 Albumin/Globulin Ratio 1.3 Blood Type B Positive Antibody Screen Negative Crossmatch See Detail See Detail 05/01/23 10:23 WBC RBC Hgb 9.8 L Hct 30.6 L MCV MCH MCHC RDW Plt Count 329 Neut % (Auto) Lymph % (Auto) [place] % (Auto) Eos % (Auto) Baso % (Auto) Neut # (Auto) Lymph # (Auto) [place] # (Auto) Eos # (Auto) Baso # (Auto) PT 12.5 INR 1.1 APTT 23 L Fibrinogen 241 Sodium Potassium Chloride Carbon Dioxide BUN Creatinine Estimated GFR BUN/Creatinine Ratio Glucose Calcium Magnesium Total Bilirubin AST ALT Alkaline Phosphatase Total Protein Albumin Globulin Albumin/Globulin Ratio Blood Type Antibody Screen Crossmatch [facility] Medical History Bilateral pubic rami fractures Acute right hip pain Abnormal creatinine clearance glomerular filtration Sleep apnea HTN (hypertension) Melanoma Iron deficiency (~2000) Anxiety (Unknown) Hypothyroidism (Unknown) Bursitis (~12/2011) Chronic headaches (Unknown) Surgical History Hx of laminectomy (08/19/18) Hx of vein stripping Status post epidural steroid injection History of spinal fusion (06/23/13) History of tonsillectomy H/O Achilles tendon repair History of sinus surgery Status post dilation and curettage (11/23/16) Status post dilation and curettage History of cataract removal with insertion of prosthetic lens History of gastric bypass (2000) Status post tonsillectomy and adenoidectomy Social History household members: none Tobacco & Substance Use Smoking Status: Never smoker alcohol intake: never Assessment & Plan Assessment and plan (1) Melena: Status: Acute Plan Given her use of prednisone and diclofenac and recent normal colonoscopy she is highly likely to have a bleeding peptic ulcer. I recommend an EGD as soon as her hemoglobin and vital signs have normalized. Dr. Jose Stevenson is performing endoscopy today and has graciously agreed to work her into the schedule when she is stable. If there is a bleeding peptic ulcer he would likely be able to achieve hemostasis. If it was impossible to achieve hemostasis endoscopically localizing the ulcer will help with a surgical approach to achieving hemostasis.
[2023-05-01 11:28] LABS: Appearance Urine UA CLEAR; Bilirubin Urine UA NEGATIVE (NEGATIVE); Color Urine UA YELLOW; Glucose Urine UA NEGATIVE (Negative); Ketones Urine UA NEGATIVE (NEGATIVE); Leukocyte Esterase Urine UA NEGATIVE (NEGATIVE); Nitrite Urine UA NEGATIVE (Negative); Occult Blood Urine UA NEGATIVE (Negative); Protein Urine UA NEGATIVE (Negative); Urobilinogen Urine UA 0.2 E.U./dL (0.2)
[2023-05-01 11:30] LABS: Urine Volume 10mL (spun)
--- NOTE | 2023-05-01 11:31 | PC.NURSE ---
1st unit FFP [id number] started at 1030, ended at 1032. 2nd unit FFP started at 1031, finished at 1037 [id number]. 3rd FFP started at 1037, ended at 1039 [id number] Physician and charge operator aware. Lab aware unable to enter FFP in [facility], Director of Lab/Blood Bank, nicole Qiuck and in room as FFP infusing.
[2023-05-01 11:32] LABS: Bacteria Urine None Seen; Culture Indicated Urine Cult Not Indicated; RBC Urine None Seen (0-5/HPF); Squamous Epithelial Cell Urine None Seen (0-5/HPF); WBC Urine None Seen (0-5/HPF)
[2023-05-01] MEDS: HYDROMORPHONE 0.5 MG INJ 1 MG IV (11:39)
--- NOTE | 2023-05-01 12:31 | PM.PREOP ---
Pre-operative Note Interval Note History & Physical reviewed/Exam performed by Physician: Yes Changes to H&P: No ASA Class (for procedural sedation): III
--- NOTE | 2023-05-01 12:32 | PM.OP.EGD ---
Operative Date/Time/Diagnoses Date of procedure: 05/01/23 Pre-op diagnosis: See indication and findings Procedure & Clinicians Study performed: EGD/small-bowel enteroscopy Indications: GI bleed Surgeon: Kishan Wilcox Procedure Notes Procedure in detail: After informed consent was obtained the patient was placed in left lateral decubitus position. The video upper scope placed into the oropharynx and with the patient's help swallowed into the esophagus. The esophagus gastric remnant and reachable small bowel were evaluated. The scope was removed. The patient tolerated procedure well. Blood loss none Complications none Sedation mac Findings 1. Normal esophagus 2. Normal squamocolumnar junction 3. Small gastric remnant with some old blood present 4. Gastrojejunal anastomosis with large ulceration taking up at least 60% of the circumference. Superiorly at 12:00 p.m. there was a lesion with clot present. While I was able to wash some of the clots away I could not completely. There was some oozing at the base. I therefore chose to use the APC at a setting of 30 and 2 in several bursts which stopped the oozing. In addition there were 2 areas with adherent clot at 4:00 a.m. and 8:00 a.m.. The lesion at 8:00 a.m. was more linear and I gave this several bursts of APC as well. Good hemostasis was achieved by the end of the procedure. 5. End-to-side anastomosis with blind pouch to the anterior position Six. Beginning of Lin loop only with old blood in the 1st foot. The scope was not passed beyond this level. Patient should obviously stay away from her diclofenac. Hematocrit will be monitored closely. She should be placed on a proton pump inhibitors and have follow-up EGD to monitor healing in 12-16 weeks as the ulceration is very large.
--- NOTE | 2023-05-01 14:50 | PM.HP.1 ---
History of Present Illness History of Present Illness Date Patient Seen: 05/01/23 Time Patient Seen: 11:10 Chief complaint: GI Bleed Narrative: 57 F with PMH of hypertension, hyperlipidemia, iron deficiency anemia, polymyalgia rheumatica chronically on prednisone, myotonic dystrophy, morbidly obesity recent E. faecalis bacteremia and acutally finished ampicillin course today who presented with large melena episode this morning. She reports feeling constant fatigue the last few weeks, but no shortness of breath, abdominal pain. Denies nausea or vomiting. She recently had a c-scope which was unremarkable. She has been on diclofenac for years for pain management. In the emergency room, ER provider activated a massive transfusion protocol. Was given 5U PRBC, repeat h/h after 3 U with Hg 6.8 to 9.8 appropriate response, was still given 2 more units. Was also given 2U FFP, held platelets as bleeding appeared stable and Plt were 329. Labs also notable for mild LAZARA with Cr 1.08, mild transaminitis. Initially admitted to the ICU, but with stable vital signs and after EGD this afternoon with large marginal ulcer with interventions performed by GI physician, patient okay for acute care. [facility] Medical History Bilateral pubic rami fractures Acute right hip pain Abnormal creatinine clearance glomerular filtration Sleep apnea HTN (hypertension) Melanoma Iron deficiency (~2000) Anxiety (Unknown) Hypothyroidism (Unknown) Bursitis (~12/2011) Chronic headaches (Unknown) Surgical History Hx of laminectomy (08/19/18) Hx of vein stripping Status post epidural steroid injection History of spinal fusion (06/23/13) History of tonsillectomy H/O Achilles tendon repair History of sinus surgery Status post dilation and curettage (11/23/16) Status post dilation and curettage History of cataract removal with insertion of prosthetic lens History of gastric bypass (2000) Status post tonsillectomy and adenoidectomy Social History household members: none Smoking Status: Never smoker alcohol intake: never Meds Home Medications and Allergies Home Medications Medication Instructions Recorded Confirmed Type diphenhydramine HCl 50 mg capsule 50 mg PO HSP PRN Insomnia ##0 07/02/16 05/01/23 History ascorbic acid (vitamin C) 1,000 mg 1,000 mg PO DAILY 07/02/17 05/01/23 History tablet (Vitamin C) calcium citrate 1,000 mg PO DAILY 07/02/17 05/01/23 History coenzyme Q10 200 mg capsule (Co 200 mg PO DAILY 07/02/17 05/01/23 History Q-10) multivitamin 1 cap PO DAILY 07/02/17 05/01/23 History vitamin A 3,000 mcg (10,000 unit) 10,000 unit PO 2XW 07/02/17 05/01/23 History capsule vitamin B complex (B Complex 1 1 tab PO DAILY 07/02/17 05/01/23 History tablet) vitamin d See Rx Instructions .Route .COMPLEX 07/02/17 05/01/23 History vitamin e See Rx Instructions .Route .COMPLEX 07/02/17 05/01/23 History zinc 50 mg tablet 50 mg PO DAILY 07/02/17 05/01/23 History ferrous gluconate 240 mg (27 mg 100 mg PO DAILY 10/30/17 05/01/23 History iron) tablet magnesium oxide 500 mg PO BID 01/08/18 05/01/23 History levothyroxine 75 mcg tablet 75 mcg PO DAILY #90 tabs 08/04/20 05/01/23 Rx acetaminophen 325 mg capsule 500 mg PO ONCE PRN Pain (Scale 04/06/21 05/01/23 History Score 1-3) liothyronine 5 mcg tablet (Cytomel) 10 mcg PO DAILY 04/06/21 05/01/23 History prasterone (dhea) 50 mg capsule 50 mg PO DAILY 04/06/21 05/01/23 History (DHEA) vitamin K2 100 mcg capsule 100 mcg PO DAILY 04/06/21 05/01/23 History DISABLED PARKING PERMIT #1 ea 09/25/22 05/01/23 Rx diclofenac sodium 75 mg 75 mg PO BID #180 tabs 11/01/22 05/01/23 Rx tablet,delayed release escitalopram oxalate 20 mg tablet 20 mg PO DAILY #90 tabs 01/21/23 05/01/23 Rx (Lexapro) irbesartan 150 mg tablet 150 mg PO BID #180 tabs 01/21/23 05/01/23 Rx gabapentin 600 mg tablet 600 mg PO BEDTIME #90 tabs 03/05/23 05/01/23 Rx ampicillin sodium 2 gram 12 g IV DAILY 04/05/23 05/01/23 History intravenous solution cyclobenzaprine 5 mg tablet 5 - 10 mg (1 - 2 x 5 mg) PO TID 04/05/23 05/01/23 Rx PRN muscle spasm #90 tabs oxycodone-acetaminophen 5 mg-325 2 tab PO Q4-6H PRN pain #180 tabs 04/05/23 05/01/23 Rx mg tablet (Percocet) hydrocortisone 10 mg tablet 35 mg (3.5 x 10 mg) PO DAILY #100 04/25/23 05/01/23 Rx tabs Allergies Allergy/AdvReac Type Severity Reaction Status Date / Time pregabalin [PREGABALIN] Allergy Severe facial and Verified 04/24/23 14:35 throat swelling hydrocodone [HYDROCODONE] AdvReac Severe nausea, Verified 04/24/23 14:35 syncopal episode Review of Systems Review of Systems ROS: Yes All systems reviewed with the patient and are negative except as otherwise documented Exam Vital Signs (past 8 hours): - 05/01/23 09:00 05/01/23 09:11 05/01/23 09:15 Temperature 97.7 F Pulse Rate 83 102 H 100 H Respiratory Rate 14 29 H 15 Blood Pressure 115/66 Blood Pressure [Left Arm] Pulse Oximetry 92 97 96 Oxygen Delivery Method Room Air Oxygen Flow Rate 05/01/23 09:20 05/01/23 09:25 05/01/23 09:30 Temperature Pulse Rate 101 H 106 H 78 Respiratory Rate 16 19 14 Blood Pressure Blood Pressure [Left Arm] 91/54 L Pulse Oximetry 94 97 92 Oxygen Delivery Method Room Air Oxygen Flow Rate 05/01/23 09:30 05/01/23 09:35 05/01/23 09:37 Temperature Pulse Rate 98 H 99 H 96 H Respiratory Rate 15 16 10 L Blood Pressure Blood Pressure [Left Arm] Pulse Oximetry 95 94 96 Oxygen Delivery Method Oxygen Flow Rate 05/01/23 09:37 05/01/23 09:40 05/01/23 09:45 Temperature 97.9 F Pulse Rate 96 H 94 H Respiratory Rate 18 16 Blood Pressure 65/38 L 53/32 L Blood Pressure [Left Arm] Pulse Oximetry 94 Oxygen Delivery Method Oxygen Flow Rate 05/01/23 09:45 05/01/23 09:45 05/01/23 09:50 Temperature Pulse Rate 93 H 95 H Respiratory Rate 14 16 Blood Pressure 53/32 L Blood Pressure [Left Arm] Pulse Oximetry 93 95 Oxygen Delivery Method Oxygen Flow Rate 05/01/23 09:51 05/01/23 09:51 05/01/23 09:54 Temperature Pulse Rate 94 H Respiratory Rate 17 Blood Pressure 53/29 L 50/29 L Blood Pressure [Left Arm] Pulse Oximetry 97 Oxygen Delivery Method Oxygen Flow Rate 05/01/23 09:54 05/01/23 09:55 05/01/23 09:55 Temperature Pulse Rate 93 H 93 H Respiratory Rate 16 16 Blood Pressure 51/27 L Blood Pressure [Left Arm] Pulse Oximetry 92 93 Oxygen Delivery Method Oxygen Flow Rate 05/01/23 09:56 05/01/23 09:58 05/01/23 09:58 Temperature 98.4 F Pulse Rate 93 H 92 H Respiratory Rate 16 19 Blood Pressure 51/29 L 69/42 L Blood Pressure [Left Arm] Pulse Oximetry 97 Oxygen Delivery Method Oxygen Flow Rate 05/01/23 10:00 05/01/23 10:01 05/01/23 10:01 Temperature Pulse Rate 97 H 94 H Respiratory Rate 14 17 Blood Pressure 86/47 L Blood Pressure [Left Arm] Pulse Oximetry 98 96 Oxygen Delivery Method Oxygen Flow Rate 05/01/23 10:03 05/01/23 10:03 05/01/23 10:05 Temperature 98.4 F Pulse Rate 91 H 94 H Respiratory Rate 18 14 Blood Pressure 76/49 L 76/40 L Blood Pressure [Left Arm] Pulse Oximetry 96 Oxygen Delivery Method Oxygen Flow Rate 05/01/23 10:05 05/01/23 10:06 05/01/23 10:06 Temperature Pulse Rate 91 H 90 Respiratory Rate 17 18 Blood Pressure 76/50 L Blood Pressure [Left Arm] Pulse Oximetry 93 96 Oxygen Delivery Method Oxygen Flow Rate 05/01/23 10:09 05/01/23 10:09 05/01/23 10:10 Temperature 97.5 F L Pulse Rate 88 78 Respiratory Rate 20 16 Blood Pressure 79/48 L 87/52 L Blood Pressure [Left Arm] Pulse Oximetry 94 Oxygen Delivery Method Oxygen Flow Rate 05/01/23 10:10 05/01/23 10:12 05/01/23 10:12 Temperature Pulse Rate 86 84 Respiratory Rate 19 19 Blood Pressure 83/50 L Blood Pressure [Left Arm] Pulse Oximetry 91 Oxygen Delivery Method Oxygen Flow Rate 05/01/23 10:15 05/01/23 10:15 05/01/23 10:18 Temperature Pulse Rate 80 Respiratory Rate 14 Blood Pressure 83/50 L 85/51 L Blood Pressure [Left Arm] Pulse Oximetry 100 Oxygen Delivery Method Oxygen Flow Rate 05/01/23 10:18 05/01/23 10:20 05/01/23 10:21 Temperature 97.9 F Pulse Rate 82 84 93 H Respiratory Rate 18 20 14 Blood Pressure 51/27 L Blood Pressure [Left Arm] Pulse Oximetry 99 100 Oxygen Delivery Method Nasal Cannula Oxygen Flow Rate 2 05/01/23 10:21 05/01/23 10:21 05/01/23 10:24 Temperature Pulse Rate 82 78 Respiratory Rate 17 17 Blood Pressure 85/48 L Blood Pressure [Left Arm] Pulse Oximetry 99 100 Oxygen Delivery Method Nasal Cannula Nasal Cannula Oxygen Flow Rate 2 2 05/01/23 10:24 05/01/23 10:25 05/01/23 10:26 Temperature 97.5 F L Pulse Rate 80 82 Respiratory Rate 22 16 Blood Pressure 84/51 L 84/51 L Blood Pressure [Left Arm] Pulse Oximetry 100 Oxygen Delivery Method Nasal Cannula Oxygen Flow Rate 2 05/01/23 10:27 05/01/23 10:27 05/01/23 10:30 Temperature 97.5 F L Pulse Rate 78 78 Respiratory Rate 13 16 Blood Pressure 87/52 L 91/54 L Blood Pressure [Left Arm] Pulse Oximetry 99 Oxygen Delivery Method Nasal Cannula Oxygen Flow Rate 2 05/01/23 10:30 05/01/23 10:30 05/01/23 10:33 Temperature Pulse Rate 78 Respiratory Rate 15 Blood Pressure 91/54 L 89/55 L Blood Pressure [Left Arm] Pulse Oximetry 95 Oxygen Delivery Method Nasal Cannula Oxygen Flow Rate 2 05/01/23 10:33 05/01/23 10:34 05/01/23 10:36 Temperature Pulse Rate 84 84 86 Respiratory Rate 27 H 22 23 Blood Pressure Blood Pressure [Left Arm] Pulse Oximetry 98 98 97 Oxygen Delivery Method Nasal Cannula Oxygen Flow Rate 2 05/01/23 10:37 05/01/23 10:37 05/01/23 10:38 Temperature 97.5 F L Pulse Rate 82 82 Respiratory Rate 15 14 Blood Pressure 101/55 L 101/55 L Blood Pressure [Left Arm] Pulse Oximetry 96 Oxygen Delivery Method Oxygen Flow Rate 05/01/23 10:38 05/01/23 10:39 05/01/23 10:39 Temperature Pulse Rate 82 81 Respiratory Rate 14 16 Blood Pressure 97/55 L Blood Pressure [Left Arm] Pulse Oximetry 94 96 Oxygen Delivery Method Oxygen Flow Rate 05/01/23 10:40 05/01/23 10:42 05/01/23 10:42 Temperature Pulse Rate 85 85 Respiratory Rate 17 17 Blood Pressure 97/57 L Blood Pressure [Left Arm] Pulse Oximetry 98 99 Oxygen Delivery Method Oxygen Flow Rate 05/01/23 10:44 05/01/23 10:45 05/01/23 10:45 Temperature Pulse Rate 84 82 Respiratory Rate 16 16 Blood Pressure 101/55 L Blood Pressure [Left Arm] Pulse Oximetry 100 99 Oxygen Delivery Method Oxygen Flow Rate 05/01/23 10:46 05/01/23 10:48 05/01/23 10:48 Temperature Pulse Rate 82 81 Respiratory Rate 14 15 Blood Pressure 102/56 L Blood Pressure [Left Arm] Pulse Oximetry 99 99 Oxygen Delivery Method Oxygen Flow Rate 05/01/23 10:50 05/01/23 10:51 05/01/23 10:51 Temperature Pulse Rate 80 80 Respiratory Rate 15 20 Blood Pressure 105/52 L Blood Pressure [Left Arm] Pulse Oximetry 100 100 Oxygen Delivery Method Oxygen Flow Rate 05/01/23 10:54 05/01/23 10:54 05/01/23 10:55 Temperature Pulse Rate 80 80 Respiratory Rate 26 H 15 Blood Pressure 105/54 L Blood Pressure [Left Arm] Pulse Oximetry 100 100 Oxygen Delivery Method Oxygen Flow Rate 05/01/23 10:57 05/01/23 10:57 05/01/23 11:00 Temperature Pulse Rate 81 81 Respiratory Rate 16 20 Blood Pressure 107/57 L Blood Pressure [Left Arm] Pulse Oximetry 100 100 Oxygen Delivery Method Oxygen Flow Rate 05/01/23 11:01 05/01/23 11:01 05/01/23 11:03 Temperature Pulse Rate 82 83 Respiratory Rate 24 21 Blood Pressure 126/76 Blood Pressure [Left Arm] Pulse Oximetry 100 100 Oxygen Delivery Method Oxygen Flow Rate 05/01/23 11:03 05/01/23 11:05 05/01/23 11:06 Temperature Pulse Rate 82 Respiratory Rate 17 Blood Pressure 107/66 120/55 L Blood Pressure [Left Arm] Pulse Oximetry 100 Oxygen Delivery Method Oxygen Flow Rate 05/01/23 11:06 05/01/23 11:09 05/01/23 11:09 Temperature Pulse Rate 81 82 Respiratory Rate 22 12 Blood Pressure 116/59 L Blood Pressure [Left Arm] Pulse Oximetry 100 100 Oxygen Delivery Method Oxygen Flow Rate 05/01/23 11:10 05/01/23 11:12 05/01/23 11:12 Temperature Pulse Rate 82 81 Respiratory Rate 12 13 Blood Pressure 112/56 L Blood Pressure [Left Arm] Pulse Oximetry 100 100 Oxygen Delivery Method Oxygen Flow Rate 05/01/23 11:15 05/01/23 11:15 05/01/23 11:18 Temperature Pulse Rate 87 Respiratory Rate 19 Blood Pressure 111/57 L 108/57 L Blood Pressure [Left Arm] Pulse Oximetry 100 Oxygen Delivery Method Oxygen Flow Rate 05/01/23 11:18 05/01/23 11:20 05/01/23 11:21 Temperature Pulse Rate 86 85 84 Respiratory Rate 17 19 19 Blood Pressure Blood Pressure [Left Arm] Pulse Oximetry 100 99 99 Oxygen Delivery Method Oxygen Flow Rate 05/01/23 11:21 05/01/23 11:24 05/01/23 11:24 Temperature Pulse Rate 81 Respiratory Rate 14 Blood Pressure 108/52 L 109/55 L Blood Pressure [Left Arm] Pulse Oximetry 99 Oxygen Delivery Method Oxygen Flow Rate 05/01/23 11:25 05/01/23 11:27 05/01/23 11:27 Temperature Pulse Rate 82 83 Respiratory Rate 14 13 Blood Pressure 113/55 L Blood Pressure [Left Arm] Pulse Oximetry 98 97 Oxygen Delivery Method Oxygen Flow Rate 05/01/23 11:30 05/01/23 11:30 05/01/23 11:30 Temperature 96.9 F L Pulse Rate 79 79 Respiratory Rate 17 17 Blood Pressure 112/58 L 129/84 Blood Pressure [Left Arm] Pulse Oximetry 97 99 Oxygen Delivery Method Oxygen Flow Rate 05/01/23 11:33 05/01/23 11:33 05/01/23 11:35 Temperature Pulse Rate 81 79 Respiratory Rate 16 13 Blood Pressure 112/55 L Blood Pressure [Left Arm] Pulse Oximetry 98 98 Oxygen Delivery Method Oxygen Flow Rate 05/01/23 11:36 05/01/23 11:36 05/01/23 11:39 Temperature Pulse Rate 79 Respiratory Rate 15 Blood Pressure 112/59 L 118/64 Blood Pressure [Left Arm] Pulse Oximetry 99 Oxygen Delivery Method Oxygen Flow Rate 05/01/23 11:39 05/01/23 11:54 05/01/23 11:54 Temperature Pulse Rate 80 82 Respiratory Rate 22 Blood Pressure 129/89 Blood Pressure [Left Arm] Pulse Oximetry 98 98 Oxygen Delivery Method Oxygen Flow Rate 05/01/23 11:55 05/01/23 12:00 05/01/23 12:00 Temperature Pulse Rate 79 81 Respiratory Rate 12 21 Blood Pressure 118/66 Blood Pressure [Left Arm] Pulse Oximetry 98 99 Oxygen Delivery Method Oxygen Flow Rate 05/01/23 12:05 05/01/23 12:10 05/01/23 12:15 Temperature Pulse Rate 83 80 77 Respiratory Rate 26 H 17 12 Blood Pressure Blood Pressure [Left Arm] Pulse Oximetry 100 99 99 Oxygen Delivery Method Oxygen Flow Rate 05/01/23 12:20 05/01/23 12:25 05/01/23 12:30 Temperature Pulse Rate 77 79 Respiratory Rate 8 L 13 Blood Pressure 133/64 Blood Pressure [Left Arm] Pulse Oximetry 99 99 Oxygen Delivery Method Oxygen Flow Rate 05/01/23 12:30 05/01/23 12:35 05/01/23 12:40 Temperature Pulse Rate 81 76 72 Respiratory Rate 29 H 10 L 14 Blood Pressure Blood Pressure [Left Arm] Pulse Oximetry 98 98 97 Oxygen Delivery Method Oxygen Flow Rate 05/01/23 12:45 05/01/23 13:34 05/01/23 14:00 Temperature 97.1 F L Pulse Rate 72 78 78 Respiratory Rate 16 18 12 Blood Pressure 136/59 L 149/81 H Blood Pressure [Left Arm] Pulse Oximetry 97 99 99 Oxygen Delivery Method Room Air Room Air Oxygen Flow Rate 05/01/23 14:15 05/01/23 14:31 Temperature Pulse Rate 80 90 Respiratory Rate 14 12 Blood Pressure 136/78 140/68 Blood Pressure [Left Arm] Pulse Oximetry 99 99 Oxygen Delivery Method Room Air Room Air Oxygen Flow Rate Oxygen Delivery Method Room Air Oxygen Flow Rate 2 Narrative Exam Narrative: No acute distress. Anicteric sclerae. Lungs are clear, normal effort. Heart is regular, no murmur. Abdomen is soft, nontender. Extremities are notable for trace edema and slight erythema both pretibial areas. Back is extremely tender, unable to adequate determine midline vs paraspinal due to discomfort. Objective Labs 05/01/23 10:23 05/01/23 09:12 Labs: Laboratory Results - last 24 hr 05/01/23 05/01/23 05/01/23 09:12 09:35 09:35 WBC 15.4 H RBC 2.72 L Hgb 6.8 L* Hct 22.2 L MCV 81.5 MCH 25.0 L MCHC 30.7 RDW 18.0 H Plt Count 483 H Neut % (Auto) 80.2 H Lymph % (Auto) 13.4 L [place] % (Auto) 5.2 Eos % (Auto) 0.9 L Baso % (Auto) 0.3 Neut # (Auto) 71103 H Lymph # (Auto) 2100 [place] # (Auto) 800 Eos # (Auto) 100 Baso # (Auto) 0 PT 12.2 INR 1.1 APTT Fibrinogen Sodium 141 Potassium 4.1 Chloride 110 H Carbon Dioxide 23 BUN 22 H Creatinine 1.08 H Estimated GFR 60 BUN/Creatinine Ratio 20.4 Glucose 205 H Calcium 8.0 L Magnesium 2.3 Total Bilirubin 0.5 AST 113 H ALT 37 H Alkaline Phosphatase 110 Total Protein 5.0 L Albumin 2.8 L Globulin 2.2 Albumin/Globulin Ratio 1.3 Urine Color Urine Appearance Urine pH Ur Specific [place] Urine Protein Urine Glucose (UA) Urine Ketones Urine Occult Blood Urine Nitrate Urine Bilirubin Urine Urobilinogen Ur Leukocyte Esterase Urine RBC Urine WBC Ur Squamous Epith Cells Urine Bacteria Ur Culture Indicated? Vol Urine Centrifuged Blood Type Cancelled B Positive Rho(D) Type Cancelled Antibody Screen Cancelled Crossmatch 05/01/23 05/01/23 05/01/23 09:35 10:23 11:23 WBC RBC Hgb 9.8 L Hct 30.6 L MCV MCH MCHC RDW Plt Count 329 Neut % (Auto) Lymph % (Auto) [place] % (Auto) Eos % (Auto) Baso % (Auto) Neut # (Auto) Lymph # (Auto) [place] # (Auto) Eos # (Auto) Baso # (Auto) PT 12.5 INR 1.1 APTT 23 L Fibrinogen 241 Sodium Potassium Chloride Carbon Dioxide BUN Creatinine Estimated GFR BUN/Creatinine Ratio Glucose Calcium Magnesium Total Bilirubin AST ALT Alkaline Phosphatase Total Protein Albumin Globulin Albumin/Globulin Ratio Urine Color Yellow Urine Appearance Clear Urine pH 7.0 Ur Specific [place] 1.010 Urine Protein Negative Urine Glucose (UA) Negative Urine Ketones Negative Urine Occult Blood Negative Urine Nitrate Negative Urine Bilirubin Negative Urine Urobilinogen 0.2 Ur Leukocyte Esterase Negative Urine RBC None seen Urine WBC None seen Ur Squamous Epith Cells None seen Urine Bacteria None seen Ur Culture Indicated? Cult not indicated Vol Urine Centrifuged 10ml (spun) Blood Type Rho(D) Type Antibody Screen Negative Crossmatch See Detail Assessment & Plan Assessment & Plan narrative: 1. Acute blood loss anemia secondary to gastric ulcer from NSAID use, hypotension due to blood loss now resolved. - stop diclofenac - large gastric ulcer, EGD performed by GI Dr. Wilcox, recommended IV PPI initially, continue as outpatient, repeat endoscopy in 12-[address] Schroeder's consultation as well. Discussed directly with Dr. Wilcox after endoscopy. - clear liquid diet for now, advance as tolerated tomorrow - continue IV PPI BID with pantoprazole 40 mg. - Hg 6.8 on admission > 3U > 9.8 > 2U. Will repeat h/h this afternoon and again tomorrow AM unless downtrending or additional blood. 2. LAZARA - mild creatinine increase to 1.08 likely due to anemia / blood loss - monitor Cr. Baseline around 0.6-0.7. 3. history of PMR - continue chronic steroids, hydrocortisone 35 mg daily. 4. HTN, chronic - replace home irbesartan with losartan, but will hold for now given her presentation / anemia. 5. hypothyroidism, chronic - continue home levothyroxine, liothyronine. 6. depression, chronic. - continue home escitalopram. Code: Full. Dispo: pending above evaluation, possible transfer depending on MRI findings, discussion with ID, etc. Likely multiple days in the hospital with probable SNF for IV antibiotics. DVT: SCDs, holding chemical given acute blood loss. Dispo: initially patient transferred to the ICU given massive transfusion and hypotension, now stable for acute care after stabilization. Admitted inpatient. Anticipate discharge likely home in the next couple of days if h/h stable and no recurrent bleeding. I have utilized all available immediate resources to obtain, update, or review the patient's current medications. I spent 45 minutes providing critical care management this patient. This excludes time spent in performing separately billed procedures.
--- NOTE | 2023-05-01 14:55 | SUR.OPER ---
ARGON APC SETTINGS 2 AND 30
[2023-05-01 15:02] LABS: MRSA (Nasal) PCR Not Detected (Not Detect)
[2023-05-01] MEDS: fentaNYL 100 MCG/2 ML INJ 50 MCG IV (15:27)
[2023-05-01] MEDS: MORPHINE 4 MG/ML INJ 2 MG IV (15:39)
[2023-05-01] MEDS: OXYCODONE/ACETAMINOPHEN 5/325 TABLET 2 TAB PO ×2 (16:18→20:29)
[2023-05-01] MEDS: CYCLOBENZAPRINE 10 MG TABLET 5 MG PO (16:59)
[2023-05-01 17:22] LABS: Hematocrit 33.8 % (36-46); Hemoglobin 11.2 g/dL (12.0-16.0)
[2023-05-01] MEDS: PANTOPRAZOLE 40 MG VIAL IV (20:29)
[2023-05-01] MEDS: GABAPENTIN 600 MG TABLET PO (20:29)
[2023-05-02] VITALS (77 sets, daily range): BP systolic 130–176; BP diastolic 74–95; PULSE 86–101; RESP 14–35; TEMP 36.6–36.9; O2SAT 81–99
[2023-05-02 04:55] LABS: Add Manual Diff / Slide Review NO; Basophils Absolute Auto 0 /uL (0-100); Basophils Percent Auto 0.4 % (0-2); Eosinophils Absolute Auto 200 /uL (0-450); Eosinophils Percent Auto 1.9 % (2-4); Hematocrit 32.8 % (36-46); Hemoglobin 10.9 g/dL (12.0-16.0); Lymphocytes Absolute Auto 1500 /uL (1100-4500); Lymphocytes Percent Auto 12.4 % (25-40); Mean Corpuscular HGB Conc 33.2 % (30-36); Mean Corpuscular Hemoglobin 27.8 PG (26-34); Mean Corpuscular Volume 83.5 fL (80-100); Monocytes Absolute Auto 700 /uL (0-900); Monocytes Percent Auto 5.8 % (3-14); Neutrophils Absolute Auto 9500 /uL (1500-7000); Neutrophils Percent Auto 79.5 % (50-75); Platelet Count 268 X10^3/uL (150-400); Red Blood Cell Count 3.93 X10^6/uL (4.0-5.2); Red Cell Distribution Width 16.4 % (11.6-14.8); White Blood Cell Count 11.9 X10^3/uL (4.5-11.0)
[2023-05-02 05:03] LABS: Alanine Aminotransferase 33 IU/L (<35); Albumin 2.9 g/dL (3.5-5.0); Albumin Globulin Ratio 1.2 (1.0-2.8); Alkaline Phosphatase 120 U/L (38-126); Aspartate Aminotransferase 33 IU/L (14-36); BUN Creatinine Ratio 23.1 (6-22); Bilirubin Total 0.7 mg/dL (0.2-1.3); Blood Urea Nitrogen 18 mg/dL (7-17); Calcium 8.6 mg/dL (8.4-10.2); Carbon Dioxide 30 mmol/L (22-32); Chloride 107 mmol/L (98-107); Estimated Glomerular Filt Rate > 60 mL/min (>60); Globulin 2.5 g/dL (1.7-4.1); Glucose 81 mg/dL (70-100); HEMOLYSIS < 15 (0-50); Magnesium 2.1 mg/dL (1.6-2.3); Potassium 3.9 mmol/L (3.4-5.1); Sodium 138 mmol/L (137-145); Total Protein 5.4 g/dL (6.3-8.2)
[2023-05-02] MEDS: OXYCODONE/ACETAMINOPHEN 5/325 TABLET 2 TAB PO ×4 (05:07→20:54)
[2023-05-02] MEDS: LEVOTHYROXINE 75 MCG TABLET PO (05:08)
[2023-05-02] MEDS: LIOTHYRONINE 5 MCG TABLET 10 MCG PO (05:08)
[2023-05-02] MEDS: CYCLOBENZAPRINE 10 MG TABLET 5 MG PO ×3 (05:08→21:10)
--- NOTE | 2023-05-02 06:07 | PC.NURSE ---
Patient resting in bed all shift. Able to reposition self in bed. Pain controlled well w/po pain meds. Patient has been A&O, calm and cooperative.
[2023-05-02] MEDS: HYDROCORTISONE 10 MG TABLET 35 MG PO (09:14)
[2023-05-02] MEDS: SUCRALFATE 1 GM/10 ML ORAL SUSP PO ×3 (09:14→18:07)
[2023-05-02] MEDS: PANTOPRAZOLE 40 MG VIAL IV ×2 (09:14→20:55)
[2023-05-02] MEDS: ESCITALOPRAM 10 MG TABLET 20 MG PO (09:14)
[2023-05-02] MEDS: AMOXICILLIN 250 MG CAPSULE 500 MG PO ×2 (14:58→20:54)
[2023-05-02] MEDS: MORPHINE 4 MG/ML INJ 2 MG IV (14:58)
--- NOTE | 2023-05-02 16:14 | CM.DANOTE ---
DCP Assessment Note Pt is a 57yo F here following acute blood loss from large gastric ulcer. PCP Pina Decker Payer [place]ESS[place] out of state CENTRAL STATION OPERATOR reviewed EMR. Per chart review, pt was transferred to higher level of care after Nov 2022 admission and Mar 2023 admission due to infection. Pt had [facility] review case- unclear if they were HH agency to follow after pt dc'd from [facility] in Nov. Per previous DCP assessment Mar 2023, pt works/drives/ is mostly indep with ADLs. Pt has chronic back pain, uses a walker at baseline. Per hospitalist during this admission, pt overall looks better today after getting blood transfusion. Anticipate home Fri no obvious CM needs. Per RN, planning on getting pt up with nursing, no PT ordered at this time. Anticipate home with no additional CM needs. CENTRAL STATION OPERATOR unable to meet with pt today due to triaging needs. Plan: anticipate home with mom/sister support when medically stable. Anticipate tomorrow. f/u if PT eval recommended after mobilizing with nursing. No obvious CM needs at this time. CM team will continue to follow closely. EDWIGE Cruz Discharge Planning/Care Management CM Discharge Assessment Start: 05/02/23 16:12 Freq: Status: Active Protocol: Document 05/02/23 16:12 (Rec: 05/02/23 16:14 [id number]) Discharge Planning Assessment Assigned Alliances Consultant EDWIGE Watts DPOA/Assigned Designee Name mother [place] Contact Information [phone] Advance Directives? Yes: dpoa Advance Directives on File Yes History Provided By Patient,Medical Record Prior Living Arrangements Apartment/Condo Household Members none Type of transporation used prior to Drives own vehicle admit Independent with ADL's Yes Is patient alert and oriented? Yes DME Already Rented / Owned FWW / Walker Discharge Plan Home Transportation Arrangement cabrera sister to transport Referrals Initiated None needed Whiteboard Updated in Patient Room with No name and ext. # of Alliances Consultant Review Status In Process Please Provide Date Initial DC 05/02/23 Assessment Was Performed Next Review Type Continued Stay Review
--- NOTE | 2023-05-02 18:52 | P.PN_ITS ---
Subjective Subjective Interval history: Patient feeling better today but still with severe back pain. Still with mild abd pain, but no NV. Tolerating liquids. She requested I speak with her ID doc at [facility], who recommended starting amox 500 TID and can remove PICC. He will see her in clinic. He reports she had discitis/osteomyelitis 1 month ago. Exam Vital Signs (past 8 hours): - 05/02/23 10:55 05/02/23 11:00 05/02/23 11:05 Temperature Pulse Rate 101 H 99 H 99 H Respiratory Rate 18 18 19 Blood Pressure Pulse Oximetry 96 94 92 05/02/23 11:10 05/02/23 11:15 05/02/23 11:20 Temperature Pulse Rate 99 H 97 H 96 H Respiratory Rate 17 17 17 Blood Pressure Pulse Oximetry 90 L 91 89 L 05/02/23 11:25 05/02/23 11:30 05/02/23 11:35 Temperature Pulse Rate 94 H 92 H 92 H Respiratory Rate 16 18 16 Blood Pressure Pulse Oximetry 89 L 91 92 05/02/23 11:40 05/02/23 11:45 05/02/23 11:50 Temperature Pulse Rate 101 H 97 H 91 H Respiratory Rate 27 H 16 16 Blood Pressure Pulse Oximetry 97 95 91 05/02/23 11:55 05/02/23 12:00 05/02/23 12:05 Temperature Pulse Rate 92 H 90 91 H Respiratory Rate 15 15 17 Blood Pressure Pulse Oximetry 92 91 91 05/02/23 12:10 05/02/23 12:15 05/02/23 12:20 Temperature Pulse Rate 88 86 100 H Respiratory Rate 16 15 20 Blood Pressure Pulse Oximetry 91 91 96 05/02/23 12:24 05/02/23 12:24 05/02/23 12:25 Temperature Pulse Rate 98 H Respiratory Rate 19 Blood Pressure 168/91 H 161/95 H Pulse Oximetry 96 05/02/23 12:25 05/02/23 12:29 05/02/23 12:30 Temperature 97.9 F Pulse Rate 96 H 100 H 95 H Respiratory Rate 18 16 23 Blood Pressure 168/91 H Pulse Oximetry 97 99 97 05/02/23 12:35 05/02/23 12:40 05/02/23 12:45 Temperature Pulse Rate 100 H 94 H 95 H Respiratory Rate 24 20 23 Blood Pressure Pulse Oximetry 95 97 96 05/02/23 12:50 05/02/23 12:55 05/02/23 13:00 Temperature Pulse Rate 96 H 94 H 93 H Respiratory Rate 25 H 20 16 Blood Pressure Pulse Oximetry 95 96 94 05/02/23 13:05 05/02/23 13:10 05/02/23 13:15 Temperature Pulse Rate 92 H 91 H 92 H Respiratory Rate 16 16 17 Blood Pressure Pulse Oximetry 94 93 93 05/02/23 13:20 05/02/23 13:25 05/02/23 13:30 Temperature Pulse Rate 95 H 94 H 91 H Respiratory Rate 18 16 15 Blood Pressure Pulse Oximetry 94 93 92 05/02/23 13:35 05/02/23 13:40 05/02/23 13:45 Temperature Pulse Rate 93 H 91 H 88 Respiratory Rate 18 15 15 Blood Pressure Pulse Oximetry 93 93 94 05/02/23 13:50 05/02/23 13:55 05/02/23 14:00 Temperature Pulse Rate 95 H 94 H 95 H Respiratory Rate 26 H 23 20 Blood Pressure Pulse Oximetry 97 96 98 05/02/23 14:05 05/02/23 14:10 05/02/23 17:18 Temperature 98.4 F Pulse Rate 94 H 92 H 93 H Respiratory Rate 24 15 16 Blood Pressure 130/77 Pulse Oximetry 98 97 96 Oxygen Delivery Method Room Air Oxygen Flow Rate 0 Narrative Exam Narrative: No acute distress. Anicteric sclerae. Lungs are clear, normal effort. Heart is regular, no murmur. Abdomen is soft, nontender. Extremities are notable for trace edema and slight erythema both pretibial areas. Back is extremely tender, unable to adequate determine midline vs paraspinal due to discomfort. Objective Labs 05/02/23 04:25 05/02/23 04:25 Labs: Laboratory Results - last 24 hr 05/01/23 05/02/23 09:35 04:25 WBC 11.9 H RBC 3.93 L Hgb 10.9 L Hct 32.8 L MCV 83.5 MCH 27.8 MCHC 33.2 RDW 16.4 H Plt Count 268 Neut % (Auto) 79.5 H Lymph % (Auto) 12.4 L [place] % (Auto) 5.8 Eos % (Auto) 1.9 L Baso % (Auto) 0.4 Neut # (Auto) 9500 H Lymph # (Auto) 1500 [place] # (Auto) 700 Eos # (Auto) 200 Baso # (Auto) 0 Sodium 138 Potassium 3.9 Chloride 107 Carbon Dioxide 30 BUN 18 H Creatinine 0.78 Estimated GFR > 60 BUN/Creatinine Ratio 23.1 H Glucose 81 D Calcium 8.6 Magnesium 2.1 Total Bilirubin 0.7 AST 33 ALT 33 Alkaline Phosphatase 120 Total Protein 5.4 L Albumin 2.9 L Globulin 2.5 Albumin/Globulin Ratio 1.2 Blood Type B Positive Antibody Screen Negative Crossmatch See Detail [facility] Medical History Bilateral pubic rami fractures Acute right hip pain Abnormal creatinine clearance glomerular filtration Sleep apnea HTN (hypertension) Melanoma Iron deficiency (~2000) Anxiety (Unknown) Hypothyroidism (Unknown) Bursitis (~12/2011) Chronic headaches (Unknown) Surgical History Hx of laminectomy (08/19/18) Hx of vein stripping Status post epidural steroid injection History of spinal fusion (06/23/13) History of tonsillectomy H/O Achilles tendon repair History of sinus surgery Status post dilation and curettage (11/23/16) Status post dilation and curettage History of cataract removal with insertion of prosthetic lens History of gastric bypass (2000) Status post tonsillectomy and adenoidectomy Social History household members: none Smoking Status: Never smoker alcohol intake: never Assessment & Plan Assessment & Plan narrative: # Acute blood loss anemia secondary to gastric ulcer from NSAID use, hypotension due to blood loss now resolved. - stop diclofenac, was taking for back pain - large gastric ulcer, EGD performed by GI Dr. Wilcox, recommended IV PPI initially, continue as outpatient, repeat endoscopy in 12-[address] Schroeder's consultation as well. Discussed directly with Dr. Wilcox after endoscopy. - clear liquid diet, advance as tolerated - continue IV PPI BID with pantoprazole 40 mg and carafate QID - Hgb 6.8 on admission > 3U > 9.8 > 2U > 11.2 - Hgb stable # history of osteomyelitis/discitis of T12-L1 in Mar 2023, now with severe back pain - follows with Dr. Viveros and Martinez - just finished 6 weeks of IV ampicillin - spoke with Dr. Viveros, and he recommended po amox 500 TID as suppressive therapy - patient has ongoing severe back pain - repeat MRI w/wo contrast to confirm resolution of osteomyelitis - pain control, muscle relaxers # LAZARA - mild creatinine increase to 1.08 likely due to anemia / blood loss - monitor Cr. Baseline around 0.6-0.7. # history of PMR - continue chronic steroids, hydrocortisone 35 mg daily. # HTN, chronic - replace home irbesartan with losartan, but will hold for now given her presentation / anemia. # hypothyroidism, chronic - continue home levothyroxine, liothyronine. # depression, chronic. - continue home escitalopram. Code: Full. Dispo: pending above evaluation, possible transfer depending on MRI findings. Otherwise home in 1-2 days. DVT: SCDs, holding chemical given acute blood loss.
--- NOTE | 2023-05-02 18:55 | DI.MRI.S_ITS ---
PROCEDURE: MR LUMBAR SPINE WO/W CON INDICATIONS: severe back pain, h/o discitis/osteomyelitis TECHNIQUE: Noncontrast sagittal T1 spin echo and T2 fast spin echo, sagittal STIR, axial T1 and T2 fast spin echo through the lumbar spine. In cases with scoliosis, additional coronal T2 fast spin echo may be performed. After the administration of contrast, sagittal and axial T1 spin echo with fat saturation through the lumbar spine. COMPARISON: [facility], , MR LUMBAR SPINE WO/W CON, 03/25/2023, 10:11. FINDINGS: Image quality: Excellent. Alignment and curvature: There is normal bony alignment. Marrow: Continued sequela of discitis/osteomyelitis at T12-L1, with decreased extent of T2 hypointense signal within the endplates, but persistent irregularity and enhancement of this region. No additional site osteomyelitis/discitis are noted. Spinal cord: Conus medullaris terminates at the L2 level. Visualized spinal cord demonstrates normal signal, without suspicious enhancement. Paraspinous soft tissues: No paravertebral masses or abnormal enhancement. Multilevel degenerative disc disease and facet arthrosis, not significantly changed from 03/25/2023. Stable moderate to severe spinal canal narrowing at T12-L1. IMPRESSION: Continued evolution of discitis/osteomyelitis at T12-L1 . No paraspinous spinous abscess. Stable moderate to severe spinal canal narrowing at T12-L1. Dictated by: Harsh Benitez M.D. on 05/03/2023 at 11:52 Approved by: Harsh Benitez M.D. on 05/03/2023 at 11:56
[2023-05-02] MEDS: GABAPENTIN 600 MG TABLET PO (20:54)
[2023-05-03] MEDS: SUCRALFATE 1 GM/10 ML ORAL SUSP PO ×3 (01:11→12:01)
[2023-05-03] MEDS: OXYCODONE/ACETAMINOPHEN 5/325 TABLET 2 TAB PO ×5 (01:12→16:55)
[2023-05-03] MEDS: LEVOTHYROXINE 75 MCG TABLET PO (05:09)
[2023-05-03] MEDS: LIOTHYRONINE 5 MCG TABLET 10 MCG PO (05:09)
[2023-05-03 05:19] VITALS: BP 153/90; O2SAT 98
[2023-05-03 05:42] LABS: Add Manual Diff / Slide Review NO; Basophils Absolute Auto 100 /uL (0-100); Basophils Percent Auto 0.6 % (0-2); Eosinophils Absolute Auto 300 /uL (0-450); Eosinophils Percent Auto 2.2 % (2-4); Hematocrit 35.3 % (36-46); Hemoglobin 11.5 g/dL (12.0-16.0); Lymphocytes Absolute Auto 1300 /uL (1100-4500); Lymphocytes Percent Auto 11.3 % (25-40); Mean Corpuscular HGB Conc 32.7 % (30-36); Mean Corpuscular Hemoglobin 27.6 PG (26-34); Mean Corpuscular Volume 84.4 fL (80-100); Monocytes Absolute Auto 500 /uL (0-900); Monocytes Percent Auto 4.6 % (3-14); Neutrophils Absolute Auto 9200 /uL (1500-7000); Neutrophils Percent Auto 81.3 % (50-75); Platelet Count 303 X10^3/uL (150-400); Red Blood Cell Count 4.18 X10^6/uL (4.0-5.2); Red Cell Distribution Width 16.7 % (11.6-14.8); White Blood Cell Count 11.3 X10^3/uL (4.5-11.0)
[2023-05-03 06:02] LABS: Alanine Aminotransferase 27 IU/L (<35); Albumin 3.2 g/dL (3.5-5.0); Albumin Globulin Ratio 1.2 (1.0-2.8); Alkaline Phosphatase 132 U/L (38-126); Aspartate Aminotransferase 24 IU/L (14-36); BUN Creatinine Ratio 20.8 (6-22); Bilirubin Total 0.8 mg/dL (0.2-1.3); Blood Urea Nitrogen 16 mg/dL (7-17); Calcium 9.1 mg/dL (8.4-10.2); Carbon Dioxide 31 mmol/L (22-32); Chloride 104 mmol/L (98-107); Estimated Glomerular Filt Rate > 60 mL/min (>60); Globulin 2.6 g/dL (1.7-4.1); Glucose 96 mg/dL (70-100); HEMOLYSIS 16 (0-50); Magnesium 1.9 mg/dL (1.6-2.3); Potassium 3.9 mmol/L (3.4-5.1); Sodium 138 mmol/L (137-145); Total Protein 5.8 g/dL (6.3-8.2)
--- NOTE | 2023-05-03 06:58 | PC.NURSE ---
Patient has not voided overnight, refused bladder scan, per patient she feels okay and will void when she gets out of bed.
[2023-05-03 07:50] VITALS: O2SAT 95
[2023-05-03 07:51] VITALS: BP 119/68; O2SAT 96
[2023-05-03] MEDS: AMOXICILLIN 250 MG CAPSULE 500 MG PO ×2 (08:32→14:38)
[2023-05-03] MEDS: HYDROCORTISONE 10 MG TABLET 35 MG PO (08:32)
[2023-05-03] MEDS: ESCITALOPRAM 10 MG TABLET 20 MG PO (08:33)
[2023-05-03] MEDS: PANTOPRAZOLE 40 MG VIAL IV (08:33)
[2023-05-03] MEDS: HYDROMORPHONE 1 MG INJ IV (09:27)
[2023-05-03] MEDS: LORazepam 0.5 MG TABLET 1 MG PO (09:27)
[2023-05-03 12:14] VITALS: BP 159/73; PULSE 94; O2SAT 98
--- NOTE | 2023-05-03 13:22 | P.DS_ITS ---
History of Present Illness History of Present Illness Chief complaint: GI Bleed Narrative: 57 F with PMH of hypertension, hyperlipidemia, iron deficiency anemia, polymyalgia rheumatica chronically on prednisone, myotonic dystrophy, morbidly obesity recent E. faecalis bacteremia and acutally finished ampicillin course today who presented with large melena episode this morning. She reports feeling constant fatigue the last few weeks, but no shortness of breath, abdominal pain. Denies nausea or vomiting. She recently had a c-scope which was unremarkable. She has been on diclofenac for years for pain management. In the emergency room, ER provider activated a massive transfusion protocol. Was given 5U PRBC, repeat h/h after 3 U with Hg 6.8 to 9.8 appropriate response, was still given 2 more units. Was also given 2U FFP, held platelets as bleeding appeared stable and Plt were 329. Labs also notable for mild LAZARA with Cr 1.08, mild transaminitis. Initially admitted to the ICU, but with stable vital signs and after EGD this afternoon with large marginal ulcer with interventions performed by GI physician, patient okay for acute care. Discharge Providers Provider Date of admission: 05/01/23 10:56 Discharge Date: 05/03/23 Primary care physician: Pina Decker DO Consults: 05/01/23 11:59 Consult to Tele-civil service worker Routine Comment: Consulting Provider: Maryanne Tele-intensivists Reason for consultation: Continuous [employer] Pick[employer]per services Discharge provider: Gonzalez Bland DO Summary Hospital Course Discharge Diagnosis: # Acute blood loss anemia secondary to gastric ulcer from NSAID use, hypotension due to blood loss now resolved. - stop diclofenac, was taking for back pain - large gastric ulcer, EGD performed by GI Dr. Wilcox, recommended IV PPI initially, continue as outpatient, repeat endoscopy in 12-[address] Schroeder's consultation as well. Discussed directly with Dr. Wilcox after endoscopy. - clear liquid diet, advance as tolerated - continue IV PPI BID with pantoprazole 40 mg and carafate QID - Hgb 6.8 on admission > 3U > 9.8 > 2U > 11.2 - Hgb stable # history of osteomyelitis/discitis of T12-L1 in Mar 2023, now with severe back pain - follows with Dr. Viveros and Martinez - just finished 6 weeks of IV ampicillin - spoke with Dr. Viveros, and he recommended po amox 500 TID as suppressive therapy - patient has ongoing severe back pain - repeat MRI w/wo contrast to confirm resolution of osteomyelitis, showed evolution of osteo/discitis but no abscess. Spoke with ID who said these are expected MRI findings. Also showed mod-severe lumbar spinal stenosis so this is likely the source of her pain. She will f/up with Dr. Palomares spine surgeon as outpatient. - pain control, muscle relaxers # LAZARA - mild creatinine increase to 1.08 likely due to anemia / blood loss - monitor Cr. Baseline around 0.6-0.7. # history of PMR - continue chronic steroids, hydrocortisone 35 mg daily. # HTN, chronic - replace home irbesartan with losartan, but will hold for now given her presentation / anemia. # hypothyroidism, chronic - continue home levothyroxine, liothyronine. # depression, chronic. - continue home escitalopram. Hospital Course: Admitted for melena and blood loss anemia, found to have large gastric ulcer (secondary to chronic diclofenac use) on EGD which was clipped and cauterized. Put on PPI and carafate and Hgb remained stable. Placed on amoxicillin po per her ID doc until she follows up in clinic for history of recurrent E. faecalis bacteremia and recent discitis osteomyelitis of T12-L1. She had severe back pain so repeat MRI lumbar done which showed evolution of discitis/osteo but no abscess. Per ID this is expected. Also showed mod-severe spinal stenosis which is likely the source of her back pain. She was discharged home and will contact GI clinic about repeat EGD in 4-6 weeks. Exam Vital Signs (past 8 hours): - 05/03/23 07:50 05/03/23 07:51 05/03/23 07:51 Pulse Rate Blood Pressure 119/68 Pulse Oximetry 95 96 05/03/23 12:14 05/03/23 12:14 Pulse Rate 94 H Blood Pressure 159/73 H Pulse Oximetry 98 Oxygen Delivery Method Room Air Oxygen Flow Rate 0 Narrative Exam Narrative: No acute distress. Anicteric sclerae. Lungs are clear, normal effort. Heart is regular, no murmur. Abdomen is soft, nontender. Extremities are notable for trace edema and slight erythema both pretibial areas. Back is extremely tender, unable to adequate determine midline vs paraspinal due to discomfort. Objective Labs 05/03/23 05:31 05/03/23 05:31 Labs: Laboratory Results - last 24 hr 05/03/23 05:31 WBC 11.3 H RBC 4.18 Hgb 11.5 L Hct 35.3 L MCV 84.4 MCH 27.6 MCHC 32.7 RDW 16.7 H Plt Count 303 Neut % (Auto) 81.3 H Lymph % (Auto) 11.3 L [place] % (Auto) 4.6 Eos % (Auto) 2.2 Baso % (Auto) 0.6 Neut # (Auto) 9200 H Lymph # (Auto) 1300 [place] # (Auto) 500 Eos # (Auto) 300 Baso # (Auto) 100 Sodium 138 Potassium 3.9 Chloride 104 Carbon Dioxide 31 BUN 16 Creatinine 0.77 Estimated GFR > 60 BUN/Creatinine Ratio 20.8 Glucose 96 Calcium 9.1 Magnesium 1.9 Total Bilirubin 0.8 AST 24 ALT 27 Alkaline Phosphatase 132 H Total Protein 5.8 L Albumin 3.2 L Globulin 2.6 Albumin/Globulin Ratio 1.2 PFSH Medical History Bilateral pubic rami fractures Acute right hip pain Abnormal creatinine clearance glomerular filtration Sleep apnea HTN (hypertension) Melanoma Iron deficiency (~2000) Anxiety (Unknown) Hypothyroidism (Unknown) Bursitis (~12/2011) Chronic headaches (Unknown) Surgical History Hx of laminectomy (08/19/18) Hx of vein stripping Status post epidural steroid injection History of spinal fusion (06/23/13) History of tonsillectomy H/O Achilles tendon repair History of sinus surgery Status post dilation and curettage (11/23/16) Status post dilation and curettage History of cataract removal with insertion of prosthetic lens History of gastric bypass (2000) Status post tonsillectomy and adenoidectomy Social History household members: none Smoking Status: Never smoker alcohol intake: never Discharge Plan Discharge Plan Patient Disposition: Home Provider Discharge Comment: You were found to have a large stomach ulcer due to the diclofenac you were taking for your back so please stop this and take Protonix and sucralfate for 4 weeks to heal the ulcer. I have also put you on amoxicillin 3 times daily for [address] Viveros. Discharge orders & Medications Prescriptions: New sucralfate 100 mg/mL Suspension 1 g PO Q6HR 28 Days Qty: 1000 0RF amoxicillin 250 mg Capsule 500 mg PO TID 28 Days Qty: 168 0RF pantoprazole [Protonix] 40 mg tablet,delayed release (DR/EC) 40 mg PO BID 28 Days Qty: 56 0RF Continued multivitamin Capsule 1 cap PO DAILY vitamin A 10,000 unit Capsule 10,000 unit PO 2XW Rx Instructions: 2 x week ascorbic acid (vitamin C) [Vitamin C] 1,000 mg Tablet 1,000 mg PO DAILY vitamin d See Rx Instructions .ROUTE .COMPLEX Patient Comments: Twice weekly Rx Instructions: 50,000 units orally twice weekly vitamin e See Rx Instructions .ROUTE .COMPLEX Rx Instructions: 400 mg orally two to three times per week vitamin B complex [B Complex 1] Tablet 1 tab PO DAILY calcium citrate 250 mg calcium Tablet 1,000 mg PO DAILY zinc 50 mg Tablet 50 mg PO DAILY coenzyme Q10 [Co Q-10] 200 mg Capsule 200 mg PO DAILY magnesium oxide 400 mg magnesium Capsule 500 mg PO BID diphenhydramine HCl 50 MG capsule 50 mg PO HSP PRN (Reason: Insomnia) Qty: 0 levothyroxine 75 mcg tablet 75 mcg PO DAILY Qty: 90 0RF irbesartan 150 mg tablet 150 mg PO BID Qty: 180 2RF escitalopram oxalate [Lexapro] 20 mg tablet 20 mg PO DAILY Qty: 90 2RF gabapentin 600 mg tablet 600 mg PO BEDTIME Qty: 90 0RF liothyronine [Cytomel] 5 mcg tablet 10 mcg PO DAILY acetaminophen 325 mg capsule 500 mg PO ONCE PRN (Reason: Pain (Scale Score 1-3)) vitamin K2 100 mcg capsule 100 mcg PO DAILY DHEA 50 mg capsule 50 mg PO DAILY (DME) DISABLED PARKING PERMIT See Rx Instructions .ROUTE .MEDSUPPLY Qty: 1 0RF Rx Instructions: I FIND THIS PATIENT TO BE MEDICALLY DISABLED AND QUALIFIED FOR DISABLE PARKING INDICATED, AND SIGNED ON THE ACCOMPANYING [employer] PARK APPLICATION FOR INDIVIDUALS cyclobenzaprine 5 mg tablet 5 - 10 mg PO TID PRN (Reason: muscle spasm) Qty: 90 3RF oxycodone-acetaminophen [Percocet] 5-325 mg tablet 2 tab PO Q4-6H PRN (Reason: pain) Qty: 180 0RF Rx Instructions: Additional script given acute pelvic fractures. Watch for sedation. Stagger with other potentially sedating medicines. Call for refills if and when needed. Max 3000mg acetaminophen daily from all sources. hydrocortisone 10 mg tablet 35 mg PO DAILY Qty: 100 3RF Rx Instructions: patient has yet to make the switch over to this medication but plans too do so post prednisone rx is complete. ferrous gluconate 240 MG tablet 100 mg PO DAILY Discontinued diclofenac sodium 75 mg tablet,delayed release (DR/EC) 75 mg PO BID Qty: 180 1RF ampicillin sodium 2 gram recon soln 12 g IV DAILY Patient Comments: continous Rx Instructions: 12 grams per 600ml given over a 24 hour period, to be done for 6 weeks Follow up/Referrals: Pina Decker DO [Primary Care Provider] - 2 Weeks Visit Report/Discharge Packet Stand Alone Forms: Patient Portal/API, Stroke Signs & Symptoms Discharge Data Primary Care Provider: Pina Decker
[2023-05-03] MEDS: CYCLOBENZAPRINE 10 MG TABLET 5 MG PO (13:27)
--- NOTE | 2023-05-03 13:51 | CM.DPC ---
Addendum entered by EDWIGE Barrera 05/03/23 15:26: ADD: Per [facility], just need Resumption Orders. Orders placed and LYLY Schilling kindly faxed to [facility] along with clinicals. BF Original Note: DCP Discharge Home with HH Per MD, pt's MRI results not showing new or ongoing osteomyelitis of the spine and pt medically stable to discharge home today. SW met bedside with pt and her supportive friend and explained role and pt confirms that she is thankful she did not have to be admitted for long to the hospital or be transferred for higher level of care needs. Pt confirms when she discharged home from [facility] last time they set her up with [facility] and she has been working with HH PT and would like to continue/[facility]ume [facility] services. Pt states she has pain with movement initially which is chronic from her long standing back pain but feels she can manage getting into her home via her mother's POV and does not anticipate any further needs. Pt preference is to discharge home today with [facility] via her mother's POV and pt is hopeful to get back to work in the near future. STEVE updated RN. LYLY Schilling kindly updated [facility] on pt's admission and confirming if Resumption Orders vs New Orders needed for discharge home today. EDWIGE Barrera
== END 2023-05-03 17:20 | disposition home health service (06) | DRG 378 ==
LOC: ED 10:28 → AC 10:59 → ICU 11:15
PROVIDERS: Internal Medicine Gastroenterology; Admitting Provider Internal Medicine; Emergency Provider Emergency Medicine; PCP Family Medicine; Referring Provider Emergency Medicine; Visit Provider Internal Medicine
PROC: 0DJ08ZZ Inspection of Upper Intestinal Tract, Via Natural or Artificial Opening Endoscopic (ICD-10-PCS; CPT 43235; principal; 2023-05-01 14:00)
DX: K28.4 Chronic or unspecified gastrojejunal ulcer with hemorrhage (principal); D62 Acute posthemorrhagic anemia; N17.9 Acute kidney failure, unspecified; I10 Essential (primary) hypertension; E03.9 Hypothyroidism, unspecified; F32.A Depression, unspecified; M54.9 Dorsalgia, unspecified; M35.3 Polymyalgia rheumatica; Z98.890 Other specified postprocedural states; Z79.1 Long term (current) use of non-steroidal anti-inflammatories (NSAID); Z79.52 Long term (current) use of systemic steroids; Z87.39 Personal history of other diseases of the musculoskeletal system and connective tissue
CPT/HCPCS: 36415; 36430; 36592; 71045; 72158; 80053; 81001; 83735; 85014; 85018; 85025; 85049; 85384; 85610; 85730; 86850; 86900; 86901; 86927; 87797; 93005; 96374; 96375; 99285; 99291; P9016; A9579; C9113; J1170; J2270; J2405; J2704; J3010

== ENCOUNTER → 2023-05-15 14:36 | Outpatient (CLI) | payer BC, SELFPAY ==
[2023-05-01 12:22] VITALS: BMI 44.4
[2023-05-15 15:23] LABS: Hematocrit 40.9 % (36-46); Hemoglobin 13.1 g/dL (12.0-16.0); Mean Corpuscular HGB Conc 32.1 % (30-36); Mean Corpuscular Hemoglobin 26.7 PG (26-34); Mean Corpuscular Volume 83.1 fL (80-100); Platelet Count 770 X10^3/uL (150-400); Red Blood Cell Count 4.92 X10^6/uL (4.0-5.2); Red Cell Distribution Width 16.4 % (11.6-14.8); White Blood Cell Count 13.7 X10^3/uL (4.5-11.0)
[2023-05-15 15:52] LABS: Neutrophils Absolute Manual 10001 /uL (3000-5900); Total Cells Counted 100
[2023-05-15 15:55] LABS: Anisocytosis 1+
[2023-05-15 15:56] LABS: Hypersegmented Neutrophils 1+; Smudge Cells 2+
[2023-05-15 15:57] LABS: Alanine Aminotransferase 30 IU/L (<35); Albumin 3.7 g/dL (3.5-5.0); Albumin Globulin Ratio 1.2 (1.0-2.8); Alkaline Phosphatase 225 U/L (38-126); Aspartate Aminotransferase 49 IU/L (14-36); Blood Urea Nitrogen 16 mg/dL (7-17); C-Reactive Protein Quant 8.1 mg/dL (<1.0); Calcium 10.1 mg/dL (8.4-10.2); Carbon Dioxide 24 mmol/L (22-32); Chloride 103 mmol/L (98-107); Erythrocyte Sedimentation Rate 58 MM/HR (0-20); Estimated Glomerular Filt Rate > 60 mL/min (>60); Globulin 3.2 g/dL (1.7-4.1); Glucose 138 mg/dL (70-100); HEMOLYSIS 18 (0-50); Hemoglobin A1C% w Est Avg Glu 5.2 % (4.0-6.0); Potassium 4.8 mmol/L (3.4-5.1); Sodium 141 mmol/L (137-145); Total Protein 6.9 g/dL (6.3-8.2)
[2023-05-15 16:24] LABS: Thyroid Stimulating Hormone 1.53 uIU/mL (0.47-4.68)
== END ==
LOC: LAB 14:36
PROVIDERS: PCP Family Medicine; Referring Provider Family Medicine; Visit Provider Family Medicine
DX: Z87.11 Personal history of peptic ulcer disease (principal); D62 Acute posthemorrhagic anemia; F11.90 Opioid use, unspecified, uncomplicated; R63.4 Abnormal weight loss; Z86.19 Personal history of other infectious and parasitic diseases; E66.9 Obesity, unspecified; E03.9 Hypothyroidism, unspecified
CPT/HCPCS: 36415; 80053; 83036; 84443; 85025; 85651; 86140; 87040

== ENCOUNTER → 2023-06-19 11:33 | Outpatient (CLI) | payer BC, SELFPAY ==
[2023-05-01 12:22] VITALS: BMI 44.4
[2023-06-19 13:03] LABS: Add Manual Diff / Slide Review NO; Basophils Absolute Auto 0 /uL (0-100); Basophils Percent Auto 0.4 % (0-2); Eosinophils Absolute Auto 100 /uL (0-450); Eosinophils Percent Auto 0.9 % (2-4); Hematocrit 41.3 % (36-46); Hemoglobin 13.2 g/dL (12.0-16.0); Lymphocytes Absolute Auto 1800 /uL (1100-4500); Lymphocytes Percent Auto 16.2 % (25-40); Mean Corpuscular HGB Conc 31.9 % (30-36); Mean Corpuscular Hemoglobin 26.2 PG (26-34); Mean Corpuscular Volume 82.2 fL (80-100); Monocytes Absolute Auto 500 /uL (0-900); Monocytes Percent Auto 4.6 % (3-14); Neutrophils Absolute Auto 8800 /uL (1500-7000); Neutrophils Percent Auto 77.9 % (50-75); Platelet Count 502 X10^3/uL (150-400); Red Blood Cell Count 5.03 X10^6/uL (4.0-5.2); Red Cell Distribution Width 16.2 % (11.6-14.8); White Blood Cell Count 11.3 X10^3/uL (4.5-11.0)
[2023-06-19 13:29] LABS: Alanine Aminotransferase 25 IU/L (<35); Albumin 4.1 g/dL (3.5-5.0); Albumin Globulin Ratio 1.6 (1.0-2.8); Alkaline Phosphatase 110 U/L (38-126); Aspartate Aminotransferase 42 IU/L (14-36); BUN Creatinine Ratio 18.4 (6-22); Bilirubin Total 0.8 mg/dL (0.2-1.3); Bilirubin Unconjugated 0.6 mg/dL (0.0-1.1); Blood Urea Nitrogen 14 mg/dL (7-17); Carbon Dioxide 22 mmol/L (22-32); Chloride 105 mmol/L (98-107); Estimated Glomerular Filt Rate > 60 mL/min (>60); Globulin 2.6 g/dL (1.7-4.1); Glucose 126 mg/dL (70-100); HEMOLYSIS < 15 (0-50); Potassium 4.4 mmol/L (3.4-5.1); Sodium 139 mmol/L (137-145); Total Protein 6.7 g/dL (6.3-8.2)
== END ==
LOC: LAB 11:36
PROVIDERS: PCP Family Medicine; Referring Provider Internal Medicine Infectious Disease; Visit Provider Internal Medicine Infectious Disease
DX: R78.81 Bacteremia (principal); M46.24 Osteomyelitis of vertebra, thoracic region
CPT/HCPCS: 36415; 80048; 80076; 85025

== ENCOUNTER 2023-07-31 07:48 | Day surgery (SDC) | payer BC, SELFPAY ==
[2023-05-01 12:22] VITALS: BMI 44.4
[2023-07-31 08:30] VITALS: BP 116/76; PULSE 102; RESP 18; TEMP 36.2; O2SAT 100
--- NOTE | 2023-07-31 08:44 | PM.OP.EGD ---
Operative Date/Time/Diagnoses Date of procedure: 07/31/23 Pre-op diagnosis: See indication and findings Procedure & Clinicians Study performed: EGD Indications: History of bleeding peptic ulcer need for follow-up with complete healing on Prilosec b.i.d. Surgeon: Kishan Wilcox Procedure Notes Procedure in detail: After informed consent was obtained the patient was placed in left lateral decubitus position. The video upper scope was placed into the oropharynx and with the patient's help swallowed into the esophagus. The esophagus stomach and duodenum were carefully examined. On withdrawal, retroflexed view the GE junction was performed. The scope was removed. The patient tolerated procedure well. Blood loss none Complications none Sedation mac Findings 1. Normal esophagus 2. Squamocolumnar junction at 35 cm. Just beyond this small gastric remnant and is somewhat stenotic anastomosis. Ulcer however had completely healed. I was unable to pass the scope through this area and therefore used a 12-15 mm balloon to a maximum of 13.5 mm. This allowed passage of the scope though just barely. New no complications were noted. 3. Small bowel normal We will see how with Nini does with her episodes of vomiting. If not completely improve we might want to consider dilating up to a larger size.
--- NOTE | 2023-07-31 08:46 | PM.HP.1 ---
History of Present Illness History of Present Illness Date Patient Seen: 07/31/23 Chief complaint: SDC Narrative: History of bleeding peptic ulcer disease on EGD at the end of April. Need to follow-up to ensure complete healing FOR[facility]LY [facility] Medical History (Updated 06/25/23 @ 16:57 by Flavio Grier DO) Lumbar radiculopathy Bilateral pubic rami fractures Acute right hip pain Abnormal creatinine clearance glomerular filtration Sleep apnea HTN (hypertension) Melanoma Iron deficiency (~2000) Anxiety (Unknown) Hypothyroidism (Unknown) Bursitis (~12/2011) Chronic headaches (Unknown) Surgical History (Updated 06/03/23 @ 09:07 by Flavio Grier DO) Hx of laminectomy (08/19/18) Hx of vein stripping Status post epidural steroid injection History of spinal fusion (06/23/13) History of tonsillectomy H/O Achilles tendon repair History of sinus surgery Status post dilation and curettage (11/23/16) Status post dilation and curettage History of cataract removal with insertion of prosthetic lens History of gastric bypass (2000) Status post tonsillectomy and adenoidectomy Social History household members: none Smoking Status: Never smoker alcohol intake: never Meds Home Medications and Allergies Home Medications Medication Instructions Recorded Confirmed Type diphenhydramine HCl 50 mg capsule 50 mg PO HSP PRN Insomnia ##0 07/02/16 06/03/23 History ascorbic acid (vitamin C) 1,000 mg 1,000 mg PO DAILY 07/02/17 06/03/23 History tablet (Vitamin C) calcium citrate 1,000 mg PO DAILY 07/02/17 06/03/23 History coenzyme Q10 200 mg capsule (Co 200 mg PO DAILY 07/02/17 06/03/23 History Q-10) multivitamin 1 cap PO DAILY 07/02/17 06/03/23 History vitamin A 3,000 mcg (10,000 unit) 10,000 unit PO 2XW 07/02/17 06/03/23 History capsule vitamin B complex (B Complex 1 1 tab PO DAILY 07/02/17 06/03/23 History tablet) vitamin d See Rx Instructions .Route .COMPLEX 07/02/17 06/03/23 History vitamin e See Rx Instructions .Route .COMPLEX 07/02/17 06/03/23 History zinc 50 mg tablet 50 mg PO DAILY 07/02/17 06/03/23 History ferrous gluconate 240 mg (27 mg 100 mg PO DAILY 10/30/17 06/03/23 History iron) tablet magnesium oxide 500 mg PO BID 01/08/18 06/03/23 History levothyroxine 75 mcg tablet 75 mcg PO DAILY #90 tabs 08/04/20 07/31/23 Rx acetaminophen 325 mg capsule 500 mg PO ONCE PRN Pain (Scale 04/06/21 06/03/23 History Score 1-3) liothyronine 5 mcg tablet (Cytomel) 10 mcg PO DAILY 04/06/21 07/31/23 History prasterone (dhea) 50 mg capsule 50 mg PO DAILY 04/06/21 06/03/23 History (DHEA) vitamin K2 100 mcg capsule 100 mcg PO DAILY 04/06/21 06/03/23 History DISABLED PARKING PERMIT #1 ea 09/25/22 06/03/23 Rx escitalopram oxalate 20 mg tablet 20 mg PO DAILY #90 tabs 01/21/23 07/31/23 Rx (Lexapro) irbesartan 150 mg tablet 150 mg PO BID #180 tabs 01/21/23 07/31/23 Rx hydrocortisone 10 mg tablet 35 mg (3.5 x 10 mg) PO DAILY #100 04/25/23 06/03/23 Rx tabs pantoprazole 40 mg tablet,delayed 40 mg PO BID 90 days #180 tabs 05/29/23 07/31/23 Rx release (Protonix) amoxicillin 500 mg capsule 500 mg PO 3XD 06/03/23 07/31/23 History sucralfate 1 gram tablet 1 g PO 4XD 06/03/23 06/03/23 History gabapentin 600 mg tablet 600 mg PO BEDTIME #90 tabs 06/10/23 07/31/23 Rx cyclobenzaprine 5 mg tablet 5 - 10 mg (1 - 2 x 5 mg) PO TID 06/21/23 07/31/23 Rx PRN muscle spasm #90 tabs oxycodone-acetaminophen 5 mg-325 2 tab PO Q4-6H PRN pain #180 tabs 07/04/23 07/31/23 Rx mg tablet (Percocet) Allergies Allergy/AdvReac Type Severity Reaction Status Date / Time pregabalin [PREGABALIN] Allergy Severe facial and Verified 06/03/23 08:19 throat swelling hydrocodone [HYDROCODONE] AdvReac Severe nausea, Verified 06/03/23 08:19 syncopal episode Exam Vital Signs (past 8 hours): - 07/31/23 08:30 Temperature 97.2 F L Pulse Rate 102 H Respiratory Rate 18 Blood Pressure 116/76 Pulse Oximetry 100 Oxygen Delivery Method Room Air Oxygen Delivery Method Room Air Narrative Exam Narrative: Oropharynx free of lesions Chest clear to auscultation percussion Cardiac exam reveals no S3 or murmur Assessment & Plan Assessment & Plan narrative: History of bleeding peptic ulcer need for follow-up to ensure complete healing. Risks, benefits, alternatives have been explained for upper endoscopy
[2023-07-31] MEDS: LACTATED RINGERS 1,000 ML 84 ML IV (08:47)
[2023-07-31 09:53] VITALS: BP 95/61; BP 97/69; PULSE 96; PULSE 97; RESP 17; RESP 18; TEMP 36.3; O2SAT 100; O2SAT 95
[2023-07-31 09:58] VITALS: BP 103/66; PULSE 94; RESP 16; O2SAT 100
[2023-07-31 10:03] VITALS: BP 106/68; PULSE 92; RESP 12; TEMP 36.3; O2SAT 100
== END 2023-07-31 10:25 | disposition home or self-care (01) ==
PROVIDERS: PCP Family Medicine; Referring Provider Internal Medicine Gastroenterology; Visit Provider Internal Medicine Gastroenterology
PROC: 0DJ08ZZ Inspection of Upper Intestinal Tract, Via Natural or Artificial Opening Endoscopic (ICD-10-PCS; CPT 43235; principal; 2023-07-31 09:00)
DX: Z87.11 Personal history of peptic ulcer disease (principal); K22.2 Esophageal obstruction
CPT/HCPCS: 43249; J2704

== ENCOUNTER → 2023-08-08 14:05 | Outpatient (CLI) | payer BC, SELFPAY ==
[2023-05-01 12:22] VITALS: BMI 44.4
[2023-08-08 14:46] LABS: Add Manual Diff / Slide Review NO; Basophils Absolute Auto 0 /uL (0-100); Basophils Percent Auto 0.4 % (0-2); Eosinophils Absolute Auto 100 /uL (0-450); Eosinophils Percent Auto 0.6 % (2-4); Hematocrit 41.8 % (36-46); Hemoglobin 13.4 g/dL (12.0-16.0); Lymphocytes Absolute Auto 1000 /uL (1100-4500); Mean Corpuscular HGB Conc 32.1 % (30-36); Mean Corpuscular Hemoglobin 26.1 PG (26-34); Mean Corpuscular Volume 81.2 fL (80-100); Monocytes Absolute Auto 200 /uL (0-900); Monocytes Percent Auto 2.5 % (3-14); Neutrophils Absolute Auto 8200 /uL (1500-7000); Neutrophils Percent Auto 86.5 % (50-75); Platelet Count 373 X10^3/uL (150-400); Red Blood Cell Count 5.14 X10^6/uL (4.0-5.2); Red Cell Distribution Width 18.9 % (11.6-14.8); White Blood Cell Count 9.5 X10^3/uL (4.5-11.0)
[2023-08-08 15:01] LABS: Alanine Aminotransferase 25 IU/L (<35); Albumin Globulin Ratio 1.6 (1.0-2.8); Alkaline Phosphatase 117 U/L (38-126); Aspartate Aminotransferase 39 IU/L (14-36); BUN Creatinine Ratio 20.7 (6-22); Bilirubin Total 0.9 mg/dL (0.2-1.3); Bilirubin Unconjugated 0.5 mg/dL (0.0-1.1); Blood Urea Nitrogen 19 mg/dL (7-17); Calcium 9.2 mg/dL (8.4-10.2); Carbon Dioxide 23 mmol/L (22-32); Chloride 105 mmol/L (98-107); Estimated Glomerular Filt Rate > 60 mL/min (>60); Globulin 2.5 g/dL (1.7-4.1); Glucose 150 mg/dL (70-100); HEMOLYSIS < 15 (0-50); Potassium 4.9 mmol/L (3.4-5.1); Sodium 139 mmol/L (137-145); Total Protein 6.5 g/dL (6.3-8.2)
== END ==
LOC: LAB 14:07
PROVIDERS: PCP Family Medicine; Referring Provider Internal Medicine Infectious Disease; Visit Provider Internal Medicine Infectious Disease
DX: Z51.81 Encounter for therapeutic drug level monitoring (principal); Z79.2 Long term (current) use of antibiotics
CPT/HCPCS: 36415; 80048; 80076; 85025

== ENCOUNTER 2023-08-13 07:22 | Outpatient (CLI) | payer BC, SELFPAY ==
[2023-05-01 12:22] VITALS: BMI 44.4
[2023-08-13] VITALS (9 sets, daily range): BP systolic 90–114; BP diastolic 55–71; PULSE 91–111; RESP 11–23; TEMP 36.2; O2SAT 98–100
--- NOTE | 2023-08-13 08:00 | DI.RAD.S_ITS ---
PROCEDURE: PAIN L INTERLAMINAR/CAUDAL INJ INDICATIONS: L5/S1 TL ORTIZ COMPARISON: None. FINDINGS: Fluoroscopic spot filming was performed to verify placement of spinal needles at the L5-S1 level(s), as labeled on the films. Appropriate location(s) of the needle tip(s) was confirmed by injection of iodinated contrast. IMPRESSION: Intraoperative guidance provided. Dictated by: Rafael Baer M.D. on 08/13/2023 at 12:15 Approved by: Rafael Baer M.D. on 08/13/2023 at 12:15
--- NOTE | 2023-08-13 08:03 | PC.NURSE ---
Patient currently taking oral ammoxicillin for blood infection. Reports that she has been on it for months and per the infectious she will needs to continue the abx a few weeks post injection. notified.
[2023-08-13] MEDS: MIDAZOLAM 2 MG/2 ML VIAL 1 MG IV ×2 (08:19→08:22)
[2023-08-13] MEDS: iopamidoL 15 ML VIAL 3 ML INJ (08:29)
[2023-08-13] MEDS: DEXAMETHASONE 10 MG/ML VIAL INJ (08:29)
[2023-08-13] MEDS: BETAMETHASONE 30 MG/5 ML MDV 6 MG INJ (08:30)
[2023-08-13] MEDS: BUPIVACAINE 0.25% (PF) VIAL 2 ML INJ (08:30)
--- NOTE | 2023-08-13 08:42 | PM.PROC.IR.1 ---
Date/Time/Diagnoses Date of procedure: 08/13/23 Time of procedure: 08:42 Pre-procedure diagnosis: 1. HNP WITH RADICULAR FEATURES, 2. MULTILEVEL CENTRAL STENOSIS, Post-procedure diagnosis: same Procedure Notes Procedure: 1. FLUOROSCOPICALLY GUIDED CONTRAST CONTROLLED INTERLAMINAR EPIDURAL STEROID INJECTION - L5/S1 Indications: Nini is referred by Dr. Decker for treatment of Bilateral Foraminal Stenosis L>R LE symptoms. Physician: Flavio Grier Total Fluoroscopy time (seconds): 11 Total sedation minutes: 17 Complications: none Procedure in detail & Post-procedure care: FINDINGS Multilevel Central Spinal Stenosis with Nerve Root Compression DESCRIPTION OF PROCEDURE Fluoroscopically guided, contrast-controlled L5/S1 translaminar epidural steroid injection. Following review of allergy and review of potential side effects and complications, including, but not necessarily limited to, infection, allergic reaction, local tissue breakdown, temporary as well as permanent nerve injury, paralysis, stroke and possible , the patient indicated that the patient understood and agreed to proceed. An informed consent document was signed by the patient, witnessed by a nurse, and placed in the patient's chart. Additionally, other treatment options including modalities, medications, and physical therapy were reviewed with the patient. After review of previous anaesthesic history and IV conscious sedation the patient was deemed safe to proceed with today?s procedure with IV conscious sedation as ASA class II designation. Safety time-out was performed to confirm patient ID, procedure to be performed and site of procedure. IV sedation was accomplished with a combination of 2mg of Versed and 50mcg of Fentanyl administered by the RN after DO order, titrated to patient comfort during the course of the procedure while the patient remained responsive to all verbal commands. In the prone position, following sterile prep and drape of the lumbar region, the L5/S1 translaminar space was identified fluoroscopically. The skin was anesthetized via a 25-gauge, 1.5-inch needle with 1% lidocaine solution. At this point, a 22-gauge short bevel spinal needle was atraumatically introduced and advanced under fluoroscopic guidance into the region of the L5/S1 translaminar space. Depth was confirmed on lateral view. Radiological data, including multiple fluoroscopic views of the lumbar spine, reveal a spinal needle at the L5/S1 translaminar space. Lateral views then show placement of the needle in the epidural space. Subsequent views show contrast material flowing superiorly and inferiorly in the epidural space. No vascular or intrathecal uptake is observed. At this point, using loss of resistance technique with saline and air, the epidural space was entered. This was confirmed following negative aspiration with injection of approximately 1.5cc of Isovue 200, showing excellent epidural flow without vascular or intrathecal uptake. At this point, 1 cc of 1% lidocaine solution combined with 2cc or 10mg of dexamethasone and 6mg of betamethasone was injected without incident. The patent tolerated the procedure without signs of symptoms of complications prior to transfer to the recovery area for further monitoring. The patient was then transferred to the recovery area where they were observed for an appropriate period of time after the injection. The patient reported a VAS score of 8 prior to the procedure and a post-procedure VAS of 1. POST OP INSTRUCTIONS The patient was provided a Pain Log to continue to record their response to the target-specific procedure prior to follow-up visit with their referring physician. Additionally, specific post-injection care instructions and a contact number to our office were provided if concerns arise regarding possible complications associated with the procedure are suspected.
== END 2023-08-13 08:58 | disposition home or self-care (01) ==
LOC: RAD 07:23
PROVIDERS: PCP Family Medicine; Referring Provider Physical Medicine & Rehabilitation; Visit Provider Physical Medicine & Rehabilitation
DX: M51.17 Intervertebral disc disorders with radiculopathy, lumbosacral region (principal); M48.07 Spinal stenosis, lumbosacral region
CPT/HCPCS: 62323; 99152; J0702; J1100; J2250; J3490

== ENCOUNTER → 2023-09-05 08:48 | Outpatient (CLI) | payer BC, SELFPAY ==
[2023-05-01 12:22] VITALS: BMI 44.4
--- NOTE | 2023-09-05 08:49 | DI.US.S_ITS ---
PROCEDURE: US EXTREMITY NONVASC LOWER LT INDICATIONS: lt leg lump TECHNIQUE: Real-time scanning was performed of the left lower leg, with image documentation. COMPARISON: None. FINDINGS: At the clinical area of concern at the medial left lower leg, there is an ill-defined area isoechoic to hyperechoic signal with foci of posterior shadowing. This area measures approximately the 1.8 x 1.2 x 2.8 cm. There appears to be surrounding subcutaneous edema. IMPRESSION: Ill-defined area of abnormal signal and posterior shadowing corresponds the palpable area of concern. Findings may represent prior trauma, focal chronic inflammatory changes, or less likely an infiltrative mass. Consider contrast enhanced MRI or CT for further evaluation. Approved by: Rodriguez Hopper M.D. on 09/06/2023 at 8:43
== END ==
PROVIDERS: PCP Family Medicine; Referring Provider Family Medicine; Visit Provider Family Medicine
DX: M46.24 Osteomyelitis of vertebra, thoracic region (principal); R78.81 Bacteremia; R22.42 Localized swelling, mass and lump, left lower limb
CPT/HCPCS: 36415; 76882; 87040

== ENCOUNTER 2023-09-11 13:09 | Day surgery (SDC) | payer BC, SELFPAY ==
[2023-05-01 12:22] VITALS: BMI 44.4
[2023-09-11 13:32] VITALS: BP 122/97; PULSE 94; RESP 20; TEMP 36.4; O2SAT 97
[2023-09-11] MEDS: LACTATED RINGERS 1,000 ML 42 ML IV (13:36)
--- NOTE | 2023-09-11 13:43 | P.HP_ITS ---
History of Present Illness History of Present Illness Date Patient Seen: 09/11/23 Chief complaint: SDC Narrative: History of anastomotic ulcer with healing but with stricture. This was last dilated to 13.5 mm with some improvement but still significantly symptomatic. Repeat study to be done to repeat dilation to a larger size. FORMERLY [facility], [facility]–1983 Medical History (Updated 08/28/23 @ 13:15 by Pina Decker DO) Acute upper gastrointestinal bleeding Melena Sepsis Cellulitis of right lower extremity Right knee pain Lumbar radiculopathy Bilateral pubic rami fractures Acute right hip pain Abnormal creatinine clearance glomerular filtration Sleep apnea HTN (hypertension) Melanoma Iron deficiency (~2000) Anxiety (Unknown) Hypothyroidism (Unknown) Bursitis (~12/2011) Chronic headaches (Unknown) Surgical History (Updated 06/03/23 @ 09:07 by Flavio Grier DO) Hx of laminectomy (08/19/18) Hx of vein stripping Status post epidural steroid injection History of spinal fusion (06/23/13) History of tonsillectomy H/O Achilles tendon repair History of sinus surgery Status post dilation and curettage (11/23/16) Status post dilation and curettage History of cataract removal with insertion of prosthetic lens History of gastric bypass (2000) Status post tonsillectomy and adenoidectomy Social History household members: none Smoking Status: Never smoker alcohol intake: never Meds Home Medications and Allergies Home Medications Medication Instructions Recorded Confirmed Type diphenhydramine HCl 50 mg capsule 50 mg PO HSP PRN Insomnia ##0 07/02/16 08/28/23 History ascorbic acid (vitamin C) 1,000 mg 1,000 mg PO DAILY 07/02/17 08/28/23 History tablet (Vitamin C) calcium citrate 1,000 mg PO DAILY 07/02/17 08/28/23 History coenzyme Q10 200 mg capsule (Co 200 mg PO DAILY 07/02/17 08/28/23 History Q-10) multivitamin 1 cap PO DAILY 07/02/17 08/28/23 History vitamin A 3,000 mcg (10,000 unit) 10,000 unit PO 2XW 07/02/17 08/28/23 History capsule vitamin B complex (B Complex 1 1 tab PO DAILY 07/02/17 08/28/23 History tablet) vitamin d See Rx Instructions .Route .COMPLEX 07/02/17 08/28/23 History vitamin e See Rx Instructions .Route .COMPLEX 07/02/17 08/28/23 History zinc 50 mg tablet 50 mg PO DAILY 07/02/17 08/28/23 History ferrous gluconate 240 mg (27 mg 100 mg PO DAILY 10/30/17 08/28/23 History iron) tablet magnesium oxide 500 mg PO BID 01/08/18 08/28/23 History levothyroxine 75 mcg tablet 75 mcg PO DAILY #90 tabs 08/04/20 09/11/23 Rx acetaminophen 325 mg capsule 500 mg PO ONCE PRN Pain (Scale 04/06/21 09/11/23 History Score 1-3) liothyronine 5 mcg tablet (Cytomel) 10 mcg PO DAILY 04/06/21 08/28/23 History prasterone (dhea) 50 mg capsule 50 mg PO DAILY 04/06/21 08/28/23 History (DHEA) vitamin K2 100 mcg capsule 100 mcg PO DAILY 04/06/21 08/28/23 History DISABLED PARKING PERMIT #1 ea 09/25/22 08/28/23 Rx escitalopram oxalate 20 mg tablet 20 mg PO DAILY #90 tabs 01/21/23 09/11/23 Rx (Lexapro) irbesartan 150 mg tablet 150 mg PO BID #180 tabs 01/21/23 08/28/23 Rx hydrocortisone 10 mg tablet 35 mg (3.5 x 10 mg) PO DAILY #100 04/25/23 09/11/23 Rx tabs gabapentin 600 mg tablet 600 mg PO BEDTIME #90 tabs 06/10/23 09/11/23 Rx cyclobenzaprine 5 mg tablet 5 - 10 mg (1 - 2 x 5 mg) PO TID 06/21/23 09/11/23 Rx PRN muscle spasm #90 tabs oxycodone-acetaminophen 5 mg-325 2 tab PO Q4-6H PRN pain #180 tabs 08/26/23 09/11/23 Rx mg tablet (Percocet) pantoprazole 40 mg tablet,delayed 40 mg PO BID 09/11/23 09/11/23 History release Allergies Allergy/AdvReac Type Severity Reaction Status Date / Time pregabalin [PREGABALIN] Allergy Severe facial and Verified 09/11/23 13:22 throat swelling hydrocodone [HYDROCODONE] AdvReac Severe nausea, Verified 09/11/23 13:22 syncopal episode Exam Vital Signs (past 8 hours): - 09/11/23 13:32 Temperature 97.6 F Pulse Rate 94 H Respiratory Rate 20 Blood Pressure 122/97 H Pulse Oximetry 97 Oxygen Delivery Method Room Air Oxygen Delivery Method Room Air Narrative Exam Narrative: Oropharynx free of lesions Chest clear to auscultation percussion Cardiac exam reveals no S3 or murmur Assessment & Plan Assessment & Plan narrative: History of anastomotic stricture need for further dilation. Risks, benefits, alternatives have been explained. Time-Based Coding :: [TOTAL MINUTES] spent with patient and on the chart (including review of chart, obtaining history, exam, reviewing outside data, placing orders, documenting exam and treatment plan, and counseling patient) on [DATE].
--- NOTE | 2023-09-11 13:45 | PM.OP.EGD ---
Operative Date/Time/Diagnoses Date of procedure: 09/11/23 Pre-op diagnosis: See indication and findings Procedure & Clinicians Study performed: EGD Indications: History of anastomotic stricture need for dilation Surgeon: Kishan Wilcox Procedure Notes Procedure in detail: After informed consent was obtained the patient was placed in the left lateral decubitus position. The video upper scope was placed into the oropharynx and with the patient's help swallowed into the esophagus. The esophagus stomach duodenum were carefully examined. On withdrawal, retroflexed view the GE junction was performed. The scope was removed. The patient tolerated procedure well. Blood loss none Complications none Sedation mac Findings 1. Anastomosis at the proximal lei stomach was not large enough to admit the scope initially. I could however she see directly through the anastomotic stricture. I therefore passed a 12-15 mm balloon which initially was dilated up to 13.5 mm. Minimal blood was seen. The scope was then able to be passed through the stricture. Subsequently a dilation was made to 15 mm, and after substituting a different balloon 16.5 mm. Result was very good Nini will call to let me know how she is doing in 2-4 weeks. She should try to advance her diet a little bit but not to include difficult to pass foods.
[2023-09-11 14:11] VITALS: BP 125/84; PULSE 95; RESP 12; TEMP 36.2; O2SAT 94
[2023-09-11 14:16] VITALS: BP 115/72; PULSE 90; RESP 21; O2SAT 95
[2023-09-11 14:21] VITALS: BP 116/71; PULSE 84; RESP 13; TEMP 36.2; O2SAT 96
[2023-09-11 14:26] VITALS: BP 114/71; PULSE 78; RESP 16; O2SAT 96
== END 2023-09-11 14:38 | disposition home or self-care (01) ==
PROVIDERS: PCP Family Medicine; Referring Provider Internal Medicine Gastroenterology; Visit Provider Internal Medicine Gastroenterology
PROC: 0DJ08ZZ Inspection of Upper Intestinal Tract, Via Natural or Artificial Opening Endoscopic (ICD-10-PCS; CPT 43249; principal; 2023-09-11 14:00)
DX: K22.2 Esophageal obstruction (principal)
CPT/HCPCS: 43249; J2704

== ENCOUNTER → 2023-09-17 06:46 | Outpatient (CLI) | payer BC, SELFPAY ==
[2023-05-01 12:22] VITALS: BMI 44.4
--- NOTE | 2023-09-17 06:46 | DI.CT.S_ITS ---
PROCEDURE: CT LE LT W CON INDICATIONS: Lower leg mass/hematoma TECHNIQUE: After the administration of intravenous contrast, 3 mm axial sections acquired of the left leg , with coronal and sagittal reformats. COMPARISON: [facility], US, US EXTREMITY NONVASC LOWER LT, 09/05/2023, 8:56. [facility], CR, XR KNEE ARTHRITIC SERIES RT, 09/16/2023, 14:37. FINDINGS: Image quality: Excellent. Bones: Lateral tilt of the patella. Severe joint space narrowing of the patellofemoral compartment, partially visualized. No acute fracture or dislocation. Soft tissues: At patient's are is of concern, in the in medial distal left leg, there is 2.6 cm area of ill-defined subcutaneous edema with associated calcification, favoring to represent fat necrosis. Mild subcutaneous edema in the distal leg. Mild skin thickening in the posterior medial aspect of the distal leg. No drainable fluid collection. Varicose veins seen in the medial leg. IMPRESSION: Findings suggestive of fat necrosis in the subcutaneous fat of the medial distal left leg, at patient's area of concern. Recommend clinical follow-up to document stability. If there is subsequent growth, MRI with intravenous contrast can be considered. Dictated by: Ana Paris M.D. on 09/17/2023 at 12:34 Approved by: Ana Paris M.D. on 09/17/2023 at 12:44
== END ==
PROVIDERS: PCP Family Medicine; Referring Provider Family Medicine; Visit Provider Family Medicine
DX: R22.42 Localized swelling, mass and lump, left lower limb (principal); S80.10XA Contusion of unspecified lower leg, initial encounter; X58.XXXA Exposure to other specified factors, initial encounter
CPT/HCPCS: 73701; Q9967

== ENCOUNTER → 2023-09-19 15:55 | Outpatient (CLI) | payer BC, SELFPAY ==
[2023-05-01 12:22] VITALS: BMI 44.4
--- NOTE | 2023-09-19 15:56 | DI.MG.S_ITS ---
BILATERAL DIGITAL SCREENING MAMMOGRAM 3D/2D WITH CAD: 09/19/2023 CLINICAL: Routine screening. Family History of Breast Cancer. Comparison is made to exams dated: 05/05/2022 mammogram, 04/27/2021 mammogram, and 03/29/2020 mammogram - [facility]. There are scattered areas of fibroglandular density in both breasts (category b / 25%-50% glandular tissue). Current study was also evaluated with a Computer Aided Detection (CAD) system. No significant masses, calcifications, or other findings are seen in either breast. There has been no significant interval change. IMPRESSION: NEGATIVE There is no mammographic evidence of malignancy. A 1 year screening mammogram is recommended. Based on the Tyrer Cuzick model (a risk assessment model) the patient's lifetime risk is 7.6% and her 10 year risk is 2.8%. According to the ACR, ACS, and NCCN guidelines, an annual breast MRI exam along with mammogram is recommended if the patient's lifetime risk is 20% or greater. This exam was interpreted at Station ID: [id number]. NOTE: For mammograms, a report in lay terms will be sent to the patient. Approximately 15% of breast malignancies will not be visualized mammographically. In the management of a palpable breast mass, a negative mammogram must not discourage biopsy of a clinically suspicious lesion. Electronically Signed By: Rodriguez mcclellan/yves:09/20/2023 12:43:22 letter sent: Normal Exam ACR BI-RADS Category 1: Negative [id number]
== END ==
PROVIDERS: PCP Family Medicine; Referring Provider Family Medicine; Visit Provider Family Medicine
DX: Z12.31 Encounter for screening mammogram for malignant neoplasm of breast (principal); Z80.3 Family history of malignant neoplasm of breast; R92.323 Mammographic fibroglandular density, bilateral breasts
CPT/HCPCS: 77063; 77067

== ENCOUNTER → 2023-10-21 15:14 | Outpatient (CLI) | payer BC, SELFPAY ==
[2023-05-01 12:22] VITALS: BMI 44.4
--- NOTE | 2023-10-21 15:30 | DI.RAD.S_ITS ---
PROCEDURE: XR DEXA AXIAL SKELETON INDICATIONS: asymptomatic age related postmenopausal state COMPARISON: [facility], CR, XR DEXA AXIAL SKELETON, 04/28/2019, 15:25. FINDINGS: Left Hip: Bone mineral density 0.377 g/cm2, T score -4.2, previously negative 2.3. Left Femoral Neck: Bone mineral density is 0.484 g/cm2, T score -3.8, previously -1.5. Left Forearm: Bone mineral density 0.628 g/cm2, T score 0.9, normal. Fracture Risk Calculation (when applicable): 10-year fracture risk of a major osteoporotic fracture 52% and of a hip fracture 31%. (T score greater or equal to -1.0 to: NORMAL) (T score from -1.1 to -2.4: OSTEOPENIA) (T score less than or equal to -2.5: OSTEOPOROSIS) IMPRESSION: Worsening osteoporosis Follow-up guidelines as follows: Osteoporosis: Consider a repeat DEXA and Vertebral Fracture Assessment (VFA) exam in 2 years or sooner if medically necessary, to reassess this patient's status. Osteopenia: Consider a repeat DEXA in 2-3 years to reassess this patient's status, or if there is a new clinical indication. Normal: Consider a repeat DEXA in 5 years or sooner, or if there is a new clinical indication. All treatment decisions require clinical judgment and consideration of individual patient factors, including patient preferences, comorbidities, previous drug use, risk factors not captured in the FRAX model (e.g., frailty, falls, vitamin D deficiency, increased bone turnover, interval significant decline in bone density ) and possible under- or over-estimation of fracture risk by FRAX. In addition, the NOF Guide recommends that FDA-approved medical therapies be considered in postmenopausal women and men age >= 50 years with a: * Hip or vertebral (clinical or morphometric) fracture * T-score of <=-2.5 at the spine or hip * Ten-year fracture probability by FRAX of >= 3% for hip fracture or >=20% for major osteoporotic fracture. People with diagnosed cases of osteoporosis or at high risk for fracture should have regular bone mineral density tests. For patients eligible for Medicare, routine testing is allowed once every 2 years. The testing frequency can be increased to one year for patients who have rapidly progressing disease, those who are receiving or discontinuing medical therapy to restore bone mass, or have additional risk factors. Approved by: Xander Giraldo M.D. on 10/23/2023 at 12:23
== END ==
PROVIDERS: PCP Family Medicine; Referring Provider Family Medicine; Visit Provider Family Medicine
DX: M81.0 Age-related osteoporosis without current pathological fracture (principal); Z78.0 Asymptomatic menopausal state
CPT/HCPCS: 77080; 77081

== ENCOUNTER 2023-11-25 10:12 | Day surgery (SDC) | payer BC, SELFPAY ==
[2023-05-01 12:22] VITALS: BMI 44.4
[2023-11-25 10:49] VITALS: BP 110/73; PULSE 92; RESP 16; TEMP 36.5; O2SAT 96
--- NOTE | 2023-11-25 11:19 | PM.HP.1 ---
History of Present Illness History of Present Illness Chief complaint: [facility] Narrative: Dysphagia due to history of gastric ulceration at the anastomosis. Previously dilated up to 16.5 mm but with recurrent symptoms. Need for further dilation [facility] Medical History (Updated 11/13/23 @ 16:13 by Flavio Grier DO) Sacral dysfunction Acute upper gastrointestinal bleeding Melena Sepsis Cellulitis of right lower extremity Right knee pain Lumbar radiculopathy Bilateral pubic rami fractures Acute right hip pain Abnormal creatinine clearance glomerular filtration Sleep apnea HTN (hypertension) Melanoma Iron deficiency (~2000) Anxiety (Unknown) Hypothyroidism (Unknown) Bursitis (~12/2011) Chronic headaches (Unknown) Surgical History Hx of laminectomy (08/19/18) Hx of vein stripping Status post epidural steroid injection History of spinal fusion (06/23/13) History of tonsillectomy H/O Achilles tendon repair History of sinus surgery Status post dilation and curettage (11/23/16) Status post dilation and curettage History of cataract removal with insertion of prosthetic lens History of gastric bypass (2000) Status post tonsillectomy and adenoidectomy Social History household members: none Smoking Status: Never smoker alcohol intake: never Meds Home Medications and Allergies Home Medications Medication Instructions Recorded Confirmed Type diphenhydramine HCl 50 mg capsule 50 mg PO HSP PRN Insomnia ##0 07/02/16 11/25/23 History ascorbic acid (vitamin C) 1,000 mg 1,000 mg PO DAILY 07/02/17 11/13/23 History tablet (Vitamin C) calcium citrate 1,000 mg PO DAILY 07/02/17 11/13/23 History coenzyme Q10 200 mg capsule (Co 200 mg PO DAILY 07/02/17 11/13/23 History Q-10) multivitamin 1 cap PO DAILY 07/02/17 11/13/23 History vitamin A 3,000 mcg (10,000 unit) 10,000 unit PO 2XW 07/02/17 11/13/23 History capsule vitamin B complex (B Complex 1 1 tab PO DAILY 07/02/17 11/13/23 History tablet) vitamin d See Rx Instructions .Route .COMPLEX 07/02/17 11/13/23 History vitamin e See Rx Instructions .Route .COMPLEX 07/02/17 11/13/23 History zinc 50 mg tablet 50 mg PO DAILY 07/02/17 11/13/23 History ferrous gluconate 240 mg (27 mg 100 mg PO DAILY 10/30/17 11/13/23 History iron) tablet magnesium oxide 500 mg PO BID 01/08/18 11/13/23 History acetaminophen 325 mg capsule 500 mg PO ONCE PRN Pain (Scale 04/06/21 11/25/23 History Score 1-3) prasterone (dhea) 50 mg capsule 50 mg PO DAILY 04/06/21 11/13/23 History (DHEA) vitamin K2 100 mcg capsule 100 mcg PO DAILY 04/06/21 11/13/23 History gabapentin 600 mg tablet 600 mg PO BEDTIME #90 tabs 06/10/23 11/25/23 Rx cyclobenzaprine 5 mg tablet 5 - 10 mg (1 - 2 x 5 mg) PO TID 09/13/23 11/25/23 Rx PRN muscle spasm #90 tabs hydrocortisone 10 mg tablet 35 mg (3.5 x 10 mg) PO DAILY #100 09/13/23 11/25/23 Rx tabs DISABLED PARKING PERMIT #1 ea 09/18/23 11/13/23 Rx pantoprazole 40 mg tablet,delayed 40 mg PO BID #180 tabs 10/02/23 11/25/23 Rx release escitalopram oxalate 20 mg tablet 20 mg PO DAILY #90 tabs 10/08/23 11/25/23 Rx (Lexapro) irbesartan 150 mg tablet 150 mg PO BID #180 tabs 10/08/23 11/25/23 Rx levothyroxine 75 mcg tablet 75 mcg PO DAILY #90 tabs 11/08/23 11/25/23 Rx liothyronine 5 mcg tablet (Cytomel) 10 mcg (2 x 5 mcg) PO DAILY #180 11/12/23 11/25/23 Rx tabs oxycodone-acetaminophen 5 mg-325 2 tab PO Q4-6H PRN pain #180 tabs 11/25/23 11/25/23 Rx mg tablet (Percocet) Allergies Allergy/AdvReac Type Severity Reaction Status Date / Time hydrocodone [HYDROCODONE] AdvReac Severe nausea, Verified 11/25/23 10:33 syncopal episode pregabalin [PREGABALIN] AdvReac Severe Fatigued Verified 11/25/23 10:33 Exam Vital Signs (past 8 hours): - 11/25/23 10:49 Temperature 97.7 F Pulse Rate 92 H Respiratory Rate 16 Blood Pressure 110/73 Pulse Oximetry 96 Oxygen Delivery Method Room Air Oxygen Delivery Method Room Air Narrative Exam Narrative: Oropharynx free of lesions Chest clear to auscultation percussion Cardiac exam reveals no S3 or murmur Assessment & Plan Assessment & Plan narrative: History of ulceration and stricture at the anastomosis. Ulceration is healed but need for follow-up dilation to deal with dysphagia. Risks, benefits, alternatives have been explained. Time-Based Coding :: [TOTAL MINUTES] spent with patient and on the chart (including review of chart, obtaining history, exam, reviewing outside data, placing orders, documenting exam and treatment plan, and counseling patient) on [DATE].
--- NOTE | 2023-11-25 11:22 | PM.OP.COLON ---
Operative Date/Time/Diagnoses Date of procedure: 11/25/23 Pre-op diagnosis: See indication and findings Procedure & Clinicians Study performed: EGD with balloon dilation Indications: Dysphagia with known history of stricture at the anastomosis from gastric bypass Surgeon: Kishan Wilcox Procedure Notes Procedure in detail: After informed consent was obtained the patient was placed in left lateral decubitus position. The video upper scope was placed into the oropharynx and with the patient's help swelled into the esophagus. The esophagus lei stomach and intestine were carefully examined. The scope was removed. The patient tolerated procedure well. Blood loss none Complications none Sedation mac Findings 1.
--- NOTE | 2023-11-25 11:52 | PM.OP.EGD ---
Operative Date/Time/Diagnoses Date of procedure: 11/25/23 Pre-op diagnosis: See indication and findings Procedure & Clinicians Study performed: EGD with balloon dilatation Indications: Stricture at the lei gastric intestinal junction exacerbated by what is now healed anastomotic ulcer. Need for further dilatation Surgeon: Kishan Wilcox Procedure Notes Procedure in detail: After informed consent was obtained the patient was placed in left lateral decubitus position. The video upper scope was placed into the oropharynx and with the patient's help swallowed into the esophagus. The esophagus stomach and duodenum were carefully examined. On withdrawal, retroflexed view the GE junction was performed. The scope was removed. The patient tolerated procedure well. Blood loss none Complications none Sedation mac Findings 1. Normal GE junction 2. Small 6 cm lei stomach. The anastomosis was too tight to admit the upper endoscope a 15-18 balloon was therefore inserted and inflated to 15 mm. Upon deflating I was able to get the scope through it and evaluate both the blind limb and the jejunum. The scope was then brought back to the anastomosis where the stricture was treated 16.5 mm and subsequently 18 mm. Affect was good. Scope was easily passed. The scope was removed. The patient tolerated procedure well. Patient will call me in 2-4 weeks to let me know how she is doing and hopefully she will remain improved.
[2023-11-25 11:53] VITALS: BP 144/90; PULSE 97; RESP 18; TEMP 36.1; O2SAT 96
[2023-11-25 11:57] VITALS: BP 126/86; PULSE 89; RESP 14; O2SAT 96
[2023-11-25 12:02] VITALS: BP 123/83; PULSE 89; RESP 17; O2SAT 94
[2023-11-25 12:08] VITALS: BP 116/79; PULSE 80; RESP 15; TEMP 36.1; O2SAT 97
== END 2023-11-25 12:15 | disposition home or self-care (01) ==
PROVIDERS: PCP Family Medicine; Referring Provider Internal Medicine Gastroenterology; Visit Provider Internal Medicine Gastroenterology
PROC: 0DJ08ZZ Inspection of Upper Intestinal Tract, Via Natural or Artificial Opening Endoscopic (ICD-10-PCS; CPT 43235; principal; 2023-11-25 11:30)
DX: K22.2 Esophageal obstruction (principal)
CPT/HCPCS: 43249; J2704

== ENCOUNTER → 2023-12-04 17:18 | Outpatient (CLI) | payer BC, SELFPAY ==
[2023-05-01 12:22] VITALS: BMI 44.4
[2023-12-04 18:47] LABS: Alanine Aminotransferase 41 IU/L (<35); Albumin 3.7 g/dL (3.5-5.0); Albumin Globulin Ratio 1.5 (1.0-2.8); Alkaline Phosphatase 111 U/L (38-126); Aspartate Aminotransferase 36 IU/L (14-36); BUN Creatinine Ratio 26.1 (6-22); Bilirubin Total 0.9 mg/dL (0.2-1.3); Blood Urea Nitrogen 23 mg/dL (7-17); Calcium 8.9 mg/dL (8.4-10.2); Carbon Dioxide 31 mmol/L (22-32); Chloride 100 mmol/L (98-107); Estimated Glomerular Filt Rate > 60 mL/min (>60); Globulin 2.4 g/dL (1.7-4.1); Glucose 46 mg/dL (70-100); HEMOLYSIS < 15 (0-50); Sodium 135 mmol/L (137-145); Total Protein 6.1 g/dL (6.3-8.2)
== END ==
PROVIDERS: PCP Family Medicine; Referring Provider Family Medicine; Visit Provider Family Medicine
DX: E87.5 Hyperkalemia (principal); M80.80XS Other osteoporosis with current pathological fracture, unspecified site, sequela; E83.41 Hypermagnesemia
CPT/HCPCS: 36415; 80053

== ENCOUNTER 2023-12-26 13:01 | Outpatient (CLI) | payer BC, SELFPAY ==
[2023-05-01 12:22] VITALS: BMI 44.4
[2023-12-26] VITALS (8 sets, daily range): BP systolic 130–156; BP diastolic 69–80; PULSE 68–77; RESP 16–22; TEMP 36.2; O2SAT 20–100
--- NOTE | 2023-12-26 14:05 | DI.RAD.S_ITS ---
PROCEDURE: PAIN SI JOINT INJECTION YADI INDICATIONS: Bilateral SI joint injection COMPARISON: None. FINDINGS: Fluoroscopic spot filming was performed to verify placement of spinal needles at the bilateral sacroiliac joints, as labeled on the films. Appropriate location(s) of the needle tip(s) was confirmed by injection of iodinated contrast. IMPRESSION: Intraoperative fluoroscopy for bilateral SI joint injection. Dictated by: Roya Ellis M.D. on 12/27/2023 at 0:11 Approved by: Roya Ellis M.D. on 12/27/2023 at 0:11
[2023-12-26] MEDS: MIDAZOLAM 2 MG/2 ML VIAL IV (14:16)
[2023-12-26] MEDS: iopamidoL 15 ML VIAL 3 ML INJ (14:21)
[2023-12-26] MEDS: BUPIVACAINE 0.5% (PF) 10 ML VIAL 2 ML INJ (14:21)
[2023-12-26] MEDS: BETAMETHASONE 30 MG/5 ML MDV 12 MG INJ (14:21)
--- NOTE | 2023-12-26 14:36 | PM.PROC.IR.1 ---
Date/Time/Diagnoses Date of procedure: 12/26/23 Time of procedure: 14:37 Pre-procedure diagnosis: Sacroiliac joint pain/DJD Post-procedure diagnosis: same Procedure Notes Procedure: Fluoroscopic guided contrast controlled bilateral sacroiliac joint injection Indications: Nini is referred by Dr. Decker for treatment of bilateral sacroiliac joint DJD Physician: Flavio Grier Total Fluoroscopy time (seconds): 17 Total sedation minutes: 16 Complications: none Procedure in detail & Post-procedure care: Description of procedure Fluoroscopic guided, contrast controlled bilateral sacroiliac joint injection Following review of allergies and review of potential side effects and complications, including, but not necessarily limited to, infection, allergic reaction, local tissue breakdown, temporary as well as permanent nerve injury, paralysis, stroke and possible , the patient indicated that they understood and agreed to proceed. An informed consent was signed by the patient, witnessed by a nurse, and placed in the patient's chart. Additionally, other treatment options including modalities, medications, and physical therapy were reviewed with the patient. After review of previous anaesthesic history and IV conscious sedation the patient was deemed safe to proceed with today?s procedure with IV conscious sedation as ASA class II designation. Safety time-out was performed to confirm patient ID, procedure to be performed and site of procedure. IV sedation was accomplished with a combination of 2mg Versed were administered by the RN after DO order, titrated to patient comfort during the course of the procedure while the patient remained responsive to all verbal commands In the prone position following sterile prep and drape of the pelvic region, the hyper lucency on in the inferior aspect of the sacroiliac joint was identified fluoroscopically the skin was anesthetized be a 25 gauge 1.5 inch needle with approximately 2cc of 1% lidocaine solution. At this point, a 22 gauge 3 in spinal needle was atraumatically introduced and advanced under fluoroscopic guidance into the inferior aspect of the right sacroiliac joint. Following negative aspiration, approximately 0.3cc of [id number]-[id number] was injected confirming intra-articular placement without vascular uptake. Radiographic data, including multiple fluoroscopic views of the pelvis, reveals a spinal needle in the sacroiliac joint hyper lucent zone. Subsequent view show flow contrast tear superiorly and inferiorly within the joint capsule without vascular intrathecal uptake. At this point a total of 1cc of 0.5% Marcaine was combined with 1cc of 6mg of betamethasone was injected without incident. Attention was then refocused the left sacroiliac joint where the procedure was replicated. The procedure tolerated the procedure well without signs or symptoms of complications prior to transfer to the recovery area continued monitoring without incident. The patient was then transferred to the recovery area with a bur observed for an appropriate time after the injection. The patient reverted a vas score of 7 prior to the procedure and post-procedure vas of 1. Postop instructions The patient was provided with a pain like to continue to record the patient's response to the target specific procedure prior to the patient's follow-up visit with the referring physician. Additionally, specific post injection care instructions and a contact number to our office were provided if concerns arise regarding the possible complications associated with procedure are suspected.
== END 2023-12-26 14:55 | disposition home or self-care (01) ==
LOC: RAD 13:01
PROVIDERS: PCP Family Medicine; Referring Provider Physical Medicine & Rehabilitation; Visit Provider Physical Medicine & Rehabilitation
DX: M53.3 Sacrococcygeal disorders, not elsewhere classified (principal); Z98.1 Arthrodesis status
CPT/HCPCS: 27096; 99152; J0702; J2250

== ENCOUNTER → 2024-01-11 11:45 | Outpatient (CLI) | payer BC, SELFPAY ==
[2023-05-01 12:22] VITALS: BMI 44.4
[2024-01-11 12:13] LABS: Add Manual Diff / Slide Review NO; Basophils Absolute Auto 0 /uL (0-100); Basophils Percent Auto 0.2 % (0-2); Eosinophils Absolute Auto 0 /uL (0-450); Eosinophils Percent Auto 0.4 % (2-4); Hematocrit 41.6 % (36-46); Hemoglobin 13.5 g/dL (12.0-16.0); Lymphocytes Absolute Auto 900 /uL (1100-4500); Lymphocytes Percent Auto 8.3 % (25-40); Mean Corpuscular HGB Conc 32.5 % (30-36); Mean Corpuscular Hemoglobin 30.2 PG (26-34); Mean Corpuscular Volume 92.9 fL (80-100); Monocytes Absolute Auto 500 /uL (0-900); Monocytes Percent Auto 4.1 % (3-14); Neutrophils Absolute Auto 9800 /uL (1500-7000); Platelet Count 330 X10^3/uL (150-400); Red Blood Cell Count 4.47 X10^6/uL (4.0-5.2); Red Cell Distribution Width 14.4 % (11.6-14.8); White Blood Cell Count 11.3 X10^3/uL (4.5-11.0)
[2024-01-11 12:22] LABS: HEMOLYSIS < 15 (0-50); Iron 54 ug/dL (37-170)
[2024-01-11 12:33] LABS: Percent Iron Saturation 14 % (15-50); Total Iron Binding Capacity 385 ug/dL (265-497); Transferrin 348 mg/dL (206-381)
[2024-01-11 12:40] LABS: Free T3, Triiodothyronine Free 4.09 pg/mL (2.77-5.27)
[2024-01-11 12:48] LABS: Appearance Urine UA CLEAR; Bilirubin Urine UA NEGATIVE (NEGATIVE); Color Urine UA YELLOW; Glucose Urine UA NEGATIVE (Negative); Ketones Urine UA NEGATIVE (NEGATIVE); Leukocyte Esterase Urine UA 1+ (NEGATIVE); Nitrite Urine UA NEGATIVE (Negative); Occult Blood Urine UA NEGATIVE (Negative); Protein Urine UA NEGATIVE (Negative); Specific Gravity Urine UA 1.025 (1.000-1.035)
[2024-01-11 12:49] LABS: pH Urine UA 5.5 (4.5-8.0)
[2024-01-11 12:54] LABS: TSH w/ Reflex to FT4 0.18 uIU/mL (0.47-4.68)
[2024-01-11 12:59] LABS: Bacteria Urine Moderate (10-30); Culture Indicated Urine Specimen Cultured; Ferritin 13 ng/mL (11-264); RBC Urine 0-1/HPF (0-5/HPF); Squamous Epithelial Cell Urine 1-5 /HPF (0-5/HPF); Urine Volume 10mL (spun); WBC Urine 5-10/HPF (0-5/HPF)
[2024-01-11 13:21] LABS: Free T4, Direct Thyroxine 1.09 ng/dL (0.78-2.19)
[2024-01-12 06:08] LABS: Ionized Calcium 4.7 mg/dL (4.5-5.6)
== END ==
PROVIDERS: PCP Family Medicine; Referring Provider Family Medicine; Visit Provider Family Medicine
DX: E03.9 Hypothyroidism, unspecified (principal); Z87.19 Personal history of other diseases of the digestive system; R13.10 Dysphagia, unspecified; Z87.11 Personal history of peptic ulcer disease; R42 Dizziness and giddiness; R74.01 Elevation of levels of liver transaminase levels; Z87.440 Personal history of urinary (tract) infections
CPT/HCPCS: 36415; 81001; 82330; 82728; 83540; 83550; 84439; 84443; 84481; 85025; 87077; 87086; 87186

== ENCOUNTER → 2024-01-14 16:50 | Outpatient (CLI) | payer BC, SELFPAY ==
[2023-05-01 12:22] VITALS: BMI 44.4
== END ==
PROVIDERS: PCP Family Medicine; Referring Provider Family Medicine; Visit Provider Family Medicine
DX: N39.0 Urinary tract infection, site not specified (principal); Z86.19 Personal history of other infectious and parasitic diseases
CPT/HCPCS: 36415; 87040

== ENCOUNTER → 2024-01-20 16:01 | Outpatient (CLI) | payer BC, SELFPAY ==
[2023-05-01 12:22] VITALS: BMI 44.4
[2024-01-20 16:54] LABS: Add Manual Diff / Slide Review NO; Basophils Absolute Auto 0 /uL (0-100); Basophils Percent Auto 0.2 % (0-2); Eosinophils Absolute Auto 0 /uL (0-450); Eosinophils Percent Auto 0.1 % (2-4); Hematocrit 41.9 % (36-46); Hemoglobin 13.8 g/dL (12.0-16.0); Lymphocytes Absolute Auto 1300 /uL (1100-4500); Lymphocytes Percent Auto 13.2 % (25-40); Mean Corpuscular HGB Conc 32.9 % (30-36); Mean Corpuscular Hemoglobin 30.4 PG (26-34); Mean Corpuscular Volume 92.6 fL (80-100); Monocytes Absolute Auto 300 /uL (0-900); Monocytes Percent Auto 3.4 % (3-14); Neutrophils Absolute Auto 7900 /uL (1500-7000); Neutrophils Percent Auto 83.1 % (50-75); Platelet Count 392 X10^3/uL (150-400); Red Blood Cell Count 4.53 X10^6/uL (4.0-5.2); Red Cell Distribution Width 14.5 % (11.6-14.8); White Blood Cell Count 9.5 X10^3/uL (4.5-11.0)
[2024-01-20 16:55] LABS: Appearance Urine UA CLEAR; Bilirubin Urine UA NEGATIVE (NEGATIVE); Color Urine UA YELLOW; Glucose Urine UA NEGATIVE (Negative); Ketones Urine UA NEGATIVE (NEGATIVE); Leukocyte Esterase Urine UA NEGATIVE (NEGATIVE); Nitrite Urine UA NEGATIVE (Negative); Occult Blood Urine UA NEGATIVE (Negative); Protein Urine UA NEGATIVE (Negative); Specific Gravity Urine UA >=1.030 (1.000-1.035); Urobilinogen Urine UA 0.2 E.U./dL (0.2)
[2024-01-20 16:58] LABS: pH Urine UA 5.5 (4.5-8.0)
[2024-01-20 17:04] LABS: Bacteria Urine Occasional (0-1); RBC Urine None Seen (0-5/HPF); Squamous Epithelial Cell Urine 0-1 /HPF (0-5/HPF); Urine Volume 10mL (spun); WBC Urine None Seen (0-5/HPF)
[2024-01-20 17:05] LABS: Culture Indicated Urine Cult Not Indicated; Hyaline Casts Urine 1-5/LPF
[2024-01-20 17:08] LABS: Alanine Aminotransferase 52 IU/L (<35); Albumin 4.7 g/dL (3.5-5.0); Alkaline Phosphatase 122 U/L (38-126); Aspartate Aminotransferase 44 IU/L (14-36); BUN Creatinine Ratio 26.2 (6-22); Bilirubin Total 0.8 mg/dL (0.2-1.3); Bilirubin Unconjugated 0.6 mg/dL (0.0-1.1); Blood Urea Nitrogen 22 mg/dL (7-17); Calcium 9.9 mg/dL (8.4-10.2); Carbon Dioxide 30 mmol/L (22-32); Chloride 100 mmol/L (98-107); Estimated Glomerular Filt Rate > 60 mL/min (>60); Globulin 2.3 g/dL (1.7-4.1); Glucose 80 mg/dL (70-100); HEMOLYSIS < 15 (0-50); Potassium 4.3 mmol/L (3.4-5.1); Sodium 137 mmol/L (137-145)
== END ==
PROVIDERS: PCP Family Medicine; Referring Provider Internal Medicine Infectious Disease; Visit Provider Internal Medicine Infectious Disease
DX: N30.00 Acute cystitis without hematuria (principal); Z79.2 Long term (current) use of antibiotics; M46.24 Osteomyelitis of vertebra, thoracic region; R78.81 Bacteremia
CPT/HCPCS: 36415; 80048; 80076; 81001; 85025; 87040

== ENCOUNTER → 2024-03-10 07:25 | Outpatient (CLI) | payer BC, SELFPAY ==
[2023-05-01 12:22] VITALS: BMI 44.4
--- NOTE | 2024-03-10 07:26 | DI.US.S_ITS ---
PROCEDURE: US CAROTID DOPPLER BI INDICATIONS: dizziness TECHNIQUE: Color and pulse Doppler interrogation was performed of both carotid systems, with image documentation and velocity measurements. COMPARISON: None. FINDINGS: Stenosis calculations are based on SRU (Society of Radiologists in Ultras[employer]) criteria. Right side: Brachial blood pressure: 107/65 mm Hg. Common carotid artery peak systolic velocity: 78 cm/sec. Internal carotid artery peak systolic velocity: 92 cm/sec. Internal carotid artery end diastolic velocity: 39 cm/sec. External carotid artery peak systolic velocity: 97 cm/sec. ICA/CCA peak systolic ratio: 1.2 . Richard scale imaging description: Mild plaque Percent internal carotid artery stenosis: Less than 50%. Vertebral artery: Flow direction is antegrade. Left side: Brachial blood pressure: 109/64 mm Hg. Common carotid artery peak systolic velocity: 91 cm/sec. Internal carotid artery peak systolic velocity: 101 cm/sec. Internal carotid artery end diastolic velocity: 46 cm/sec. External carotid artery peak systolic velocity: 123 cm/sec. ICA/CCA peak systolic ratio: 1.1 . Richard scale imaging description: Moderate plaque Percent internal carotid artery stenosis: Less than 50% . Vertebral artery: Flow direction is antegrade. IMPRESSION: 1. In the right carotid artery, there is less than 50% stenosis based on peak systolic velocity criteria. 2. In the left carotid artery, there is less than 50% stenosis based on peak systolic velocity criteria. 3. Antegrade vertebral arteries. Dictated by: Rae Coon M.D. on 03/10/2024 at 10:10 Approved by: Rae Coon M.D. on 03/10/2024 at 10:13
== END ==
PROVIDERS: PCP Family Medicine; Referring Provider Family Medicine; Visit Provider Family Medicine
DX: E03.9 Hypothyroidism, unspecified (principal); Z87.19 Personal history of other diseases of the digestive system; R13.10 Dysphagia, unspecified; Z87.11 Personal history of peptic ulcer disease; R42 Dizziness and giddiness; I65.23 Occlusion and stenosis of bilateral carotid arteries
CPT/HCPCS: 93880

== ENCOUNTER 2024-03-25 18:41 | Emergency (ER) | payer BC, SELFPAY ==
[2023-05-01 12:22] VITALS: BMI 44.4
[2024-03-25 18:53] VITALS: BP 136/79; PULSE 86; RESP 16; TEMP 37.1; O2SAT 98; BMI 36.3
--- NOTE | 2024-03-25 19:00 | DI.RAD.S_ITS ---
PROCEDURE: XR SHOULDER LT MIN 2V INDICATIONS: fall with limited ROM TECHNIQUE: 2 views of the shoulder were acquired. COMPARISON: None. FINDINGS: Bones: Comminuted humeral fracture extending to the proximal neck. Fracture lucencies extend into the greater tuberosity. No dislocation at the glenohumeral joint space. Soft tissues: No suspicious soft tissue calcifications. IMPRESSION: Comminuted humeral head/neck fracture without dislocation. Dictated by: Rae Coon M.D. on 03/25/2024 at 19:44 Approved by: Rae Coon M.D. on 03/25/2024 at 19:45
--- NOTE | 2024-03-25 19:00 | DI.RAD.S_ITS ---
PROCEDURE: XR KNEE RT 3V INDICATIONS: fall with pain TECHNIQUE: 3 views of the knee were acquired. COMPARISON: [facility], CR, XR KNEE ARTHRITIC SERIES RT, 09/16/2023, 14:37. FINDINGS: Bones: No fractures or dislocations. No suspicious bony lesions. Moderate to severe tricompartmental arthritic change most severe laterally. Soft tissues: No joint effusion. No suspicious soft tissue calcifications. IMPRESSION: No visualized acute fracture or dislocation. However, if clinical concern and/or pain persist, short interval imaging followup in 7-10 days is recommended, as occult injury cannot be definitively excluded. Dictated by: Rae Coon M.D. on 03/25/2024 at 19:45 Approved by: Rae Coon M.D. on 03/25/2024 at 19:46
[2024-03-25 20:50] VITALS: BP 123/79; PULSE 72; RESP 16; O2SAT 100
[2024-03-26 01:59] VITALS: BP 134/79; PULSE 77; RESP 18; O2SAT 100
[2024-03-26 02:00] VITALS: BP 131/80; PULSE 77; O2SAT 100
--- NOTE | 2024-03-26 02:15 | DI.CT.S_ITS ---
PROCEDURE: CT UE LT WO CON INDICATIONS: L shoulder, comm fx likely humeral head on XR, further eval TECHNIQUE: Noncontrast 0.75 mm thick sections acquired from the acromioclavicular joint to the inferior scapula, with coronal and sagittal reformatting. COMPARISON: [facility], CR, XR SHOULDER LT MIN 2V, 03/25/2024, 19:04. FINDINGS: Image quality: Excellent. Bones: Acute comminuted fracture involving left proximal humeral shaft/surgical neck is seen with fracture line extending to involve both greater and lesser tuberosities. There is superior and medial migration of proximal humeral shaft with up to 5 millimeter impaction at fracture site. Anterior and laterally displaced fractured fragments are also seen. No other fracture or dislocation. [id number] acromioclavicular joint osteoarthritic changes are noted. Mild glenohumeral joint osteoarthritic changes also seen. No suspicious bony lesions. The visualized left ribs are intact. Soft tissues: There is no full-thickness rotator cuff tendon rupture. No significant rotator cuff muscle atrophy. No abnormal soft tissue calcifications. Small to moderate joint effusion and subacromial subdeltoid bursal fluid, no calcified intra-articular loose bodies. The visualized left lung field is clear. IMPRESSION: 1. Acute comminuted, impacted and mildly displaced fracture involving left proximal humeral shaft and humeral head as above. No other fracture or dislocation. [id number] left shoulder joint osteoarthritis. No suspicious bony lesions. 2. No gross full-thickness rotator cuff tendon rupture. No muscle atrophy. No abnormal soft tissue calcifications or calcified intra-articular loose bodies. No discrepancies from preliminary reading. Dictated by: Ted Wilson M.D. on 03/26/2024 at 10:12 Approved by: Ted Wilson M.D. on 03/26/2024 at 10:20
--- NOTE | 2024-03-26 02:16 | ED.FALL ---
HPI - Fall General Chief Complaint: Fall Stated Complaint: GLF No Thinners, L Arm Injury Time Seen by Provider: 03/26/24 01:49 Source: patient Mode of arrival: Ambulatory History of Present Illness HPI Narrative: 58-year-old female had mechanical ground level fall proximally 5:30 p.m. last night, using her walker that caught on a piece of carpeting, causing her to fall to the left side onto her left shoulder, also having pain to her right knee. Left shoulder hurts too much to really be able to move. History of prior left elbow remote surgery, no elbow pain today after the fall however. No left wrist forearm hand fingers pain. No pain to the right upper extremity. She denies hitting her head. She has no headache, denies nausea or vomiting. She has no weakness or numbness to her face arm or leg. She has not take blood thinner medications. Related Data Home Medications Medication Instructions Recorded Confirmed diphenhydramine HCl 50 mg capsule 50 mg PO HSP PRN Insomnia ##0 07/02/16 03/23/24 ascorbic acid (vitamin C) 1,000 mg 1,000 mg PO DAILY 07/02/17 03/23/24 tablet (Vitamin C) calcium citrate 1,000 mg PO DAILY 07/02/17 03/23/24 coenzyme Q10 200 mg capsule (Co 200 mg PO DAILY 07/02/17 03/23/24 Q-10) multivitamin 1 cap PO DAILY 07/02/17 03/23/24 vitamin A 3,000 mcg (10,000 unit) 10,000 unit PO 2XW 07/02/17 03/23/24 capsule vitamin B complex (B Complex 1 1 tab PO DAILY 07/02/17 03/23/24 tablet) vitamin d See Rx Instructions .Route .COMPLEX 07/02/17 03/23/24 vitamin e See Rx Instructions .Route .COMPLEX 07/02/17 03/23/24 zinc 50 mg tablet 50 mg PO DAILY 07/02/17 03/23/24 ferrous gluconate 240 mg (27 mg 100 mg PO DAILY 10/30/17 03/23/24 iron) tablet magnesium oxide 500 mg PO BID 01/08/18 03/23/24 acetaminophen 325 mg capsule 500 mg PO ONCE PRN Pain (Scale 04/06/21 03/23/24 Score 1-3) prasterone (dhea) 50 mg capsule 50 mg PO DAILY 04/06/21 03/23/24 (DHEA) vitamin K2 100 mcg capsule 100 mcg PO DAILY 04/06/21 03/23/24 omeprazole 20 mg capsule,delayed 20 mg PO BID peptic ulcer 03/23/24 03/23/24 release Previous Rx's Medication Instructions Recorded DISABLED PARKING PERMIT #1 ea 09/18/23 escitalopram oxalate 20 mg tablet 20 mg PO DAILY #90 tabs 10/08/23 (Lexapro) irbesartan 150 mg tablet 150 mg PO BID #180 tabs 10/08/23 levothyroxine 75 mcg tablet 75 mcg PO DAILY #90 tabs 11/08/23 liothyronine 5 mcg tablet (Cytomel) 10 mcg (2 x 5 mcg) PO DAILY #180 11/12/23 tabs gabapentin 600 mg tablet 600 mg PO BEDTIME #90 tabs 11/29/23 hydrocortisone 10 mg tablet 20 mg (2 x 10 mg) PO DAILY #60 tabs 12/09/23 nitrofurantoin 100 mg PO BID #14 caps 01/13/24 monohydrate/macrocrystals 100 mg capsule (Macrobid) cyclobenzaprine 5 mg tablet 5 - 10 mg (1 - 2 x 5 mg) PO TID 03/06/24 PRN muscle spasm #90 tabs oxycodone-acetaminophen 5 mg-325 2 tab PO Q4-6H PRN pain #240 tabs 03/16/24 mg tablet (Percocet) Allergies Allergy/AdvReac Type Severity Reaction Status Date / Time hydrocodone [HYDROCODONE] AdvReac Severe nausea, Verified 03/23/24 15:52 syncopal episode pregabalin [PREGABALIN] AdvReac Severe Fatigued Verified 03/23/24 15:52 Patient History Medical History Abnormal creatinine clearance glomerular filtration Acute right hip pain Acute upper gastrointestinal bleeding Anxiety (Unknown) Bilateral pubic rami fractures Bursitis (~12/2011) Cellulitis of right lower extremity Chronic headaches (Unknown) HTN (hypertension) Hypothyroidism (Unknown) Iron deficiency (~2000) Lumbar radiculopathy Melanoma Melena Right knee pain Sacral dysfunction Sepsis Sleep apnea Surgical History H/O Achilles tendon repair History of cataract removal with insertion of prosthetic lens History of gastric bypass (2000) History of sinus surgery History of spinal fusion (06/23/13) History of tonsillectomy Hx of laminectomy (08/19/18) Hx of vein stripping Status post dilation and curettage Status post dilation and curettage (11/23/16) Status post epidural steroid injection Status post tonsillectomy and adenoidectomy Social History household members: none Smoking Status: Never smoker alcohol intake: never Smoking Status: Never smoker Exam Narrative Exam Narrative: GENERAL: Well-developed patient, in mild distress. HEAD: Atraumatic. Normocephalic. EYES: Pupils equal round and reactive. Extraocular motions intact. No scleral icterus. No injection or drainage. ENT: Nose without bleeding, purulent drainage. Throat without erythema, tonsillar hypertrophy or exudate. Airway patent. NECK: Trachea midline. Non tender CARDIOVASCULAR: Regular rate and rhythm without murmurs, gallops, or rubs. RESPIRATORY: Clear to auscultation. Breath sounds equal bilaterally. No wheezes, rales, or rhonchi. GASTROINTESTINAL: Abdomen soft, non-tender, nondistended. EXTREMITIES: No edema or joint tenderness. Tenderness without gross deformity to left shoulder, limited range of motion due to shoulder pain. No tenderness at AC joint, or along clavicle. Right knee with infrapatellar patellar tendon area ecchymoses, no gross effusion, no april patellar tenderness. No limb length discrepancy. BACK: Nontender without deformity or crepitance. No flank tenderness. NEURO: AOx3. Motor functions grossly nonfocal SKIN: No rash or erythema of visible areas Initial Vital Signs Initial Vital Signs: Vital Signs Temperature 98.7 F 03/25/24 18:53 Pulse Rate 86 03/25/24 18:53 Respiratory Rate 16 03/25/24 18:53 Blood Pressure 136/79 03/25/24 18:53 Pulse Oximetry 98 03/25/24 18:53 Oxygen Delivery Method Room Air 03/25/24 18:53 Course Orders Ordered: ED Orders 03/26/24 02:15 CT UE LT wo con Stat Discontinued Medications Hydromorphone HCl (Hydromorphone 1 Mg Inj) 1 mg IM NOW ONE Stop: 03/26/24 02:23 Last Admin: 03/26/24 02:40 Dose: 1 mg Documented By: AB Vital Signs Vital signs: Vital Signs - 8 hr 03/26/24 01:59 03/26/24 01:59 03/26/24 02:00 Pulse Rate 77 77 77 Respiratory Rate 18 Blood Pressure 134/79 Pulse Oximetry 100 100 100 Oxygen Delivery Method Room Air 03/26/24 02:00 03/26/24 02:30 03/26/24 02:30 Pulse Rate 87 Respiratory Rate Blood Pressure 131/80 136/72 Pulse Oximetry 100 Oxygen Delivery Method 03/26/24 04:14 Pulse Rate 80 Respiratory Rate 18 Blood Pressure 134/70 Pulse Oximetry 100 Oxygen Delivery Method Room Air MDM - Fall Imaging Data Extremity x-ray #1: Radiologist's Impression: [address] [address] XRay Report Signed Patient: Nini Zuñiga MR#: [id number] : 1965 Acct:[id number] Age/Sex: 58 / F Date of Service: 03/25/24 Loc: ED Accession Number: [id number] Procedure: XR shoulder LT min 2V Ordering Provider: Vance Beaulieu MD PROCEDURE: XR SHOULDER LT MIN 2V INDICATIONS: fall with limited ROM TECHNIQUE: 2 views of the shoulder were acquired. COMPARISON: None. FINDINGS: Bones: Comminuted humeral fracture extending to the proximal neck. Fracture lucencies extend into the greater tuberosity. No dislocation at the glenohumeral joint space. Soft tissues: No suspicious soft tissue calcifications. IMPRESSION: Comminuted humeral head/neck fracture without dislocation. Dictated by: Rae Coon M.D. on 03/25/2024 at 19:44 Approved by: Rae Coon M.D. on 03/25/2024 at 19:45 Extremity x-ray #2: Radiologist's Impression: [address] [address] XRay Report Signed Patient: Nini Zuñiga MR#: [id number] : 1965 Acct:[id number] Age/Sex: 58 / F Date of Service: 03/25/24 Loc: ED Accession Number: [id number] Procedure: XR knee RT 3V Ordering Provider: Vance Beaulieu MD PROCEDURE: XR KNEE RT 3V INDICATIONS: fall with pain TECHNIQUE: 3 views of the knee were acquired. COMPARISON: [facility], CR, XR KNEE ARTHRITIC SERIES RT, 09/16/2023, 14:37. FINDINGS: Bones: No fractures or dislocations. No suspicious bony lesions. Moderate to severe tricompartmental arthritic change most severe laterally. Soft tissues: No joint effusion. No suspicious soft tissue calcifications. IMPRESSION: No visualized acute fracture or dislocation. However, if clinical concern and/or pain persist, short interval imaging followup in 7-10 days is recommended, as occult injury cannot be definitively excluded. Dictated by: Rae Coon M.D. on 03/25/2024 at 19:45 Approved by: Rae Coon M.D. on 03/25/2024 at 19:46 MDM Narrative Medical decision making narrative: 58-year-old female with mechanical ground level fall last evening with left shoulder pain, screening x-ray shows humeral head fracture without dislocation, it could be comminuted, we will obtain CT further imaging to further delineate the anatomic fractures, for Orthopedic surgery follow up. Patient placed in left sling. Patient also has right knee pain after her fall, has been able to walk on the knee however. Right knee and proximal foreleg ecchymoses, no gross deformity, no tenderness medial or lateral joint line, x-ray screen negative. We discussed CT knee scanning, she has been walking on the knee, declined for now. X-ray left shoulder shows fracture humeral head, likely comminuted, but reasonably aligned, neurovascularly intact, placed in sling after triage. We will obtain CT shoulder for further evaluation of the bony fragments to help with surgical orthopedic follow up. Patient agrees. Requests for pain medication, IM Dilaudid given. Seems more comfortable. CT left shoulder noncontrast. Impressions: ?Comminuted mildly impacted fracture of the left humeral head. ? See tele radiology report Patient has chronic pain medication oxycodone to take at home. Sling for discharge. States that she can use a cane for ambulation. Home with her mother. Follow up with Orthopedic surgery, given contact for on-call surgery Dr. Ty. Discharge Plan Departure Patient Disposition: Home Clinical Impression: Fracture of head of left humerus, Contusion of right knee Instructions: How to Prevent Falls Activity Restrictions/Additional Instructions: Ms Pagh, You had mechanical type fall resulting in left shoulder pain, on x-ray there is fracture. CT scanning done for further staging of the fracture fragments to help Orthopedic surgery in follow up, placed in left shoulder sling. Keep wearing the sling until Orthopedic surgery follow up. Contact Orthopedic surgery at the clinic number below, Dr. Ty, unless you will be making arrangements through some other orthopedic surgeon. You also had right knee pain, bruising noted on examination, but you had been weight-bearing and walking around on that knee. X-rays performed showed no obvious fracture. We did discuss additional imaging of the knee such as CT scanning, declined for now. Intramuscular Dilaudid given, pain improved, take your chronic pain medication as prescribed. Follow up with Orthopedic surgery noted as above. Return earlier to this/nearest emergency department for any change worsening symptoms or any concerns prior. Thank you for allowing team take care of you today. Prescriptions: No Action multivitamin Capsule 1 cap PO DAILY vitamin A 10,000 unit Capsule 10,000 unit PO 2XW Rx Instructions: 2 x week ascorbic acid (vitamin C) [Vitamin C] 1,000 mg Tablet 1,000 mg PO DAILY vitamin d See Rx Instructions .ROUTE .COMPLEX Patient Comments: Twice weekly Rx Instructions: 50,000 units orally twice weekly vitamin e See Rx Instructions .ROUTE .COMPLEX Rx Instructions: 400 mg orally two to three times per week vitamin B complex [B Complex 1] Tablet 1 tab PO DAILY calcium citrate 250 mg calcium Tablet 1,000 mg PO DAILY zinc 50 mg Tablet 50 mg PO DAILY coenzyme Q10 [Co Q-10] 200 mg Capsule 200 mg PO DAILY magnesium oxide 400 mg magnesium Capsule 500 mg PO BID diphenhydramine HCl 50 MG capsule 50 mg PO HSP PRN (Reason: Insomnia) Qty: 0 (DME) DISABLED PARKING PERMIT See Rx Instructions .ROUTE .MEDSUPPLY Qty: 1 0RF Rx Instructions: I FIND THIS PATIENT TO BE MEDICALLY DISABLED AND QUALIFIED FOR DISABLE PARKING INDICATED, AND SIGNED ON THE ACCOMPANYING [employer] PARK APPLICATION FOR INDIVIDUALS escitalopram oxalate [Lexapro] 20 mg tablet 20 mg PO DAILY Qty: 90 2RF irbesartan 150 mg tablet 150 mg PO BID Qty: 180 2RF levothyroxine 75 mcg tablet 75 mcg PO DAILY Qty: 90 1RF liothyronine [Cytomel] 5 mcg tablet 10 mcg PO DAILY Qty: 180 1RF gabapentin 600 mg tablet 600 mg PO BEDTIME Qty: 90 1RF hydrocortisone 10 mg tablet 20 mg PO DAILY Qty: 60 3RF nitrofurantoin monohyd/m-cryst [Macrobid] 100 mg capsule 100 mg PO BID Qty: 14 0RF Rx Instructions: must administer with a meal/food cyclobenzaprine 5 mg tablet 5 - 10 mg PO TID PRN (Reason: muscle spasm) Qty: 90 3RF acetaminophen 325 mg capsule 500 mg PO ONCE PRN (Reason: Pain (Scale Score 1-3)) vitamin K2 100 mcg capsule 100 mcg PO DAILY DHEA 50 mg capsule 50 mg PO DAILY oxycodone-acetaminophen [Percocet] 5-325 mg tablet 2 tab PO Q4-6H PRN (Reason: pain) Qty: 240 0RF Rx Instructions: Additional script given acute pelvic fractures. Watch for sedation. Stagger with other potentially sedating medicines. Call for refills if and when needed. Max 3000mg acetaminophen daily from all sources. ferrous gluconate 240 MG tablet 100 mg PO DAILY omeprazole 20 mg capsule,delayed release(DR/EC) 20 mg PO BID Referrals: Xander Ty MD [Physician] - Pina Decker DO [Primary Care Provider] - Stand Alone Forms: Patient Portal/API/Survey
[2024-03-26 02:30] VITALS: BP 136/72; PULSE 87; O2SAT 100
[2024-03-26] MEDS: HYDROMORPHONE 1 MG INJ IM (02:40)
[2024-03-26 04:14] VITALS: BP 134/70; PULSE 80; RESP 18; O2SAT 100
== END 2024-03-26 04:15 | disposition home or self-care (01) ==
PROVIDERS: Emergency Provider Emergency Medicine; PCP Family Medicine
DX: S42.292A Other displaced fracture of upper end of left humerus, initial encounter for closed fracture (principal); W01.0XXA Fall on same level from slipping, tripping and stumbling without subsequent striking against object, initial encounter; S80.01XA Contusion of right knee, initial encounter
CPT/HCPCS: 73030; 73200; 73562; 96372; 99283; 99284; J1171

== ENCOUNTER → 2024-07-10 16:15 | Outpatient (CLI) | payer BC, SELFPAY ==
[2023-05-01 12:22] VITALS: BMI 44.4
[2024-07-10 18:15] LABS: Estradiol, Total 31.4 pg/mL
[2024-07-10 18:18] LABS: Ferritin 126 ng/mL (11-264)
== END ==
PROVIDERS: PCP Family Medicine; Referring Provider Family Medicine; Visit Provider Obstetrics & Gynecology
DX: M81.0 Age-related osteoporosis without current pathological fracture (principal); D50.9 Iron deficiency anemia, unspecified
CPT/HCPCS: 36415; 82670; 82728

== ENCOUNTER → 2024-09-22 16:11 | Outpatient (CLI) | payer BC, SELFPAY ==
[2023-05-01 12:22] VITALS: BMI 44.4
[2024-09-22 17:41] LABS: UR Morphine/Opiate cutoff 300 Negative (Negative); Ur Specific Gravity Normal (Normal); Urine Tetrahydrocannabinol Negative (Negative)
[2024-09-22 17:42] LABS: Urine MDMA Negative (Negative); Urine Methamphetamines Negative (Negative); Urine Tricyclic Antidepressant Positive (Negative)
[2024-09-22 19:45] LABS: Estradiol, Total 38.1 pg/mL
== END ==
PROVIDERS: PCP Family Medicine; Referring Provider Family Medicine; Visit Provider Obstetrics & Gynecology
DX: Z78.0 Asymptomatic menopausal state (principal); F11.90 Opioid use, unspecified, uncomplicated
CPT/HCPCS: 36415; 80305; 82670

== ENCOUNTER → 2025-01-01 16:04 | Outpatient (CLI) | payer BC, SELFPAY ==
[2023-05-01 12:22] VITALS: BMI 44.4
--- NOTE | 2025-01-01 16:29 | EKG_ITS ---
[address] [address] Test Date: 2025-01-01 Pat Name: Nini Zuñiga Department: [facility] Room: Gender: Female [employer]: GAYLE : 1965 Requested By: Order Number: [id number] Reading MD: Marshall Mcdonough MD Measurements Intervals [place] Rate: 67 P: 33 NH: 142 QRS: 11 QRSD: 74 T: 57 QT: 368 QTc: 388 Interpretive Statements Normal sinus rhythm Electronically Signed On 01-02-2025 9:28:14 PST by Marshall Mcdonough MD
[2025-01-01 16:55] LABS: Hematocrit 42.4 % (36-46); Hemoglobin 14.1 g/dL (12.0-16.0); Mean Corpuscular HGB Conc 33.3 % (30-36); Mean Corpuscular Hemoglobin 32.8 PG (26-34); Mean Corpuscular Volume 98.5 fL (80-100); Platelet Count 348 X10^3/uL (150-400)
[2025-01-01 17:09] LABS: Add Manual Diff / Slide Review YES
[2025-01-01 17:12] LABS: Hemoglobin A1C% w Est Avg Glu 5.1 % (4.0-6.0)
[2025-01-01 17:13] LABS: Albumin 3.8 g/dL (3.5-5.0); Blood Urea Nitrogen 28 mg/dL (7-17); Calcium 9.3 mg/dL (8.4-10.2); Carbon Dioxide 22 mmol/L (22-32); Chloride 105 mmol/L (98-107); Estimated Glomerular Filt Rate > 60 mL/min (>60); Glucose 96 mg/dL (70-99); HEMOLYSIS < 15 (0-50); Sodium 137 mmol/L (137-145)
[2025-01-01 17:18] LABS: Potassium 5.4 mmol/L (3.4-5.1); Prealbumin 44.8 mg/dL (17.6-36.0)
[2025-01-01 17:31] LABS: Vitamin D 25 Hydroxy (D3) 69.5 ng/mL (30.0-100.0)
[2025-01-01 17:47] LABS: Estradiol, Total 72.6 pg/mL
[2025-01-01 17:52] LABS: Basophils Percent Manual 1.0 % (0-1); Lymphocytes Percent Manual 7.0 % (25-45); Metamyelocytes Percent 1.0 % (-0); Monocytes Percent Manual 3.0 % (2-11); Myelocytes Percent 1.0 % (-0); Neutrophils Absolute Manual 10179 /uL (3000-5900); Segmented Neutrophils Percent 87.0 % (38-70); Total Cells Counted 100
[2025-01-01 17:53] LABS: Hypersegmented Neutrophils 3+
[2025-01-01 17:54] LABS: Macrocytosis 1+
== END ==
PROVIDERS: PCP Family Medicine; Referring Provider Orthopaedic Surgery Adult Reconstructive Orthopaedic Surgery; Visit Provider Obstetrics & Gynecology
DX: Z01.818 Encounter for other preprocedural examination (principal); M81.0 Age-related osteoporosis without current pathological fracture; M17.11 Unilateral primary osteoarthritis, right knee; Z86.19 Personal history of other infectious and parasitic diseases
CPT/HCPCS: 36415; 80048; 82040; 82306; 82670; 83036; 84134; 85007; 85025; 85651; 86140; 93005; 93010